=== PATIENT | male | born 1945 | race Caucasian/White ===

== ENCOUNTER → 2017-10-20 08:49 | Outpatient (CLI) | payer OTHER, MEDICARE, SELFPAY ==
[2017-10-20 10:26] LABS: Add Manual Diff / Slide Review NO; Basophils Percent Auto 1.1 % (0-2); Eosinophils Percent Auto 2.7 % (2-4); Hematocrit 42.6 % (41-53); Hemoglobin 14.5 g/dL (13.5-17.5); Lymphocytes Percent Auto 34.3 % (25-40); Mean Corpuscular HGB Conc 34.1 % (30-36); Mean Corpuscular Hemoglobin 32.6 PG (26-34); Mean Corpuscular Volume 95.8 fL (80-100); Monocytes Percent Auto 8.9 % (3-14); Neutrophils Absolute Auto 2500 /uL (3000-5900); Platelet Count 212 X10^3/uL (150-400); Red Blood Cell Count 4.45 X10^6/uL (4.5-5.9); Red Cell Distribution Width 13.2 % (11.6-14.8); White Blood Cell Count 4.7 X10^3/uL (4.5-11.0)
[2017-10-20 10:38] LABS: Hemoglobin A1C% w Est Avg Glu 5.6 % (4.0-6.0)
[2017-10-20 11:54] LABS: Alanine Aminotransferase 28 IU/L (21-72); Albumin 3.7 g/dL (3.5-5.0); Albumin Globulin Ratio 1.3 (1.0-2.8); Alkaline Phosphatase 85 U/L (38-126); Aspartate Aminotransferase 23 IU/L (17-59); BUN Creatinine Ratio 21.3 (6-22); Bilirubin Total 0.8 mg/dL (0.2-1.3); Blood Urea Nitrogen 17 mg/dL (9-20); Calcium 8.9 mg/dL (8.4-10.2); Carbon Dioxide 26 mmol/L (22-32); Chloride 106 mmol/L (98-107); Cholesterol 174 mg/dL (140-199); Estimated Glomerular Filt Rate > 60.0 mL/min (>60); Globulin 2.9 g/dL (1.7-4.1); Glucose 115 mg/dL (80-110); HDL Cholesterol 29 mg/dL (40-60); HEMOLYSIS < 15 (0-50); Potassium 4.4 mmol/L (3.4-5.1); Sodium 142 mmol/L (137-145); Total Protein 6.6 g/dL (6.3-8.2)
[2017-10-20 11:55] LABS: LDL Cholesterol Calculated 111 mg/dL (<100); Triglycerides 169 mg/dL (35-150)
[2017-10-20 12:21] LABS: Prostate Specific Antigen Scrn 2.22 ng/mL (0.1-4.0)
== END ==
PROVIDERS: Family Provider Family Medicine; PCP Family Medicine; Visit Provider Family Medicine
DX: R73.01 Impaired fasting glucose (principal); R73.09 Other abnormal glucose; R00.2 Palpitations; I48.91 Unspecified atrial fibrillation; E78.4 Other hyperlipidemia; Z80.42 Family history of malignant neoplasm of prostate; Z12.5 Encounter for screening for malignant neoplasm of prostate; Z79.899 Other long term (current) drug therapy
CPT/HCPCS: 36415; 80053; 80061; 83036; 85025; G0103

== ENCOUNTER → 2018-02-03 11:55 | Outpatient (CLI) | payer OTHER, MEDICARE, SELFPAY ==
[2018-02-03 12:25] LABS: Add Manual Diff / Slide Review NO; Eosinophils Percent Auto 1.9 % (2-4); Hematocrit 44.2 % (41-53); Hemoglobin 15.2 g/dL (13.5-17.5); Lymphocytes Percent Auto 27.2 % (25-40); Mean Corpuscular HGB Conc 34.4 % (30-36); Mean Corpuscular Hemoglobin 32.7 PG (26-34); Monocytes Percent Auto 9.5 % (3-14); Neutrophils Absolute Auto 3600 /uL (3000-5900); Neutrophils Percent Auto 60.4 % (50-75); Platelet Count 212 X10^3/uL (150-400); Red Blood Cell Count 4.65 X10^6/uL (4.5-5.9); Red Cell Distribution Width 12.7 % (11.6-14.8)
[2018-02-03 13:52] LABS: Carbon Dioxide 28 mmol/L (22-32); Chloride 104 mmol/L (98-107); HEMOLYSIS < 15 (0-50); Potassium 4.4 mmol/L (3.4-5.1); Sodium 141 mmol/L (137-145)
== END ==
PROVIDERS: Family Provider Family Medicine; PCP Family Medicine; Visit Provider Orthopaedic Surgery
DX: M16.0 Bilateral primary osteoarthritis of hip (principal); Z01.818 Encounter for other preprocedural examination; Z01.812 Encounter for preprocedural laboratory examination
CPT/HCPCS: 80051; 85025; 93005; 93010

== ENCOUNTER 2018-03-02 12:35 | Inpatient (IN) | payer OTHER, MEDICARE, SELFPAY ==
[2018-02-24 09:33] VITALS: BMI 28.5
[2018-03-02] VITALS (12 sets, daily range): BP systolic 105–141; BP diastolic 63–80; PULSE 43–76; RESP 10–21; TEMP 36.1–36.8; O2SAT 91–98; BMI 28.9
--- NOTE | 2018-03-02 | DI.RAD.S_ITS ---
PROCEDURE: XR PELVIS 1-2V INDICATIONS: POST OP TOTAL HIP TECHNIQUE: 1 view of the lower pelvis acquired. [place] WITH LATERAL HIP LEFT, 09/16/2017, 9:15. [facility]ES[facility] Lock, BILATERAL HIP 2VW, 04/29/2016, 15:33. FINDINGS: Bones: Patient is status post left hip arthroplasty, with hardware components in expected positions. The hip joint appears congruent. The visualized bony structures appear intact. Prominent degenerative changes are noted within the right hip. Soft tissues: Overlying postoperative changes are noted. No suspicious soft tissue densities. IMPRESSION: Intraoperative left hip arthroplasty as above. Dictated by: Baylee Ocampo M.D. on 03/02/2018 at 16:39 Approved by: Baylee Ocampo M.D. on 03/02/2018 at 16:41
[2018-03-02] MEDS: CELECOXIB 200 MG CAPSULE PO (13:18)
[2018-03-02] MEDS: PREGABALIN 75 MG CAPSULE PO (13:18)
[2018-03-02] MEDS: ACETAMINOPHEN 325 MG TABLET 975 MG PO ×2 (13:18→21:33)
--- NOTE | 2018-03-02 14:28 | PM.PREOP ---
Pre-operative Note Interval Note Pre-op Check: Yes History & Physical Reviewed by Physician Changes: No
[2018-03-02] MEDS: MIDAZOLAM 2 MG/2 ML VIAL IV (14:41)
--- NOTE | 2018-03-02 14:42 | SUR.PREOP ---
Pt taken directly in the OR after versed given via iv. pt talking to RN and at bedside.
[2018-03-02] MEDS: CEFAZOLIN 2 GM/100 ML FROZ.PIGGY IV ×2 (14:53→23:43)
[2018-03-02] MEDS: TRANEXAMIC ACID 1,000 MG VIAL 2000 MG INJ ×2 (15:05→15:46)
--- NOTE | 2018-03-02 15:14 | SUR.OPER ---
Lateral on padded OR bed. Gel axillary roll. Arms secured on padded armboard with pillow supporting top arm. Padded hip positioner braces x4 - anterior and posterior chest and pelvis. Additional gel pad used anterior pelvis. Gel pad under bottom leg from knee to foot and secured with tape over sheet.
[2018-03-02] MEDS: BUPIVACAINE 0.25% W/ EPI VIAL 50 ML INJ (15:22)
--- NOTE | 2018-03-02 16:13 | PM.OP.1 ---
Operative Date/Time/Diagnoses Date of procedure: 03/02/18 Time of procedure: 16:13 Pre-op diagnosis: Left hip degenerative joint disease Post-op diagnosis: same Procedure & Clinicians Procedure: Left total hip arthroplasty (CPT code 72816 with dental chairside assistant) Same procedure as scheduled: Yes Indications: Patient is an 72-year-old male with severe left hip DJD. The patient has pain with activities and at rest, limited ambulation and activity tolerance, difficulties with ADLs, and failure of conservative treatment. We have discussed the nature of condition, treatment options, risks and benefits, and patient elects to proceed with total hip arthroplasty and gives informed consent. Surgeon: Harsh Fields Stationary Steam Engineer: Yamilet Adams Anesthesia Type: General and Spinal Operative Notes Closure Type: primary Specimen(s): none sent Implants & Drains: Acetabulum: Rivera [employer] Nephew R3 acetabular component size 58 mm Femoral component: Rivera [employer] Nephew Synergy stem size 16 with high offset Femoral head: 36 mm + 0 cobalt chrome Estimated Blood Loss (mL): 100 Blood products transfused: none Procedure in detail: After satisfaction induction of anesthetic, and administration of IV antibiotics, the patient was positioned in the lateral decubitus position with all bony prominences well padded and pelvic position secured using a hip lead welder positioning device. Left hip and lower extremity prepped and draped in the usual sterile fashion, 1st dose of intravenous tranexamic acid was administered, then a longitudinal incision was created centered over the greater trochanter and carried sharply through the skin and subcutaneous tissues down to the fascia kevin which was divided longitudinally and retracted with a Charnley retractor. External rotators visualize, cut, tagged, and retracted posteriorly, then the capsule was cut in a T-type fashion with the corners tagged and retracted. Hip was dislocated and femoral neck cut made according to preoperative templating. Acetabular retractors then placed, and the acetabular labrum and osteophytes were excised. The acetabulum was then sequentially reamed to 57 mm with an excellent circumferential ream and fit with the trial. The trial component was removed and a permanent size 58 mm Rivera [employer] Nephew R3 acetabular component was selected, positioned, and impacted with satisfactory position and fixation achieved. Permanent liner was then inserted with the elevated lip directed posteriorly. Soft tissue then removed off the lateral femoral neck in the lateral neck was entered using a box osteotome. T-handled reamers placed down the canal followed by sequential broaching to 16 with the final broach left in place for trial reduction with a high offset neck which demonstrated excellent leg length, range of motion, and stability characteristics with a 36 mm +0 trial ball. The trial and broach were removed, and a permanent size 16 high offset Rivera and Nephew Synergy stem was selected and inserted with excellent position and fixation achieved. Another trial reduction yielded the above characteristics so the trial ball was exchanged for a permanent 36 mm +0 cobalt chrome ball. The hip was irrigated and reduced and excellent leg length range of motion and stability characteristics were achieved and maintained. The hip was copiously irrigated, and the capsule repaired with #2 Ethibond, and the piriformis was repaired back to the greater trochanter with the same. Fascia kevin closed with interrupted #1 Ethibond sutures, and the subcutaneous tissues were closed in 2 layers of 0 Vicryl and 2 0 Vicryl. Skin was closed with jon and sterile dressings applied. Second dose of tranexamic acid was administered intravenously, and the anesthetic was terminated. Complications: none Condition: stable Disposition: PACU Plan for aftercare: Patient will be admitted to the acute care [facility], and anticipate discharge on postop day 1-2 with follow-up in office in 10-14 days. Outpatient physical therapy will be arranged and patient will continue to observe posterior hip precautions. Patient will continue use of postoperative Lovenox for 10 days postop.
--- NOTE | 2018-03-02 16:16 | P.OP_ITS ---
Operative Date/Time/Diagnoses Date of procedure: 03/02/18 Time of procedure: 16:13 Pre-op diagnosis: Left hip degenerative joint disease Post-op diagnosis: same Procedure & Clinicians Procedure: Left total hip arthroplasty (CPT code 18771 with assistant laboratory director) Same procedure as scheduled: Yes Indications: Patient is an 72-year-old male with severe left hip DJD. The patient has pain with activities and at rest, limited ambulation and activity tolerance, difficulties with ADLs, and failure of conservative treatment. We have discussed the nature of condition, treatment options, risks and benefits, and patient elects to proceed with total hip arthroplasty and gives informed consent. Surgeon: Harsh Fields Job Lithographer: Yamilet Adams Anesthesia Type: General and Spinal Operative Notes Closure Type: primary Specimen(s): none sent Implants & Drains: Acetabulum: Rivera [employer] Nephew R3 acetabular component size 58 mm Femoral component: Rivera [employer] Nephew Synergy stem size 16 with high offset Femoral head: 36 mm + 0 cobalt chrome Estimated Blood Loss (mL): 100 Blood products transfused: none Procedure in detail: After satisfaction induction of anesthetic, and administration of IV antibiotics, the patient was positioned in the lateral decubitus position with all bony prominences well padded and pelvic position secured using a hip metal flow coordinator positioning device. Left hip and lower extremity prepped and draped in the usual sterile fashion, 1st dose of intravenous tranexamic acid was administered, then a longitudinal incision was created centered over the greater trochanter and carried sharply through the skin and subcutaneous tissues down to the fascia kevin which was divided longitudinally and retracted with a Charnley retractor. External rotators visualize, cut, tagged, and retracted posteriorly, then the capsule was cut in a T-type fashion with the corners tagged and retracted. Hip was dislocated and femoral neck cut made according to preoperative templating. Acetabular retractors then placed, and the acetabular labrum and osteophytes were excised. The acetabulum was then sequentially reamed to 57 mm with an excellent circumferential ream and fit with the trial. The trial component was removed and a permanent size 58 mm Rivera and Nephew R3 acetabular component was selected, positioned, and impacted with satisfactory position and fixation achieved. Permanent liner was then inserted with the elevated lip directed posteriorly. Soft tissue then removed off the lateral femoral neck in the lateral neck was entered using a box osteotome. T-handled reamers placed down the canal followed by sequential broaching to 16 with the final broach left in place for trial reduction with a high offset neck which demonstrated excellent leg length, range of motion, and stability characteristics with a 36 mm +0 trial ball. The trial and broach were removed, and a permanent size 16 high offset Rivera and Nephew Synergy stem was selected and inserted with excellent position and fixation achieved. Another trial reduction yielded the above characteristics so the trial ball was exchanged for a permanent 36 mm +0 cobalt chrome ball. The hip was irrigated and reduced and excellent leg length range of motion and stability characteristics were achieved and maintained. The hip was copiously irrigated , and the capsule repaired with #2 Ethibond, and the piriformis was repaired back to the greater trochanter with the same. Fascia kevin closed with interrupted #1 Ethibond sutures, and the subcutaneous tissues were closed in 2 layers of 0 Vicryl and 2 0 Vicryl. Skin was closed with jon and sterile dressings applied. Second dose of tranexamic acid was administered intravenously , and the anesthetic was terminated. Complications: none Condition: stable Disposition: PACU Plan for aftercare: Patient will be admitted to the acute care [facility], and anticipate discharge on postop day 1-2 with follow-up in office in 10-14 days. Outpatient physical therapy will be arranged and patient will continue to observe posterior hip precautions. Patient will continue use of postoperative Lovenox for 10 days postop.
--- NOTE | 2018-03-02 16:32 | SUR.PHASEI ---
pt arrived, gradually awake, report to solis Leblanc
--- NOTE | 2018-03-02 16:34 | SUR.PHASEI ---
Assumed care. Pt denied pain or nausea. VS stable.
--- NOTE | 2018-03-02 16:40 | SUR.PHASEI ---
Report called to Rula
--- NOTE | 2018-03-02 16:57 | SUR.PHASEI ---
Pt transferred to the floor, awake, oriented. VS stable. Drsg CDI. IV saline locked. Belongings bag with patient. Report to Rula.
--- NOTE | 2018-03-02 17:05 | PC.ADMIT ---
[email or web address] Admission Note: The patient,Kp Cortez,72 y/o, was given written information regarding hospital policies, unit procedures and contact persons. Patient's smoking status: Former smoker. Vital Signs - 8 hr 03/02/18 13:07 03/02/18 16:10 03/02/18 16:15 Temperature 97.0 F L 97.0 F L Pulse Rate 52 L 52 L 54 L Respiratory Rate 15 16 17 Blood Pressure 141/80 H 115/69 110/63 Pulse Oximetry 98 93 94 03/02/18 16:20 03/02/18 16:26 03/02/18 16:43 Temperature Pulse Rate 51 L 51 L 47 L Respiratory Rate 18 10 L 10 L Blood Pressure 112/66 105/75 114/67 Pulse Oximetry 94 95 94 Patient up from pacu, awake and alert. Denies any pain. uses hearing aids but does not have them with him at this time.
[2018-03-02] MEDS: LACTATED RINGERS 1,000 ML 125 ML IV (17:29)
--- NOTE | 2018-03-02 17:42 | PC.NURSE ---
[place] shift note: Patient admitted to AC post operatively for a Left hip arthroplasty. Awake, alert, and cooperative. No c/o nausea, tolerating regular diet. Bulky dressing to left hip, CDI. Hip precautions maintained, pillow in between extremities. SCD in place. Sensation present to LLE, warm, cap refill < 3 sec, 2+ pedal pulses, however unable to moves toes, only moving foot slightly off bed. IVF infusing. at bedside providing supportive care, call light within reach
[2018-03-02] MEDS: hydrOXYzine pamoate 25 MG CAPSULE PO (19:09)
[2018-03-02] MEDS: FINASTERIDE 5 MG TABLET PO (21:30)
[2018-03-02] MEDS: TAMSULOSIN 0.4 MG CAPSULE 0.8 MG PO (21:31)
[2018-03-02] MEDS: PROPAFENONE 150 MG TABLET PO (21:31)
[2018-03-02] MEDS: DOCUSATE 100 MG CAPSULE PO (21:32)
--- NOTE | 2018-03-03 00:07 | PC.NURSE ---
Addendum entered by Karen Easley R.N. 03/03/18 06:06: Up to bathroom and attempted to urinate again but states only dribbled and stated he had a burning sensation. Discussed plan in regards to being able to urinate by 1100 or will bladder scan again and knows he will be unable to discharge unless he is able to urinate. Provided cranberry juice. Currently sitting up in chair with chair alarm on. Original Note: Addendum entered by Karen Easley R.N. 03/03/18 03:31: Patient still unable to urinate so agreeable to in/out cath. Cath done with patient stating pain during catheterization but overall tolerated. UOP 600cc clear celeste. SCD's removed per patient request; states unable to sleep with them on. Original Note: Addendum entered by Karen Easley R.N. 03/03/18 01:56: Still has been unable to urinate and bladder scan indicating 501cc in bladder. Patient refuses to have in/out cath at this time; wants to try drinking more water and will try to urinate again around 0230. Original Note: Patient is alert and oriented. Breath sounds diminished but CTA with RA sat of 93%. HRR. Denies nausea. BT very hypoactive and denies flatus. Was up to bathroom at shift change but was unable to void so has not voided as yet since return from surgery around 1700. Is able to move self in bed. Dressing to left hip is CDI. CMS intact. Reports when up to bathroom he felt like his left knee was going to give out; currently with pillows between knees to maintain alignment. SCD's applied. Fall risk score is moderate; bed alarm activated for night. Denies pain.
[2018-03-03] MEDS: LACTATED RINGERS 1,000 ML 125 ML IV (02:51)
[2018-03-03 03:00] VITALS: BP 108/73; PULSE 68; RESP 16; TEMP 36.4; O2SAT 93
[2018-03-03 06:41] LABS: Hematocrit 38.4 % (41-53); Hemoglobin 12.9 g/dL (13.5-17.5)
[2018-03-03] MEDS: CEFAZOLIN 2 GM/100 ML FROZ.PIGGY IV (06:54)
[2018-03-03 07:00] VITALS: BP 130/67; PULSE 69; RESP 16; TEMP 36.6; O2SAT 96
--- NOTE | 2018-03-03 07:49 | PM.DS.1 ---
History of Present Illness Date Patient Seen: 03/03/18 Time Patient Seen: 07:50 Chief complaint: [id number] LEFT TOTAL HIP ARTHROPLASTY Narrative: Pain mild. Denies fever chills. Was able to void a small amount this morning. Patient notes he has had history of BPH. Was able to get up with assistance and walk to the bathroom. Has not yet had physical therapy. Patient's is home to assist him. Patient would like to go home today if safe to do so. Discharge Providers Date of admission: 03/02/18 12:35 Primary care physician: Kp Hicks MD Consults: 03/02/18 16:49 Consult to Discharge Planning Routine Comment: Consult to Physical Therapy Evaluate & Treat Comment: Physician Instructions: post op ALESSANDRA protocol Consult to Respiratory Therapy Evaluate & Treat Comment: Physician Instructions: Evaluate and treat Discharge provider: Yoshi Givens PA-C Discharge Date: 03/03/18 Summary Discharge Diagnosis: Status post left total hip arthroplasty Hospital Course: Patient admitted to the hospital for left total hip arthroplasty. Patient failed a long course of outpatient conservative treatment for severe left hip DJD. Patient consented for left total hip arthroplasty. Patient taken to the operating room and is back in his room recovering well and is in stable condition. Patient has had some difficulty voiding. Patient is on Flomax and was able to void a small amount this morning. Patient will work with physical therapy prior to discharge. Patient will also need to urinate well prior to discharge. Status at Discharge Functional status at discharge: uses cane/walker Overall status at discharge: patient is progressing back to baseline Time Spent with Patient Less than 30 minutes Exam Vital Signs (past 8 hours): - 03/03/18 03:00 Temperature 97.5 F L Pulse Rate 68 Respiratory Rate 16 Blood Pressure 108/73 Pulse Oximetry 93 Oxygen Delivery Method Room Air Narrative Exam Narrative: Pleasant 72-year-old male resting comfortably in bed in no apparent distress. Left hip dressing is clean, dry and intact. Neurovascular status is intact to the distal left lower extremity. Objective Labs Result Diagrams: 03/03/18 06:23 Labs: Laboratory Results - last 24 hr 03/03/18 06:23 Hgb 12.9 L Hct 38.4 L Discharge Plan Discharge Plan Patient Disposition: Home Discharge comment: DC after PT today Needs to urinate prior to DC Discharge Med Rec/Prescriptions Prescriptions: New acetaminophen 325 mg Tablet 975 mg PO TID Qty: 60 RF: 0 enoxaparin [Lovenox] 40 mg/0.4 mL Syringe 40 mg subcut DAILY Qty: 9 RF: 0 Continue PROPAFENONE HCL (Propafenone HCl) 150 mg PO TID Qty: 90 RF: 0 metoprolol succinate 50 mg Tablet Extended Release 24 Hr 50 mg PO DAILY RF: 0 lorazepam 0.5 mg Tablet 0.5 mg PO BEDTIME PRN (Reason: flying) RF: 0 tamsulosin 0.4 mg Capsule 0.8 mg PO QPM RF: 0 etodolac 400 mg Tablet 400 mg PO BID RF: 0 finasteride 5 mg Tablet 5 mg PO QPM RF: 0 sildenafil [Viagra] 25 mg Tablet 50 mg PO DAILY PRN (Reason: Sexual Activity) RF: 0 Discontinued aspirin [Aspirin Low Dose] 81 mg Tablet,Delayed Release (Dr/Ec) 2 tab PO QAM Qty: 0 RF: 0 Follow up/Referrals: Kp Hicks MD [Primary Care Provider] - Harsh Fields MD [Physician] - 1 Week Provider Discharge Instructions Diet: Diet as Tolerated Activity: Weightbearing as tolerated, posterior hip precautions Cold/Heat Therapy: Ice to the affected hip as needed Other treatments: Keep wound clean and dry, patient will be on Lovenox for total of 10 days and then restart aspirin. Tylenol 1000 mg 3 times a day, Vistaril as needed muscle spasms and nausea. Oxycodone as needed for pain. Anti-inflammatory daily Skin/Wound/Dressing Care Report to your healthcare provider any signs of infection, such as:: chills, fever, increased pain and unusual drainage Dressing: keep clean and dry Discharge Data Primary Care Provider: Kp Hicks Attending Provider: Harsh Fields Admit Date/Time: 03/02/18 12:35 Quality VTE Deep Vein Thrombosis/Pulmonary Embolism Present on Admission: No
[2018-03-03] MEDS: ACETAMINOPHEN 325 MG TABLET 975 MG PO ×3 (10:21→20:09)
[2018-03-03] MEDS: DOCUSATE 100 MG CAPSULE PO ×2 (10:23→20:09)
[2018-03-03] MEDS: ENOXAPARIN 40 MG/0.4 ML SYRINGE SUBCUT (10:27)
[2018-03-03] MEDS: TAMSULOSIN 0.4 MG CAPSULE 0.8 MG PO (10:27)
[2018-03-03] MEDS: PROPAFENONE 150 MG TABLET PO ×3 (10:28→20:08)
[2018-03-03] MEDS: METOPROLOL ER 50 MG TABLET PO (10:28)
--- NOTE | 2018-03-03 13:34 | PT.IIE ---
Current Diagnoses Unilateral primary osteoarthritis, left hip (03/02/18) Surgery Performed Operation Date: 03/02/18 14:30 Actual Procedures p Total Hip Arthroplasty(Left) - Harsh Fields MD Surgical History (Last Updated 02/24/18 @ 10:36 by Shannan Venegas RN) H/O vasectomy (Acute) History of colonoscopy (Acute) Hx of oral surgery (Acute) Hx of tonsillectomy (Acute) Medical History (Last Updated 02/24/18 @ 10:33 by Shannan Venegas RN) BPH with obstruction/lower urinary tract symptoms (Acute ~1992) Back pain (Acute) Chest pain, atypical (Acute) Colitis (Acute) Costochondritis (Acute) Depression with anxiety (Acute) Dermatofibroma (Acute ~1991) Diverticulum of bladder (Acute) Erectile dysfunction (Acute) Generalized arthritis (Acute) Genital herpes (Acute) Hearing loss (Acute) History of cardioversion (Acute ~2006) Hyperlipidemia (Acute) IBS (irritable bowel syndrome) (Acute ~2003) Microscopic hematuria (Acute) Neck pain (Acute) Numbness and tingling (Acute) Palpitations (Acute) Paroxysmal atrial fibrillation (Acute) Pneumonia (Acute) Scrotal cyst (Acute) Urinary retention (Acute) Physical Therapy Inpatient Evaluation/Re-Eval M1 PT/OT-IP Prior Functional Status Start: 03/03/18 12:20 Freq: NEEDED Status: Active Protocol: Document 03/03/18 08:48 (Rec: 03/03/18 12:40 [email or web address]) Medical Review Prior Functional Status Medical History Reviewed Yes Communication No deficits noted. Mobility and Gait Previously independent with all mobilities using no AD. States some recent difficulty with dressing, but still independent. Pt drives. Social History Household Members spouse children Living Arrangements House Number of Floors (Floors) 3 or More Floors Number of Stairs To Enter/Railing? 6 steps to enter B wide rails. Basement downstairs pt does not need to access. 14 steps to upper floor where his bedroom and a walkin shower is , B rails ~fpc, L rail the rest of the way. He has a shower on the main floor that has 3 steps no rails to access , but pt states he could lean on a hottub (R ascending). 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 M2 PT-IP Current Condition Start: 03/03/18 12:20 Freq: NEEDED Status: Active Protocol: Document 03/03/18 08:48 (Rec: 03/03/18 12:40 [email or web address]) Physical Therapy Current Condition Current Condition Evaluation Date 03/03/18 Treatment Diagnosis L ALESSANDRA; difficulty walking Onset Date 03/02/2018 Precautions Posterior Hip Precautions No Hip Flexion > 90 degrees No Hip Internal Rotation No Hip Adduction Weight Bearing Status Weight Bearing Status Weight Bear as Tolerated M3 PT-IP Subjective Start: 03/03/18 12:20 Freq: NEEDED Status: Active Protocol: Document 03/03/18 08:48 (Rec: 03/03/18 12:40 [email or web address]) Subjective Physical Therapy Visit Type Type Initial Evaluation Visit Start Time 08:48 Visit Stop Time 09:48 Total Visit Minutes 60 Number of ACUTE DIALYSIS NURSE Visits 0 Physical Therapy Visit Comments Patient Comments Pt agreeable to mobilize with PT. Patient Goals Planning to go home with who can assist 24/7 for 1 wk. Therapy Pain Assessment Pain When Pain Assessed During Mobility Pain Present Pain Present Pain Reported Location Left Hip Scale Used 3-4/10 during stair climbing. 0/10 at rest. Pain Management Techniques Apply Cold Modification of Treatment Re-positioning Timing of Activity with Medications M4 PT-IP Mobility and Gait Start: 03/03/18 12:20 Freq: NEEDED Status: Active Protocol: Document 03/03/18 08:48 (Rec: 03/03/18 12:40 [email or web address]) PT-Bed Mobility Assessment Supine to Sit Supine to Sit Standby Assistance Sit to Supine Sit to Supine Standby Assistance Scooting Scooting to Edge of Bed Standby Assistance PT-Transfer Assessment Sit to and From Stand Sit to and from Stand Standby Assistance Equipment Transfer Assistive Device Gait Belt Front Wheeled Walker Orthotic/Prosthetic Devices or Brace: No Transfers Transfer Destination Bed Chair Transfer Technique Ambulates between surfaces Comments Mobility Comments Pt resquesting to use bathroom upon PT entry. Sit <> supine SBA with min cues. Sit <> stand SBA mod cues. Gait Assessment Gait Gait Assistance Required: Standby Assistance Distance (Feet) 300 Able to Maintain Weight Bearing Status Yes During Gait Assistive Devices Assistive Device Gait Belt Front Wheeled Walker Orthotic/Prosthetic Devices or Brace: No Gait Deviations General Gait Pattern Antalgic Factors Limiting Gait Function Factors Limiting Gait Function Decreased Activity Tolerance Decreased Strength Limited Range of Motion Pain Poor Balance Poor Safety Awareness Comments Gait Comments 300 ft ambulation to/from stairs is SBA with fww. Pt gait is slightly antalgic over the L side but otherwise WNL with min cues to activate quad during stance on LLE. Stair Climbing Assessment Evaluation Level of Assist On Stairs Standby Assistance Devices Stair Climbing Assistive Devices Right Railing Technique/Endurance Stair Climbing Direction Ascend and Descend Stair Climbing Technique Step to Step Number of Steps Climbed 3 Query Text: Stair Climbing Set # Repetitions (reps) 1 Comments Stair Climbing Comments Pt up/down 3 steps R rail with SBA, min cues. Pt noted to lean heavily on R rail. PT-Balance Assessment Sitting Balance and Reactions Static Sitting Balance Ability Good Dynamic Sitting Balance Ability Good Standing Balance and Reactions Static Standing Balance Ability Good Dynamic Standing Balance Ability Fair Device Used fww M5 PT-IP Objective Assessments Start: 03/03/18 12:20 Freq: NEEDED Status: Active Protocol: Document 03/03/18 08:48 (Rec: 03/03/18 12:40 [email or web address]) Orientation Orientation/Cognition Level of Alertness Alert Orientation Name Age Birthday Month Date Year Day of Week Place Situation Language Function Ability No Deficits Noted Safety Awareness Decreased Safety Awareness Gross Range of Motion Lower Extremity ROM Assessment Left Impaired Impairments Limited by precaution Strength Lower Extremity Strength Assessment Left Impaired Comments Strength Comments RLE 5/5. LLE 4/5 Sensation Assessment Sensation Light Touch Intact M6 PT-IP Treatment Start: 03/03/18 12:20 Freq: NEEDED Status: Active Protocol: Document 03/03/18 08:48 (Rec: 03/03/18 12:40 [email or web address]) Physical Therapy Treatment Exercises Exercises Ankle Pumps Gluteal Sets Quad Sets Heel Slides Straight Leg Raises Supine Hip Abduction Education Education Provided Precautions Weight Bearing Status Post-Op Packet Safety M7 PT-IP Assessment and Plan Start: 03/03/18 12:20 Freq: NEEDED Status: Active Protocol: Document 03/03/18 08:48 (Rec: 03/03/18 12:40 [email or web address]) PT Summary Assessment and Plan Potential Rehabilitation Potential Good Status of Condition at Evaluation Stable Summary Impairments Pain ROM Strength Balance Bed Mobility Transfers Gait Activity Tolerance Progress Towards Goals Progressing Toward Goals Assessment Summary Pt s/p L ALESSANDRA with difficulty walking. Pt was able to complete 300 ft ambulation with fww SBA and ascend/ descend 3 steps with R rail SBA this session. Pt needing to progress stair climbing prior to d/c. Once completed and pt is medically ready, recommend d/c home with 24/7 assist and OP PT. Goals Bed Mobility Goal Independent Transfer Goal Independent Front Wheeled Walker Gait Goal Independent Front Wheel Walker Gait Distance 300 Other Goals 300 ft ambulation with fww independent. Up/down 20 steps L rail Up down 3 steps NO rail and 2 canes (pt has trekking poles) Comment: Stair goals are related to which bathroom the pt decides he would prefer to access and which would be the most safe for him, we discussed that the 20 steps may be easier since they have a rail, his bedroom is up there, and he has been doing so well with mobilities thus far. Frequency of Treatment Frequency Of Treatment Twice a Day Treatment Plan Physical Therapy Treatment Plan Bed Mobility Training Transfer Training Gait Training Therapeutic Exercise Balance Retraining Post Op Education Discharge Planning Hot or Cold Pack Neuromuscular Re-ed Coordination Retraining Manual Therapy Other Recommendations and Next Treatment Stair climbing. See goals Focus for details Recommendations To Nursing Amount of Assist Needed Standby Assistance Discharge Recommendations PT Discharge Recommendations Home with 24/7 Assist Outpatient PT
--- NOTE | 2018-03-03 15:44 | PC.NURSE ---
Addendum entered by Lorie Lima R.N. 03/03/18 15:49: This Morning, instructions given to pt on lovenox injections, with writers instructions, pt able to return demonstrate lovenox injection with proper technique. Pt's was standing by and observing. Original Note: Day Shift- Pt OOB with SBA to BR several times throughout shift. Worked with PT performing stair training X2. Ready for discharge per PT. Left hip bulky dressing CDI, CMS+. Rates 2-3/10 soreness to left hip controlled with scheduled Tylenol. Pt Bladder scanned at 1210 for 800mls after voiding 200mls. Informed pt that we may need to call Dr to update for new orders. Options for straight cath or indwelling, may need to stay tonight, depending on voiding progress. Pt wanted to think about it. Pt states has voiding issues at home where he feels he doesn't void all at once like he can't get it all out. But with this hospital stay he has discomfort to bladder area, not pain just the constant urge to void. Report given to Brea Rowland for evening at 1540.
--- NOTE | 2018-03-03 15:51 | PT.IPTN ---
Current Diagnoses Unilateral primary osteoarthritis, left hip (03/02/18) Surgery Performed Operation Date: 03/02/18 14:30 Actual Procedures p Total Hip Arthroplasty(Left) - Harsh Fields MD Physical Therapy Treatment Note M2 PT-IP Current Condition Start: 03/03/18 12:20 Freq: NEEDED Status: Active Protocol: Document 03/03/18 08:48 (Rec: 03/03/18 12:40 [email or web address]) Physical Therapy Current Condition Current Condition Evaluation Date 03/03/18 Treatment Diagnosis L ALESSANDRA; difficulty walking Onset Date 03/02/2018 Precautions Posterior Hip Precautions No Hip Flexion > 90 degrees No Hip Internal Rotation No Hip Adduction Weight Bearing Status Weight Bearing Status Weight Bear as Tolerated M3 PT-IP Subjective Start: 03/03/18 12:20 Freq: NEEDED Status: Active Protocol: Document 03/03/18 13:35 CLB (Rec: 03/03/18 15:51 CLB [id number]) Subjective Physical Therapy Visit Type Type Treatment Note Visit Start Time 13:35 Visit Stop Time 14:12 Total Visit Minutes 47 Number of SOCIAL INSURANCE SPECIALIST Visits 1 Physical Therapy Visit Comments Patient Comments Pt agreeable to mobilize with PT. Patient Goals Planning to go home with who can assist / for 1 wk. Therapy Pain Assessment Pain When Pain Assessed During Mobility Pain Present Pain Present Pain Reported Location Left Hip Intensity 3 Scale Used Numeric (1 - 10) Pain Management Techniques Apply Cold Modification of Treatment Re-positioning Timing of Activity with Medications M4 PT-IP Mobility and Gait Start: 03/03/18 12:20 Freq: NEEDED Status: Active Protocol: Document 03/03/18 13:35 CLB (Rec: 03/03/18 15:51 CLB [id number]) PT-Bed Mobility Assessment Sit to Supine Sit to Supine Standby Assistance Scooting Scooting Up and Down in Bed Standby Assistance PT-Transfer Assessment Sit to and From Stand Sit to and from Stand Standby Assistance Equipment Transfer Assistive Device Gait Belt Front Wheeled Walker Orthotic/Prosthetic Devices or Brace: No Transfers Transfer Destination Bed Chair Transfer Technique Ambulates between surfaces Comments Mobility Comments Pt requires SBA for all mobility with cues to prevent breaking 90 degree hip precaution while getting into bed. Gait Assessment Gait Gait Assistance Required: Standby Assistance Distance (Feet) 200 Able to Maintain Weight Bearing Status Yes During Gait Assistive Devices Assistive Device Gait Belt Front Wheeled Walker Orthotic/Prosthetic Devices or Brace: No Gait Deviations General Gait Pattern Antalgic Factors Limiting Gait Function Factors Limiting Gait Function Decreased Activity Tolerance Decreased Strength Limited Range of Motion Pain Poor Balance Comments Gait Comments Pt ambulated SBA using step through gait pattern. Stair Climbing Assessment Evaluation Level of Assist On Stairs Standby Assistance Devices Stair Climbing Assistive Devices Right Railing Technique/Endurance Stair Climbing Direction Ascend and Descend Stair Climbing Technique Step to Step Number of Steps Climbed 3 Query Text: Stair Climbing Set # Repetitions (reps) 2 Comments Stair Climbing Comments Pt climbed stairs SBA recalling proper sequencing from morning session with PT. M5 PT-IP Objective Assessments Start: 03/03/18 12:20 Freq: NEEDED Status: Active Protocol: Document 03/03/18 08:48 (Rec: 03/03/18 12:40 [email or web address]) Orientation Orientation/Cognition Level of Alertness Alert Orientation Name Age Birthday Month Date Year Day of Week Place Situation Language Function Ability No Deficits Noted Safety Awareness Decreased Safety Awareness Gross Range of Motion Lower Extremity ROM Assessment Left Impaired Impairments Limited by precaution Strength Lower Extremity Strength Assessment Left Impaired Comments Strength Comments RLE 5/5. LLE 4/5 Sensation Assessment Sensation Light Touch Intact M6 PT-IP Treatment Start: 03/03/18 12:20 Freq: NEEDED Status: Active Protocol: Document 03/03/18 13:35 CLB (Rec: 03/03/18 15:51 CLB [id number]) Physical Therapy Treatment Exercises Exercises Ankle Pumps Gluteal Sets Quad Sets Heel Slides Straight Leg Raises Supine Hip Abduction Education Education Provided Precautions Weight Bearing Status Post-Op Packet Safety M7 PT-IP Assessment and Plan Start: 03/03/18 12:20 Freq: NEEDED Status: Active Protocol: Document 03/03/18 13:35 CLB (Rec: 03/03/18 15:51 CLB [id number]) PT Summary Assessment and Plan Potential Rehabilitation Potential Good Status of Condition at Evaluation Stable Summary Impairments Pain ROM Strength Balance Bed Mobility Transfers Gait Activity Tolerance Progress Towards Goals Progressing Toward Goals Assessment Summary Pt is SBA for all transfers, gait and stair climbing. Pt able to perform all ther ex within pain free range needing Min Cues for no 90 degrees hip flx. Pt seems able to d/c home with 24/7 assist when medically stable. Goals Bed Mobility Goal Independent Transfer Goal Independent Front Wheeled Walker Gait Goal Independent Front Wheel Walker Gait Distance 300 Other Goals 300 ft ambulation with fww independent. Up/down 20 steps L rail Up down 3 steps NO rail and 2 canes (pt has trekking poles) Comment: Stair goals are related to which bathroom the pt decides he would prefer to access and which would be the most safe for him, we discussed that the 20 steps may be easier since they have a rail, his bedroom is up there, and he has been doing so well with mobilities thus far. Frequency of Treatment Frequency Of Treatment Twice a Day Treatment Plan Physical Therapy Treatment Plan Bed Mobility Training Transfer Training Gait Training Therapeutic Exercise Balance Retraining Post Op Education Discharge Planning Hot or Cold Pack Neuromuscular Re-ed Coordination Retraining Manual Therapy Recommendations To Nursing Amount of Assist Needed Standby Assistance Discharge Recommendations PT Discharge Recommendations Home with / Assist Outpatient PT
[2018-03-03 16:23] VITALS: BP 123/83; PULSE 66; RESP 19; TEMP 37; O2SAT 94
[2018-03-03] MEDS: INFLUENZA VACCINE 0.5 ML SYRINGE IM (16:25)
[2018-03-03] MEDS: FINASTERIDE 5 MG TABLET PO (20:09)
[2018-03-03] MEDS: hydrOXYzine pamoate 25 MG CAPSULE PO (20:12)
[2018-03-03] MEDS: SODIUM CHLORIDE 0.9% FLUSH 10 ML IV (20:23)
[2018-03-03 21:44] VITALS: BP 109/68; PULSE 64; RESP 18; TEMP 36.9; O2SAT 92
--- NOTE | 2018-03-03 23:38 | PC.NURSE ---
SHIFT NOTE Received pt while getting [place] placed. per float RN report, pt's d/c home tonight was cancelled due to urinary retention. L hip bulky dressing CDI. pt denies any numbness/tingling. slight swelling noted to L foot, 1+, but CMS intact. c/o pain to L hip with activity but states scheduled tylenol effective for pain management. pt found ambulating to bathroom with 's assist. educated pt and about safety and to have staff present for OOB activity. pt agreeable. bed alarm placed.
[2018-03-04 03:22] VITALS: BP 115/60; PULSE 60; RESP 20; TEMP 36.6; O2SAT 93
--- NOTE | 2018-03-04 03:27 | PC.NURSE ---
Addendum entered by Karen Easley R.N. 03/04/18 06:50: Complains of 6/10 pain in quads stating he can't move leg it hurts too bad; medicated with Vicodin + Vistaril. Continues to refuse SCD's. Slept well. Original Note: Patient is alert and oriented. Breath sounds CTA with RA sat of 93%. HRR. Denies nausea. BT hypoactive; states he is passing flatus. Indwelling catheter is patent with clear yellow urine in bag. Able to move self in bed. Dressing to left hip is CDI. Denies any current pain. CMS intact. Declines to wear SCD's as they keep him awake; reminded to ankle wave. Fall risk score is moderate; bed alarm is activated.
[2018-03-04] MEDS: hydrOXYzine pamoate 25 MG CAPSULE PO (06:44)
[2018-03-04] MEDS: HYDROCODONE/ACET 5/325 TABLET 1 TAB PO (06:46)
--- NOTE | 2018-03-04 07:20 | PM.PNPO.1 ---
Subjective Date Patient Seen: 03/04/18 Time Patient Seen: 07:20 Interval history: Patient is postop day 2. Status post left total hip arthroplasty by Dr. Fields. Has a history of urinary retention due to enlarged prostate is receiving Flomax and Proscar. Urinary catheter was placed yesterday due to urinary retention about 1500 cc of urine. Having a little bit more pain in the left anterior thigh this morning. Just received pain medication. Exam Vital Signs (past 8 hours): - 03/04/18 03:22 Temperature 97.9 F Pulse Rate 60 Respiratory Rate 20 Blood Pressure 115/60 Pulse Oximetry 93 Oxygen Delivery Method Room Air Narrative Exam Narrative: Patient in bed. Alert and orient x3. Casanova catheter in. Left hip dressing is dry but is coming apart. Moderate swelling in left anterior thigh and left foot bilateral calf soft and nontender. 5/5 left ankle strength. Neurovascular status intact. Objective Labs Result Diagrams: 03/03/18 06:23 Assessment & Plan Post-op (1) Urinary retention due to benign prostatic hyperplasia: Problem details: Continue Proscar and Flomax. Will try to get into each with his urologist about possibly increasing dosages of these medications. Current Visit: Yes Status: Acute Postoperative Procedures Operation Date: 03/02/18 14:30 Actual Procedures Side Surgeon p Total Hip Arthroplasty Left Harsh Fields MD postop day 2. Continue PT. Continue posterior hip precautions. Continue DVT prophylaxis with Lovenox. Change to recover site dressing. Possible home the next day and 2 urinary retention issues resolve. Quality VTE Deep Vein Thrombosis/Pulmonary Embolism Present on Admission: No
[2018-03-04 07:37] VITALS: BP 123/70; PULSE 65; RESP 16; TEMP 36.9; O2SAT 92
[2018-03-04] MEDS: ACETAMINOPHEN 325 MG TABLET 975 MG PO ×3 (09:22→20:58)
[2018-03-04] MEDS: DOCUSATE 100 MG CAPSULE PO ×2 (09:22→20:58)
[2018-03-04] MEDS: TAMSULOSIN 0.4 MG CAPSULE 0.8 MG PO (09:22)
[2018-03-04] MEDS: METOPROLOL ER 50 MG TABLET PO (09:22)
[2018-03-04] MEDS: ENOXAPARIN 40 MG/0.4 ML SYRINGE SUBCUT (09:23)
[2018-03-04] MEDS: PROPAFENONE 150 MG TABLET PO ×3 (09:23→20:58)
[2018-03-04] MEDS: OXYCODONE IR 5 MG TABLET PO ×3 (09:41→23:59)
[2018-03-04] MEDS: SODIUM CHLORIDE 0.9% FLUSH 10 ML IV ×2 (09:42→20:58)
[2018-03-04 11:40] VITALS: BP 109/66; PULSE 64; RESP 18; TEMP 36.6; O2SAT 93
--- NOTE | 2018-03-04 12:31 | PT.IPTN ---
Current Diagnoses Unilateral primary osteoarthritis, left hip (03/02/18) Benign prostatic hyperplasia with lower urinary tract symptoms (03/02/18) Other retention of urine (03/02/18) Surgery Performed Operation Date: 03/02/18 14:30 Actual Procedures p Total Hip Arthroplasty(Left) - Harsh Fields MD Physical Therapy Treatment Note M2 PT-IP Current Condition Start: 03/03/18 12:20 Freq: NEEDED Status: Active Protocol: Document 03/03/18 08:48 (Rec: 03/03/18 12:40 [email or web address]) Physical Therapy Current Condition Current Condition Evaluation Date 03/03/18 Treatment Diagnosis L ALESSANDRA; difficulty walking Onset Date 03/02/2018 Precautions Posterior Hip Precautions No Hip Flexion > 90 degrees No Hip Internal Rotation No Hip Adduction Weight Bearing Status Weight Bearing Status Weight Bear as Tolerated M3 PT-IP Subjective Start: 03/03/18 12:20 Freq: NEEDED Status: Active Protocol: Document 03/04/18 12:23 SA (Rec: 03/04/18 12:31 SA [id number]) Subjective Physical Therapy Visit Type Type Treatment Note Visit Start Time 10:59 Visit Stop Time 11:25 Total Visit Minutes 26 Number of ONSHORE DIVER Visits 2 Physical Therapy Visit Comments Patient Comments Pt with present, agreeable to PT. Patient Goals D/C home with , OP PT starting Friday. Therapy Pain Assessment Pain When Pain Assessed During Mobility Pain Present Pain Present Pain Reported Location Left Leg Intensity 2 Scale Used Numeric (1 - 10) Pain Management Techniques Apply Cold Re-positioning Timing of Activity with Medications M4 PT-IP Mobility and Gait Start: 03/03/18 12:20 Freq: NEEDED Status: Active Protocol: Document 03/04/18 12:23 SA (Rec: 03/04/18 12:31 SA [id number]) PT-Bed Mobility Assessment Rolling Type of Rolling Roll to Left Supine to Sit Supine to Sit Standby Assistance Sit to Supine Sit to Supine Minimal Assistance Scooting Scooting to Edge of Bed Standby Assistance Scooting Up and Down in Bed Standby Assistance PT-Transfer Assessment Sit to and From Stand Sit to and from Stand Standby Assistance Equipment Transfer Assistive Device Gait Belt Front Wheeled Walker Orthotic/Prosthetic Devices or Brace: No Transfers Transfer Destination Bed Chair Transfer Technique Ambulates between surfaces Comments Mobility Comments REview of hip preacutions. PT with cues for safe use of FWW and maitaining hip precautions . Gait Assessment Gait Gait Assistance Required: Standby Assistance Distance (Feet) 250 Able to Maintain Weight Bearing Status Yes During Gait Assistive Devices Assistive Device Gait Belt Front Wheeled Walker Orthotic/Prosthetic Devices or Brace: No Gait Deviations General Gait Pattern Antalgic Decreased Stride Length Factors Limiting Gait Function Factors Limiting Gait Function Decreased Activity Tolerance Decreased Strength Limited Range of Motion Pain Poor Balance Comments Gait Comments VErbal cues for decreasing WBing through UEs and increasing LLE Weight acceptance. Stair Climbing Assessment Evaluation Level of Assist On Stairs Contact Guard Assistance Devices Stair Climbing Assistive Devices Right Railing Technique/Endurance Stair Climbing Direction Ascend and Descend Stair Climbing Technique Step to Step Number of Steps Climbed 3 Query Text: Stair Climbing Set # Repetitions (reps) 3 Comments Stair Climbing Comments Pt had LLE buckle at top of stairs with self recovery and use of rail. Cues for safe technique and CGA with step to gait pattern. M5 PT-IP Objective Assessments Start: 03/03/18 12:20 Freq: NEEDED Status: Active Protocol: Document 03/03/18 08:48 (Rec: 03/03/18 12:40 [email or web address]) Orientation Orientation/Cognition Level of Alertness Alert Orientation Name Age Birthday Month Date Year Day of Week Place Situation Language Function Ability No Deficits Noted Safety Awareness Decreased Safety Awareness Gross Range of Motion Lower Extremity ROM Assessment Left Impaired Impairments Limited by precaution Strength Lower Extremity Strength Assessment Left Impaired Comments Strength Comments RLE 5/5. LLE 4/5 Sensation Assessment Sensation Light Touch Intact M6 PT-IP Treatment Start: 03/03/18 12:20 Freq: NEEDED Status: Active Protocol: Document 03/04/18 12:23 SA (Rec: 03/04/18 12:31 [id number]) Physical Therapy Treatment Education Education Provided Precautions Weight Bearing Status Post-Op Packet Safety Other Treatments Other Treatment Performed Education for about overuse of quadriceps, pt feels he overused yesterday . Explained need for stability through LLE with WBing activity and need to contract glutes and quads with weight acceptance. M7 PT-IP Assessment and Plan Start: 03/03/18 12:20 Freq: NEEDED Status: Active Protocol: Document 03/04/18 12:23 SA (Rec: 03/04/18 12:31 SA [email or web address]) PT Summary Assessment and Plan Potential Rehabilitation Potential Good Status of Condition at Evaluation Stable Summary Assessment Summary Pt progressing wel with mobility tasks, able to manage stairs with SBA-CGA and cues for safety. Frequency of Treatment Frequency Of Treatment Twice a Day Recommendations To Nursing Amount of Assist Needed Standby Assistance Discharge Recommendations PT Discharge Recommendations Home with 04/11 Assist Outpatient PT
[2018-03-04] MEDS: FINASTERIDE 5 MG TABLET PO (14:23)
--- NOTE | 2018-03-04 15:30 | PC.NURSE ---
Ortho/GI: Doing well except issue with voiding. Pt made the decision to have [place] d/c about 1300. He also requested his proscar early as well. SIf I'm going to pee I need to take it now, not tonight at bedtime. Med was given. Pt is hoping we will be able to void tonight. Pt having some pain control issues. He was switched from hydrocodone to oxycodone. Pt has received med twice and he said it has been much more effective. Lt hip bulky dressing was changed to aquacel. Lg bruise to proximal end of incision. Otherwise minimal redness, wound stapled, edges approx. Wound care instructions given. Pt gave own lovenox using correct tech. Discussed site rotation and sharps disposal. He feels comfortable giving lovenox at home. He requested to see a doctor, he understands this may be a doctor in Dr. Shelby group. Not sure if Dr. Fields is in today. Did call office and DR. Fields is on tomorrow and they will make him aware that the patient is asking to speak with someone. Ortho goncalves pt is doing well. PPP, feet =/warm. Minimal pain since changed to oxycodone. Tolerates diet w/out problems. Has been up and amb in the hallways. Gait is steady. Does follow his hip precautions. Pt reports if it wasn't for the issues with him voiding he could have gone home. Does have help at home. Cont w/poc.
--- NOTE | 2018-03-04 15:36 | PT.IPTN ---
Current Diagnoses Unilateral primary osteoarthritis, left hip (03/02/18) Benign prostatic hyperplasia with lower urinary tract symptoms (03/02/18) Other retention of urine (03/02/18) Surgery Performed Operation Date: 03/02/18 14:30 Actual Procedures p Total Hip Arthroplasty(Left) - Harsh Fields MD Physical Therapy Treatment Note M2 PT-IP Current Condition Start: 03/03/18 12:20 Freq: NEEDED Status: Active Protocol: Document 03/03/18 08:48 (Rec: 03/03/18 12:40 [email or web address]) Physical Therapy Current Condition Current Condition Evaluation Date 03/03/18 Treatment Diagnosis L ALESSANDRA; difficulty walking Onset Date 03/02/2018 Precautions Posterior Hip Precautions No Hip Flexion > 90 degrees No Hip Internal Rotation No Hip Adduction Weight Bearing Status Weight Bearing Status Weight Bear as Tolerated M3 PT-IP Subjective Start: 03/03/18 12:20 Freq: NEEDED Status: Active Protocol: Document 03/04/18 15:27 SA (Rec: 03/04/18 15:36 SA [email or web address]) Subjective Physical Therapy Visit Type Type Treatment Note Visit Start Time 14:37 Visit Stop Time 15:00 Total Visit Minutes 23 Number of X RAY DEVELOPING MACHINE OPERATOR Visits 3 Physical Therapy Visit Comments Patient Comments Pt in bed and agreeable to PT. Therapy Pain Assessment Pain When Pain Assessed During Mobility Pain Present Pain Present Pain Reported Location Left Leg Intensity 2 Scale Used Numeric (1 - 10) Pain Management Techniques Apply Cold Re-positioning Timing of Activity with Medications M4 PT-IP Mobility and Gait Start: 03/03/18 12:20 Freq: NEEDED Status: Active Protocol: Document 03/04/18 15:27 SA (Rec: 03/04/18 15:36 SA [email or web address]) PT-Bed Mobility Assessment Rolling Type of Rolling Roll to Left Supine to Sit Supine to Sit Standby Assistance Sit to Supine Sit to Supine Standby Assistance Scooting Scooting to Edge of Bed Standby Assistance Scooting Up and Down in Bed Standby Assistance PT-Transfer Assessment Sit to and From Stand Sit to and from Stand Standby Assistance Equipment Transfer Assistive Device Gait Belt Front Wheeled Walker Orthotic/Prosthetic Devices or Brace: No Transfers Transfer Destination Bed Transfer Technique Ambulates between surfaces Transfer Ability Level of Assist Standby Assistance Comments Mobility Comments Pt aware of hip precautions when mobilizing in bed this afternoon. Improved WBing ability through LLE. Gait Assessment Gait Gait Assistance Required: Standby Assistance Distance (Feet) 300 Able to Maintain Weight Bearing Status Yes During Gait Assistive Devices Assistive Device Gait Belt Front Wheeled Walker Orthotic/Prosthetic Devices or Brace: No Gait Deviations General Gait Pattern Antalgic Decreased Stride Length Factors Limiting Gait Function Factors Limiting Gait Function Decreased Activity Tolerance Decreased Strength Limited Range of Motion Pain Poor Balance Comments Gait Comments Improving quality of gait and safe use of FWW. Normal step lengths. Stair Climbing Assessment Evaluation Level of Assist On Stairs Standby Assistance Devices Stair Climbing Assistive Devices Right Railing Technique/Endurance Stair Climbing Direction Ascend and Descend Stair Climbing Technique Step to Step Number of Steps Climbed 3 Query Text: Stair Climbing Set # Repetitions (reps) 4 Comments Stair Climbing Comments No LLE buckling, pt with step to gait pattern and good recolection of stair climb technique. M5 PT-IP Objective Assessments Start: 03/03/18 12:20 Freq: NEEDED Status: Active Protocol: Document 03/03/18 08:48 (Rec: 03/03/18 12:40 [email or web address]) Orientation Orientation/Cognition Level of Alertness Alert Orientation Name Age Birthday Month Date Year Day of Week Place Situation Language Function Ability No Deficits Noted Safety Awareness Decreased Safety Awareness Gross Range of Motion Lower Extremity ROM Assessment Left Impaired Impairments Limited by precaution Strength Lower Extremity Strength Assessment Left Impaired Comments Strength Comments RLE 5/5. LLE 4/5 Sensation Assessment Sensation Light Touch Intact M6 PT-IP Treatment Start: 03/03/18 12:20 Freq: NEEDED Status: Active Protocol: Document 03/04/18 15:27 SA (Rec: 03/04/18 15:36 [email or web address]) Physical Therapy Treatment Exercises Exercises Ankle Pumps Gluteal Sets Quad Sets Heel Slides Straight Leg Raises Supine Hip Abduction Education Education Provided Precautions Weight Bearing Status Post-Op Packet Safety M7 PT-IP Assessment and Plan Start: 03/03/18 12:20 Freq: NEEDED Status: Active Protocol: Document 03/04/18 15:27 SA (Rec: 03/04/18 15:36 [email or web address]) PT Summary Assessment and Plan Summary Assessment Summary Pt to d/c home with tomorrow, continue with safe mobility training. Frequency of Treatment Frequency Of Treatment Twice a Day Recommendations To Nursing Amount of Assist Needed Standby Assistance Discharge Recommendations PT Discharge Recommendations Home with 24/7 Assist Outpatient PT
[2018-03-04 16:00] VITALS: BP 109/65; PULSE 64; RESP 20; TEMP 36.9; O2SAT 94
[2018-03-04 20:00] VITALS: BP 116/71; PULSE 71; RESP 20; TEMP 37.6; O2SAT 94
[2018-03-04 23:38] VITALS: BP 108/64; PULSE 66; RESP 16; TEMP 36.9; O2SAT 95
--- NOTE | 2018-03-05 00:28 | PC.NURSE ---
Addendum entered by Karen Easley R.N. 03/05/18 06:57: Voided 150cc this morning with bladder scan of 667 but declines straight cath as not feeling uncomfortable and wants to discuss further with MD this morning. Pain 8/10 after being up to bathroom so medicated with 10mg Oxycodone and ice applied. Original Note: Addendum entered by Karen Easley R.N. 03/05/18 03:45: Complaining of leg spasms and pain now 6/10; medicated with Vistaril Original Note: Addendum entered by Karen Easley R.N. 03/05/18 03:05: States pain is now at 5/10; medicated with Oxycodone, repositioned (up to bathroom) and ice pack applied. Original Note: Patient is alert and oriented. Breath sounds diminished but CTA with RA sat of 95%. HRR. Denies nausea. BT present and abdomen is soft. Up to bathroom at shift change and voided 150cc with PVR of 380cc. Then due to pressure from being bladder scanned had to get up to urinate and voided an additional 175cc with PVR of 490. Up a third time to urinate and voided an additional 100cc. Discussed in/out cath vs contacting MD and patient states MD said not to have another catheter placed because of the irritation. Decision made that as long as patient is not feeling pressure/discomfort and is able to urinate we will only bladder scan after each 1st time voiding to monitor and not pursue catheterization. Denies any dysuria or frequency. Able to turn self in bed. Can get in/out of bed independently. Using walker and SBA to get to bathroom and is quite steady on feet. Aquacel dressing to left hip is intact with moderate amount of sanguinous drainage noted and outlined. Bruising noted of skin on both sides of dressing. States pain is 4/10 so medicated with Oxycodone and ice packs applied. Declines to wear SCD's.
[2018-03-05] MEDS: OXYCODONE IR 5 MG TABLET PO ×3 (03:02→12:10)
[2018-03-05 03:14] VITALS: TEMP 36.7
[2018-03-05] MEDS: hydrOXYzine pamoate 25 MG CAPSULE PO (03:43)
[2018-03-05] MEDS: OXYCODONE IR 5 MG TABLET 10 MG PO (06:43)
[2018-03-05 08:15] VITALS: BP 124/71; PULSE 68; RESP 16; TEMP 37; O2SAT 93
[2018-03-05] MEDS: FINASTERIDE 5 MG TABLET PO (09:18)
[2018-03-05] MEDS: TAMSULOSIN 0.4 MG CAPSULE 0.8 MG PO (09:19)
[2018-03-05] MEDS: METOPROLOL ER 50 MG TABLET PO (09:19)
[2018-03-05] MEDS: DOCUSATE 100 MG CAPSULE PO (09:19)
[2018-03-05] MEDS: PROPAFENONE 150 MG TABLET PO (09:19)
[2018-03-05] MEDS: ACETAMINOPHEN 325 MG TABLET 975 MG PO (09:20)
[2018-03-05] MEDS: ENOXAPARIN 40 MG/0.4 ML SYRINGE SUBCUT (09:20)
[2018-03-05] MEDS: SODIUM CHLORIDE 0.9% FLUSH 10 ML IV (10:02)
--- NOTE | 2018-03-05 11:32 | PT.IPTN ---
Current Diagnoses Unilateral primary osteoarthritis, left hip (03/02/18) Benign prostatic hyperplasia with lower urinary tract symptoms (03/02/18) Other retention of urine (03/02/18) Surgery Performed Operation Date: 03/02/18 14:30 Actual Procedures p Total Hip Arthroplasty(Left) - Harsh Fields MD Physical Therapy Treatment Note M2 PT-IP Current Condition Start: 03/03/18 12:20 Freq: NEEDED Status: Active Protocol: Document 03/05/18 11:17 AMB (Rec: 03/05/18 11:32 AMB [id number]) Physical Therapy Current Condition Current Condition Evaluation Date 03/03/18 Treatment Diagnosis L ALESSANDRA; difficulty walking Onset Date 03/02/2018 Precautions Posterior Hip Precautions No Hip Flexion > 90 degrees No Hip Internal Rotation No Hip Adduction Weight Bearing Status Weight Bearing Status Weight Bear as Tolerated M3 PT-IP Subjective Start: 03/03/18 12:20 Freq: NEEDED Status: Active Protocol: Document 03/05/18 11:17 AMB (Rec: 03/05/18 11:32 AMB [id number]) Subjective Physical Therapy Visit Type Type Treatment Note Visit Start Time 09:30 Visit Stop Time 09:25 Total Visit Minutes 25 Number of NETSUITE CONSULTANT Visits 0 Physical Therapy Visit Comments Patient Comments Pt agreeable to PT, hoping to go home today. M4 PT-IP Mobility and Gait Start: 03/03/18 12:20 Freq: NEEDED Status: Active Protocol: Document 03/05/18 11:17 AMB (Rec: 03/05/18 11:32 AMB [id number]) PT-Bed Mobility Assessment Supine to Sit Supine to Sit Standby Assistance Sit to Supine Sit to Supine Standby Assistance Scooting Scooting to Edge of Bed Standby Assistance Scooting Up and Down in Bed Standby Assistance PT-Transfer Assessment Sit to and From Stand Sit to and from Stand Standby Assistance Equipment Transfer Assistive Device Gait Belt Front Wheeled Walker Orthotic/Prosthetic Devices or Brace: No Transfers Transfer Destination Bed Transfer Technique Ambulates between surfaces Comments Mobility Comments Continued to educate in hip precautions. Gait Assessment Gait Gait Assistance Required: Standby Assistance Distance (Feet) 300 Able to Maintain Weight Bearing Status Yes During Gait Assistive Devices Assistive Device Gait Belt Front Wheeled Walker Orthotic/Prosthetic Devices or Brace: No Gait Deviations General Gait Pattern Antalgic Decreased Stride Length Factors Limiting Gait Function Factors Limiting Gait Function Decreased Activity Tolerance Decreased Strength Limited Range of Motion Pain Poor Balance Comments Gait Comments Pt encouraged in relaxing shoulders and decreasing weightbearing on walker. Stair Climbing Assessment Evaluation Level of Assist On Stairs Standby Assistance Devices Stair Climbing Assistive Devices Right Railing Technique/Endurance Stair Climbing Direction Ascend and Descend Stair Climbing Technique Step to Step Number of Steps Climbed 3 Query Text: Stair Climbing Set # Repetitions (reps) 5 Comments Stair Climbing Comments Pt had increased pain 5/10 with the stairs. Remembered sequencing of stairs without cueing. M5 PT-IP Objective Assessments Start: 03/03/18 12:20 Freq: NEEDED Status: Active Protocol: Document 03/03/18 08:48 (Rec: 03/03/18 12:40 [email or web address]) Orientation Orientation/Cognition Level of Alertness Alert Orientation Name Age Birthday Month Date Year Day of Week Place Situation Language Function Ability No Deficits Noted Safety Awareness Decreased Safety Awareness Gross Range of Motion Lower Extremity ROM Assessment Left Impaired Impairments Limited by precaution Strength Lower Extremity Strength Assessment Left Impaired Comments Strength Comments RLE 5/5. LLE 4/5 Sensation Assessment Sensation Light Touch Intact M6 PT-IP Treatment Start: 03/03/18 12:20 Freq: NEEDED Status: Active Protocol: Document 03/05/18 11:17 AMB (Rec: 03/05/18 11:32 AMB [id number]) Physical Therapy Treatment Exercises Exercises Ankle Pumps Gluteal Sets Quad Sets Heel Slides Supine Hip Abduction Education Education Provided Precautions Weight Bearing Status Post-Op Packet Safety M7 PT-IP Assessment and Plan Start: 03/03/18 12:20 Freq: NEEDED Status: Active Protocol: Document 03/05/18 11:17 AMB (Rec: 03/05/18 11:32 AMB [id number]) PT Summary Assessment and Plan Summary Assessment Summary Pt with no quadriceps pain today, did have pain over Goals Bed Mobility Goal Independent Transfer Goal Independent Front Wheeled Walker Gait Goal Independent Front Wheel Walker Gait Distance 300 Other Goals 300 ft ambulation with fww independent. Up/down 20 steps L rail Up down 3 steps NO rail and 2 canes (pt has trekking poles) Comment: Stair goals are related to which bathroom the pt decides he would prefer to access and which would be the most safe for him, we discussed that the 20 steps may be easier since they have a rail, his bedroom is up there, and he has been doing so well with mobilities thus far. Frequency of Treatment Frequency Of Treatment Once a Day Recommendations To Nursing Amount of Assist Needed Standby Assistance Discharge Recommendations PT Discharge Recommendations Home with Assistance Outpatient PT
--- NOTE | 2018-03-05 12:45 | PC.NURSE ---
Day shift: Left unit at approx 1245. Left in WC w/ his spouse and [employer]. Paperwork signed and all questions answered. Pt has his scrips. He also has all personal belongings.
== END 2018-03-05 12:46 | disposition home or self-care (01) | DRG 470 ==
PROVIDERS: Admitting Provider Orthopaedic Surgery; Family Provider Family Medicine; PCP Family Medicine; Visit Provider Orthopaedic Surgery
PROC: 0SRB0JZ Replacement of Left Hip Joint with Synthetic Substitute, Open Approach (ICD-10-PCS; CPT 27130; principal; 2018-03-02 14:30)
DX: M16.12 Unilateral primary osteoarthritis, left hip (principal); I10 Essential (primary) hypertension; N40.0 Benign prostatic hyperplasia without lower urinary tract symptoms; N40.1 Benign prostatic hyperplasia with lower urinary tract symptoms; R33.9 Retention of urine, unspecified
CPT/HCPCS: 36415; 72170; 85014; 85018; 90471; 90656; 97110; 97116; 97161; 97530; C1776; J0690; J1100; J1650; J2250; J2274; J2405; J2704; Q2038

== ENCOUNTER 2018-03-22 13:09 | Emergency (ER) | payer OTHER, MEDICARE, SELFPAY ==
[2018-03-02 16:56] VITALS: BMI 28.9
[2018-03-22 13:23] VITALS: BP 135/84; PULSE 58; RESP 16; TEMP 36.3; O2SAT 99; BMI 29.1
[2018-03-22 13:39] LABS: Bacteria Urine Many (>30); Culture Indicated Urine Specimen Cultured; RBC Urine 1-5/HPF (0-5/HPF); WBC Urine 10-30/HPF (0-5/HPF)
--- NOTE | 2018-03-22 13:57 | ED.MALEGU ---
HPI - Male Genitourinary <RADHA Hicks - Last Filed: 03/22/18 16:11> General Chief complaint: Urogenital-Male Stated complaint: problems urinating from recent catheters Time Seen by Provider: 03/22/18 13:34 Source: patient Mode of arrival: ambulatory Limitations: no limitations History of Present Illness HPI Narrative: Patient is a 72-year-old male with history of BPH in recent hip surgery who presents with chief complaint of urinary retention. He has had 3 urinary catheter since his surgery in February. He states his most recent one was removed on and since then he has had a mixture of frequency and inability to urinate. He denies any fevers, nausea vomiting or diarrhea. He complains of bladder pressure. Related Data Home Medications Medication Instructions Recorded Confirmed etodolac 400 mg PO BID 02/24/18 03/02/18 finasteride 5 mg PO QPM 02/24/18 03/02/18 lorazepam 0.5 mg PO BEDTIME PRN 02/24/18 03/02/18 metoprolol succinate 50 mg PO DAILY 02/24/18 03/02/18 sildenafil [Viagra] 50 mg PO DAILY PRN 02/24/18 02/24/18 tamsulosin 0.8 mg PO QPM 02/24/18 03/02/18 Previous Rx's Medication Instructions Recorded PROPAFENONE HCL (Propafenone HCl) 150 mg PO TID #90 09/24/12 acetaminophen 975 mg PO TID #60 tab 03/03/18 enoxaparin [Lovenox] 40 mg SUBCUT DAILY #9 ml 03/03/18 levofloxacin [Levaquin] 750 mg PO DAILY #6 tab 03/22/18 Allergies Allergy/AdvReac Type Severity Reaction Status Date / Time zolpidem AdvReac Mild NIGHTMARES Verified 03/22/18 13:23 AND VERY ADDICTING PER PATIENT Review of Systems <RADHA Hicks - Last Filed: 03/22/18 16:11> Review of Systems GENERAL: Denies chills, fatigue, malaise, fever, sweats. HEENT: Denies sinus pain, ear pain, sore throat, difficulty swallowing, dizziness. RESPIRATORY: Denies dyspnea, cough, wheezing, hemoptysis, sputum. CARDIOVASCULAR: Denies chest pain, palpitations, orthopnea, edema, GASTROINTESTINAL: Denies nausea, vomiting, abdominal pain, diarrhea, constipation, melena. : See HPI MUSCULOSKELETAL: denies weakness, joint pain, or bony pain SKIN: Denies rash, skin lesions, or other NEUROLOGIC: Denies weakness, headache, numbness, change in speech, confusion, seizures, incoordination. PSYCHIATRIC: No concerning psychosocial issues. 12 point review of systems is negative except for those stated above Exam <MEMO Hicks-BC - Last Filed: 03/22/18 16:11> Narrative Exam Narrative: GENERAL: This is a well-nourished, well-developed patient, in no acute distress HEAD: Atraumatic. Normocephalic. No temporal or scalp tenderness. EYES: Pupils equal round and reactive. Extraocular motions intact. No scleral icterus. No injection or drainage. ENT: Nose without bleeding, purulent drainage or septal hematoma. Throat without erythema, tonsillar hypertrophy or exudate. Uvula midline. Airway patent. NECK: Trachea midline. No JVD or lymphadenopathy. Supple, nontender, no meningeal signs. CARDIOVASCULAR: Regular rate and rhythm without murmurs, gallops, or rubs. RESPIRATORY: Clear to auscultation. Breath sounds equal bilaterally. No wheezes, rales, or rhonchi. GASTROINTESTINAL: Abdomen soft, non-tender, some pressure to bladder palpation. No hepato-splenomegaly, or palpable masses. No guarding. Active bowel sounds all 4 quadrants. EXTREMITIES: No clubbing, cyanosis, or edema. No joint tenderness, effusion, or edema noted. BACK: Nontender without deformity or crepitance. No flank tenderness. NEURO: AOx3. SKIN: No rash or erythema. Initial Vital Signs Initial Vital Signs: Vital Signs Temperature 97.4 F L 03/22/18 13:23 Pulse Rate 58 L 03/22/18 13:23 Respiratory Rate 16 03/22/18 13:23 Blood Pressure 135/84 03/22/18 13:23 Pulse Oximetry 99 03/22/18 13:23 <Tressa Ireland DO - Last Filed: 03/22/18 19:05> Initial Vital Signs Initial Vital Signs: Vital Signs Temperature 97.4 F L 03/22/18 13:23 Pulse Rate 58 L 03/22/18 13:23 Respiratory Rate 16 03/22/18 13:23 Blood Pressure 135/84 03/22/18 13:23 Pulse Oximetry 99 03/22/18 13:23 Course <RADHA Hicks - Last Filed: 03/22/18 16:11> Course Narrative: Upon arrival the patient was able to provide a urine sample. His postvoid residuals almost 700 cc. The patient initially adamantly refused another Casanova catheter placement. I discussed with him the risks of continued urinary retention. He agreed to try to urinate again in have another postvoid residual completed. However when his postvoid residual still over 500 cc, a agreed to have a Casanova for urinary retention and stated follow up with his primary care and urologist. Orders Ordered: ED Orders 03/22/18 13:20 Urine Microscopic Stat Discontinued Medications Levofloxacin (Levaquin) 750 mg PO NOW ONE Stop: 03/22/18 14:32 Last Admin: 03/22/18 14:50 Dose: 750 mg Vital Signs - 8 hr 03/22/18 13:23 03/22/18 15:27 Temperature 97.4 F L Pulse Rate 58 L 62 Respiratory Rate 16 18 Blood Pressure 135/84 128/76 Pulse Oximetry 99 98 <Tressa Ireland DO - Last Filed: 03/22/18 19:05> Orders Ordered: ED Orders 03/22/18 13:20 Urine Microscopic Stat Discontinued Medications Levofloxacin (Levaquin) 750 mg PO NOW ONE Stop: 03/22/18 14:32 Last Admin: 03/22/18 14:50 Dose: 750 mg Vital Signs - 8 hr 03/22/18 13:23 03/22/18 15:27 Temperature 97.4 F L Pulse Rate 58 L 62 Respiratory Rate 16 18 Blood Pressure 135/84 128/76 Pulse Oximetry 99 98 MDM - Male Genitourinary <RADHA Hicks - Last Filed: 03/22/18 16:11> Lab Data Lab Results 03/22/18 Range/Units 13:20 Urine RBC 1-5/hpf (0-5/HPF) Urine WBC 10-30/hpf H (0-5/HPF) Urine Bacteria Many (>30) H (None) Ur Culture Indicated? Specimen cultured Micro UA Comment Not Reportable Urine Dip Bedside Urine Glucose Negative Bedside Urine Bilirubin +++ 4 Bedside Urine Ketone - Negative Urine Specific [place] 1.020 Bedside Urine Occult Blood +/- Bedside Urine pH 6.0 Bedside Urine Protein - Negative Bedside Urine Urobilinogen - Negative Bedside Urine Nitrite + Positive Bedside Urine Leukocytes - Negative Esterase MDM Narrative Medical decision making narrative: Patient is a 72-year-old male with history of recent Casanova catheters who comes in with chief complaint of urinary retention and frequency. The patient presents with nitrites in his urine, bacteria in his urine. He was bladder scanned for well over 500cc several times despite being postvoid residuals. This i started treatment for urinary tract infection with Levaquin and replaced the Casanova catheter. The patient states he has a clear understanding of how to take care Casanova catheters at home. He discussed follow-up with his primary care as well as his urologist. He has an appointment with his urologist office on Friday. <Tressa Ireland DO - Last Filed: 03/22/18 19:05> Lab Data Lab Results 03/22/18 Range/Units 13:20 Urine RBC 1-5/hpf (0-5/HPF) Urine WBC 10-30/hpf H (0-5/HPF) Urine Bacteria Many (>30) H (None) Ur Culture Indicated? Specimen cultured Micro UA Comment Not Reportable Urine Dip Bedside Urine Glucose Negative Bedside Urine Bilirubin +++ 4 Bedside Urine Ketone - Negative Urine Specific [place] 1.020 Bedside Urine Occult Blood +/- Bedside Urine pH 6.0 Bedside Urine Protein - Negative Bedside Urine Urobilinogen - Negative Bedside Urine Nitrite + Positive Bedside Urine Leukocytes - Negative Esterase Discharge Plan Departure Patient Disposition: Home Clinical Impression: Urinary retention due to benign prostatic hyperplasia, Urinary tract infection Discharge Date/Time: 03/22/18 15:27 Interventions: ED Discharge Assessment Last Done: 03/22/18 15:27 Instructions: How to Care for Your Casanova Catheter -- Male, DI for Urinary Tract Infection (UTI), DI for Urinary Retention in Men Activity Restrictions/Additional Instructions: Today you came in with acute urinary retention and her urine showed signs of an infection. I am treating your infection with Levaquin which will be taken for 7 days total. You have had her 1st dose here in the emergency department, so I will give you a prescription for 6. Given your urinary retention, we are placing your Casanova catheter back again. Please follow-up with your primary care provider as well as your urologist as we discussed. Prescriptions: New levofloxacin [Levaquin] 750 mg tablet 750 mg PO DAILY Qty: 6 RF: 0 No Action PROPAFENONE HCL (Propafenone HCl) 150 mg PO TID Qty: 90 RF: 0 metoprolol succinate 50 mg Tablet Extended Release 24 Hr 50 mg PO DAILY RF: 0 lorazepam 0.5 mg Tablet 0.5 mg PO BEDTIME PRN (Reason: flying) RF: 0 tamsulosin 0.4 mg Capsule 0.8 mg PO QPM RF: 0 etodolac 400 mg Tablet 400 mg PO BID RF: 0 finasteride 5 mg Tablet 5 mg PO QPM RF: 0 sildenafil [Viagra] 25 mg Tablet 50 mg PO DAILY PRN (Reason: Sexual Activity) RF: 0 acetaminophen 325 mg Tablet 975 mg PO TID Qty: 60 RF: 0 enoxaparin [Lovenox] 40 mg/0.4 mL Syringe 40 mg subcut DAILY Qty: 9 RF: 0 Referrals: Evie Gunter MD [Physician] - Kp Hicks MD [Primary Care Provider] - <Tressa Ireland DO - Last Filed: 03/22/18 19:05> [facility] ED Attending Stefania Attestation: I was immediately available in the department for consultation. Documentation has been reviewed. I agree with assessment and plan.
[2018-03-22] MEDS: levoFLOXacin 250 MG TABLET 750 MG PO (14:50)
--- NOTE | 2018-03-22 15:07 | PC.NURSE ---
Pt switched to a leg bag.
[2018-03-22 15:27] VITALS: BP 128/76; PULSE 62; RESP 18; O2SAT 98
== END 2018-03-22 15:27 | disposition home or self-care (01) ==
PROVIDERS: Emergency Medicine; Emergency Provider Nurse Practitioner Family; PCP Family Medicine
DX: N40.1 Benign prostatic hyperplasia with lower urinary tract symptoms (principal); N39.0 Urinary tract infection, site not specified; R33.8 Other retention of urine
CPT/HCPCS: 51701; 51798; 81003; 81015; 87077; 87086; 87186; 99283; 99284

== ENCOUNTER → 2018-04-30 10:36 | Outpatient (CLI) | payer MEDICARE, SELFPAY ==
[2018-03-02 16:56] VITALS: BMI 28.9
[2018-04-30 11:40] LABS: Alanine Aminotransferase 25 IU/L (21-72); Albumin 3.8 g/dL (3.5-5.0); Albumin Globulin Ratio 1.3 (1.0-2.8); Alkaline Phosphatase 85 U/L (38-126); Aspartate Aminotransferase 20 IU/L (17-59); BUN Creatinine Ratio 16.7 (6-22); Blood Urea Nitrogen 15 mg/dL (9-20); Carbon Dioxide 29 mmol/L (22-32); Chloride 103 mmol/L (98-107); Cholesterol 158 mg/dL (140-199); Estimated Glomerular Filt Rate > 60.0 mL/min (>60); Glucose 110 mg/dL (80-110); HDL Cholesterol 22 mg/dL (40-60); HEMOLYSIS < 15 (0-50); LDL Cholesterol Calculated 99 mg/dL (<100); Potassium 4.2 mmol/L (3.4-5.1); Sodium 140 mmol/L (137-145); Total Protein 6.8 g/dL (6.3-8.2); Triglycerides 187 mg/dL (35-150)
== END ==
PROVIDERS: PCP Family Medicine; Visit Provider Family Medicine
DX: E78.5 Hyperlipidemia, unspecified (principal)
CPT/HCPCS: 36415; 80053; 80061

== ENCOUNTER 2019-01-09 17:38 | Emergency (ER) | payer MEDICARE, OTHER, SELFPAY ==
[2018-03-02 16:56] VITALS: BMI 28.9
[2019-01-09 17:50] VITALS: BP 113/69; PULSE 48; RESP 18; TEMP 36.4; O2SAT 98; BMI 28.5
== END 2019-01-09 18:02 | disposition left against medical advice (07) ==
PROVIDERS: Emergency Provider Emergency Medicine; PCP Family Medicine
CPT/HCPCS: 99282

== ENCOUNTER → 2019-11-12 10:25 | Outpatient (CLI) | payer MEDICARE, OTHER, SELFPAY ==
[2018-03-02 16:56] VITALS: BMI 28.9
[2019-11-13 18:44] LABS: COVID19 Sendout Not Detected (Not Detect)
== END ==
PROVIDERS: PCP Family Medicine; Visit Provider Physician Assistant
DX: Z11.59 Encounter for screening for other viral diseases (principal)
CPT/HCPCS: 87635

== ENCOUNTER 2019-11-15 13:18 | Day surgery (SDC) | payer MEDICARE, OTHER, SELFPAY ==
[2018-03-02 16:56] VITALS: BMI 28.9
--- NOTE | 2019-11-15 | PATH_ITS ---
[facility] Accession Number: [id number] . 01 Material submitted: . PART A: colon - ASCENDING BIOPSY 2MM PART B: sigmoid colon - SIGMOID COLON 2MM . 01 Clinical history: . SCREENING COLONOSCOPY . 02 Diagnosis: A. Ascending Colon, 2 mm, Biopsy: Tubular adenoma. . B. Sigmoid Colon, 2 mm, Biopsy: Hyperplastic polyp. MRV 11/17/2019 1357 Local . 02 Electronically signed: . Natasha Love MD, Pathologist NPI- [id number] . 01 Gross description: . Part A: ASCENDING BIOPSY 2MM: Received in formalin is 1 fragment(s) of rosales, soft tissue measuring 0.3 x 0.2 x 0.2 cm submitted entirely in 1 cassette(s) Part B: SIGMOID COLON 2MM: Received in formalin is 1 fragment(s) of rosales, soft tissue measuring 0.3 x 0.2 x 0.1 cm submitted entirely in 1 cassette(s) /ROSANGELA 11/16/2019 1924 Local . 02 Pathologist provided ICD-10: D12.2 . 02 CPT . 149642, [id number] Performed at: 01 [facility] [address], [place], [place] [id number] MD Fransisco See MD Phone: [phone] Performed at: 02 [facility] [address] [place], [place] [id number] MD Natasha Love MD Phone: [phone]
--- NOTE | 2019-11-15 12:15 | P.HP_ITS ---
History of Present Illness History of Present Illness Date Patient Seen: 11/15/19 Chief complaint: SCREENING COLONOSCOPY Narrative: 74 year old male comes in today for consideration of a screening colonoscopy. Last colonoscopy approximately 2013, records unavailable at time of dictation; reports that there was a part of the colon that was not able to be seen. Prior to that, has had 1 previous colonoscopy. There have been no lower GI symptoms suggesting disease such as change in bowel habits, bleeding, abdominal pain or anemia. He does have a family history of colon cancer in his mother, diagnosed at age 90. Overall health issues have been stable, including no major cardiac events for at least 6 weeks. PCP: Dr. 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 Past history of cigarette smoking, quit 30 years ago. Patient History Medical History (Updated 01/24/19 @ 00:00 by ) Back pain (Acute) BPH with obstruction/lower urinary tract symptoms (Acute ~1992) Chest pain, atypical (Acute) Colitis (Acute) Costochondritis (Acute) Depression with anxiety (Acute) Dermatofibroma (Acute ~1991) Diverticulum of bladder (Acute) Erectile dysfunction (Acute) Generalized arthritis (Acute) Genital herpes (Acute) Hearing loss (Acute) History of cardioversion (Acute ~2006) Hyperlipidemia (Acute) IBS (irritable bowel syndrome) (Acute ~2003) Microscopic hematuria (Acute) Neck pain (Acute) Numbness and tingling (Acute) Palpitations (Acute) Paroxysmal atrial fibrillation (Acute) Pneumonia (Acute) Scrotal cyst (Acute) Urinary retention (Acute) Urinary retention due to benign prostatic hyperplasia (Acute) Surgical History H/O vasectomy (Acute) History of colonoscopy (Acute) Hx of oral surgery (Acute) Hx of tonsillectomy (Acute) Family & Social History Social History: household members spouse,children Tobacco & Substance use: Smoking Status Former smoker alcohol intake current alcohol intake frequency 0-2 drinks per day Substance Use Type marijuana Meds Home Medications and Allergies Home Medications Medication Instructions Recorded Confirmed Type etodolac 400 mg PO PRN PRN 02/24/18 11/15/19 History finasteride 5 mg PO QPM 02/24/18 11/15/19 History metoprolol succinate 50 mg PO DAILY 02/24/18 11/15/19 History sildenafil [Viagra] 25 mg PO DAILY PRN 02/24/18 11/15/19 History tamsulosin 0.8 mg PO QPM 02/24/18 11/15/19 History aspirin [Aspir-81] 81 mg PO BID 11/15/19 11/15/19 History melatonin 5 mg PO BEDTIME PRN 11/15/19 11/15/19 History propafenone 150 mg PO TID 11/15/19 11/15/19 History Allergies Allergy/AdvReac Type Severity Reaction Status Date / Time zolpidem AdvReac Intermediate NIGHTMARES Verified 11/15/19 13:32 AND VERY ADDICTING PER PATIENT Review of Systems Review of Systems ROS: Yes All systems reviewed with the patient and are negative except as otherwise documented Exam Narrative Exam Narrative: GENERAL: Alert and oriented, appearing stated age and in no acute distress. HEENT: Head normocephalic/atraumatic. Neck soft and supple, no lymphadenopathy. LUNGS: Clear to ausculation bilaterally, no wheezes, rhonchi or rales. CV: Normal S1 and S2 with regular rate and rhythm, no audible murmurs, rubs or gallops. ABDOMEN: Soft, non-tender, non-distended, no organomegaly. Positive bowel sounds. EXTREMITIES: No clubbing, cyanosis, or edema. NEURO: Cranial nerves II through XII grossly intact, no focal deficits. PSYCH: Alert and oriented x 3. SKIN: No concerning lesions. Assessment & Plan Assessment & Plan narrative: 1. Family history of colon cancer, mother 2. Screening for colon cancer Plan for colonoscopy. The nature and character of the procedure as well as anticipated results were discussed. The possibility of not completing the procedure was also discussed. Possible complications including aspiration pneumonia, bleeding, perforation and reaction to medications either for sedation or preparation and missed lesions were discussed. Questions were answered and proceeding to the colonoscopy was elected. Informed consent signed. I sincerely appreciate the referral allowing me to participate in this patient's care. Please contact me with any questions or concerns.
--- NOTE | 2019-11-15 12:22 | PM.OP.ENDO ---
Operative Date/Time/Diagnoses Date of procedure: 11/15/19 Pre-op diagnosis: 1. Family history of colon cancer, mother 2. Screening for colon cancer Post-op diagnosis: other (1. Ascending polyp x1, 2 mm, removed with cold biopsy forceps, 2. Sigmoid polyp x1, 2 mm, removed with cold biopsy forceps) Procedure & Clinicians Study performed: Colonoscopy Same procedure as scheduled: Yes Indications: 1. Family history of colon cancer, mother 2. Screening for colon cancer Surgeon: Allie Lepe Procedure Notes SCOAP/Timeout: 14:42 Procedure in detail: ENDOSCOPIST: Allie Lepe MD Sedation RN: Hanna Solorzano RN Sedation start time: 14:43 Sedation end time:15:11 PROCEDURE: Colonoscopy with cold biopsy INDICATIONS: 1. Family history of colon cancer 2. Screening for colon cancer MEDICATION: Levsin 0.125 mg sublingual, incremental doses of Versed and fentanyl until appropriate level sedation achieved. ASA CLASS: 2 CECAL WITHDRAWAL TIME: 22 minutes COMPLICATIONS: None. EXTENT OF PROCEDURE: Cecum. QUALITY OF PREP: Good with portions of liquid stool. PROCEDURE: Prior to insertion of the colonoscope, a digital rectal examination was accomplished with circumferential palpation of the distal rectal mucosa without significant findings being noted. The high-definition colonoscope was passed into the rectum in the usual fashion and advanced over to the cecum without difficulty. The ileocecal valve, appendiceal stoma, and medial wall all could be inspected and no abnormalities were seen. ASCENDING COLON: As the colonoscope was withdrawn, care was taken to expose and inspect the haustral folds and a 2 mm polyp was seen and removed with cold biopsy forceps. HEPATIC FLEXURE: Normal, no polyps, diverticula or other abnormalities. TRANSVERSE COLON: Normal, no polyps, diverticula or other abnormalities. DESCENDING COLON: Normal, no polyps, diverticula or other abnormalities. SIGMOID COLON: 2 mm polyp seen and removed with cold biopsy forceps. Otherwise, normal, no diverticula or other abnormalities. RECTUM: Normal. J maneuver was produced. There was no significant perianal disease. The J maneuver was broken. The remainder of the rectum was inspected and there was no external hemorrhoid disease. The scope was withdrawn. IMPRESSION: 1. Ascending polyp x1, 2 mm, removed by cold biopsy forceps 2. Sigmoid polyp x1, 2 mm, removed by cold biopsy forceps PLAN: 1. Follow-up in clinic status post pathology results. The possibility of a missed lesion including a malignancy has been discussed with the patient previously. Potential alarm symptoms have been discussed and should be reported immediately. Complications: none Post-procedure Recommendations: Will call with biopsy results Follow up: weeks (2) Disposition: PACU
[2019-11-15] MEDS: LACTATED RINGERS 1,000 ML 200 ML IV (13:40)
[2019-11-15] MEDS: HYOSCYAMINE 0.125 MG TABLET PO (13:53)
[2019-11-15 13:54] VITALS: BP 134/84; PULSE 80; RESP 12; TEMP 36.3; O2SAT 97; BMI 28.6
[2019-11-15] MEDS: fentaNYL 250 MCG/5 ML INJ IV (15:01)
[2019-11-15] MEDS: MIDAZOLAM 5 MG/5 ML VIAL IV (15:01)
[2019-11-15 15:16] VITALS: BP 102/63; PULSE 50; RESP 10; TEMP 36.1; O2SAT 96
[2019-11-15 15:21] VITALS: BP 120/70; PULSE 51; RESP 19; TEMP 36.1; O2SAT 96
[2019-11-15 15:25] VITALS: BP 121/79; PULSE 54; RESP 14; TEMP 36.3; O2SAT 95
[2019-11-15 15:45] VITALS: BP 100/63; PULSE 46; RESP 16; TEMP 36.4; O2SAT 96
== END 2019-11-15 15:55 | disposition home or self-care (01) ==
PROVIDERS: PCP Family Medicine; Referring Provider Student in an Organized Health Care Education/Training Program; Visit Provider Student in an Organized Health Care Education/Training Program
PROC: 0DJD8ZZ Inspection of Lower Intestinal Tract, Via Natural or Artificial Opening Endoscopic (ICD-10-PCS; CPT 45378; principal; 2019-11-15 14:30)
DX: Z12.11 Encounter for screening for malignant neoplasm of colon (principal); Z80.0 Family history of malignant neoplasm of digestive organs; I48.91 Unspecified atrial fibrillation; E78.5 Hyperlipidemia, unspecified; D12.2 Benign neoplasm of ascending colon
CPT/HCPCS: 45380; J2250; J3010

== ENCOUNTER → 2020-09-21 09:43 | Outpatient (CLI) | payer MEDICARE, OTHER, SELFPAY ==
[2018-03-02 16:56] VITALS: BMI 28.9
--- NOTE | 2020-09-21 | DI.MRI.S_ITS ---
PROCEDURE: MR FOOT RT WO CON INDICATIONS: PAIN IN RIGHT FOOT TECHNIQUE: Noncontrast sagittal T1 spin echo and T2 fast spin echo with fat saturation, long-axis T1 spin echo and T2 fast spin echo with fat saturation, short-axis T1 spin echo and T2 fast spin echo with fat saturation through the forefoot. COMPARISON: None. FINDINGS: Image quality: There is mild inhomogeneous fat saturation. Bones and joints: No bone marrow contusions or fractures. No metatarsal stress reaction or stress fractures. There is mild edema within the sesamoid bones suggestive of mild sesamoiditis or degenerative changes. There is mild 1st metatarsophalangeal joint degeneration with a small focus of subchondral edema in the 1st metatarsal head. There is mild midfoot degeneration along the calcaneocuboid articulation. Soft tissues: The visualized plantar foot muscles demonstrate mild fatty atrophy with mild diffuse T2 hyperintensity. Visualized flexor and extensor tendons appear intact, without tenosynovitis. The distal insertions of the peroneus brevis and longus tendons appear intact. The principal Lisfranc ligament appears intact. There is a small amount of intermetatarsal bursal fluid within the 3rd metatarsal interspace. No soft tissue ganglion cysts. Sagittal images demonstrate no evidence for plantar plate tears. IMPRESSION: 1. Mild diffuse T2 hyperintensity within the plantar musculature with mild fatty atrophy. The differential includes denervation changes or sequelae of disuse. A mild myositis or muscle strain cannot be excluded and correlation is recommended clinically. 2. Mild degeneration of the 1st metatarsophalangeal and calcaneocuboid joints. 3. Mild edema within the sesamoid bones may reflect mild sesamoiditis or degenerative change. 4. Small amount of intermetatarsal bursal fluid within the 3rd metatarsal interspace. Dictated by: Fransisco Saucedo M.D. on 09/21/2020 at 14:04 Approved by: Fransisco Saucedo M.D. on 09/21/2020 at 14:12
== END ==
PROVIDERS: PCP Family Medicine
DX: M79.671 Pain in right foot (principal); M19.071 Primary osteoarthritis, right ankle and foot
CPT/HCPCS: 73718

== ENCOUNTER 2020-12-03 19:19 | Emergency (ER) | payer MEDICARE, OTHER, SELFPAY ==
[2018-03-02 16:56] VITALS: BMI 28.9
[2020-12-03 19:27] VITALS: BP 202/100; PULSE 59; RESP 18; TEMP 36.9; O2SAT 98; BMI 27.1
[2020-12-03] MEDS: LIDOCAINE 2% (GLYDO) 6 ML GEL TOP (19:29)
--- NOTE | 2020-12-03 19:36 | ED.MALEGU ---
HPI - Male Genitourinary General Chief complaint: Urogenital-Male Stated complaint: Needs Cath, Can't Urinate Time Seen by Provider: 12/03/20 19:30 Source: patient Mode of arrival: Ambulatory Limitations: no limitations History of Present Illness HPI Narrative: Patient here for urinary retention. Patient postop day 2 status post partial transection of the prostate 2 days ago in [place] with Dr. Kang, urologist. He has been drinking a lot a water as instructed. He states instructions were given that he could try removing the Casanova catheter today or tomorrow. He did remove it at 2:30 a.m. today. Had some urination and voiding but it stopped. Now feels bladder fullness. No fever chills. Related Data Home Medications Medication Instructions Recorded Confirmed etodolac 400 mg tablet 400 mg PO PRN PRN 02/24/18 11/15/19 finasteride 5 mg tablet 5 mg PO QPM 02/24/18 11/15/19 metoprolol succinate 50 mg 50 mg PO DAILY 02/24/18 11/15/19 tablet,extended release 24 hr sildenafil 25 mg tablet (Viagra) 25 mg PO DAILY PRN 02/24/18 11/15/19 tamsulosin 0.4 mg capsule 0.8 mg PO QPM 02/24/18 11/15/19 aspirin 81 mg tablet,delayed 81 mg PO BID 11/15/19 11/15/19 release (Aspir-) melatonin 5 mg chewable tablet 5 mg PO BEDTIME PRN 11/15/19 11/15/19 propafenone 150 mg tablet 150 mg PO TID 11/15/19 11/15/19 Allergies Allergy/AdvReac Type Severity Reaction Status Date / Time zolpidem AdvReac Intermediate NIGHTMARES Verified 11/15/19 13:32 AND VERY ADDICTING PER PATIENT Review of Systems Review of Systems Narrative: GENERAL: Denies chills, fatigue, malaise, fever, sweats. HEENT: Denies sinus pain, ear pain, sore throat RESPIRATORY: Denies dyspnea, cough CARDIOVASCULAR: Denies chest pain, palpitations GASTROINTESTINAL: Denies nausea, vomiting, abdominal pain : Denies dysuria, frequency, hematuria, complains of suprapubic discomfort and urinary tension MUSCULOSKELETAL: denies muscle or bony pain SKIN: Denies rash, skin lesions NEUROLOGIC: Denies weakness, numbness ROS Unobtainable: All systems reviewed & are unremarkable except as noted in HPI and below Patient History Medical History (Updated 12/03/20 @ 19:47 by Justin Ruby MD) Back pain BPH with obstruction/lower urinary tract symptoms (~1992) Chest pain, atypical Colitis Costochondritis Depression with anxiety Dermatofibroma (~1991) Diverticulum of bladder Erectile dysfunction Generalized arthritis Genital herpes Hearing loss History of cardioversion (~2006) Hyperlipidemia IBS (irritable bowel syndrome) (~2003) Microscopic hematuria Neck pain Numbness and tingling Palpitations Paroxysmal atrial fibrillation Pneumonia Scrotal cyst Urinary retention Urinary retention due to benign prostatic hyperplasia Surgical History H/O vasectomy History of colonoscopy Hx of oral surgery Hx of tonsillectomy Social History household members: spouse and children Smoking Status: Former smoker alcohol intake: current Smoking Status: Former smoker alcohol intake frequency: 3 or more drinks per day Substance Use Type: does not use Exam Narrative Exam Narrative: GENERAL: in no distress, not toxic not dyspneic HEAD: Normocephalic. : Patient is circumcised. 850 mL urine out with 16 [place] Casanova catheter. No gross bloody hematuria. Patient having relief with suprapubic discomfort after Casanova catheter insertion. GASTROINTESTINAL: Abdomen soft, non-tender, no peritoneal signs EXTREMITIES: No gross deformities. BACK: No flank tenderness. NEURO: AOx4. SKIN: Warm and dry PSYCH: Not anxious, is cooperative Initial Vital Signs Initial Vital Signs: Vital Signs Temperature 98.5 F 12/03/20 19:27 Pulse Rate 59 L 12/03/20 19:27 Respiratory Rate 18 12/03/20 19:27 Blood Pressure 202/100 H 12/03/20 19:27 Pulse Oximetry 98 12/03/20 19:27 Course Course Course Narrative: No new issues during course of stay. Feels much better after Casanova catheter placed Orders Ordered: Discontinued Medications Lidocaine HCl (Lidocaine 2% (Glydo) 6 Ml Gel) 6 ml TOP NOW ONE Stop: 12/03/20 19:27 Last Admin: 12/03/20 19:29 Dose: 6 ml Documented by: SHAUNA Reevaluation(s) Reevaluation #1: No new issues during course of stay. Patient feels much better after Casanova catheter insertion. Time: 19:45 Consultations Consultation #1: s/w dr galicia, urologist on-call for Dr. Yesi Lynne, no laboratory studies indicated. No urinalysis. Patient can be discharged home and follow-up this week Time: 20:04 Vital Signs Vital signs: Vital Signs - 8 hr 12/03/20 19:27 12/03/20 20:24 Temperature 98.5 F Pulse Rate 59 L Respiratory Rate 18 Blood Pressure 202/100 H 134/61 Pulse Oximetry 98 MDM - Male Genitourinary Differential Diagnosis Differential diagnosis: Likely acute retention of urine MDM Narrative Medical decision making narrative: Appropriate for discharge home. Home trial removal of a Casanova catheter unsuccessful for voiding on his own. No fever. No pain post Casanova catheter. Reviewed with urologist on-call. Return precautions reviewed with patient. Agrees with treatment plan and discharged home. Discharge Plan Departure Patient Disposition: Home Clinical Impression: Acute urinary retention Instructions: How to Care for Your Casanova Catheter -- Male Activity Restrictions/Additional Instructions: Call your urologist in the morning for re-evaluation this week and next attempt to remove your Casanova catheter. Keep well hydrated and and continue discharge instructions from your surgery this past Friday. Return if worsening questions or concerns or any fever or any discoloration or cloudy urine. Prescriptions: No Action propafenone 150 mg Tablet 150 mg PO TID RF: 0 aspirin [Aspir-81] 81 mg Tablet,Delayed Release (Dr/Ec) 81 mg PO BID RF: 0 melatonin 5 mg Tablet,Chewable 5 mg PO BEDTIME PRN (Reason: Insomnia) RF: 0 metoprolol succinate 50 mg Tablet Extended Release 24 Hr 50 mg PO DAILY RF: 0 tamsulosin 0.4 mg Capsule 0.8 mg PO QPM RF: 0 etodolac 400 mg Tablet 400 mg PO PRN PRN (Reason: Pain (Scale Score 1-3)) RF: 0 finasteride 5 mg Tablet 5 mg PO QPM RF: 0 sildenafil [Viagra] 25 mg Tablet 25 mg PO DAILY PRN (Reason: Sexual Activity) RF: 0 Referrals: Reji Patel MD [Primary Care Provider] -
[2020-12-03 20:24] VITALS: BP 134/61
== END 2020-12-03 20:24 | disposition home or self-care (01) ==
PROVIDERS: Emergency Provider Emergency Medicine; PCP Family Medicine
DX: R33.8 Other retention of urine (principal)
CPT/HCPCS: 51702; 51798; 99283

== ENCOUNTER → 2021-07-02 08:00 | Outpatient (CLI) | payer MEDICARE, OTHER, SELFPAY ==
[2018-03-02 16:56] VITALS: BMI 28.9
--- NOTE | 2021-07-02 | DI.ECHO.S_ITS ---
[facility]---------+ [facility] +---------+ : : [address] : [place] : : : : [id number] : : : : Phone: [phone]+ Echocardiogram Report + + :Name: JAZ KEMP Study Date: 07/02/2021 Height: 72 in : :[facility] ReadingLocation: Weight: 208 lb : : Gender: Male BSA: 2.2 m2 : :: 1945 Age: 75 yrs BP: 164/90 mmHg: :Reason For Study: ATRIAL FIBRILLATION : :Ordering Physician: SIMRAN, : :CAROLINA Performed By: Mari Guy : :Referring: CAROLINA AMADOR : + + Interpretation Summary The ejection fraction is estimated to be 45-50%. Left ventricular function has slightly worsened compared to the previous exam. There is borderline global hypokinesis of the left ventricle. There is mild mitral regurgitation. There is mild tricuspid regurgitation. Procedure: A two-dimensional transthoracic echocardiogram with color flow and Doppler was performed. The study quality was technically adequate. Comparison is made with the echocardiogram of 05/14/2017. The patient was in sinus bradycardia with heart rates between 46-53 bpm during the exam. Left Ventricle: The left ventricle is normal in size. Left ventricular wall thickness is borderline increased. The ejection fraction is estimated to be 45-50%. Left ventricular function has slightly worsened compared to the previous exam. There is borderline global hypokinesis of the left ventricle. Right Ventricle: The right ventricle is mildly dilated. The right ventricular systolic function is normal. Atria: The left atrium is mildly dilated. Right atrial size is normal. There is no Doppler evidence for an interatrial shunt. Mitral Valve: The mitral valve is normal in structure and function. There is mild mitral annular calcification. There is mild mitral regurgitation. Aortic Valve: The aortic valve is trileaflet. The aortic valve is slightly calcified. The aortic valve opens well. There is no aortic valve stenosis. There is mild aortic regurgitation. Tricuspid Valve: The tricuspid valve is normal in structure and function. There is mild tricuspid regurgitation. Pulmonic Valve: The pulmonic valve leaflets are thin and pliable; valve motion is normal. There is trace pulmonic regurgitation. Great Vessels: The aortic root is borderline dilated. The ascending aorta is at the upper limits of normal in size. The IVC is of normal diameter and collapses greater than 50% with a sniff. This suggests a low right atrial pressure of 3 mm Hg. Pericardium/ Pleura There is no pericardial effusion. There is no pleural effusion. MMode/2D Measurements & Calculations LVIDd: 5.2 cm LVOT diam: 2.0 cm LVIDs: 3.8 cm Ao root diam: 3.9 cm FS: 27.6 % asc Aorta Diam: 3.7 cm IVSd: 1.2 cm Ao Arch Diam (Prox Trans): 3.2 cm LVPWd: 0.92 cm LV barba. diameter/BSA (cm/m^2): 2.4 LV sys. diameter/BSA (cm/m^2): 1.7 LA A2 area: 26.2 cm2 RA long axis: 5.3 cm LA A4 area: 22.6 cm2 RA area: 18.7 cm2 LA length (vol): 6.0 cm RA vol: 56.6 ml LA vol: 83.5 ml RA : 26.1 ml/m2 LA vol index: 38.5 ml/m2 IVC diam: 1.2 cm RVD1 (basal): 4.4 cm TAPSE: 1.9 cm Doppler Measurements & Calculations Ao V2 max: 149.6 cm/sec LVOT Max Kar: 112.1 cm/sec Ao V2 mean: 97.7 cm/sec LV V1 max P.0 mmHg Ao max P.0 mmHg LV V1 VTI: 25.5 cm Ao mean P.4 mmHg TAMY(I,D): 2.4 cm2 Ao V2 VTI: 32.7 cm TAMY(V,D): 2.3 cm2 sev ratio: 0.78 TAMY indexed to BSA (cm^2/m^2): 1.1 AI P1/2t: 890.0 msec AI dec slope: 142.3 cm/sec2 MV E max kar: 51.9 cm/sec TR max kar: 241.2 cm/sec MV A max kar: 69.8 cm/sec TR max P.3 mmHg MV E/A: 0.74 PA V2 max: 97.9 cm/sec Med Peak E' Kar: 4.2 cm/sec PA V2 mean: 67.6 cm/sec E/E' med: 12.3 PA mean P.0 mmHg Lat Peak E' Kar: 5.4 cm/sec PA pr(Accel): 17.3 mmHg E/E' lat: 9.6 E/e' average: 11.0 MV dec time: 0.21 sec SV(LVOT): 78.2 ml Reading Physician:11:01 AM
== END ==
PROVIDERS: PCP Family Medicine; Referring Provider Internal Medicine Cardiovascular Disease; Visit Provider Internal Medicine Cardiovascular Disease
DX: I08.3 Combined rheumatic disorders of mitral, aortic and tricuspid valves (principal); I48.91 Unspecified atrial fibrillation
CPT/HCPCS: 93306

== ENCOUNTER → 2021-11-01 09:54 | Outpatient (CLI) | payer MEDICARE, OTHER, SELFPAY ==
[2018-03-02 16:56] VITALS: BMI 28.9
--- NOTE | 2021-11-01 | DI.NM.S_ITS ---
PROCEDURE: NM TIO PERF SPECT REST & STR Rest and exercise myocardial perfusion SPECT with gated imaging and ejection fraction RADIOPHARMACEUTICAL: 12.3 mCi Tc-99m sestamibi IV at rest and 24.8 mCi Tc-99m sestamibi IV at peak exercise. A one day-protocol was performed. INDICATIONS: AFIB TECHNIQUE: Radiopharmaceutical was injected at peak stress test, and also at rest. SPECT images were obtained. SPECT myocardial perfusion images were displayed in short axis, horizontal long axis, and vertical long axis views. Gated images were reviewed using [employer] software. COMPARISON: None. CARDIAC STRESS: A standard Marciano treadmill exercise tolerance test was performed by the patient under the supervision of an attending staff. The patient exercised for 9 minutes and 20 seconds; functional aerobic impairment (WOJCIECH) is -48%. Hemodynamic data: There is normal blood pressure and heart rate response to exercise stress. Patient achieved 79% of maximum predicted heart rate at peak exercise. Symptoms: Patient denied chest pain during exercise. EKG: No diagnostic EKG changes of ischemia; occasional PACs. FINDINGS: Raw data: There is good myocardial labeling by radiotracer. No significant motion artifacts. Nbxw-we-rozfb ratio is 0.32 (normal is less than 0.38 for sestamibi tracer, and less than 0.50 for thallium tracer). Left ventricle function: Gated images demonstrate normal left ventricle wall thickening. No segmental wall motion abnormality. No transient ischemic dilation; TID is 0.88 (normal less than 1.3). The left ventricle resting end-diastolic volume is 120 mL. Left ventricle stress ejection fraction is 75%; normal values are above 45%. Myocardial perfusion: Mildly intense fixed inferior wall defect that essential resolves with prone imaging, suggesting diaphragmatic attenuation than prior infarction. No ischemia. IMPRESSION: Low risk, probably normal submaximal treadmill nuclear stress test 1) Mildly intense fixed inferior wall defect that essential resolves with prone imaging, suggesting diaphragmatic attenuation than prior infarction. No ischemia. 2) Normal left ventricular size, wall motion, and systolic function (EF post stress 75%). 3) No ECG evidence of ischemia. 4) No angina during the study. 5) Excellent exercise capacity (10.1METs, WOJCIECH -48%). Only 79% of maximum predicted heart rate achieved, suggesting submaximal study which normal reduces sensivity of detecting obstructive ischemic disease but this is juxtaposed with excellent exercise tolerance making significant ischemic disease less likely. 6) No prior nuclear stress test available for comparison. Dictated by: Marisela Del Valle MD on 11/05/2021 at 13:03 Approved by: Marisela Del Valle MD on 11/05/2021 at 13:08
[2021-11-01 12:15] LABS: COVID19 -Nasal RAPID Negative (Negative)
== END ==
PROVIDERS: PCP Family Medicine; Referring Provider Internal Medicine Cardiovascular Disease; Visit Provider Internal Medicine Cardiovascular Disease
DX: I48.91 Unspecified atrial fibrillation (principal); Z20.822 Contact with and (suspected) exposure to COVID-19
CPT/HCPCS: 78452; 87635; 93017; A9502

== ENCOUNTER → 2021-12-21 12:51 | Outpatient (CLI) | payer MEDICARE, OTHER, SELFPAY ==
[2018-03-02 16:56] VITALS: BMI 28.9
[2021-12-21 14:03] LABS: Add Manual Diff / Slide Review NO; Basophils Absolute Auto 100 /uL (0-100); Eosinophils Absolute Auto 100 /uL (0-450); Eosinophils Percent Auto 1.9 % (2-4); Hematocrit 45.3 % (41-53); Hemoglobin 15.4 g/dL (13.5-17.5); Lymphocytes Absolute Auto 1700 /uL (1100-4500); Lymphocytes Percent Auto 26.3 % (25-40); Mean Corpuscular HGB Conc 34.1 % (30-36); Mean Corpuscular Hemoglobin 32.5 PG (26-34); Mean Corpuscular Volume 95.4 fL (80-100); Monocytes Absolute Auto 500 /uL (0-900); Monocytes Percent Auto 7.1 % (3-14); Neutrophils Absolute Auto 4100 /uL (1500-7000); Neutrophils Percent Auto 63.7 % (50-75); Platelet Count 226 X10^3/uL (150-400); Red Blood Cell Count 4.75 X10^6/uL (4.5-5.9); Red Cell Distribution Width 12.7 % (11.6-14.8); White Blood Cell Count 6.4 X10^3/uL (4.5-11.0)
[2021-12-21 14:14] LABS: Alanine Aminotransferase 18 IU/L (<50); Albumin 4.1 g/dL (3.5-5.0); Albumin Globulin Ratio 1.2 (1.0-2.8); Alkaline Phosphatase 88 U/L (38-126); Aspartate Aminotransferase 26 IU/L (17-59); Bilirubin Total 0.8 mg/dL (0.2-1.3); Blood Urea Nitrogen 22 mg/dL (9-20); Carbon Dioxide 24 mmol/L (22-32); Chloride 107 mmol/L (98-107); Cholesterol 209 mg/dL (140-199); Estimated Glomerular Filt Rate > 60 mL/min (>60); Globulin 3.4 g/dL (1.7-4.1); Glucose 112 mg/dL (80-110); HDL Cholesterol 27 mg/dL (40-60); HEMOLYSIS < 15 (0-50); LDL Cholesterol Calculated 127 mg/dL (<100); Potassium 4.3 mmol/L (3.4-5.1); Sodium 138 mmol/L (137-145); Total Protein 7.5 g/dL (6.3-8.2); Triglycerides 275 mg/dL (35-150)
[2021-12-21 14:15] LABS: Hemoglobin A1C% w Est Avg Glu 5.7 % (4.0-6.0)
[2021-12-21 14:42] LABS: Prostate Specific Antigen 4.81 ng/mL (0.10-4.00)
[2021-12-21 15:41] LABS: Thyroid Stimulating Hormone 2.64 uIU/mL (0.47-4.68)
== END ==
PROVIDERS: PCP Family Medicine; Referring Provider Family Medicine; Visit Provider Family Medicine
DX: R73.09 Other abnormal glucose (principal); R73.03 Prediabetes; E78.5 Hyperlipidemia, unspecified; N40.1 Benign prostatic hyperplasia with lower urinary tract symptoms; R73.01 Impaired fasting glucose; R00.2 Palpitations; I48.91 Unspecified atrial fibrillation
CPT/HCPCS: 36415; 80053; 80061; 83036; 84153; 84443; 85025

== ENCOUNTER → 2022-01-30 14:47 | Outpatient (CLI) | payer MEDICARE, OTHER, SELFPAY ==
[2018-03-02 16:56] VITALS: BMI 28.9
--- NOTE | 2022-01-30 | DI.ECHO.S_ITS ---
[facility] +---------+ : : [address] : [place] : : : : [id number] : : : : Phone: [phone]+ Echocardiogram Report + + :Name: JAZ KEMP Study Date: 01/30/2022 Height: 72 in : :[facility] ReadingLocation: Weight: 210 lb : : Gender: Male BSA: 2.2 m2 : :: 1945 Age: 76 yrs BP: 119/69 mmHg: :Reason For Study: ATRIAL FIBRILLATION : :Ordering Physician: SIMRAN, : :CAROLINA Performed By: Mari Guy : :Referring: CAROLINA KHALIL : + + Interpretation Summary The left ventricle is normal in size. The ejection fraction is estimated to be 60-65%. Compared to the prior exam, the left ventricular function is improved. Previous LV ejection fraction 45 to 50%. The right ventricle is normal in size and function. There is mild to moderate aortic regurgitation. Compared to the prior echo study, there has been an increase in the severity of aortic regurgitation. Previously mild AR. There is mild to moderate tricuspid regurgitation. Compared to the prior echo exam, there has been an increase in TR severity. Previously mild TR. The right ventricular systolic pressure is estimated to be at least 28 mmHg based on an estimated right atrial pressure of 3 mm Hg. There is aortic root sclerosis/calcification. Mild atherosclerotic plaque(s) in the aortic arch. Procedure: A two-dimensional transthoracic echocardiogram with color flow and Doppler was performed. The study quality was technically adequate. Comparison is made with the echocardiogram of 07/02/2021. The patient was in sinus bradycardia with heart rates between 50-55 bpm during the exam. Left Ventricle: The left ventricle is normal in size. There is mild concentric left ventricular hypertrophy. There is no thrombus. The ejection fraction is estimated to be 60-65%. Compared to the prior exam, the left ventricular function is improved. There are no focal wall motion abnormalities. Diastolic parameters suggest a relaxation abnormality of the left ventricle, consistent with probable normal filling pressures. Right Ventricle: The right ventricle is normal in size and function. Atria: The left atrium is mildly dilated. There has been no significant change since the previous study. Right atrial size is normal. There is no Doppler evidence for an interatrial shunt. Mitral Valve: There is mild mitral annular calcification. There is mild mitral regurgitation. Compared to the prior echo study, there has been no change in the severity of mitral regurgitation. Aortic Valve: The aortic valve is trileaflet. The aortic valve is mildly calcified. There is discrete nodular thickening of the non- coronary cusp. There is mild to moderate aortic regurgitation. Compared to the prior echo study, there has been an increase in the severity of aortic regurgitation. Tricuspid Valve: The tricuspid valve is normal. There is mild to moderate tricuspid regurgitation. The right ventricular systolic pressure is estimated to be at least 28 mmHg based on an estimated right atrial pressure of 3 mm Hg. Compared to the prior echo exam, there has been an increase in TR severity. Pulmonic Valve: The pulmonic valve leaflets are thin and pliable; valve motion is normal. There is mild pulmonic regurgitation. Great Vessels: The aortic root is normal size. There is aortic root sclerosis/calcification. The ascending aorta is at the upper limits of normal in size. Mild atherosclerotic plaque(s) in the aortic arch. The IVC is of normal diameter and collapses greater than 50% with a sniff. This suggests a low right atrial pressure of 3 mm Hg. Pericardium/ Pleura There is no pericardial effusion. There is no pleural effusion. MMode/2D Measurements & Calculations LVIDd: 4.5 cm LVOT diam: 2.2 cm LVIDs: 3.2 cm Ao root diam: 3.8 cm FS: 29.7 % asc Aorta Diam: 3.7 cm IVSd: 1.3 cm Ao Arch Diam (Prox Trans): 3.3 cm LVPWd: 1.2 cm LV barba. diameter/BSA (cm/m^2): 2.1 LV sys. diameter/BSA (cm/m^2): 1.5 LA A2 area: 22.5 cm2 RA long axis: 4.9 cm LA A4 area: 20.8 cm2 RA area: 18.6 cm2 LA length (vol): 5.5 cm RA vol: 59.8 ml LA vol: 73.0 ml RA : 27.5 ml/m2 LA vol index: 33.6 ml/m2 IVC diam: 0.94 cm RVD1 (basal): 3.7 cm RVD2 (mid): 3.6 cm TAPSE: 2.6 cm Doppler Measurements & Calculations Ao V2 max: 158.2 cm/sec LVOT Max Kar: 124.3 cm/sec Ao V2 mean: 102.6 cm/sec LV V1 max P.2 mmHg Ao max P.0 mmHg LV V1 VTI: 29.1 cm Ao mean P.8 mmHg TAMY(I,D): 3.4 cm2 Ao V2 VTI: 32.6 cm TAMY(V,D): 3.0 cm2 sev ratio: 0.89 TAMY indexed to BSA (cm^2/m^2): 1.6 AI P1/2t: 1184 msec AI dec slope: 98.8 cm/sec2 MV E max kar: 52.6 cm/sec TR max kar: 250.2 cm/sec MV A max kar: 75.8 cm/sec TR max P.0 mmHg MV E/A: 0.69 PA V2 max: 106.7 cm/sec Med Peak E' Kar: 4.3 cm/sec PA V2 mean: 69.3 cm/sec E/E' med: 12.3 PA mean P.2 mmHg Lat Peak E' Kar: 6.5 cm/sec PA pr(Accel): 39.6 mmHg E/E' lat: 8.1 E/e' average: 10.2 MV dec time: 0.28 sec SV(LVOT): 112.2 ml Reading Physician:12:24 PM
== END ==
PROVIDERS: PCP Family Medicine; Referring Provider Internal Medicine Cardiovascular Disease; Visit Provider Internal Medicine Cardiovascular Disease
DX: I48.91 Unspecified atrial fibrillation (principal); I08.3 Combined rheumatic disorders of mitral, aortic and tricuspid valves
CPT/HCPCS: 93306

== ENCOUNTER → 2022-05-06 08:52 | Outpatient (CLI) | payer MEDICARE, SELFPAY ==
[2018-03-02 16:56] VITALS: BMI 28.9
--- NOTE | 2022-05-06 | DI.NM.S_ITS ---
PROCEDURE: NM BONE SCAN WHOLE BODY RADIOPHARMACEUTICAL: 20.2 mCi Tc-99m MDP IV. INDICATIONS: Left hip arthroplasty pain TECHNIQUE: Delayed whole-body scintigrams were obtained approximately 3-4 hours after intravenous injection of radiotracer. Anterior and posterior views were acquired from vertex to feet. COMPARISON: None. FINDINGS: Degenerative uptake of radiotracer at the acromioclavicular, glenohumeral joints, right hip joint, bilateral knees, bilateral mid and forefeet. Photopenic defect of left hip arthroplasty. No increased radiotracer uptake within the bilateral hips. IMPRESSION: No abnormal radiotracer uptake surrounding the left hip arthroplasty. Dictated by: Nathaniel Vallecillo M.D. on 05/06/2022 at 13:30 Transcribed by: TONIE on 05/06/2022 at 13:31 Approved by: Nathaniel Vallecillo M.D. on 05/06/2022 at 16:24
== END ==
PROVIDERS: PCP Family Medicine; Referring Provider Orthopaedic Surgery; Visit Provider Orthopaedic Surgery
DX: M70.62 Trochanteric bursitis, left hip (principal); Z96.642 Presence of left artificial hip joint
CPT/HCPCS: 78306; A9503

== ENCOUNTER → 2022-05-20 14:33 | Outpatient (CLI) | payer MEDICARE, SELFPAY ==
[2018-03-02 16:56] VITALS: BMI 28.9
--- NOTE | 2022-05-20 | DI.CT.S_ITS ---
PROCEDURE: CT KIDNEY URETER BLADDER (KUB) INDICATIONS: Calculus of kidney TECHNIQUE: Axial sections were acquired from the lung bases to the pubic symphysis. Coronal and sagittal reformats were performed. For radiation dose reduction, the following was used: automated exposure control, adjustment of mA and/or kV according to patient size. COMPARISON: [place], [place], [place] BONE SCAN WHOLE BODY, 05/06/2022, 10:31. CT, ABDOMEN/PELVIS WITH CONTRAST, 04/26/2016, 12:10. [facility], CR, XR PELVIS WITH BILATERAL LATERAL HIPS, 04/26/2022, 9:24. FINDINGS: Image quality: Excellent. Lung bases: Unremarkable. Small hiatal hernia. Heart: Normal size. Mild coronary artery calcification. URINARY: Right Kidney: No stones or hydronephrosis. There is a 2.1 cm heterogeneous nodule in the posterior cortex of the left kidney. Right Ureter: No hydroureter. Left Kidney: No stones or hydronephrosis. There is a 1.8 cm hypodense nodule in the superior pole of the right kidney, most likely a cyst. Left Ureter: No hydroureter. Bladder: Normal wall thickness. No stones. Prostate is enlarged. ABDOMEN: Liver: Liver is normal in size. There is a 1.1 cm hypodense nodule in the left hepatic lobe most likely a cyst. Gallbladder: Gallbladder is contracted. No calcified gallstones. Biliary ducts: Unremarkable. Pancreas: Unremarkable. Spleen: Unremarkable. Adrenal Glands: Unremarkable. Stomach and Bowel: Stomach, small bowel loops, and colon are normal in caliber. There is a large amount of stool in colon. Mild diverticulosis. No acute diverticulitis. Peritoneum: No abnormal intraperitoneal fluid. No free air. Ventral Wall: No hernia. Abdominal Nodes: No enlarged retroperitoneal or mesenteric lymph nodes. Vessels: Aorta and inferior vena cava are normal in size. PELVIS: Pelvic Organs: Unremarkable. Pelvic Nodes: Unremarkable. Miscellaneous: No inguinal hernias are seen. Bones: Scoliosis and [id number] degenerative disc and facet disease in lumbar spine. Left hip arthroplasty. IMPRESSION: 1. No renal stone or hydronephrosis. 2. A 2.1 cm heterogeneous nodule in the posterior cortex of the left kidney. Cannot rule out a solid left renal mass. Recommend ultrasound for initial follow-up evaluation. If ultrasound could not confirm cystic nature of the mass, CT with contrast is recommended for further evaluation. 3. A 1.8 cm hypodense nodule most likely a cyst in the superior pole of the right kidney. 4. Enlarged prostate. 5. Mild diverticulosis without acute diverticulitis. 6. A large amount of stool in colon. 7. Small hiatal hernia. Dictated by: Leslie Taylor M.D. on 05/20/2022 at 17:25 Approved by: Leslie Taylor M.D. on 05/21/2022 at 9:38
== END ==
PROVIDERS: PCP Family Medicine; Referring Provider Family Medicine; Visit Provider Family Medicine
DX: N20.0 Calculus of kidney (principal); N28.9 Disorder of kidney and ureter, unspecified; K57.90 Diverticulosis of intestine, part unspecified, without perforation or abscess without bleeding; K44.9 Diaphragmatic hernia without obstruction or gangrene; N40.0 Benign prostatic hyperplasia without lower urinary tract symptoms
CPT/HCPCS: 74176

== ENCOUNTER → 2022-07-23 10:49 | Outpatient (CLI) | payer MEDICARE, SELFPAY ==
[2018-03-02 16:56] VITALS: BMI 28.9
--- NOTE | 2022-07-23 10:51 | DI.CT.S_ITS ---
PROCEDURE: CT ABDOMEN RENAL PROTOCOL INDICATIONS: RENAL MASS/HISTORY OF GROSS HEMATURIA TECHNIQUE: After the administration of intravenous contrast, 5 mm thick images acquired from the diaphragm to the iliac crests in the arterial and urographic phases. 5 mm thick coronal and sagittal reformats were acquired. For radiation dose reduction, the following was used: automated exposure control, adjustment of mA and/or kV according to patient size. COMPARISON: CT 05/20/2022 FINDINGS: Image quality: Excellent. Lung bases: Lung bases are clear. Heart size is normal. Genitourinary: Heterogeneous , enhancing 2.8 centimeter left renal mass. The mass does not pass beyond the perirenal fascia. No retroperitoneal adenopathy. Renal vein is widely patent. Solid organs: Liver is normal in size and enhancement. Fluid attenuating cyst in segment 4. Gallbladder is absent . Biliary system is non dilated. Pancreas enhances normally. Spleen is normal in size and enhancement. No adrenal nodules. Peritoneum and bowel: Unenhanced bowel loops are normal in caliber and wall thickness. No free fluid or air. Nodes and vessels: No retroperitoneal or mesenteric adenopathy by size criteria. Aorta and inferior vena cava are normal in caliber. Bones: No suspicious bony lesions. No vertebral body compression fractures. Miscellaneous: No ventral hernias. IMPRESSION: Enhancing 2.8 centimeter left renal mass. Findings are renal cell carcinoma until proven otherwise. Urology consultation is recommended. No evidence of erich disease. No renal vein invasion. No invasion beyond the perirenal fascia. Dictated by: Aung Whitman M.D. on 07/23/2022 at 13:50 Approved by: Aung Whitman M.D. on 07/23/2022 at 13:54
[2022-07-23 11:35] LABS: Estimated Glomerular Filt Rate > 60 mL/min (>60)
== END ==
PROVIDERS: Radiology Diagnostic Radiology; PCP Family Medicine; Referring Provider Urology; Visit Provider Urology
DX: C64.2 Malignant neoplasm of left kidney, except renal pelvis (principal); R33.8 Other retention of urine; Z87.898 Personal history of other specified conditions; N40.1 Benign prostatic hyperplasia with lower urinary tract symptoms
CPT/HCPCS: 36415; 74170; 82565; Q9967

== ENCOUNTER 2022-12-16 15:27 | Emergency (ER) | payer MEDICARE, SELFPAY ==
[2018-03-02 16:56] VITALS: BMI 28.9
[2022-12-16] VITALS (14 sets, daily range): BP systolic 131–156; BP diastolic 76–86; PULSE 53–59; RESP 18; TEMP 36.6–36.9; O2SAT 95–99; BMI 29.1
[2022-12-16 17:23] LABS: Appearance Urine UA TURBID; Color Urine UA RED
[2022-12-16 17:28] LABS: Bacteria Urine Few (2-10); Culture Indicated Urine Specimen Cultured; RBC Urine >100/HPF (0-5/HPF); Squamous Epithelial Cell Urine 0-1 /HPF (0-5/HPF); WBC Urine 1-5/HPF (0-5/HPF)
--- NOTE | 2022-12-16 18:51 | ED_ITS ---
HPI - Male Genitourinary General Chief complaint: Urogenital-Male Stated complaint: Blood in urine Time Seen by Provider: 12/16/22 16:08 Source: patient Mode of arrival: Ambulatory History of Present Illness HPI Narrative: Patient is a 77-year-old male history of atrial fibrillation on Xarelto history of renal cancer with a recent cryoablation last week at [facility]. He reports that about 6 months ago he previously had some hematuria he then stopped his Xarelto restarted the Xarelto November 26 and now he reports today having significant hematuria. He said this morning it was light pink however this afternoon he is passing multiple clots and it is dark red. He denies any pain dizziness lightheadedness shortness of breath or fever. Related Data Home Medications Medication Instructions Recorded Confirmed etodolac 400 mg tablet 400 mg PO PRN PRN Pain (Scale 02/24/18 11/15/19 Score 1-3) finasteride 5 mg tablet 5 mg PO QPM 02/24/18 11/15/19 metoprolol succinate 50 mg 50 mg PO DAILY 02/24/18 11/15/19 tablet,extended release 24 hr sildenafil 25 mg tablet (Viagra) 25 mg PO DAILY PRN Sexual Activity 02/24/18 11/15/19 tamsulosin 0.4 mg capsule 0.8 mg PO QPM 02/24/18 11/15/19 aspirin 81 mg tablet,delayed 81 mg PO BID 11/15/19 11/15/19 release (Aspir-) melatonin 5 mg chewable tablet 5 mg PO BEDTIME PRN Insomnia 11/15/19 11/15/19 propafenone 150 mg tablet 150 mg PO TID 11/15/19 11/15/19 Allergies Allergy/AdvReac Type Severity Reaction Status Date / Time zolpidem AdvReac Intermediate NIGHTMARES Verified 11/15/19 13:32 AND VERY ADDICTING PER PATIENT Review of Systems Review of Systems ROS Unobtainable: All systems reviewed & are unremarkable except as noted in HPI and below Patient History Medical History (Updated 12/16/22 @ 22:50 by Tressa Ireland DO) Back pain BPH with obstruction/lower urinary tract symptoms (~1992) Chest pain, atypical Colitis Costochondritis Depression with anxiety Dermatofibroma (~1991) Diverticulum of bladder Erectile dysfunction Generalized arthritis Genital herpes Hearing loss History of cardioversion (~2006) Hyperlipidemia IBS (irritable bowel syndrome) (~2003) Microscopic hematuria Neck pain Numbness and tingling Palpitations Paroxysmal atrial fibrillation Pneumonia Scrotal cyst Urinary retention Urinary retention due to benign prostatic hyperplasia Surgical History H/O vasectomy History of colonoscopy Hx of oral surgery Hx of tonsillectomy Social History household members: spouse and children Smoking Status: Former smoker alcohol intake: current Smoking Status: Former smoker alcohol intake frequency: 3 or more drinks per day Substance Use Type: does not use Exam Initial Vital Signs Initial Vital Signs: Vital Signs Temperature 98 F 12/16/22 15:41 Pulse Rate 57 L 12/16/22 15:41 Respiratory Rate 18 12/16/22 15:41 Blood Pressure 133/76 12/16/22 15:41 Pulse Oximetry 96 12/16/22 15:41 Oxygen Delivery Method Room Air 12/16/22 15:41 GENERAL: Alert very pleasant 77-year-old male and in no acute distress. HEENT: Head atraumatic,EOMI, pupils reactive, face symmetric, moist mucous membranes CARDIOVASCULAR: Regular rate and rhythm without murmurs, rubs or gallops. RESPIRATORY: Breath sounds equal bilaterally, no wheezes rales or rhonchi. ABDOMEN: Soft, nontender. Normoactive bowel sounds all 4 quadrants. No guarding or rebound. : No CVA tenderness EXTREMITIES: Normal range of motion, no clubbing or edema. Neurovascularly intact NEUROLOGICAL: Alert and oriented x4.Normal gait and speech. SKIN: Warm, dry, no laceration, no petechiae, no rashes or lesions. Course Orders Ordered: ED Orders 12/16/22 17:13 Urinalysis and Microscopic Stat Urine Culture Stat 12/16/22 19:02 CT abdomen pelvis w con Stat 12/16/22 19:38 CBC Auto Diff [Complete Blood Count AUTO DIFF] Stat CMP [Comprehensive Metabolic Panel] Stat PT [Prothrombin Time INR] Stat PTT Partial Thromboplastin Cameron Stat Discontinued Medications Lidocaine HCl (Lidocaine 2% (Glydo) 6 Ml Gel) 6 ml TOP NOW ONE Stop: 12/16/22 19:47 Last Admin: 12/16/22 19:56 Dose: 6 ml Documented By: GC Vital Signs Vital signs: Vital Signs - 8 hr 12/16/22 17:40 12/16/22 17:40 12/16/22 18:00 Temperature Pulse Rate 59 L 58 L Respiratory Rate Blood Pressure 148/83 H Pulse Oximetry 96 95 12/16/22 18:30 12/16/22 19:00 12/16/22 19:30 Temperature Pulse Rate 58 L 56 L 53 L Respiratory Rate Blood Pressure Pulse Oximetry 95 95 95 12/16/22 20:00 12/16/22 20:30 12/16/22 21:00 Temperature Pulse Rate 55 L 55 L 58 L Respiratory Rate Blood Pressure Pulse Oximetry 96 96 95 12/16/22 21:30 12/16/22 22:00 12/16/22 22:10 Temperature Pulse Rate 55 L 55 L Respiratory Rate Blood Pressure 131/81 Pulse Oximetry 95 95 12/16/22 22:10 12/16/22 22:52 12/16/22 22:53 Temperature 98.4 F Pulse Rate 55 L 57 L 55 L Respiratory Rate 18 Blood Pressure Pulse Oximetry 95 95 99 12/16/22 22:53 Temperature Pulse Rate Respiratory Rate Blood Pressure 156/86 H Pulse Oximetry MDM - Male Genitourinary Lab Data 12/16/22 19:38 12/16/22 19:38 Labs: Lab Results 12/16/22 12/16/22 12/16/22 Range/Units 17:13 19:38 19:38 WBC 6.0 (4.5-11.0) X10^3/uL RBC 4.32 L (4.5-5.9) X10^6/uL Hgb 14.1 (13.5-17.5) g/dL Hct 41.1 (41-53) % MCV 95.3 (80-100) fL MCH 32.7 (26-34) PG MCHC 34.3 (30-36) % RDW 13.0 (11.6-14.8) % Plt Count 217 (150-400) X10^3/uL Neut % (Auto) 62.5 (50-75) % Lymph % (Auto) 21.6 L (25-40) % [place] % (Auto) 12.7 (3-14) % Eos % (Auto) 2.2 (2-4) % Baso % (Auto) 1.0 (0-2) % Neut # (Auto) 3800 (5651-8078) /uL Lymph # (Auto) 1300 (4209-0007) /uL [place] # (Auto) 800 (0-900) /uL Eos # (Auto) 100 (0-450) /uL Baso # (Auto) 100 (0-100) /uL PT 19.2 H (10.1-12.7) SECONDS INR 1.7 H (0.9-1.3) APTT 50 H (26-36) SECONDS Sodium (137-145) mmol/L Potassium (3.4-5.1) mmol/L Chloride (98-107) mmol/L Carbon Dioxide (22-32) mmol/L BUN (9-20) mg/dL Creatinine (0.66-1.25) mg/dL Estimated GFR (>60) mL/min BUN/Creatinine Ratio (6-22) Glucose (80-110) mg/dL Calcium (8.4-10.2) mg/dL Total Bilirubin (0.2-1.3) mg/dL AST (17-59) IU/L ALT (<50) IU/L Alkaline Phosphatase (38-126) U/L Total Protein (6.3-8.2) g/dL Albumin (3.5-5.0) g/dL Globulin (1.7-4.1) g/dL Albumin/Globulin Ratio (1.0-2.8) Urine Color Red Urine Appearance Turbid Urine pH TNP Ur Specific [place] TNP Urine Protein TNP Urine Glucose (UA) TNP Urine Ketones TNP Urine Occult Blood TNP Urine Nitrate TNP Urine Bilirubin TNP Urine Urobilinogen TNP Ur Leukocyte Esterase TNP Urine RBC >100/hpf H (0-5/HPF) Urine WBC 1-5/hpf (0-5/HPF) Ur Squamous Epith Cells 0-1 /hpf (0-5/HPF) Urine Bacteria Few (2-10) H (None) Ur Culture Indicated? Specimen cultured 12/16/22 Range/Units 19:38 WBC (4.5-11.0) X10^3/uL RBC (4.5-5.9) X10^6/uL Hgb (13.5-17.5) g/dL Hct (41-53) % MCV (80-100) fL MCH (26-34) PG MCHC (30-36) % RDW (11.6-14.8) % Plt Count (150-400) X10^3/uL Neut % (Auto) (50-75) % Lymph % (Auto) (25-40) % [place] % (Auto) (3-14) % Eos % (Auto) (2-4) % Baso % (Auto) (0-2) % Neut # (Auto) (0399-8735) /uL Lymph # (Auto) (6816-6391) /uL [place] # (Auto) (0-900) /uL Eos # (Auto) (0-450) /uL Baso # (Auto) (0-100) /uL PT (10.1-12.7) SECONDS INR (0.9-1.3) APTT (26-36) SECONDS Sodium 134 L (137-145) mmol/L Potassium 4.1 (3.4-5.1) mmol/L Chloride 103 (98-107) mmol/L Carbon Dioxide 25 (22-32) mmol/L BUN 19 (9-20) mg/dL Creatinine 0.92 (0.66-1.25) mg/dL Estimated GFR > 60 (>60) mL/min BUN/Creatinine Ratio 20.7 (6-22) Glucose 112 H (80-110) mg/dL Calcium 8.8 (8.4-10.2) mg/dL Total Bilirubin 0.6 (0.2-1.3) mg/dL AST 27 (17-59) IU/L ALT 32 (<50) IU/L Alkaline Phosphatase 85 (38-126) U/L Total Protein 7.0 (6.3-8.2) g/dL Albumin 3.7 (3.5-5.0) g/dL Globulin 3.3 (1.7-4.1) g/dL Albumin/Globulin Ratio 1.1 (1.0-2.8) Urine Color Urine Appearance Urine pH Ur Specific [place] Urine Protein Urine Glucose (UA) Urine Ketones Urine Occult Blood Urine Nitrate Urine Bilirubin Urine Urobilinogen Ur Leukocyte Esterase Urine RBC (0-5/HPF) Urine WBC (0-5/HPF) Ur Squamous Epith Cells (0-5/HPF) Urine Bacteria (None) Ur Culture Indicated? Imaging Data CT scan - abdomen/pelvis: Radiologist's Impression: PROCEDURE:? CT ABDOMEN PELVIS W CON ? INDICATIONS:? Hematuria post cryoablation renal carcinoma ? TECHNIQUE:? After the administration of oral and IV contrast, axial sections were acquired from the lung bases to the pubic symphysis.? Coronal and sagittal reformats were performed.? For radiation dose reduction, the following was used:? automated exposure control, adjustment of mA and/or kV according to patient size. ? COMPARISON:? [facility], CT, ABDOMEN/PELVIS WITH CONTRAST, 04/26/2016, 12:10.? [facility], CT, CT ABDOMEN RENAL PROTOCOL, 07/23/2022, 12:35.? [facility], CT, CT KIDNEY URETER BLADDER (KUB), 05/20/2022, 14:39. ? FINDINGS:? Image quality:? Excellent.? ? Lung bases:? Bibasilar dependent atelectasis.? Small hiatal hernia.? ? Heart:? Normal size.? Moderate coronary artery calcification. ? ? ABDOMEN: Liver:? Normal size.? Hepatic steatosis.? There is a 1 cm hypodense in the left hepatic lobe, most likely a cyst or hemangioma.? ? Gallbladder:? Unremarkable.? ? Biliary ducts:? Unremarkable.? ? Pancreas:? Unremarkable.? ? Spleen:? Unremarkable.? ? Adrenal Glands:? Unremarkable.? ? Kidneys and Ureters:? There is a 2.7 cm solid-appearing mass in the posterior cortex of the left kidney, enlarged since 07/23/2022, suspicious for renal cell carcinoma.? Previously, it measured 2.1 cm on 08/04/2010.? No stones or hydronephrosis. ? A low-density nodule in the superior pole of the right kidney is most likely a cyst. ? Stomach and Bowel:? Stomach, small bowel loops, and colon are normal in caliber.? There is a large amount of stool in colon.? Normal appendix. Peritoneum:? No abnormal intraperitoneal fluid.? No free air.? ? Ventral Wall: ? No hernia.? Abdominal Nodes:? No retroperitoneal or mesenteric adenopathy by size criteria.? Vessels:? Aorta and inferior vena cava are normal in size.? ? PELVIS: Pelvic Organs:? Prostate is enlarged.? ? Bladder:? There is a irregular mass in the right bladder base measuring 1.4 x 2.2 cm. This was not visualized on 05/20/2022. Pelvic Nodes: No enlarged lymph nodes.? Miscellaneous: No inguinal hernias are seen. ? ? ? Bones:? There is fair mild compression deformity of L4.? Moderate to severe d egenerative disc and facet disease in lumbar spine. ? ? IMPRESSION:? ? 1. A 2.7 cm solid left renal mass, enlarged since the last exam, suspicious for renal cell carcinoma. ? 2. A 1.4 x 2.2 cm mass in the right bladder base new since 05/20/2022.? Differential diagnoses are clot, uroepithelial neoplasm and artifact.? Correlate with findings on cystoscopy. ? 3. Enlarged prostate. ? 4. No lymphadenopathy in abdomen or pelvis. ? 5.? A large amount of stool in colon. ? 6. Small hiatal hernia.? ? Dictated by: Leslie Taylor M.D. on 12/16/2022 at 20:07? [facility] Narrative Medical decision making narrative: Patient is 77-year-old male slightly complicated history AFib on Xarelto recent surgery now presenting with significant hematuria clots. Reports that urine is grossly bloody. Three-way Casanova catheter was placed irrigated continuous irrigation and now clear. CT abdomen pelvis shows persistent left renal mass which patient knows about and questionable bladder mass versus a clot. He is an appointment with [facility] urology at the end of January. I called and spoke with Dr. Shahid urology [facility] who recommends patient call urology office in the morning to schedule appointment. If he was not having adelso t retention there is no need to keep Casanova catheter in place. Therefore Casanova catheter was removed prior to discharge and patient urinated prior to discharge as. Urine is being cultured it was too bloody to tell for infection. He is not having fever or sepsis. Labs have been reviewed without leukocytosis or anemia, no evidence of BRISA electrolyte abnormality CT has been reviewed Patient to be discharged home with follow-up with Urology Discharge Plan Departure Patient Disposition: Home Clinical Impression: Hematuria Instructions: DI for Hematuria Activity Restrictions/Additional Instructions: *You have been diagnosed with hematuria *What to do: At this time increase fluids as tolerated. Be sure that urine is pink if it gets dark than start drinking again more. You will need to follow up with Urology *Continue to take medications as directed *Follow up with your primary care provider in 2-3 days or call [phone] Call urology tomorrow to let them know about your ED visit and move up your appointment *Return to ER if you should have inability to urinate, gross blood that is not clearing dizziness or lightheaded or any new, worsening or concerning symptoms Prescriptions: No Action propafenone 150 mg Tablet 150 mg PO TID aspirin [Aspir-81] 81 mg Tablet,Delayed Release (Dr/Ec) 81 mg PO BID melatonin 5 mg Tablet,Chewable 5 mg PO BEDTIME PRN (Reason: Insomnia) metoprolol succinate 50 mg Tablet Extended Release 24 Hr 50 mg PO DAILY tamsulosin 0.4 mg Capsule 0.8 mg PO QPM etodolac 400 mg Tablet 400 mg PO PRN PRN (Reason: Pain (Scale Score 1-3)) finasteride 5 mg Tablet 5 mg PO QPM sildenafil [Viagra] 25 mg Tablet 25 mg PO DAILY PRN (Reason: Sexual Activity) Referrals: Reji Patel MD [Primary Care Provider] - Stand Alone Forms: Patient Portal/API
--- NOTE | 2022-12-16 19:02 | DI.CT.S_ITS ---
PROCEDURE: CT ABDOMEN PELVIS W CON INDICATIONS: Hematuria post cryoablation renal carcinoma TECHNIQUE: After the administration of oral and IV contrast, axial sections were acquired from the lung bases to the pubic symphysis. Coronal and sagittal reformats were performed. For radiation dose reduction, the following was used: automated exposure control, adjustment of mA and/or kV according to patient size. COMPARISON: [facility], CT, ABDOMEN/PELVIS WITH CONTRAST, 04/26/2016, 12:10. [facility], CT, CT ABDOMEN RENAL PROTOCOL, 07/23/2022, 12:35. [facility], CT, CT KIDNEY URETER BLADDER (KUB), 05/20/2022, 14:39. FINDINGS: Image quality: Excellent. Lung bases: Bibasilar dependent atelectasis. Small hiatal hernia. Heart: Normal size. Moderate coronary artery calcification. ABDOMEN: Liver: Normal size. Hepatic steatosis. There is a 1 cm hypodense in the left hepatic lobe, most likely a cyst or hemangioma. Gallbladder: Unremarkable. Biliary ducts: Unremarkable. Pancreas: Unremarkable. Spleen: Unremarkable. Adrenal Glands: Unremarkable. Kidneys and Ureters: There is a 2.7 cm solid-appearing mass in the posterior cortex of the left kidney, enlarged since 07/23/2022, suspicious for renal cell carcinoma. Previously, it measured 2.1 cm on 08/04/2010. No stones or hydronephrosis. A low-density nodule in the superior pole of the right kidney is most likely a cyst. Stomach and Bowel: Stomach, small bowel loops, and colon are normal in caliber. There is a large amount of stool in colon. Normal appendix. Peritoneum: No abnormal intraperitoneal fluid. No free air. Ventral Wall: No hernia. Abdominal Nodes: No retroperitoneal or mesenteric adenopathy by size criteria. Vessels: Aorta and inferior vena cava are normal in size. PELVIS: Pelvic Organs: Prostate is enlarged. Bladder: There is a irregular mass in the right bladder base measuring 1.4 x 2.2 cm. This was not visualized on 05/20/2022. Pelvic Nodes: No enlarged lymph nodes. Miscellaneous: No inguinal hernias are seen. Bones: There is fair mild compression deformity of L4. Moderate to severe degenerative disc and facet disease in lumbar spine. IMPRESSION: 1. A 2.7 cm solid left renal mass, enlarged since the last exam, suspicious for renal cell carcinoma. 2. A 1.4 x 2.2 cm mass in the right bladder base new since 05/20/2022. Differential diagnoses are clot, uroepithelial neoplasm and artifact. Correlate with findings on cystoscopy. 3. Enlarged prostate. 4. No lymphadenopathy in abdomen or pelvis. 5. A large amount of stool in colon. 6. Small hiatal hernia. Dictated by: Leslie Taylor M.D. on 12/16/2022 at 20:07 Approved by: Leslie Taylor M.D. on 12/16/2022 at 20:19
[2022-12-16 19:45] LABS: Add Manual Diff / Slide Review NO; Basophils Absolute Auto 100 /uL (0-100); Eosinophils Absolute Auto 100 /uL (0-450); Eosinophils Percent Auto 2.2 % (2-4); Hematocrit 41.1 % (41-53); Hemoglobin 14.1 g/dL (13.5-17.5); Lymphocytes Absolute Auto 1300 /uL (1100-4500); Lymphocytes Percent Auto 21.6 % (25-40); Mean Corpuscular HGB Conc 34.3 % (30-36); Mean Corpuscular Hemoglobin 32.7 PG (26-34); Mean Corpuscular Volume 95.3 fL (80-100); Monocytes Absolute Auto 800 /uL (0-900); Monocytes Percent Auto 12.7 % (3-14); Neutrophils Absolute Auto 3800 /uL (1500-7000); Neutrophils Percent Auto 62.5 % (50-75); Platelet Count 217 X10^3/uL (150-400); Red Blood Cell Count 4.32 X10^6/uL (4.5-5.9)
[2022-12-16 19:55] LABS: INR 1.7 (0.9-1.3); Prothrombin Time 19.2 SECONDS (10.1-12.7)
[2022-12-16] MEDS: LIDOCAINE 2% (GLYDO) 6 ML GEL TOP (19:56)
[2022-12-16 20:03] LABS: Alanine Aminotransferase 32 IU/L (<50); Albumin 3.7 g/dL (3.5-5.0); Albumin Globulin Ratio 1.1 (1.0-2.8); Alkaline Phosphatase 85 U/L (38-126); Aspartate Aminotransferase 27 IU/L (17-59); BUN Creatinine Ratio 20.7 (6-22); Bilirubin Total 0.6 mg/dL (0.2-1.3); Blood Urea Nitrogen 19 mg/dL (9-20); Calcium 8.8 mg/dL (8.4-10.2); Carbon Dioxide 25 mmol/L (22-32); Chloride 103 mmol/L (98-107); Estimated Glomerular Filt Rate > 60 mL/min (>60); Globulin 3.3 g/dL (1.7-4.1); Glucose 112 mg/dL (80-110); HEMOLYSIS < 15 (0-50); Potassium 4.1 mmol/L (3.4-5.1); Sodium 134 mmol/L (137-145)
[2022-12-16 20:07] LABS: PTT Partial Thromboplastin Tim 50 SECONDS (26-36)
== END 2022-12-16 22:59 | disposition home or self-care (01) ==
PROVIDERS: Emergency Medicine; Emergency Provider Emergency Medicine; PCP Family Medicine
DX: C64.9 Malignant neoplasm of unspecified kidney, except renal pelvis (principal); R31.9 Hematuria, unspecified; Z79.01 Long term (current) use of anticoagulants
CPT/HCPCS: 36415; 51798; 74177; 80053; 81001; 85025; 85610; 85730; 87086; 99283; 99284; Q9967

== ENCOUNTER 2022-12-17 07:34 | Emergency (ER) | payer MEDICARE, SELFPAY ==
[2018-03-02 16:56] VITALS: BMI 28.9
[2022-12-17 07:46] VITALS: BP 150/75; PULSE 53; RESP 16; TEMP 36.6; O2SAT 97; BMI 29.1
[2022-12-17 08:08] LABS: Appearance Urine UA TURBID; Bilirubin Urine UA NEGATIVE (NEGATIVE); Color Urine UA RED; Glucose Urine UA NEGATIVE (Negative); Ketones Urine UA NEGATIVE (NEGATIVE); Leukocyte Esterase Urine UA NEGATIVE (NEGATIVE); Nitrite Urine UA NEGATIVE (Negative); Occult Blood Urine UA 3+ (Negative); Protein Urine UA 3+ (Negative); Specific Gravity Urine UA 1.025 (1.000-1.035)
[2022-12-17 08:09] LABS: Bacteria Urine None Seen; Culture Indicated Urine Cult Not Indicated; RBC Urine >100/HPF (0-5/HPF); Squamous Epithelial Cell Urine 0-1 /HPF (0-5/HPF); WBC Urine 0-1/HPF (0-5/HPF)
--- NOTE | 2022-12-17 08:45 | ED_ITS ---
HPI - Male Genitourinary General Chief complaint: Urogenital-Male Stated complaint: blood in urine Time Seen by Provider: 12/17/22 08:45 Source: patient Mode of arrival: Family Vehicle Limitations: no limitations History of Present Illness HPI Narrative: 77-year-old male on Xarelto for atrial fibrillation with renal cancer with recent cryoablation last week at [facility] 6 days ago. Patient presented last night for hematuria. He states he had very minimal amount and had increased last night where it was pink and then had some large clots. He was seen last night had a Casanova catheter had irrigation was then pink, case was discussed with Urology 3 [facility] who told the physician overnight to remove the catheter. Patient states today he is had more thicker darker and bright red blood this morning. He states it was pinkish overnight. He does not feel like he is retaining, he has not had any incontinence, dysuria or frequency. No abdominal back or flank pain. Patient has not had any fevers. No nausea or vomiting. No diarrhea constipation, no lightheadedness or passing out. No shortness of breath. Patient states he was told to return if bleeding increased. Patient states who received Urology at [facility], Dr. Gunter who left and then 1 of the low [facility] urologist. He had been referred to [facility] urology and has not appointment set up for February 10. He had his procedure with IR at the [facility]. Related Data Home Medications Medication Instructions Recorded Confirmed etodolac 400 mg tablet 400 mg PO PRN PRN Pain (Scale 02/24/18 11/15/19 Score 1-3) finasteride 5 mg tablet 5 mg PO QPM 02/24/18 11/15/19 metoprolol succinate 50 mg 50 mg PO DAILY 02/24/18 11/15/19 tablet,extended release 24 hr sildenafil 25 mg tablet (Viagra) 25 mg PO DAILY PRN Sexual Activity 02/24/18 11/15/19 tamsulosin 0.4 mg capsule 0.8 mg PO QPM 02/24/18 11/15/19 aspirin 81 mg tablet,delayed 81 mg PO BID 11/15/19 11/15/19 release (Aspir-) melatonin 5 mg chewable tablet 5 mg PO BEDTIME PRN Insomnia 11/15/19 11/15/19 propafenone 150 mg tablet 150 mg PO TID 11/15/19 11/15/19 Allergies Allergy/AdvReac Type Severity Reaction Status Date / Time zolpidem AdvReac Intermediate NIGHTMARES Verified 12/17/22 07:49 AND VERY ADDICTING PER PATIENT Review of Systems Review of Systems ROS Unobtainable: All systems reviewed & are unremarkable except as noted in HPI and below Patient History Medical History (Updated 12/17/22 @ 09:11 by Shanda Jennings DO) Back pain BPH with obstruction/lower urinary tract symptoms (~1992) Chest pain, atypical Colitis Costochondritis Depression with anxiety Dermatofibroma (~1991) Diverticulum of bladder Erectile dysfunction Generalized arthritis Genital herpes Hearing loss History of cardioversion (~2006) Hyperlipidemia IBS (irritable bowel syndrome) (~2003) Microscopic hematuria Neck pain Numbness and tingling Palpitations Paroxysmal atrial fibrillation Pneumonia Scrotal cyst Urinary retention Urinary retention due to benign prostatic hyperplasia Surgical History H/O vasectomy History of colonoscopy Hx of oral surgery Hx of tonsillectomy Social History household members: spouse and children Smoking Status: Former smoker alcohol intake: current Smoking Status: Former smoker alcohol intake frequency: 3 or more drinks per day Substance Use Type: does not use Exam Narrative Exam Narrative: GENERAL: Alert and oriented x three, male in mild distress. HEENT: Head normocephalic, atraumatic, EOMI, pupils reactive, face symmetric, moist mucous membranes NECK: Supple, full range of motion CARDIOVASCULAR: Regular rate and rhythm without murmurs, rubs or gallops. RESPIRATORY: Breath sounds equal bilaterally, no wheezes rales or rhonchi. ABDOMEN: Soft, nontender. Normoactive bowel sounds all 4 quadrants. No guarding or rebound, rigidity, no mass : No CVA tenderness EXTREMITIES: Normal range of motion, no clubbing or edema. Neurovascularly intact NEUROLOGICAL: Cranial nerves II through XII grossly intact. Moving all extremities SKIN: Warm, dry, no petechiae, no rashes or lesions. Initial Vital Signs Initial Vital Signs: Vital Signs Temperature 98 F 12/17/22 07:46 Pulse Rate 53 L 12/17/22 07:46 Respiratory Rate 16 12/17/22 07:46 Blood Pressure 150/75 H 12/17/22 07:46 Pulse Oximetry 97 12/17/22 07:46 Oxygen Delivery Method Room Air 12/17/22 07:46 Course Orders Ordered: ED Orders 12/17/22 07:55 Urinalysis and Microscopic Stat 12/17/22 09:06 BMP [Basic Metabolic Panel] Stat CBC Auto Diff [Complete Blood Count AUTO DIFF] Stat PTT Partial Thromboplastin Cameron Stat Prothrombin Time INR Stat Vital Signs Vital signs: Vital Signs - 8 hr 12/17/22 07:46 12/17/22 09:46 Temperature 98 F Pulse Rate 53 L 54 L Respiratory Rate 16 Blood Pressure 150/75 H 158/80 H Pulse Oximetry 97 96 Oxygen Delivery Method Room Air Room Air MDM - Male Genitourinary Lab Data 12/17/22 09:06 12/17/22 09:06 Labs: Lab Results 12/17/22 12/17/22 12/17/22 Range/Units 07:55 09:06 09:06 WBC 6.3 (4.5-11.0) X10^3/uL RBC 4.12 L (4.5-5.9) X10^6/uL Hgb 13.8 (13.5-17.5) g/dL Hct 39.4 L (41-53) % MCV 95.5 (80-100) fL MCH 33.3 (26-34) PG MCHC 34.9 (30-36) % RDW 12.9 (11.6-14.8) % Plt Count 212 (150-400) X10^3/uL Neut % (Auto) 64.1 (50-75) % Lymph % (Auto) 22.5 L (25-40) % [place] % (Auto) 9.9 (3-14) % Eos % (Auto) 2.5 (2-4) % Baso % (Auto) 1.0 (0-2) % Neut # (Auto) 4100 (3619-0346) /uL Lymph # (Auto) 1400 (4584-2802) /uL [place] # (Auto) 600 (0-900) /uL Eos # (Auto) 200 (0-450) /uL Baso # (Auto) 100 (0-100) /uL PT 15.3 H (10.1-12.7) SECONDS INR 1.3 (0.9-1.3) APTT 44 H (26-36) SECONDS Sodium (137-145) mmol/L Potassium (3.4-5.1) mmol/L Chloride (98-107) mmol/L Carbon Dioxide (22-32) mmol/L BUN (9-20) mg/dL Creatinine (0.66-1.25) mg/dL Estimated GFR (>60) mL/min BUN/Creatinine Ratio (6-22) Glucose (80-110) mg/dL Calcium (8.4-10.2) mg/dL Urine Color Red Urine Appearance Turbid Urine pH 6.0 (4.5-8.0) Ur Specific [place] 1.025 (1.000-1.035) Urine Protein 3+ H (Negative) Urine Glucose (UA) Negative (Negative) g/dL Urine Ketones Negative (NEGATIVE) Urine Occult Blood 3+ H (Negative) Urine Nitrate Negative (Negative) Urine Bilirubin Negative (NEGATIVE) Urine Urobilinogen 1.0 (0.2) E.U./dL Ur Leukocyte Esterase Negative (NEGATIVE) Urine RBC >100/hpf H (0-5/HPF) Urine WBC 0-1/hpf (0-5/HPF) Ur Squamous Epith Cells 0-1 /hpf (0-5/HPF) Urine Bacteria None seen (None) Ur Culture Indicated? Cult not indicated 12/17/22 Range/Units 09:06 WBC (4.5-11.0) X10^3/uL RBC (4.5-5.9) X10^6/uL Hgb (13.5-17.5) g/dL Hct (41-53) % MCV (80-100) fL MCH (26-34) PG MCHC (30-36) % RDW (11.6-14.8) % Plt Count (150-400) X10^3/uL Neut % (Auto) (50-75) % Lymph % (Auto) (25-40) % [place] % (Auto) (3-14) % Eos % (Auto) (2-4) % Baso % (Auto) (0-2) % Neut # (Auto) (4416-1164) /uL Lymph # (Auto) (1618-0127) /uL [place] # (Auto) (0-900) /uL Eos # (Auto) (0-450) /uL Baso # (Auto) (0-100) /uL PT (10.1-12.7) SECONDS INR (0.9-1.3) APTT (26-36) SECONDS Sodium 137 (137-145) mmol/L Potassium 4.2 (3.4-5.1) mmol/L Chloride 104 (98-107) mmol/L Carbon Dioxide 26 (22-32) mmol/L BUN 22 H (9-20) mg/dL Creatinine 1.07 (0.66-1.25) mg/dL Estimated GFR > 60 (>60) mL/min BUN/Creatinine Ratio 20.6 (6-22) Glucose 141 H (80-110) mg/dL Calcium 8.7 (8.4-10.2) mg/dL Urine Color Urine Appearance Urine pH (4.5-8.0) Ur Specific [place] (1.000-1.035) Urine Protein (Negative) Urine Glucose (UA) (Negative) g/dL Urine Ketones (NEGATIVE) Urine Occult Blood (Negative) Urine Nitrate (Negative) Urine Bilirubin (NEGATIVE) Urine Urobilinogen (0.2) E.U./dL Ur Leukocyte Esterase (NEGATIVE) Urine RBC (0-5/HPF) Urine WBC (0-5/HPF) Ur Squamous Epith Cells (0-5/HPF) Urine Bacteria (None) Ur Culture Indicated? Imaging Data CT scan - abdomen/pelvis: Radiologist's Impression: Close Abdomen/Pelvis CT (Signed) Leslie Taylor - 12/16/[address] (Signed) Aung Whitman - 07/23/22 Abdomen/Pelvis CT (Signed) Leslie Taylor - 05/20/22 Bone Scan Nuclear Medicine (Signed) Nathaniel Vallecillo - 05/06/22 Echocardiogram Ultrasound (Signed) Husam Encarnacion - 01/30/22 Myocardial Perfusion Scan Nuc Med (Signed) Marisela Del Valle - 11/01/21 Echocardiogram Ultrasound (Signed) David Amador - 07/02/21 Foot MRI (Signed) Fransisco Saucedo - 09/21/20 Telemetry Strips 11/15/19 Pelvis X-Ray (Signed) Baylee Ocampo - 03/02/18 Outside DI 05/14/17 Outside EKG 04/25/17 Launch?Image [address] [address] [address] Scan Report Signed Patient: Kp Cortez MR#: [id number] : 1945 Acct:[id number] Age/Sex: 77 / M Date of Service: 12/16/22 Loc: ED Accession Number: [id number] ?? Procedure: CT abdomen pelvis w con Ordering Provider: Tressa Ireland D.O. PROCEDURE:? CT ABDOMEN PELVIS W CON ? INDICATIONS:? Hematuria post cryoablation renal carcinoma ? TECHNIQUE:? After the administration of oral and IV contrast, axial sections were acquired from the lung bases to the pubic symphysis.? Coronal and sagittal reformats were performed.? For radiation dose reduction, the following was used:? automated exposure control, adjustment of mA and/or kV according to patient size. ? COMPARISON:? [facility], CT, ABDOMEN/PELVIS WITH CONTRAST, 04/26/2016, 12:10.? [facility], CT, CT ABDOMEN RENAL PROTOCOL, 07/23/2022, 12:35.? [facility], CT, CT KIDNEY URETER BLADDER (KUB), 05/20/2022, 14:39. ? FINDINGS:? Image quality:? Excellent.? ? Lung bases:? Bibasilar dependent atelectasis.? Small hiatal hernia.? ? Heart:? Normal size.? Moderate coronary artery calcification. ? ? ABDOMEN: Liver:? Normal size.? Hepatic steatosis.? There is a 1 cm hypodense in the left hepatic lobe, most likely a cyst or hemangioma.? ? Gallbladder:? Unremarkable.? ? Biliary ducts:? Unremarkable.? ? Pancreas:? Unremarkable.? ? Spleen:? Unremarkable.? ? Adrenal Glands:? Unremarkable.? ? Kidneys and Ureters:? There is a 2.7 cm solid-appearing mass in the posterior cortex of the left kidney, enlarged since 07/23/2022, suspicious for renal cell carcinoma.? Previously, it measured 2.1 cm on 08/04/2010.? No stones or hydronephrosis. ? A low-density nodule in the superior pole of the right kidney is most likely a cyst. ? Stomach and Bowel:? Stomach, small bowel loops, and colon are normal in caliber.? There is a large amount of stool in colon.? Normal appendix. Peritoneum:? No abnormal intraperitoneal fluid.? No free air.? ? Ventral Wall: ? No hernia.? Abdominal Nodes:? No retroperitoneal or mesenteric adenopathy by size criteria.? Vessels:? Aorta and inferior vena cava are normal in size.? ? PELVIS: Pelvic Organs:? Prostate is enlarged.? ? Bladder:? There is a irregular mass in the right bladder base measuring 1.4 x 2.2 cm. This was not visualized on 05/20/2022. Pelvic Nodes: No enlarged lymph nodes.? Miscellaneous: No inguinal hernias are seen. ? ? ? Bones:? There is fair mild compression deformity of L4.? Moderate to severe degenerative disc and facet disease in lumbar spine. ? ? IMPRESSION:? ? 1. A 2.7 cm solid left renal mass, enlarged since the last exam, suspicious for renal cell carcinoma. ? 2. A 1.4 x 2.2 cm mass in the right bladder base new since 05/20/2022.? Dif ferential diagnoses are clot, uroepithelial neoplasm and artifact.? Correlate with findings on cystoscopy. ? 3. Enlarged prostate. ? 4. No lymphadenopathy in abdomen or pelvis. ? 5.? A large amount of stool in colon. ? 6. Small hiatal hernia.? ? Dictated by: Leslie Taylor M.D. on 12/16/2022 at 20:07 ? ? Approved by: Leslie Taylor M.D. on 12/16/2022 at 20:19?? MDM Narrative Medical decision making narrative: 77-year-old male who represents for hematuria. Patient states urine is little darker he has been able to urinate. He had labs yesterday, these were repeated today. Hemoglobin is stable, no elevation in white count platelets are appropriate, coags showed INR 1.3 patient did hold his Xarelto this morning. Renal functions appropriate 1.07 with no significant increased normal electrolytes, urine shows blood greater than 100 RBCs, 0-1 white cells, no nitrates no leuks, no bacteria. Patient states he urinated light pink here and continues to feel like he is emptying his bladder well. He would CT last night which showed a 2.7 cm solid left renal mass which is expected with his recent cryoablation and 1.4 x 2.2 cm mass in the right bladder base new since May 20, 2022 which could be clot versus neoplasm. Patient was told needs follow-up for cystoscopy, and large prostate. He also notes he was told he had some bleeding from his prostate in the past as well. Patient has follow up February 10 with urology. Patient feels comfortable discharge home. Did protocol at Neurology to assist with follow-up as he does not have an appointment for the next [address] Tan, with urology he saw the patient and referred him to IR at [facility]. He will have the patient have a follow up the next couple days they will follow closely with the patient. He feels comfortable with the current plan. Discharge Plan Departure Patient Disposition: Home Clinical Impression: Hematuria Instructions: DI for Hematuria Activity Restrictions/Additional Instructions: Please follow-up with Urology, call the office to set up a closer appointment time for cystoscopy. There is a spot in your bladder this could be mass but is also potentially blood clot. I would recommend holding your Xarelto for several days to see if this improves your hematuria. Please return for fevers, new or worsening abdominal back flank pain, inability to urinate or difficulty with urination, increasingly large clots or large amounts of bleeding or other new or concerning changes. Prescriptions: No Action propafenone 150 mg Tablet 150 mg PO TID aspirin [Aspir-81] 81 mg Tablet,Delayed Release (Dr/Ec) 81 mg PO BID melatonin 5 mg Tablet,Chewable 5 mg PO BEDTIME PRN (Reason: Insomnia) metoprolol succinate 50 mg Tablet Extended Release 24 Hr 50 mg PO DAILY tamsulosin 0.4 mg Capsule 0.8 mg PO QPM etodolac 400 mg Tablet 400 mg PO PRN PRN (Reason: Pain (Scale Score 1-3)) finasteride 5 mg Tablet 5 mg PO QPM sildenafil [Viagra] 25 mg Tablet 25 mg PO DAILY PRN (Reason: Sexual Activity) Referrals: Reji Patel MD [Primary Care Provider] - Stand Alone Forms: Patient Portal/API
[2022-12-17 09:15] LABS: Add Manual Diff / Slide Review NO; Basophils Absolute Auto 100 /uL (0-100); Eosinophils Absolute Auto 200 /uL (0-450); Eosinophils Percent Auto 2.5 % (2-4); Hematocrit 39.4 % (41-53); Hemoglobin 13.8 g/dL (13.5-17.5); Lymphocytes Absolute Auto 1400 /uL (1100-4500); Lymphocytes Percent Auto 22.5 % (25-40); Mean Corpuscular HGB Conc 34.9 % (30-36); Mean Corpuscular Hemoglobin 33.3 PG (26-34); Mean Corpuscular Volume 95.5 fL (80-100); Monocytes Absolute Auto 600 /uL (0-900); Monocytes Percent Auto 9.9 % (3-14); Neutrophils Absolute Auto 4100 /uL (1500-7000); Neutrophils Percent Auto 64.1 % (50-75); Platelet Count 212 X10^3/uL (150-400); Red Blood Cell Count 4.12 X10^6/uL (4.5-5.9); Red Cell Distribution Width 12.9 % (11.6-14.8); White Blood Cell Count 6.3 X10^3/uL (4.5-11.0)
[2022-12-17 09:20] LABS: INR 1.3 (0.9-1.3); Prothrombin Time 15.3 SECONDS (10.1-12.7)
[2022-12-17 09:23] LABS: PTT Partial Thromboplastin Tim 44 SECONDS (26-36)
[2022-12-17 09:29] LABS: BUN Creatinine Ratio 20.6 (6-22); Blood Urea Nitrogen 22 mg/dL (9-20); Calcium 8.7 mg/dL (8.4-10.2); Carbon Dioxide 26 mmol/L (22-32); Chloride 104 mmol/L (98-107); Estimated Glomerular Filt Rate > 60 mL/min (>60); Glucose 141 mg/dL (80-110); HEMOLYSIS < 15 (0-50); Potassium 4.2 mmol/L (3.4-5.1); Sodium 137 mmol/L (137-145)
[2022-12-17 09:46] VITALS: BP 158/80; PULSE 54; O2SAT 96
== END 2022-12-17 09:47 | disposition home or self-care (01) ==
PROVIDERS: Emergency Provider Emergency Medicine; PCP Family Medicine
DX: R31.9 Hematuria, unspecified (principal); Z79.899 Other long term (current) drug therapy
CPT/HCPCS: 80048; 81001; 85025; 85610; 85730; 99281; 99283

== ENCOUNTER → 2023-02-18 08:50 | Outpatient (CLI) | payer MEDICARE, SELFPAY ==
[2018-03-02 16:56] VITALS: BMI 28.9
--- NOTE | 2023-02-18 | DI.MRI.S_ITS ---
PROCEDURE: MR PELVIC PROSTATE PROTOCOL INDICATIONS: Elevated prostate specific antigen [PSA] TECHNIQUE: Coronal HASTE, axial T1 FSE with fat saturation, 3-plane nonbreath-hold T2 FSE. After the administration of contrast, dynamic axial, delayed axial and coronal VIBE or 2-D FLASH with fat saturation through the pelvis. Optional diffusion weighted imaging and ADC may be performed. COMPARISON: None. FINDINGS: Image quality: Diffusion weighted and dynamic contrast enhanced images are diagnostic. Prostate: Gland size is enlarged measuring 5.9 x 6.0 x 5.2 cm; ellipsoid gland volume is 95.7 mL. There is morphology of transition zone nodular hypertrophy. The prostate demonstrates slightly heterogeneous, diffuse T2 hypointensity in much of the peripheral zone at the mid gland level. There is no restricted diffusion or ADC hypointensity, however the left aspect of the prostate gland is obscured by artifact from left hip arthroplasty components. Genitourinary system: Bladder wall thickness is normal. Distal ureters are non distended. Bowel and peritoneum: No pathologic free pelvic fluid. Inferior colon and small bowel loops are normal in caliber. Nodes and vessels: No pelvic or inguinal adenopathy by size criteria. Iliac vessels are normal in caliber. Soft tissues: No inguinal hernias. Bones: The visible marrow demonstrates normal overall signal, without lesions to suggest metastases. Left pelvic bones are altered by metallic artifact. IMPRESSION: Enlarged prostate gland with morphology of BPH. Right and left peripheral zone in the mid gland demonstrates uniform T2 hypointensity which is mildly suspicious, however there is no convincing corresponding diffusion abnormality. Diffusion imaging is markedly limited due to susceptibility artifact from left hip arthroplasty. No definite enhancing abnormality, though this is nonspecific. No adenopathy. Dictated by: Su Cruz M.D. on 02/18/2023 at 12:37 Approved by: Su Cruz M.D. on 02/18/2023 at 12:52
== END ==
PROVIDERS: PCP Family Medicine; Referring Provider Urology; Visit Provider Urology
DX: R97.20 Elevated prostate specific antigen [PSA] (principal); N40.0 Benign prostatic hyperplasia without lower urinary tract symptoms
CPT/HCPCS: 72197

== ENCOUNTER → 2023-03-13 13:55 | Outpatient (CLI) | payer MEDICARE, SELFPAY ==
[2018-03-02 16:56] VITALS: BMI 28.9
[2023-03-13 14:22] LABS: Estimated Glomerular Filt Rate > 60 mL/min (>60)
== END ==
PROVIDERS: PCP Family Medicine; Referring Provider Radiology Diagnostic Radiology; Visit Provider Radiology Diagnostic Radiology
DX: C64.2 Malignant neoplasm of left kidney, except renal pelvis (principal)
CPT/HCPCS: 36415; 82565

== ENCOUNTER → 2023-03-14 09:18 | Outpatient (CLI) | payer MEDICARE, SELFPAY ==
[2018-03-02 16:56] VITALS: BMI 28.9
--- NOTE | 2023-03-14 | DI.CT.S_ITS ---
PROCEDURE: CT ABDOMEN WO/W CON INDICATIONS: MALIGNANT NEOPLASM OF LEFT KIDNEY TECHNIQUE: Optional 5 mm thick noncontrast images acquired from the diaphragm to the iliac crests. After the administration of intravenous contrast, 5 mm thick images again acquired from the diaphragm to the iliac crests in the arterial and urographic phases. 5 mm thick coronal and sagittal reformats were then acquired. For radiation dose reduction, the following was used: automated exposure control, adjustment of mA and/or kV according to patient size. COMPARISON: [facility], CT, CT ABDOMEN RENAL PROTOCOL, 07/23/2022, 12:35. [facility], CT, CT ABDOMEN PELVIS W CON, 12/16/2022, 19:26. FINDINGS: Image quality: Excellent. Lung bases: Mild dependent atelectasis in the lung bases. Heart size is normal. Genitourinary: Kidneys are symmetric in size. Post ablation changes are seen in the posterior left kidney at the site of the previously seen solid renal mass. No residual postcontrast enhancement is seen. The size of the mass appears mildly decreased. No new solid renal mass is seen. Benign nonenhancing cyst is seen in the superior pole of the right kidney. No hydronephrosis. No urothelial lesion is seen in the upper renal collecting system. Renal vein remains patent. Other solid organs: Liver is normal in size and enhancement. Simple 1.1 cm cyst is again seen in the left hepatic lobe. Gallbladder is unremarkable. Biliary system is non dilated. Pancreas enhances normally. Spleen is normal in size and enhancement. No adrenal nodules. Peritoneum and bowel: Small hiatal hernia. Unenhanced bowel loops are normal in wall thickness and caliber. No free fluid or air. Nodes and vessels: No retroperitoneal or mesenteric adenopathy by size criteria. Aorta and inferior vena cava are normal in caliber. Bones: No suspicious bony lesions. No vertebral body compression fractures. Miscellaneous: No ventral hernias. IMPRESSION: Expected post ablation changes at the posterior aspect of the left kidney. No residual or recurrent enhancing soft tissue mass is seen. Approved by: Warren Roman M.D. on 03/14/2023 at 13:16
== END ==
PROVIDERS: PCP Family Medicine; Referring Provider Radiology Vascular & Interventional Radiology; Visit Provider Radiology Vascular & Interventional Radiology
DX: C64.2 Malignant neoplasm of left kidney, except renal pelvis (principal); N28.1 Cyst of kidney, acquired; K76.89 Other specified diseases of liver; K44.9 Diaphragmatic hernia without obstruction or gangrene
CPT/HCPCS: 74170; Q9967

== ENCOUNTER → 2023-05-06 12:03 | Outpatient (CLI) | payer MEDICARE, SELFPAY ==
[2018-03-02 16:56] VITALS: BMI 28.9
== END ==
LOC: LAB 12:03
PROVIDERS: PCP Family Medicine; Referring Provider Urology; Visit Provider Urology
DX: N40.1 Benign prostatic hyperplasia with lower urinary tract symptoms (principal); N13.8 Other obstructive and reflux uropathy
CPT/HCPCS: 87086

== ENCOUNTER 2023-05-10 18:14 | Emergency (ER) | payer MEDICARE, SELFPAY ==
[2018-03-02 16:56] VITALS: BMI 28.9
[2023-05-10 18:17] VITALS: BP 206/89; PULSE 60; RESP 18; TEMP 36.7; O2SAT 98; BMI 29.5
[2023-05-10] MEDS: LIDOCAINE 2% (GLYDO) 6 ML GEL TOP (18:36)
--- NOTE | 2023-05-10 19:03 | PC.NURSE ---
Addendum entered by Stacie Boyd R.N. 05/10/23 19:17: no clots in urine. Original Note: pt initially had dark hematuria with catheter insertion. the urine is now light pink. pt had immediate relief with catheter insertion.
--- NOTE | 2023-05-10 19:23 | ED.MALEGU ---
HPI - Male Genitourinary General Chief complaint: Urogenital-Male Stated complaint: needs catheter put in Time Seen by Provider: 05/10/23 19:21 Source: patient Mode of arrival: Ambulatory History of Present Illness HPI Narrative: Patient is a 77-year-old male with recent history of TURP done at [facility] he was discharged today. He urinated 400 cc prior to discharge and had 100 cc left in his bladder. Apparently they thought that he would need a catheter but did not. Since he has been home he has not urinated having increasing pain. Catheter has since been placed slightly pink urine which is clearing. No fever or chills. He does have history of atrial fibrillation takes aspirin and proparacaine pain along with metoprolol, has not restarted aspirin yet Related Data Home Medications Medication Instructions Recorded Confirmed etodolac 400 mg tablet 400 mg PO PRN PRN Pain (Scale 02/24/18 11/15/19 Score 1-3) finasteride 5 mg tablet 5 mg PO QPM 02/24/18 11/15/19 metoprolol succinate 50 mg 50 mg PO DAILY 02/24/18 11/15/19 tablet,extended release 24 hr sildenafil 25 mg tablet (Viagra) 25 mg PO DAILY PRN Sexual Activity 02/24/18 11/15/19 tamsulosin 0.4 mg capsule 0.8 mg PO QPM 02/24/18 11/15/19 aspirin 81 mg tablet,delayed 81 mg PO BID 11/15/19 11/15/19 release (Aspir-) melatonin 5 mg chewable tablet 5 mg PO BEDTIME PRN Insomnia 11/15/19 11/15/19 propafenone 150 mg tablet 150 mg PO TID 11/15/19 11/15/19 Allergies Allergy/AdvReac Type Severity Reaction Status Date / Time zolpidem AdvReac Intermediate NIGHTMARES Verified 12/17/22 07:49 AND VERY ADDICTING PER PATIENT Patient History Medical History (Updated 05/10/23 @ 19:30 by Tressa Ireland DO) Urinary retention due to benign prostatic hyperplasia Neck pain Back pain Costochondritis Pneumonia Numbness and tingling Palpitations Genital herpes Generalized arthritis Dermatofibroma (~1991) Colitis Hearing loss IBS (irritable bowel syndrome) (~2003) Depression with anxiety Chest pain, atypical History of cardioversion (~2006) Urinary retention Scrotal cyst Microscopic hematuria Diverticulum of bladder Paroxysmal atrial fibrillation Hyperlipidemia BPH with obstruction/lower urinary tract symptoms (~1992) Erectile dysfunction Surgical History History of colonoscopy Hx of oral surgery H/O vasectomy Hx of tonsillectomy Social History household members: spouse and children Smoking Status: Former smoker alcohol intake: current Smoking Status: Former smoker alcohol intake frequency: 3 or more drinks per day Substance Use Type: does not use Exam Initial Vital Signs Initial Vital Signs: Vital Signs Temperature 98.1 F 05/10/23 18:17 Pulse Rate 60 05/10/23 18:17 Respiratory Rate 18 05/10/23 18:17 Blood Pressure 206/89 H 05/10/23 18:17 Pulse Oximetry 98 05/10/23 18:17 Oxygen Delivery Method Room Air 05/10/23 18:17 GENERAL: Patient pat 77-year-old male and in no acute distress. HEENT: Head atraumatic,EOMI, pupils reactive, face symmetric, moist mucous membranes CARDIOVASCULAR: Regular rate and rhythm without murmurs, rubs or gallops. RESPIRATORY: Breath sounds equal bilaterally, no wheezes rales or rhonchi. ABDOMEN: Soft, nontender. Normoactive bowel sounds all 4 quadrants. No guarding or rebound. : No CVA tenderness, Casanova catheter in place clear urine in tube now 0 gross blood or clot EXTREMITIES: Normal range of motion, no clubbing or edema. Neurovascularly intact NEUROLOGICAL: Alert and oriented x4. SKIN: Warm, dry, no laceration, no petechiae, no rashes or lesions. Course Orders Ordered: ED Orders 05/10/23 18:50 Urinalysis and Microscopic Stat Urine Culture Stat Discontinued Medications Lidocaine HCl (Lidocaine 2% (Glydo) 6 Ml Gel) 6 ml TOP NOW ONE Stop: 05/10/23 18:32 Last Admin: 05/10/23 18:36 Dose: 6 ml Documented By: DAVID Vital Signs Vital signs: Vital Signs - 8 hr 05/10/23 18:17 05/10/23 20:00 Temperature 98.1 F 97.3 F L Pulse Rate 60 70 Respiratory Rate 18 16 Blood Pressure 206/89 H 154/82 H Pulse Oximetry 98 98 Oxygen Delivery Method Room Air Room Air MDM - Male Genitourinary Lab Data Labs: Lab Results 05/10/23 Range/Units 18:50 Urine Color Red Urine Appearance Cloudy Urine pH 6.5 (4.5-8.0) Ur Specific Brinkley 1.020 (1.000-1.035) Urine Protein 3+ H (Negative) Urine Glucose (UA) Negative (Negative) g/dL Urine Ketones Negative (NEGATIVE) Urine Occult Blood 3+ H (Negative) Urine Nitrate Negative (Negative) Urine Bilirubin 1+ H (NEGATIVE) Ur Bilirubin Confirm Cancelled Urine Urobilinogen 0.2 (0.2) E.U./dL Ur Leukocyte Esterase Trace H (NEGATIVE) Urine RBC >100/hpf H (0-5/HPF) Urine WBC 10-30/hpf H (0-5/HPF) Ur Squamous Epith Cells None seen (0-5/HPF) Urine Bacteria None seen (None) Urine Mucus 1+ H (Negative) Ur Culture Indicated? Specimen cultured Vol Urine Centrifuged 10ml (spun) [facility] Narrative Medical decision making narrative: Patient 77-year-old male with history of recent TURP presents today with urinary retention. He has had a Casanova catheter placed incidentally feeling better. Urinalysis is sent for culture trace leukocytes. At this time would wait for culture and sensitivity before starting antibiotics. Likely urinary retention from post prostatectomy. Pain is significantly better after Casanova catheter placement. Discharge Plan Departure Patient Disposition: Home Clinical Impression: Acute urinary retention Instructions: How to Care for Your Casanova Catheter -- Male, DI for Urinary Retention in Men Activity Restrictions/Additional Instructions: *You have been diagnosed with urinary retention *What to do: Keep Casanova catheter in until you see your urologist. At this time would wait for antibiotics. We will call you in 2-3 days if you should need them *Continue to take medications as directed *Follow up with your primary care provider in 2-3 days or call [phone] *Return to ER if you should have Casanova catheter not working, gross blood, increased abdominal pain [or] any new, worsening or concerning symptoms Prescriptions: No Action propafenone 150 mg Tablet 150 mg PO TID aspirin [Aspir-81] 81 mg Tablet,Delayed Release (Dr/Ec) 81 mg PO BID melatonin 5 mg Tablet,Chewable 5 mg PO BEDTIME PRN (Reason: Insomnia) metoprolol succinate 50 mg Tablet Extended Release 24 Hr 50 mg PO DAILY tamsulosin 0.4 mg Capsule 0.8 mg PO QPM etodolac 400 mg Tablet 400 mg PO PRN PRN (Reason: Pain (Scale Score 1-3)) finasteride 5 mg Tablet 5 mg PO QPM sildenafil [Viagra] 25 mg Tablet 25 mg PO DAILY PRN (Reason: Sexual Activity) Referrals: Reji Patel MD [Primary Care Provider] - Stand Alone Forms: Patient Portal/API
[2023-05-10 19:25] LABS: Appearance Urine UA CLOUDY; Color Urine UA RED; Glucose Urine UA NEGATIVE (Negative); Ketones Urine UA NEGATIVE (NEGATIVE); Leukocyte Esterase Urine UA TRACE (NEGATIVE); Nitrite Urine UA NEGATIVE (Negative); Occult Blood Urine UA 3+ (Negative); Protein Urine UA 3+ (Negative); Urobilinogen Urine UA 0.2 E.U./dL (0.2); pH Urine UA 6.5 (4.5-8.0)
[2023-05-10 19:27] LABS: Bilirubin Urine UA 1+ (NEGATIVE)
[2023-05-10 19:28] LABS: RBC Urine >100/HPF (0-5/HPF); Urine Volume 10mL (spun)
[2023-05-10 19:30] LABS: Bacteria Urine None Seen; Squamous Epithelial Cell Urine None Seen (0-5/HPF); WBC Urine 10-30/HPF (0-5/HPF)
[2023-05-10 19:31] LABS: Culture Indicated Urine Specimen Cultured; Mucus Urine 1+ (Negative)
--- NOTE | 2023-05-10 19:51 | PC.NURSE ---
Casanova bag changed to leg bag. Pt education done with pt/. States understanding.
[2023-05-10 20:00] VITALS: BP 154/82; PULSE 70; RESP 16; TEMP 36.3; O2SAT 98
== END 2023-05-10 20:01 | disposition home or self-care (01) ==
PROVIDERS: Emergency Provider Emergency Medicine; PCP Family Medicine
DX: R33.8 Other retention of urine (principal)
CPT/HCPCS: 51702; 51798; 81001; 87086; 99283

== ENCOUNTER 2023-05-17 14:07 | Emergency (ER) | payer MEDICARE, SELFPAY ==
[2018-03-02 16:56] VITALS: BMI 28.9
--- NOTE | 2023-05-17 14:11 | ED_ITS ---
HPI - Extremity Problem <Renato Martin PA-C - Last Filed: 05/17/23 15:29> General Chief complaint: Extremity Problem,Nontraumatic Stated complaint: lt foot pain/numb Time Seen by Provider: 05/17/23 14:11 History of Present Illness HPI Narrative: This is a 77-year-old male presents emergency department due to left heel pain. He states pain began after walking with a some new shoes about 2 days ago after roughly week decreased mobility due to having a recent TURP procedure. He states he also has some numbness and tingling affecting his left heel. He denies any pain in the calf. No swelling in any part of his left lower extremity. No chest pain shortness of breath. No acute injury. Related Data Home Medications Medication Instructions Recorded Confirmed etodolac 400 mg tablet 400 mg PO PRN PRN Pain (Scale 02/24/18 11/15/19 Score 1-3) finasteride 5 mg tablet 5 mg PO QPM 02/24/18 11/15/19 metoprolol succinate 50 mg 50 mg PO DAILY 02/24/18 11/15/19 tablet,extended release 24 hr sildenafil 25 mg tablet (Viagra) 25 mg PO DAILY PRN Sexual Activity 02/24/18 11/15/19 tamsulosin 0.4 mg capsule 0.8 mg PO QPM 02/24/18 11/15/19 aspirin 81 mg tablet,delayed 81 mg PO BID 11/15/19 11/15/19 release (Aspir-) melatonin 5 mg chewable tablet 5 mg PO BEDTIME PRN Insomnia 11/15/19 11/15/19 propafenone 150 mg tablet 150 mg PO TID 11/15/19 11/15/19 Allergies Allergy/AdvReac Type Severity Reaction Status Date / Time zolpidem AdvReac Intermediate NIGHTMARES Verified 12/17/22 07:49 AND VERY ADDICTING PER PATIENT Review of Systems <Renato Martin PA-C - Last Filed: 05/17/23 15:29> Review of Systems Narrative: GENERAL: Denies chills, fatigue, malaise, fever, sweats. HEENT: Denies sinus pain, ear pain, sore throat, difficulty swallowing, dizziness. RESPIRATORY: Denies dyspnea, cough, wheezing, hemoptysis, sputum. CARDIOVASCULAR: Denies chest pain, palpitations, orthopnea, edema, GASTROINTESTINAL: Denies nausea, vomiting, abdominal pain, diarrhea, constipation, melena. : Denies dysuria, frequency, incontinence, hematuria, urinary retention. MUSCULOSKELETAL: Reports left heel pain as well as paresthesias SKIN: Denies rash, skin lesions, or other NEUROLOGIC: Denies weakness, headache, numbness, change in speech, confusion, seizures, incoordination. PSYCHIATRIC: No concerning psychosocial issues. 12 point review of systems is negative except for those stated above Patient History <Renato Martin PA-C - Last Filed: 05/17/23 15:29> Medical History (Updated 05/17/23 @ 15:28 by Renato Martin PA-C) Urinary retention due to benign prostatic hyperplasia Neck pain Back pain Costochondritis Pneumonia Numbness and tingling Palpitations Genital herpes Generalized arthritis Dermatofibroma (~1991) Colitis Hearing loss IBS (irritable bowel syndrome) (~2003) Depression with anxiety Chest pain, atypical History of cardioversion (~2006) Urinary retention Scrotal cyst Microscopic hematuria Diverticulum of bladder Paroxysmal atrial fibrillation Hyperlipidemia BPH with obstruction/lower urinary tract symptoms (~1992) Erectile dysfunction Surgical History History of colonoscopy Hx of oral surgery H/O vasectomy Hx of tonsillectomy Social History household members: spouse and children Smoking Status: Former smoker alcohol intake: current Smoking Status: Former smoker alcohol intake frequency: 3 or more drinks per day Substance Use Type: does not use Exam <Renato Martin PA-C - Last Filed: 05/17/23 15:29> Narrative Exam Narrative: GENERAL: Well-developed patient, in mild distress. HEAD: Atraumatic. Normocephalic. EYES: Pupils equal round and reactive. Extraocular motions intact. No scleral icterus. No injection or drainage. ENT: Nose without bleeding, purulent drainage. Throat without erythema, tonsillar hypertrophy or exudate. Airway patent. NECK: Trachea midline. Non tender EXTREMITIES: Tenderness to palpation to the left heel, no calf tenderness to palpation or swelling. NEURO: AOx3. SKIN: No rash or erythema of visible areas Initial Vital Signs Initial Vital Signs: Vital Signs Temperature 98.4 F 05/17/23 14:17 Pulse Rate 55 L 05/17/23 14:17 Respiratory Rate 18 05/17/23 14:17 Blood Pressure 148/68 H 05/17/23 14:17 Pulse Oximetry 98 05/17/23 14:17 Oxygen Delivery Method Room Air 05/17/23 14:17 <Kp Romero DO - Last Filed: 05/17/23 16:15> Initial Vital Signs Initial Vital Signs: Vital Signs Temperature 98.4 F 05/17/23 14:17 Pulse Rate 55 L 05/17/23 14:17 Respiratory Rate 18 05/17/23 14:17 Blood Pressure 148/68 H 05/17/23 14:17 Pulse Oximetry 98 05/17/23 14:17 Oxygen Delivery Method Room Air 05/17/23 14:17 Course <Renato Martin PA-C - Last Filed: 05/17/23 15:29> Orders Ordered: ED Orders 05/17/23 14:20 XR foot LT min 3V Stat Vital Signs Vital signs: Vital Signs - 8 hr 05/17/23 14:17 05/17/23 15:32 Temperature 98.4 F Pulse Rate 55 L 53 L Respiratory Rate 18 18 Blood Pressure 148/68 H 111/69 Pulse Oximetry 98 96 Oxygen Delivery Method Room Air Room Air <DO Román Eaton Last Filed: 05/17/23 16:15> Orders Ordered: ED Orders 05/17/23 14:20 XR foot LT min 3V Stat Vital Signs Vital signs: Vital Signs - 8 hr 05/17/23 14:17 05/17/23 15:32 Temperature 98.4 F Pulse Rate 55 L 53 L Respiratory Rate 18 18 Blood Pressure 148/68 H 111/69 Pulse Oximetry 98 96 Oxygen Delivery Method Room Air Room Air MDM - Extremity (Nontraumatic) <ALLISON Stewart Last Filed: 05/17/23 15:29> Imaging Data Extremity x-ray #1: Radiologist's Impression: [address] [address] XRay Report Signed Patient: Kp Cortez MR#: [id number] : 1945 Acct:[id number] Age/Sex: 77 / M Date of Service: 05/17/23 Loc: ED Accession Number: [id number] Procedure: XR foot LT min 3V Ordering Provider: Renato Martin P.A-C PROCEDURE: XR FOOT LT MIN 3V INDICATIONS: L heel pain TECHNIQUE: 3 views of the foot were acquired. COMPARISON: [facility], , FOOT 3V LEFT, 03/13/2016, 11:46. FINDINGS: Bones: In this patient with this given history, scrutiny is given to the calcaneus. No calcaneus fracture or focal bony lesion can be seen. A moderate plantar calcaneal spur can be seen. No fractures or dislocations. No suspicious bony lesions. Mild hallux valgus deformity is seen, with associated focal degenerative change of the 1st metatarsophalangeal joint. Milder degenerative changes are seen elsewhere. Soft tissues: Soft tissue swelling can be seen involving the plantar heel. No tibiotalar joint effusion. Achilles tendon appears normal. Atherosclerotic calcification is noted. IMPRESSION: There is soft tissue swelling seen involving the plantar heel. No focal calcaneal abnormality can be seen. Dictated by: Flavio Elias M.D. on 05/17/2023 at 14:19 Approved by: Flavoi Elias M.D. on 05/17/2023 at 14:20 MDM Narrative Medical decision making narrative: ED course: This is a 77-year-old male presents emergency department due to couple of days of left heel pain. Tender to palpation. He was not having any pain in his calf or swelling. Low concern for any kind of DVT but ED precautions given. Suspect soft tissue injury as patient reports using a new pair shoes for the last couple of days. Recommended rest, ice, compression, elevation. X-ray negative although did show calcaneal spurs. CC: Left heel pain Complicating co-morbidities: None Data collected from: Previous notes Medical records reviewed: Patient was last seen 4 days ago due to acute urinary retention. History of TURP done at [facility] about a week ago. History of atrial fibrillation takes aspirin. Pertinent history includes numbness and tingling, dermatomal fibroma,. Patient had Casanova catheter placed. Differential considered, but not limited to: DVT, sprain, fracture Exam documented above, pertinent findings include: Tenderness to palpation to the left calcaneus as well as no pain with palpation in the left calf Lab Test results independently reviewed as above. Pertinent findings: None obtained Imaging studies independently reviewed: X-ray unremarkable other than calcaneal bone spurs Scores Used: None MIPS Elements: None Consultations: None Treatments: None Re-evaluations: None Discussion: Discussed plan with the patient was comfortable with the plan Diagnosis: Soft tissue injury Disposition: see below, along with detailed discharge instructions that have been reviewed with patient as well as indications for ED re-evaluation and edel tional outpatient follow up Discharge Plan Departure Patient Disposition: Home Clinical Impression: Soft tissue injury Activity Restrictions/Additional Instructions: Thank you for coming to the [facility] Emergency Department today. As we discussed your x-ray did show calcaneal bone spurs which may be attributing and contributing to the pain you are having. I do not believe this is a blood clot at this time. If the pain begins to radiate up your calf or you begin to notice any swelling in her calf please return for a ultrasound to check for blood clot. I recommend rest, ice, compression, elevation as well as ibuprofen. Please return to the emergency department if you develop any swelling in her calf or any other concerning signs or symptoms. I hope you feel better soon. Please follow up with your primary care provider within a week if your symptoms continue. If you do not have a primary care provider please contact the [facility] Resource line at [phone]. They will ask some questions about your medical history and help you get set up with a provider in the community. Prescriptions: No Action propafenone 150 mg Tablet 150 mg PO TID aspirin [Aspir-81] 81 mg Tablet,Delayed Release (Dr/Ec) 81 mg PO BID melatonin 5 mg Tablet,Chewable 5 mg PO BEDTIME PRN (Reason: Insomnia) metoprolol succinate 50 mg Tablet Extended Release 24 Hr 50 mg PO DAILY tamsulosin 0.4 mg Capsule 0.8 mg PO QPM etodolac 400 mg Tablet 400 mg PO PRN PRN (Reason: Pain (Scale Score 1-3)) finasteride 5 mg Tablet 5 mg PO QPM sildenafil [Viagra] 25 mg Tablet 25 mg PO DAILY PRN (Reason: Sexual Activity) Referrals: Reji Patel MD [Primary Care Provider] - Stand Alone Forms: Patient Portal/API ED Sign-out <Kp Romreo DO - Last Filed: 05/17/23 16:15> Cosign ED Attending Cosignature Attestation: Dr Romero Co-Sign Statement: I was available for consultation during this patient's emergency department visit. This chart is signed by myself for administrative purposes only. I did not have direct contact with this patient during this visit. They were seen independently by the APC.
[2023-05-17 14:17] VITALS: BP 148/68; PULSE 55; RESP 18; TEMP 36.9; O2SAT 98; BMI 29.5
--- NOTE | 2023-05-17 14:20 | DI.RAD.S_ITS ---
PROCEDURE: XR FOOT LT MIN 3V INDICATIONS: L heel pain TECHNIQUE: 3 views of the foot were acquired. COMPARISON: [facility], , FOOT 3V LEFT, 03/13/2016, 11:46. FINDINGS: Bones: In this patient with this given history, scrutiny is given to the calcaneus. No calcaneus fracture or focal bony lesion can be seen. A moderate plantar calcaneal spur can be seen. No fractures or dislocations. No suspicious bony lesions. Mild hallux valgus deformity is seen, with associated focal degenerative change of the 1st metatarsophalangeal joint. Milder degenerative changes are seen elsewhere. Soft tissues: Soft tissue swelling can be seen involving the plantar heel. No tibiotalar joint effusion. Achilles tendon appears normal. Atherosclerotic calcification is noted. IMPRESSION: There is soft tissue swelling seen involving the plantar heel. No focal calcaneal abnormality can be seen. Dictated by: Flavio Elias M.D. on 05/17/2023 at 14:19 Approved by: Flavio Elias M.D. on 05/17/2023 at 14:20
[2023-05-17 15:32] VITALS: BP 111/69; PULSE 53; RESP 18; O2SAT 96
== END 2023-05-17 15:38 | disposition home or self-care (01) ==
PROVIDERS: Emergency Provider Physician Assistant Medical; PCP Family Medicine
DX: S99.822A Other specified injuries of left foot, initial encounter (principal); X58.XXXA Exposure to other specified factors, initial encounter; Y93.01 Activity, walking, marching and hiking
CPT/HCPCS: 73630; 99281; 99282

== ENCOUNTER → 2023-09-30 12:46 | Outpatient (CLI) | payer MEDICARE, SELFPAY ==
[2018-03-02 16:56] VITALS: BMI 28.9
[2023-09-30 13:37] LABS: Estimated Glomerular Filt Rate > 60 mL/min (>60)
--- NOTE | 2023-09-30 13:43 | DI.CT.S_ITS ---
PROCEDURE: CT ABDOMEN WO/W CON INDICATIONS: Malignant neoplasm of left kidney, except renal pe TECHNIQUE: Optional 5 mm thick noncontrast images acquired from the diaphragm to the iliac crests. After the administration of intravenous contrast, 5 mm thick images again acquired from the diaphragm to the iliac crests in the arterial and urographic phases. 5 mm thick coronal and sagittal reformats were then acquired. For radiation dose reduction, the following was used: automated exposure control, adjustment of mA and/or kV according to patient size. COMPARISON: [facility], CT, CT ABDOMEN WO/W CON, 03/14/2023, 9:31. FINDINGS: Image quality: Diagnostic Lower chest: Basal scarring and atelectasis. Small hiatal hernia. Coronary calcifications. Normal heart size. Liver: Left lobe liver cyst. No solids lesion identified Gallbladder and biliary system: Duodenal diverticulum adjacent to the ampulla. No pathologic biliary dilation. Gallbladder is unremarkable. Pancreas: No ductal dilation. Prominent lymph node adjacent to the pancreatic head as before Spleen: Nonenlarged Adrenals: No discrete nodules Kidneys: No hydronephrosis bilaterally. No obstructing calcified stone. Post ablation changes in the left posterior kidney is similar to prior, thickness is slightly decreased, measuring 1.6 centimeters previously 2.3 centimeters. No measurable or perceptible enhancing nodule. There is surrounding fat necrosis. No new solid renal mass. A right upper pole suspected cyst again seen. On noncontrast images, focal linear hyperdensity is seen in the calyx in the left mid pole, possibly milk of calcium or a developing stone. No dilation. Vessels and lymph nodes: The left renal vein is patent. The main portal vein is patent. No abdominal aortic aneurysm or pathologic lymph nodes by size criteria. Bowel and peritoneum: No pathologic ascites or small bowel obstruction. Body wall: Unremarkable Bones: Degenerative changes. IMPRESSION: Slightly smaller size of the left posterior renal ablation zone. No perceptible measurable enhancing nodule to suggest recurrent disease. Continued attention on follow-up is suggested. Other stable and incidental findings above. Dictated by: Juaquin Blank M.D. on 09/30/2023 at 15:53 Approved by: Juaquin Blank M.D. on 09/30/2023 at 15:58
== END ==
PROVIDERS: Radiology Diagnostic Radiology; PCP Family Medicine; Referring Provider Radiology Vascular & Interventional Radiology; Visit Provider Radiology Vascular & Interventional Radiology
DX: C64.2 Malignant neoplasm of left kidney, except renal pelvis (principal); K76.89 Other specified diseases of liver; K44.9 Diaphragmatic hernia without obstruction or gangrene; I25.10 Atherosclerotic heart disease of native coronary artery without angina pectoris; K57.10 Diverticulosis of small intestine without perforation or abscess without bleeding
CPT/HCPCS: 36415; 74170; 82565; Q9967

== ENCOUNTER → 2023-11-19 08:50 | Outpatient (CLI) | payer MEDICARE, SELFPAY ==
[2018-03-02 16:56] VITALS: BMI 28.9
--- NOTE | 2023-11-19 08:51 | DI.RAD.S_ITS ---
PROCEDURE: XR SHOULDER RT MIN 2V INDICATIONS: R shoulder pain TECHNIQUE: 3 views of the shoulder were acquired. COMPARISON: None. FINDINGS: Bones: No fractures or dislocations. Moderate acromioclavicular joint osteoarthritic changes are seen. No suspicious bony lesions. Visualized ribs appear intact. Soft tissues: No suspicious soft tissue calcifications. IMPRESSION: Moderate acromioclavicular joint osteoarthritis. No shoulder fracture or dislocation. No gross soft tissue abnormalities. Dictated by: Cruz Donahue M.D. on 11/19/2023 at 12:36 Approved by: Cruz Donahue M.D. on 11/19/2023 at 12:36
== END ==
PROVIDERS: PCP Family Medicine; Referring Provider Family Medicine; Visit Provider Family Medicine
DX: M25.511 Pain in right shoulder (principal); M19.011 Primary osteoarthritis, right shoulder
CPT/HCPCS: 73030

== ENCOUNTER → 2024-01-01 14:16 | Outpatient (CLI) | payer MEDICARE, SELFPAY ==
[2018-03-02 16:56] VITALS: BMI 28.9
[2024-01-01 15:16] LABS: Bilirubin Urine UA NEGATIVE (NEGATIVE); Color Urine UA YELLOW; Glucose Urine UA NEGATIVE (Negative); Ketones Urine UA NEGATIVE (NEGATIVE); Leukocyte Esterase Urine UA NEGATIVE (NEGATIVE); Nitrite Urine UA NEGATIVE (Negative); Occult Blood Urine UA 3+ (Negative); Protein Urine UA NEGATIVE (Negative); Urobilinogen Urine UA 0.2 E.U./dL (0.2); pH Urine UA 5.5 (4.5-8.0)
[2024-01-01 15:17] LABS: Appearance Urine UA CLOUDY
[2024-01-01 15:25] LABS: Bacteria Urine Few (2-10); Culture Indicated Urine Cult Not Indicated; RBC Urine >100/HPF (0-5/HPF); Squamous Epithelial Cell Urine 0-1 /HPF (0-5/HPF); Urine Volume 10mL (spun); WBC Urine None Seen (0-5/HPF)
== END ==
PROVIDERS: PCP Family Medicine; Referring Provider Urology; Visit Provider Urology
DX: R31.0 Gross hematuria (principal)
CPT/HCPCS: 36415; 81001

== ENCOUNTER 2024-01-29 12:39 | Emergency (ER) | payer MEDICARE, SELFPAY ==
[2018-03-02 16:56] VITALS: BMI 28.9
[2024-01-29 12:49] VITALS: BP 161/76; PULSE 53; RESP 18; TEMP 36.8; O2SAT 98; BMI 27.9
--- NOTE | 2024-01-29 12:59 | EKG_ITS ---
[facility] [address] [place] [address] Test Date: 2024-01-29 Pat Name: Kp Cortez Department: [facility] Room: Gender: Male Quality Specialist: : 1945 Requested By: Order Number: [id number] Reading MD: Anton Aguillon Measurements Intervals [place] Rate: 54 P: 63 WI: 188 QRS: -12 QRSD: 98 T: 26 QT: 446 QTc: 422 Interpretive Statements Sinus bradycardia Cannot rule out Inferior infarct , age undetermined Electronically Signed On 02-02-2024 15:22:58 PDT by Anton Aguillon
[2024-01-29 13:16] LABS: Add Manual Diff / Slide Review NO; Basophils Absolute Auto 0 /uL (0-100); Basophils Percent Auto 0.6 % (0-2); Eosinophils Absolute Auto 100 /uL (0-450); Hematocrit 44.3 % (41-53); Hemoglobin 15.1 g/dL (13.5-17.5); Lymphocytes Absolute Auto 1400 /uL (1100-4500); Lymphocytes Percent Auto 17.2 % (25-40); Mean Corpuscular Hemoglobin 32.9 PG (26-34); Mean Corpuscular Volume 96.7 fL (80-100); Monocytes Absolute Auto 700 /uL (0-900); Monocytes Percent Auto 8.8 % (3-14); Neutrophils Absolute Auto 6000 /uL (1500-7000); Neutrophils Percent Auto 72.4 % (50-75); Platelet Count 218 X10^3/uL (150-400); Red Blood Cell Count 4.58 X10^6/uL (4.5-5.9); Red Cell Distribution Width 12.8 % (11.6-14.8); White Blood Cell Count 8.3 X10^3/uL (4.5-11.0)
[2024-01-29 13:24] LABS: Alanine Aminotransferase 18 IU/L (<50); Albumin Globulin Ratio 1.3 (1.0-2.8); Alkaline Phosphatase 81 U/L (38-126); Aspartate Aminotransferase 24 IU/L (17-59); BUN Creatinine Ratio 20.9 (6-22); Blood Urea Nitrogen 23 mg/dL (9-20); Calcium 9.1 mg/dL (8.4-10.2); Carbon Dioxide 27 mmol/L (22-32); Chloride 104 mmol/L (98-107); Estimated Glomerular Filt Rate > 60 mL/min (>60); Globulin 3.2 g/dL (1.7-4.1); Glucose 102 mg/dL (80-110); HEMOLYSIS < 15 (0-50); Lipase 152 U/L (23-300); Potassium 4.1 mmol/L (3.4-5.1); Sodium 137 mmol/L (137-145); Total Protein 7.2 g/dL (6.3-8.2)
--- NOTE | 2024-01-29 13:44 | DI.CT.S_ITS ---
PROCEDURE: CT ABDOMEN PELVIS W CON INDICATIONS: RLQ and pelvic pain TECHNIQUE: After the administration of intravenous contrast, axial sections acquired from the lung bases to the pubic symphysis. Coronal and sagittal reformats were performed. For radiation dose reduction, the following was used: automated exposure control, adjustment of mA and/or kV according to patient size. COMPARISON: [facility], CT, CT ABDOMEN RENAL PROTOCOL, 07/23/2022, 12:35. [facility], CT, CT ABDOMEN WO/W CON, 09/30/2023, 13:46. [facility], CT, CT ABDOMEN PELVIS W CON, 12/16/2022, 19:26. FINDINGS: Image quality: Diagnostic. Lower Chest: Bibasilar atelectasis. No pleural effusion. ABDOMEN: Liver: No solid mass. Small cysts. Gallbladder: No radiopaque gallstones or wall thickening. Biliary ducts: No biliary dilation. Pancreas: No ductal dilation. Spleen: Size is within normal limits. Adrenal Glands: No adrenal nodules. Kidneys and Ureters: Hypodense treatment zone at the left kidney superior pole is not significantly changed. Mild left hydronephrosis which is new. Obstructing calculus in the proximal left ureter measuring 0.8 x 0.6 cm, (3/58). Punctate nonobstructing left kidney stone. Small cyst in the superior pole of the right kidney. No right hydronephrosis. Stomach and Bowel: Small hiatal hernia. Stomach is not distended. Small duodenal diverticulum. No small bowel obstruction. No diverticulitis. Normal appendix. Peritoneum: No abnormal intraperitoneal fluid. No free air. Ventral Wall: No significant ventral hernia. Abdominal Nodes: No retroperitoneal or mesenteric adenopathy by size criteria. Vessels: Aorta and inferior vena cava are normal in size. PELVIS: Pelvic Organs: Prior TURP. Prostatomegaly. Bladder: No bladder wall thickening, accounting for underdistention. Pelvic Nodes: No enlarged lymph nodes. Miscellaneous: No inguinal hernias are seen. Bones: No aggressive osseous abnormality. DDD. Left hip arthroplasty. IMPRESSION: 1. Mild left hydronephrosis, new. Obstructing calculus in the proximal left ureter measuring 0.8 x 0.6 cm. 2. Additional punctate nonobstructing left kidney stone. 3. Left kidney superior pole treatment zone is unchanged. Dictated by: Arpit Swanson M.D. on 01/29/2024 at 17:01 Approved by: Arpit Swanson M.D. on 01/29/2024 at 17:13
[2024-01-29 14:04] LABS: RBC Urine 1-5/HPF (0-5/HPF); Urine Volume 10mL (spun)
[2024-01-29 14:05] LABS: Bacteria Urine None Seen; Culture Indicated Urine Cult Not Indicated; Squamous Epithelial Cell Urine 0-1 /HPF (0-5/HPF); WBC Urine None Seen (0-5/HPF)
--- NOTE | 2024-01-29 18:28 | ED.ABDPAIN ---
HPI - Abdominal Pain General Chief Complaint: Abdominal Pain Stated Complaint: stomach pain, t-3 Time Seen by Provider: 01/29/24 13:25 Source: patient Mode of arrival: Ambulatory Limitations: no limitations History of Present Illness HPI narrative: This is a 78-year-old male history of atrial fibrillation metoprolol unknown and Xarelto with history of renal tumor and prior cryoablation and TURP who presents with complaint of abdominal and flank pain that started yesterday had nausea and vomiting last night. Patient states pain started the left flank has moved more to the mid abdomen. States no fevers or chills currently but felt chilled and sweaty last night. States has not had a bowel movement today he did take some laxatives today. But did have a bowel yesterday. Patient states noted hematuria a couple weeks ago had any urinalysis set and has follow up this Friday with his urologist Dr. Cintron through . Patient states no dysuria urgency or frequency that he is appreciated. States home medications include metoprolol, propafenone and Xarelto. He has had tamsulosin in the past but is not taking any currently. Has a history of a TURP, also prior cryoablation for a renal tumor in May. Patient states no known drug allergies. No tobacco, does not currently use any alcohol, no recreational drugs. Related Data Home Medications Medication Instructions Recorded Confirmed metoprolol succinate 50 mg 50 mg PO DAILY 02/24/18 11/19/23 tablet,extended release 24 hr sildenafil 25 mg tablet (Viagra) 25 mg PO DAILY PRN Sexual Activity 02/24/18 11/19/23 melatonin 5 mg chewable tablet 5 mg PO BEDTIME PRN Insomnia 11/15/19 11/19/23 propafenone 150 mg tablet 150 mg PO TID 11/15/19 11/19/23 rivaroxaban 20 mg tablet (Xarelto) 20 mg PO DAILY 10/08/23 11/19/23 Previous Rx's Medication Instructions Recorded oxycodone 5 mg tablet 5 mg PO Q6H PRN pain #14 tabs 01/29/24 tamsulosin 0.4 mg capsule (Flomax) 0.4 mg PO DAILY #7 caps 01/29/24 Allergies Allergy/AdvReac Type Severity Reaction Status Date / Time zolpidem AdvReac Intermediate NIGHTMARES Verified 11/19/23 08:36 AND VERY ADDICTING PER PATIENT Review of Systems Review of Systems ROS Unobtainable: All systems reviewed & are unremarkable except as noted in HPI and below Patient History Medical History Urinary retention due to benign prostatic hyperplasia Neck pain Back pain Costochondritis Pneumonia Numbness and tingling Palpitations Genital herpes Generalized arthritis Dermatofibroma (~1991) Colitis Hearing loss IBS (irritable bowel syndrome) (~2003) Depression with anxiety Chest pain, atypical History of cardioversion (~2006) Urinary retention Scrotal cyst Microscopic hematuria Diverticulum of bladder Paroxysmal atrial fibrillation Hyperlipidemia BPH with obstruction/lower urinary tract symptoms (~1992) Erectile dysfunction Surgical History Anesthesia S/P TURP (~2023) History of kidney surgery (~2022) History of left hip replacement (~2018) History of colonoscopy Hx of oral surgery H/O vasectomy Hx of tonsillectomy Family History Father Cancer Sister Mental health problem Social History household members: spouse and children Smoking Status: Former smoker alcohol intake: current Smoking Status: Former smoker alcohol intake frequency: 3 or more drinks per day Substance Use Type: does not use Exam Narrative Exam Narrative: GENERAL: Alert and oriented x three, mild distress HEENT: Head normocephalic, atraumatic, EOMI, pupils reactive, face symmetric, moist mucous membranes NECK: Supple, full range of motion CARDIOVASCULAR: Regular rate and rhythm without murmurs, rubs or gallops. RESPIRATORY: Breath sounds equal bilaterally, no wheezes rales or rhonchi. ABDOMEN: Soft, nontender. Normoactive bowel sounds all 4 quadrants. No guarding or rebound, rigidity, no mass : No CVA tenderness EXTREMITIES: Normal range of motion, no clubbing or edema. Neurovascularly intact NEUROLOGICAL: Cranial nerves II through XII grossly intact. Moving all extremities SKIN: Warm, dry, no petechiae, no rashes or lesions. Initial Vital Signs Initial Vital Signs: Vital Signs Temperature 98.3 F 01/29/24 12:49 Pulse Rate 53 L 01/29/24 12:49 Respiratory Rate 18 01/29/24 12:49 Blood Pressure 161/76 H 01/29/24 12:49 Pulse Oximetry 98 01/29/24 12:49 Oxygen Delivery Method Room Air 01/29/24 12:49 Course Orders Ordered: ED Orders 01/29/24 12:53 EKG-12 Lead Stat 01/29/24 13:05 Complete Blood Count AUTO DIFF Stat Comprehensive Metabolic Panel Stat Lipase Stat 01/29/24 13:40 Urine Microscopic Stat 01/29/24 13:44 CT abdomen pelvis w con Stat Ondansetron HCl (Ondansetron 4 Mg/2 Ml Inj) 4 mg IV NOW PRN PRN Reason: Nausea And Vomiting Ondansetron HCl (Ondansetron 4 Mg Odt) 4 mg PO NOW PRN PRN Reason: Nausea And Vomiting Discontinued Medications Acetaminophen (Acetaminophen 325 Mg Tablet) 975 mg PO NOW ONE Stop: 01/29/24 18:44 Last Admin: 01/29/24 18:51 Dose: 975 mg Documented By: SUZANNE Oxycodone/Acetaminophen (Oxycodone/Apap 5/325 Prepack) 1 bottle MISC DIRECTED ONE Stop: 01/29/24 18:49 Last Admin: 01/29/24 18:51 Dose: 1 bottle Documented By: SUZANNE Tamsulosin HCl (Tamsulosin 0.4 Mg Capsule) 0.4 mg PO NOW ONE Stop: 01/29/24 18:44 Last Admin: 01/29/24 18:51 Dose: 0.4 mg Documented By: SUZANNE Vital Signs Vital signs: Vital Signs - 8 hr 01/29/24 12:49 Temperature 98.3 F Pulse Rate 53 L Respiratory Rate 18 Blood Pressure 161/76 H Pulse Oximetry 98 Oxygen Delivery Method Room Air MDM - Abdominal Pain Lab Data 01/29/24 13:05 01/29/24 13:05 Labs: Lab Results 01/29/24 01/29/24 Range/Units 13:05 13:40 WBC 8.3 (4.5-11.0) X10^3/uL RBC 4.58 (4.5-5.9) X10^6/uL Hgb 15.1 (13.5-17.5) g/dL Hct 44.3 (41-53) % MCV 96.7 (80-100) fL MCH 32.9 (26-34) PG MCHC 34.0 (30-36) % RDW 12.8 (11.6-14.8) % Plt Count 218 (150-400) X10^3/uL Neut % (Auto) 72.4 (50-75) % Lymph % (Auto) 17.2 L (25-40) % [place] % (Auto) 8.8 (3-14) % Eos % (Auto) 1.0 L (2-4) % Baso % (Auto) 0.6 (0-2) % Neut # (Auto) 6000 (7402-2577) /uL Lymph # (Auto) 1400 (3653-2809) /uL [place] # (Auto) 700 (0-900) /uL Eos # (Auto) 100 (0-450) /uL Baso # (Auto) 0 (0-100) /uL Sodium 137 (137-145) mmol/L Potassium 4.1 (3.4-5.1) mmol/L Chloride 104 (98-107) mmol/L Carbon Dioxide 27 (22-32) mmol/L BUN 23 H (9-20) mg/dL Creatinine 1.10 (0.66-1.25) mg/dL Estimated GFR > 60 (>60) mL/min BUN/Creatinine Ratio 20.9 (6-22) Glucose 102 (80-110) mg/dL Calcium 9.1 (8.4-10.2) mg/dL Total Bilirubin 1.0 (0.2-1.3) mg/dL AST 24 (17-59) IU/L ALT 18 (<50) IU/L Alkaline Phosphatase 81 (38-126) U/L Total Protein 7.2 (6.3-8.2) g/dL Albumin 4.0 (3.5-5.0) g/dL Globulin 3.2 (1.7-4.1) g/dL Albumin/Globulin Ratio 1.3 (1.0-2.8) Lipase 152 (23-300) U/L Urine RBC 1-5/hpf D (0-5/HPF) Urine WBC None seen (0-5/HPF) Ur Squamous Epith Cells 0-1 /hpf (0-5/HPF) Urine Bacteria None seen (None) Ur Culture Indicated? Cult not indicated Vol Urine Centrifuged 10ml (spun) Point of care testing: Urine Dip Bedside Urine Glucose Negative Bedside Urine Bilirubin - Negative Bedside Urine Ketone - Negative Urine Specific [place] 1.010 Bedside Urine Occult Blood +++ Bedside Urine pH 6.0 Bedside Urine Protein - Negative Bedside Urine Urobilinogen - Negative Bedside Urine Nitrite - Negative Bedside Urine Leukocytes - Negative Esterase ECG Data Attestation: I personally reviewed and interpreted this ECG as follows: Prior ECG tracings: available for review Interpretation: Sinus bradycardia rate of 54, VA 188 QRS of 98 QTC 422. Patient has prior from 02/03/2018 which appears similar with no acute changes. MDM Narrative Medical decision making narrative: 78-year-old male presents with left abdominal pain nausea and vomiting. Point of care urine showed positive for blood no nitrates no leuks. 1-5 RBCs no WBCs 1 squamous no bacteria. Labs show white count is 8.3 hemoglobin of 15 platelets of 218, PTT is elevated. Electrolytes are normal BUN 23 creatinine is 1.10, LFTs are negative lipase is 152. CT shows mild left hydro, obstructing calculus proximal left ureter measuring 0.8 x 0.6 cm, additional punctate nonobstructing left kidney stone. Bibasilar atelectasis. Hypodense treatment zone of the left kidney superior pole is not significantly changed mild left hydro which is new calculus noted nonobstructing calculus also noted small assistance. Pole right kidney no right hydro, small hiatal hernia. Prior TURP. EKG shows sinus bradycardia rate of 54 VA 188 QRS of 98 QTC 422, no acute ST elevation or depression. Patient found to have a left-sided calculus, 0.8 cm patient's pain is well controlled here in the department without any interventions discussed he has follow up on Friday with Urology and normal renal function. Consult with Urology, [facility] Patient was given dose of Tylenol here, Flomax and discussed return precautions. Spoke with Dr. Blanchard from Urology at [facility] they will see patient on Friday he will relay information. Does ask that we get Flomax. Discharge Plan Departure Patient Disposition: Home Clinical Impression: Kidney stone on left side Instructions: DI for Kidney Stones Activity Restrictions/Additional Instructions: Please call to update your urologist that you were found to have a kidney stone in his 0.8 x 0.6 cm in the left proximal ureter. Take Flomax once daily until gone. Can take acetaminophen up to a 1000 mg every 6 hours as needed, if inadequate for pain you can take oxycodone 1-2 tablets every 6 hours as needed for pain. This medication can make you sleepy do not drive, perform hazardous activities or make any major decisions while taking it. This medication will make you constipated please take a stool softener once to twice daily until stools are soft and regular. Prescription sent to [facility]. Please return for new or worsening pain, fevers, persistent vomiting, lightheadedness or passing out, inability to urinate or other new or concerning changes. Prescriptions: New tamsulosin [Flomax] 0.4 mg capsule 0.4 mg PO DAILY Qty: 7 0RF oxycodone 5 mg tablet 5 mg PO Q6H PRN (Reason: pain) Qty: 14 0RF No Action Xarelto 20 mg tablet 20 mg PO DAILY propafenone 150 mg Tablet 150 mg PO TID melatonin 5 mg Tablet,Chewable 5 mg PO BEDTIME PRN (Reason: Insomnia) metoprolol succinate 50 mg Tablet Extended Release 24 Hr 50 mg PO DAILY sildenafil [Viagra] 25 mg Tablet 25 mg PO DAILY PRN (Reason: Sexual Activity) Referrals: Rolanda Delgado DO [Primary Care Provider] - Stand Alone Forms: Patient Portal/API
[2024-01-29] MEDS: ACETAMINOPHEN 325 MG TABLET 975 MG PO (18:51)
[2024-01-29] MEDS: TAMSULOSIN 0.4 MG CAPSULE PO (18:51)
[2024-01-29] MEDS: OXYCODONE/APAP 5/325 PREPACK 1 BOTTLE MISC (18:51)
--- NOTE | 2024-01-29 19:15 | PC.NURSE ---
patient in room resting and was given stone catch basket and urinal.
--- NOTE | 2024-01-29 19:16 | PC.NURSE ---
IV placed by another nurse
[2024-01-29 19:19] VITALS: BP 131/72; PULSE 60; RESP 14; O2SAT 94
== END 2024-01-29 19:21 | disposition home or self-care (01) ==
PROVIDERS: Emergency Medicine; Emergency Provider Emergency Medicine; PCP Family Medicine
DX: N20.0 Calculus of kidney (principal); R11.2 Nausea with vomiting, unspecified; R10.9 Unspecified abdominal pain; Z79.01 Long term (current) use of anticoagulants
CPT/HCPCS: 74177; 80053; 81003; 81015; 83690; 85025; 93005; 99283; 99284; Q9967

== ENCOUNTER → 2024-02-04 09:23 | Outpatient (CLI) | payer MEDICARE, SELFPAY ==
[2018-03-02 16:56] VITALS: BMI 28.9
[2024-02-04 11:04] LABS: Add Manual Diff / Slide Review NO; Basophils Absolute Auto 0 /uL (0-100); Basophils Percent Auto 0.7 % (0-2); Eosinophils Absolute Auto 100 /uL (0-450); Hematocrit 43.8 % (41-53); Hemoglobin 14.9 g/dL (13.5-17.5); Lymphocytes Absolute Auto 1300 /uL (1100-4500); Lymphocytes Percent Auto 19.4 % (25-40); Mean Corpuscular HGB Conc 33.9 % (30-36); Mean Corpuscular Hemoglobin 32.8 PG (26-34); Mean Corpuscular Volume 96.6 fL (80-100); Monocytes Absolute Auto 500 /uL (0-900); Monocytes Percent Auto 7.9 % (3-14); Neutrophils Absolute Auto 4600 /uL (1500-7000); Platelet Count 212 X10^3/uL (150-400); Red Blood Cell Count 4.53 X10^6/uL (4.5-5.9); Red Cell Distribution Width 12.8 % (11.6-14.8); White Blood Cell Count 6.6 X10^3/uL (4.5-11.0)
[2024-02-04 11:41] LABS: Alanine Aminotransferase 16 IU/L (<50); Albumin 3.6 g/dL (3.5-5.0); Albumin Globulin Ratio 1.2 (1.0-2.8); Alkaline Phosphatase 85 U/L (38-126); Aspartate Aminotransferase 24 IU/L (17-59); BUN Creatinine Ratio 21.6 (6-22); Bilirubin Total 0.9 mg/dL (0.2-1.3); Blood Urea Nitrogen 25 mg/dL (9-20); Calcium 9.4 mg/dL (8.4-10.2); Carbon Dioxide 25 mmol/L (22-32); Chloride 106 mmol/L (98-107); Cholesterol 216 mg/dL (140-199); Estimated Glomerular Filt Rate > 60 mL/min (>60); Globulin 3.1 g/dL (1.7-4.1); Glucose 115 mg/dL (80-110); HDL Cholesterol 29 mg/dL (40-60); HEMOLYSIS < 15 (0-50); LDL Cholesterol Calculated 129 mg/dL (<100); Potassium 4.1 mmol/L (3.4-5.1); Sodium 137 mmol/L (137-145); Total Protein 6.7 g/dL (6.3-8.2); Triglycerides 289 mg/dL (35-150)
== END ==
PROVIDERS: PCP Family Medicine; Referring Provider Urology; Visit Provider Urology
DX: Z00.00 Encounter for general adult medical examination without abnormal findings (principal); N20.0 Calculus of kidney; I25.10 Atherosclerotic heart disease of native coronary artery without angina pectoris; N40.1 Benign prostatic hyperplasia with lower urinary tract symptoms; C64.9 Malignant neoplasm of unspecified kidney, except renal pelvis; R33.8 Other retention of urine
CPT/HCPCS: 36415; 80053; 80061; 85025; 87086

== ENCOUNTER → 2024-05-24 11:32 | Outpatient (CLI) | payer MEDICARE, SELFPAY ==
[2018-03-02 16:56] VITALS: BMI 28.9
--- NOTE | 2024-05-24 11:33 | DI.US.S_ITS ---
PROCEDURE: US RENAL COMPLETE INDICATIONS: KIDNEY STONES TECHNIQUE: Real-time scanning was performed of the kidneys and bladder, with image documentation. COMPARISON: None. FINDINGS: Kidneys: Kidneys are normal in size. Right kidney measures 13.4 cm long; left kidney measures 11.9 cm long. Right renal cortical thickness is 1.3 cm; left renal cortical thickness is 0.7 cm. Renal cortical echotexture is normal. No hydronephrosis or nephrolithiasis. No suspicious solid mass lesions. 1.8 cm cortical cyst Bladder: Pre-void bladder volume is 146 mL. Post-void residual is 14 mL. Pre-void images demonstrate no intraluminal masses or stones. On pre-void images, bilateral ureteral jets are noted with color Doppler interrogation. (Of note, ureteral jets may not be detectable in up to 25% of cases due to insufficient differences in specific gravity between ureteral and bladder urine). Miscellaneous: No free pelvic fluid. Incidental hepatomegaly, 20.5 cm IMPRESSION: No evidence of renal calculi or hydronephrosis. Approved by: Vladimir Egan M.D. on 05/24/2024 at 19:03
== END ==
PROVIDERS: PCP Family Medicine; Referring Provider Urology; Visit Provider Urology
DX: N20.0 Calculus of kidney (principal); N28.1 Cyst of kidney, acquired
CPT/HCPCS: 76770

== ENCOUNTER → 2024-09-07 15:43 | Outpatient (CLI) | payer MEDICARE, SELFPAY ==
[2018-03-02 16:56] VITALS: BMI 28.9
[2024-09-07 16:54] LABS: Uric Acid 7.3 mg/dL (3.5-8.5)
[2024-09-07 16:56] LABS: Hemoglobin A1C% w Est Avg Glu 5.2 % (4.0-6.0)
[2024-09-07 17:59] LABS: Folate > 20.0 ng/mL (2.76-20.0); Vitamin B12 454 pg/mL (239-931)
== END ==
PROVIDERS: Family Provider Family Medicine; PCP Family Medicine; Referring Provider Family Medicine; Visit Provider Family Medicine
DX: B35.1 Tinea unguium (principal); G62.9 Polyneuropathy, unspecified; S90.21 Contusion of great toe with damage to nail; R20.2 Paresthesia of skin; R20.0 Anesthesia of skin
CPT/HCPCS: 36415; 82607; 82746; 83036; 84550

== ENCOUNTER → 2024-09-23 10:42 | Outpatient (CLI) | payer MEDICARE, SELFPAY ==
[2018-03-02 16:56] VITALS: BMI 28.9
--- NOTE | 2024-09-23 10:44 | DI.RAD.S_ITS ---
PROCEDURE: XR LUMBAR SPINE 2-3V INDICATIONS: lower lumbar pain TECHNIQUE: 3 views of the lumbar spine were acquired. COMPARISON: [facility], CT, CT ABDOMEN PELVIS W CON, 01/29/2024, 14:13. [facility], CR, XR PELVIS WITH LATERAL HIP LEFT, 07/07/2024, 13:44. FINDINGS: Bones: 5 [id number] vertebrae are present. There is stable bony alignment with dextrocurvature of the mid lumbar spine and reciprocal levocurvature at the lumbosacral junction.. No acute vertebral body compression fractures. Moderate multilevel lumbar spondylitic changes with disc space loss, degenerative endplate changes, and prominent endplate osteophytes. Advanced mid and lower lumbar facet arthropathy most severe at L4-5 and L5-S1. There is suspected moderate neuroforaminal stenosis at these levels. No suspicious bony lesions. Status post left total hip arthroplasty. Moderate- severe degenerative changes of the right hip. Soft tissues: Overlying bowel gas pattern is normal. No suspicious soft tissue calcifications. IMPRESSION: Lumbar spine without acute fracture or traumatic malalignment. Moderate multilevel lumbar spondylosis with associated facet arthropathy. Findings are most severe at L4-5 and L5-S1. Dictated by: Allan Wisdom M.D. on 09/23/2024 at 15:56 Approved by: Allan Wisdom M.D. on 09/23/2024 at 15:59
== END ==
PROVIDERS: Family Provider Family Medicine; PCP Family Medicine; Referring Provider Family Medicine; Visit Provider Family Medicine
DX: M47.816 Spondylosis without myelopathy or radiculopathy, lumbar region (principal); M47.817 Spondylosis without myelopathy or radiculopathy, lumbosacral region; M54.50 Low back pain, unspecified
CPT/HCPCS: 72100

== ENCOUNTER → 2024-10-04 11:00 | Outpatient (CLI) | payer MEDICARE, SELFPAY ==
[2018-03-02 16:56] VITALS: BMI 28.9
[2024-10-04 11:29] LABS: Estimated Glomerular Filt Rate > 60 mL/min (>60)
== END ==
PROVIDERS: Family Provider Family Medicine; PCP Family Medicine; Referring Provider Nurse Practitioner Adult Health; Visit Provider Nurse Practitioner Adult Health
DX: D49.519 Neoplasm of unspecified behavior of unspecified kidney (principal)
CPT/HCPCS: 36415; 82565

== ENCOUNTER → 2024-10-06 14:04 | Outpatient (CLI) | payer MEDICARE, SELFPAY ==
[2018-03-02 16:56] VITALS: BMI 28.9
--- NOTE | 2024-10-06 14:05 | DI.CT.S_ITS ---
PROCEDURE: CT ABDOMEN RENAL PROTOCOL INDICATIONS: Renal neoplasm TECHNIQUE: Optional 5 mm thick noncontrast images acquired from the diaphragm to the iliac crests. After the administration of intravenous contrast, 5 mm thick images again acquired from the diaphragm to the iliac crests in the arterial and urographic phases. 5 mm thick coronal and sagittal reformats were then acquired. For radiation dose reduction, the following was used: automated exposure control, adjustment of mA and/or kV according to patient size. COMPARISON: [facility], CT, CT ABDOMEN PELVIS W CON, 01/29/2024, 14:13. [facility], CT, CT ABDOMEN RENAL PROTOCOL, 07/23/2022, 12:35. FINDINGS: Image quality: Diagnostic. Kidneys and Ureters: There is a partially exophytic left midpole renal mass with wispy and punctate internal hyperdensity and surrounding fatty halo consistent with post treatment changes. This area measures 3.3 cm, smaller compared to prior where it measured 4.1 cm. Central solid mass and surrounding tissue show no enhancement. Opacified calices are normal without suspicious filling defect or urothelial thickening. No intrarenal calculi. No hydronephrosis or visible hydroureter. Right upper pole renal cyst. No solid mass. OTHER: Lower chest: Gravitational changes. Small hiatal hernia. Mild cardiomegaly with coronary artery disease. Liver: No enhancing mass. Left lobe liver cyst. Gallbladder: No wall thickening or calcified stones. Biliary ducts: No biliary dilation. Pancreas: Normal size and morphology without visible ductal dilatation or inflammation. Spleen: Size is within normal limits. Adrenal Glands: No adrenal nodules. Stomach and Bowel: Stomach and visible bowel loops are within normal limits. Peritoneum: No abnormal intraperitoneal fluid. No free air. Ventral Wall: No hernia. Abdominal Nodes: No retroperitoneal or mesenteric adenopathy by size criteria. Vessels: The abdominal aorta, IVC, and portal vein are of normal caliber. No renal vein thrombus. Bones: No aggressive osseous abnormality. IMPRESSION: Decrease in size of treated left renal mass and surrounding treatment zone. Resolution of left-sided urinary obstruction. No new renal mass or adenopathy. Dictated by: Su Cruz M.D. on 10/07/2024 at 10:24 Approved by: Su Cruz M.D. on 10/07/2024 at 10:40
== END ==
LOC: CT 14:04
PROVIDERS: Family Provider Family Medicine; PCP Family Medicine; Referring Provider Nurse Practitioner Adult Health; Visit Provider Nurse Practitioner Adult Health
DX: C64.2 Malignant neoplasm of left kidney, except renal pelvis (principal); D49.519 Neoplasm of unspecified behavior of unspecified kidney; K76.89 Other specified diseases of liver; K44.9 Diaphragmatic hernia without obstruction or gangrene; I51.7 Cardiomegaly; I25.10 Atherosclerotic heart disease of native coronary artery without angina pectoris; N28.1 Cyst of kidney, acquired
CPT/HCPCS: 74170; Q9967

== ENCOUNTER 2024-11-03 17:00 | Outpatient (RCR) | payer MEDICARE, SELFPAY ==
[2018-03-02 16:56] VITALS: BMI 28.9
--- NOTE | 2024-08-09 15:56 | PT.OIE ---
Current Diagnoses Trochanteric bursitis, left hip (08/09/24) Presence of left artificial hip joint (08/09/24) Past Medical History (Last Reviewed 01/29/24 @ 18:45 by Shanda Jennings DO) Back pain BPH with obstruction/lower urinary tract symptoms (~1992) Chest pain, atypical Colitis Costochondritis Depression with anxiety Dermatofibroma (~1991) Diverticulum of bladder Erectile dysfunction Generalized arthritis Genital herpes Hearing loss History of cardioversion (~2006) Hyperlipidemia IBS (irritable bowel syndrome) (~2003) Microscopic hematuria Neck pain Numbness and tingling Palpitations Paroxysmal atrial fibrillation Pneumonia Scrotal cyst Urinary retention Urinary retention due to benign prostatic hyperplasia Past Surgical History (Last Reviewed 01/29/24 @ 18:45 by Shanda Jennings DO) Anesthesia H/O vasectomy History of colonoscopy History of kidney surgery (~2022) History of left hip replacement (~2018) Hx of oral surgery Hx of tonsillectomy S/P TURP (~2023) Visit Care Team Role Provider Type Rolanda Delgado DO Family Provider Physician Primary Care Provider Specialty: [facility] Practice Address: [address] [place] [address], [address], [id number] Email: [email or web address] Jordyn Rivera MD Attending Provider Physician Referring Provider Specialty: Orthopedics Orthopedic Surgery Address: [address] [place] [address], [id number] Email: [email or web address] Physical Therapy Initial Evaluation PT-OP-A Visit Information Start: 08/08/24 08:31 Freq: Status: Active Protocol: Document 08/09/24 14:32 MB (Rec: 08/09/24 15:55 MB Desktop) Out-Patient Physical Therapy Visit Information Visit Information Visit Type Initial Evaluation Visit Note No KX Visit Start Time 14:32 Visit Stop Time 15:32 Visit Number 1 Number of JD EDWARDS CONSULTANT Visits 0 Evaluation Information Evaluation Date 08/09/24 PT-OP-B Current Condition Start: 08/08/24 08:31 Freq: Status: Active Protocol: Document 08/09/24 14:32 MB (Rec: 08/09/24 15:55 MB Desktop) Current Condition History of Current Condition Onset Date 2018 Current Complaints Left quad, glute and lateral hip pain History of Current Condition Pt underwent left posterior ALESSANDRA in 2018. Since that time, he has had increased left quad and glute pain. He also has left lateral hip pain. The pain is worse in the quad and with walking. His primary exercise is walking. He underwent PT at [facility] twice since 2018 and he did exercises for a while and then he slacked off. He thinks that PT was helpful. Days and weeks when he was doing exercises had less pain. Pt had left kidney CA and he underwent cryoablation x1. This occurred in 2022. He then had kidney stones but is unsure which side. He thinks it was the right and he underwent surgery for removal of large stone. There was a shunt placed and then they removed the shunt. He has had a lot of right LBP. Per x-ray from 02/04, there was a kidney stone on the left. In March 2023, pt underwent surgery for enlarged prostrate. Pt had some bleeding with urinating. Pain at night was a lot worse and now is better. He sleeps on side with pillow between his knees. He has right shoulder pain. He went to [facility] for B shoulder issues. Pt had history of left toe numbness and underwent MRI. His fourth and fifth toes are numb. This occurred after kidney stone surgery. Pt states that Dr. Rivera wants him to try PT for one month and then she might do a total body scan. Pt really only had one year of no pain post-op L ALESSANDRA in 2019 when he was walking 5 miles a day [employer] during COVID. Pt did recall walking hard on treadmill for stress test. Treatment Goals Patient/Caregiver Goals To decrease pain PT-OP-C Subjective Start: 08/08/24 08:31 Freq: Status: Active Protocol: Document 08/09/24 14:32 MB (Rec: 08/09/24 15:55 MB Desktop) OP-PT Subjective Patient Comments Patient Comments See history of current condition. Patient Questionnaires Lower Extremity Functional Scale LEFS Score 36 LEFS Impairment 40 to 59% Impaired (Score 32- 47) PT-OP-G Mobility & Gait Start: 08/08/24 08:31 Freq: Status: Active Protocol: Document 08/09/24 14:32 MB (Rec: 08/09/24 15:55 MB Desktop) OP Gait Assessment Comments Gait Comments Slow gait and antalgic pattern favoring the left leg. Decreased hip flexion, decreased movement left hip, stiffness left hip, slow gait, decreased toe off on the left and lateral left foot, decreased arm swing and increased lateral movement of shoulders with gait. Pelvis is stiff. PT-OP-J Posture/Palpation/Skin Start: 08/08/24 08:31 Freq: Status: Active Protocol: Document 08/09/24 14:32 MB (Rec: 08/09/24 15:55 MB Desktop) Posture Evaluation Comments Posture Comments Standing posture in socks: forward head, Dowager's hump, left shoulder is higher than the right, increased thoracic kyphosis, flattened thoracic area T8, right shift over pelvis, decreased lumbar lordosis, high pelvis and left iliac crest higher than the right, high left hip and more WB through the right leg. PT-OP-K Range of Motion Start: 08/08/24 08:31 Freq: Status: Active Protocol: Document 08/09/24 14:32 MB (Rec: 08/09/24 15:55 MB Desktop) Hip Goniometric Range of Motion Hip ROM Limitations Comments In supine: PROM left hip IR to 15 deg and ER to 20 deg; right hip IR 5 deg and ER to 30 deg. PT-OP-M Strength Start: 08/08/24 08:31 Freq: Status: Active Protocol: Document 08/09/24 14:32 MB (Rec: 08/09/24 15:55 MB Desktop) Hip Strength Hip Manual Muscle Testing Left Flexion (L2) 5 Normal Extension (S1) 4+ Good+ Abduction 4+ Good+ Adduction 4+ Good+ Comments PT can feel prosthesis from left ALESSANDRA with palpation Right Flexion (L2) 4+ Good+ Extension (S1) 4+ Good+ Abduction 4+ Good+ Adduction 4+ Good+ Knee Strength Knee Manual Muscle Testing Leg Flexion (S2) 5 Normal Extension (L3) 5 Normal Right Flexion (S2) 5 Normal Extension (L3) 5 Normal Ankle/Foot Strength Ankle and Foot Manual Muscle Testing Left Dorsiflexion (L4) 5 Normal Right Dorsiflexion (L4) 5 Normal Toe Strength Toe Manual Muscle Testing Left Great Toe Extension 5 Normal Right Great Toe Extension 5 Normal PT-OP-T Assessment and Plan Start: 08/08/24 08:31 Freq: Status: Active Protocol: Document 08/09/24 14:32 MB (Rec: 08/09/24 15:55 MB Desktop) Physical Therapy Assessment Rehab Potential Rehabilitation Potential Fair Evaluation Complexity Number of Personal Factors/Comorbidities 1-2 Number of Body Systems Impaired 3 Clinical Presentation at Evaluation Evolving Impairments Impairments Balance,Gait,Pain,Posture,ROM, Soft Tissue Mobility,Strength Goals 4 Impairment Lack of HEP performance Motion Picture Set Worker Goal (LTG) Pt will perform progressive HEP with I including breathing , alignment, flexibility, strengthening and balance exercises to improve pain and mobility. LTG Duration 8 weeks 3 Impairment Reports of quad pain and concern for weakness Motion Picture Set Worker Goal (LTG) Pt will perform at least 12 reps STS without UE support in 30 sec to improve functional strength. LTG Duration 8 weeks 2 Impairment Slow and antalgic gait Detention Goal (LTG) Pt will gait train at least 1581 feet in 6 minutes to improve community ambulation and to return to pain-free walks per pt's hobby. LTG Duration 8 weeks 1 Impairment LEF score reflects 55% impairment Detention Goal (LTG) Pt will present with LEF score to reflect no more than 30% impairment to improve quality of life and mobility. LTG Duration 8 weeks Assessment Summary Assessment Pt is a 79 y/o male presenting with complicated medical history since 2019. Pt has a very hard time coming up with dates from memory of left hip replacement in 2019, left kidney CA and ablation, left kidney stone and two surgeries , and prostate surgery. Understanding the clear history of events and symptoms will help to make a complete picture of his current complaints of left lateral hip , glute and quad pain, right back pain and left toe numbness. PT and pt have nice discussion as PT attempts to build clinical picture including viscera and history of cancer in current situation of pain and numbness. Overall , pt reports the pain is better after receiving a deep tissue massage recently. Pt presents with postural spinal changes, pelvic obliquities, left ALESSANDRA prosthesis palpable, left hip muscle atrophy, and very limited passive hip IR and ER B in supine. Pt will benefit from PT trial to improve pain, range, functional strength and gait. Pt recalls one year of no hip pain post-op ALESSANDRA in 2019 during COVID when he was walking [place] 5 miles a day at [facility]. Since that time, he has undergone a myriad of surgeries including dx of left kidney cancer and surgery, kidney stones and surgery and prostate surgery. His clinical presentation is complicated. Per pt, Dr. Rivera hopes for a four week trial of PT to see if his symptoms improve before ordering a total body scan. PT will set plan out 8 weeks in case PT is helpful. Physical Therapy Plan Frequency and Duration Frequency of Treatment 2x/Week Duration of treatment (weeks) 8 Plan of Care Start Date 08/09/24 Plan of Care End Date 10/09/24 Therapeutic Interventions Therapeutic Interventions Balance Training,Canalithic Repositioning,Coordination Training,Gait Training,Home Exercise Program,Joint Mobilizations,Manual Therapy, Neuromuscular Re-education, Patient/Caregiver Education, Self-Care/Home Management,Soft Tissue Mobilization,Taping, Therapeutic Activities, Therapeutic Exercises Modalities Cold Pack/Ice Massage,Electric Stimulation,Hot Packs, Ultrasound Next Visit Focus/Plan Next Note Type Treatment Note Next Visit Plan Pelvic realignment exercises and initiate manual work Diaphragm breathing, thoracic mobility such as open book Progress hip mobility/ flexibility, core and LE strengthening Balance Primary PT fascial counterstrain scan
--- NOTE | 2024-08-10 16:18 | PT-OP ANOTE ---
Pt sends PT an email with the following PMH dates: M KEMP SURGERIES Left hip replacement?March 01, 2018 Left Kidney Cancer CRYOABLATION? December 10, 2022 TransUrethral Recession of the Prostate?May 09, 2023 Left Kidney Stone 1?February 12, 2024 Left Kidney Stone 2?March 16, 2024
--- NOTE | 2024-08-18 15:21 | PT.OTN ---
Current Diagnoses Trochanteric bursitis, left hip (08/18/24) Presence of left artificial hip joint (08/18/24) Physical Therapy Treatment Note PT-OP-A Visit Information Start: 08/08/24 08:31 Freq: Status: Active Protocol: Document 08/18/24 14:38 MB (Rec: 08/18/24 15:09 MB Desktop) Out-Patient Physical Therapy Visit Information Visit Information Visit Type Treatment Note Visit Note No KX Visit Start Time 14:38 Visit Stop Time 15:16 Visit Number 2 Number of ADJUNCT FACULTY Visits 0 Evaluation Information Evaluation Date 08/09/24 PT-OP-B Current Condition Start: 08/08/24 08:31 Freq: Status: Active Protocol: Document 08/09/24 14:32 MB (Rec: 08/09/24 15:55 MB Desktop) Current Condition History of Current Condition Onset Date 2018 Current Complaints Left quad, glute and lateral hip pain History of Current Condition Pt underwent left posterior ALESSANDRA in 2018. Since that time, he has had increased left quad and glute pain. He also has left lateral hip pain. The pain is worse in the quad and with walking. His primary exercise is walking. He underwent PT at [facility] twice since 2018 and he did exercises for a while and then he slacked off. He thinks that PT was helpful. Days and weeks when he was doing exercises had less pain. Pt had left kidney CA and he underwent cryoablation x1. This occurred in 2022. He then had kidney stones but is unsure which side. He thinks it was the right and he underwent surgery for removal of large stone. There was a shunt placed and then they removed the shunt. He has had a lot of right LBP. Per x-ray from 02/04, there was a kidney stone on the left. In March 2023, pt underwent surgery for enlarged prostrate. Pt had some bleeding with urinating. Pain at night was a lot worse and now is better. He sleeps on side with pillow between his knees. He has right shoulder pain. He went to [facility] for B shoulder issues. Pt had history of left toe numbness and underwent MRI. His fourth and fifth toes are numb. This occurred after kidney stone surgery. Pt states that Dr. Rivera wants him to try PT for one month and then she might do a total body scan. Pt really only had one year of no pain post-op L ALESSANDRA in 2019 when he was walking 5 miles a day [place] during COVID. Pt did recall walking hard on treadmill for stress test. Treatment Goals Patient/Caregiver Goals To decrease pain PT-OP-C Subjective Start: 08/08/24 08:31 Freq: Status: Active Protocol: Document 08/18/24 14:38 MB (Rec: 08/18/24 15:09 MB Desktop) OP-PT Subjective Patient Comments Patient Comments Pt reports that he woke up with tingling in his right great toe the other morning. He did have his right great toe nail cut out 2-3 months ago. When he got up to walk, it felt better. PT-OP-G Mobility & Gait Start: 08/08/24 08:31 Freq: Status: Active Protocol: Document 08/09/24 14:32 MB (Rec: 08/09/24 15:55 MB Desktop) OP Gait Assessment Comments Gait Comments Slow gait and antalgic pattern favoring the left leg. Decreased hip flexion, decreased movement left hip, stiffness left hip, slow gait, decreased toe off on the left and lateral left foot, decreased arm swing and increased lateral movement of shoulders with gait. Pelvis is stiff. PT-OP-J Posture/Palpation/Skin Start: 08/08/24 08:31 Freq: Status: Active Protocol: Document 08/09/24 14:32 MB (Rec: 08/09/24 15:55 MB Desktop) Posture Evaluation Comments Posture Comments Standing posture in socks: forward head, Dowager's hump, left shoulder is higher than the right, increased thoracic kyphosis, flattened thoracic area T8, right shift over pelvis, decreased lumbar lordosis, high pelvis and left iliac crest higher than the right, high left hip and more WB through the right leg. PT-OP-K Range of Motion Start: 08/08/24 08:31 Freq: Status: Active Protocol: Document 08/09/24 14:32 MB (Rec: 08/09/24 15:55 MB Desktop) Hip Goniometric Range of Motion Hip ROM Limitations Comments In supine: PROM left hip IR to 15 deg and ER to 20 deg; right hip IR 5 deg and ER to 30 deg. PT-OP-M Strength Start: 08/08/24 08:31 Freq: Status: Active Protocol: Document 08/09/24 14:32 MB (Rec: 08/09/24 15:55 MB Desktop) Hip Strength Hip Manual Muscle Testing Left Flexion (L2) 5 Normal Extension (S1) 4+ Good+ Abduction 4+ Good+ Adduction 4+ Good+ Comments PT can feel prosthesis from left ALESSANDRA with palpation Right Flexion (L2) 4+ Good+ Extension (S1) 4+ Good+ Abduction 4+ Good+ Adduction 4+ Good+ Knee Strength Knee Manual Muscle Testing Leg Flexion (S2) 5 Normal Extension (L3) 5 Normal Right Flexion (S2) 5 Normal Extension (L3) 5 Normal Ankle/Foot Strength Ankle and Foot Manual Muscle Testing Left Dorsiflexion (L4) 5 Normal Right Dorsiflexion (L4) 5 Normal Toe Strength Toe Manual Muscle Testing Left Great Toe Extension 5 Normal Right Great Toe Extension 5 Normal PT-OP-Q Treatments Start: 08/08/24 08:31 Freq: Status: Active Protocol: Document 08/18/24 14:38 MB (Rec: 08/18/24 15:09 MB Desktop) Therapeutic Exercises Supine Exercises Pelvic realignment exercises Supine Exercise Name HEP and handout given today Side bilateral Equipment Used Blue ball Reps/Minutes 5 reps, 3 sec hold all exercises in order Comments Feet together ball squeeze iso , knee opp ankle iso, thigh press down iso Manual Therapy Treatment Consent Patient gave verbal consent for manual Yes treatment Other Other Manual Treatments Pt supine: STM left quads, vastus lateralis, hip rotators , hip flexor, PFs. TFL, glutes Self-Care/Home Management Treatment Education Patient Education Body Mechanics,Home Exercise Program,Joint Protection,Pain Management,Posture Other Education Ongoing ed about log rolling, body awareness, going to doctor about right toe, pelvic alignment helping lower chain , reviewed dermatomes of LEs to discuss symptoms, possible benefits of communicating with doctor about EMG/lumbar work- up, proper pillow support between legs at night time. PT-OP-T Assessment and Plan Start: 08/08/24 08:31 Freq: Status: Active Protocol: Document 08/18/24 14:38 MB (Rec: 08/18/24 15:09 MB Desktop) Physical Therapy Assessment Rehab Potential Rehabilitation Potential Fair Evaluation Complexity Number of Personal Factors/Comorbidities 1-2 Number of Body Systems Impaired 3 Clinical Presentation at Evaluation Evolving Impairments Impairments Balance,Gait,Pain,Posture,ROM, Soft Tissue Mobility,Strength Goals 4 Impairment Lack of HEP performance Waste Management Recycling Technician Goal (LTG) Pt will perform progressive HEP with I including breathing , alignment, flexibility, strengthening and balance exercises to improve pain and mobility. LTG Duration 8 weeks 3 Impairment Reports of quad pain and concern for weakness Waste Management Recycling Technician Goal (LTG) Pt will perform at least 12 reps STS without UE support in 30 sec to improve functional strength. LTG Duration 8 weeks 2 Impairment Slow and antalgic gait Residential Goal (LTG) Pt will gait train at least 1581 feet in 6 minutes to improve community ambulation and to return to pain-free walks per pt's hobby. LTG Duration 8 weeks 1 Impairment LEF score reflects 55% impairment Waste Management Recycling Technician Goal (LTG) Pt will present with LEF score to reflect no more than 30% impairment to improve quality of life and mobility. LTG Duration 8 weeks Assessment Summary Assessment Pt presents with right great toe red and bruise under toe nail and states that dog stepped on it after sides of toe nail were cut out. Medial border is purplish and red. Pt reports pain when he sits down on my butt, pain in left thigh with sitting and standing and pain in right hip when standing a long time in [place] over the weekend ( for an hour on the sidewalk). Butt pain feels nerve like and the left quad pain feels like muscle and happens at 20 minutes of walking or whenever . Con't to tease out origin of symptoms if able, follow per plan below, flexibility next. Physical Therapy Plan Frequency and Duration Frequency of Treatment 2x/Week Duration of treatment (weeks) 8 Plan of Care Start Date 08/09/24 Plan of Care End Date 10/09/24 Therapeutic Interventions Therapeutic Interventions Balance Training,Canalithic Repositioning,Coordination Training,Gait Training,Home Exercise Program,Joint Mobilizations,Manual Therapy, Neuromuscular Re-education, Patient/Caregiver Education, Self-Care/Home Management,Soft Tissue Mobilization,Taping, Therapeutic Activities, Therapeutic Exercises Modalities Cold Pack/Ice Massage,Electric Stimulation,Hot Packs, Ultrasound Other Referrals/Consults Referrals/Consults Recommended Consider talking with PCP about EMG vs lumbosacral MRI about L5-S1 numbness left foot Next Visit Focus/Plan Next Note Type Treatment Note Next Visit Plan Diaphragm breathing, thoracic mobility such as open book Progress hip mobility/ flexibility, core and LE strengthening Balance Primary PT fascial counterstrain scan
--- NOTE | 2024-08-25 14:29 | PT.OTN ---
Current Diagnoses Trochanteric bursitis, left hip (08/25/24) Presence of left artificial hip joint (08/25/24) Physical Therapy Treatment Note PT-OP-A Visit Information Start: 08/08/24 08:31 Freq: Status: Active Protocol: Document 08/25/24 13:44 MB (Rec: 08/25/24 14:28 MB Desktop) Out-Patient Physical Therapy Visit Information Visit Information Visit Type Treatment Note Visit Note No KX PT to do progress note 09/07 Visit Start Time 13:44 Visit Stop Time 14:24 Visit Number 3 Number of TAPE FASTENER MACHINE OPERATOR Visits 0 Evaluation Information Evaluation Date 08/09/24 PT-OP-B Current Condition Start: 08/08/24 08:31 Freq: Status: Active Protocol: Document 08/09/24 14:32 MB (Rec: 08/09/24 15:55 MB Desktop) Current Condition History of Current Condition Onset Date 2018 Current Complaints Left quad, glute and lateral hip pain History of Current Condition Pt underwent left posterior ALESSANDRA in 2018. Since that time, he has had increased left quad and glute pain. He also has left lateral hip pain. The pain is worse in the quad and with walking. His primary exercise is walking. He underwent PT at [facility] twice since 2018 and he did exercises for a while and then he slacked off. He thinks that PT was helpful. Days and weeks when he was doing exercises had less pain. Pt had left kidney CA and he underwent cryoablation x1. This occurred in 2022. He then had kidney stones but is unsure which side. He thinks it was the right and he underwent surgery for removal of large stone. There was a shunt placed and then they removed the shunt. He has had a lot of right LBP. Per x-ray from 02/04, there was a kidney stone on the left. In March 2023, pt underwent surgery for enlarged prostrate. Pt had some bleeding with urinating. Pain at night was a lot worse and now is better. He sleeps on side with pillow between his knees. He has right shoulder pain. He went to [facility] for B shoulder issues. Pt had history of left toe numbness and underwent MRI. His fourth and fifth toes are numb. This occurred after kidney stone surgery. Pt states that Dr. Rivera wants him to try PT for one month and then she might do a total body scan. Pt really only had one year of no pain post-op L ALESSANDRA in 2019 when he was walking 5 miles a day [place] during COVID. Pt did recall walking hard on treadmill for stress test. Treatment Goals Patient/Caregiver Goals To decrease pain PT-OP-C Subjective Start: 08/08/24 08:31 Freq: Status: Active Protocol: Document 08/25/24 13:44 MB (Rec: 08/25/24 14:28 MB Desktop) OP-PT Subjective Patient Comments Patient Comments Pt reports improvement in pain since last PT treatment. He has performed exercises 4x over the the past week. Pt saw the doctor for his toe nail and she did not think it was infected. He will have a blood test for toe numbness. PT-OP-G Mobility & Gait Start: 08/08/24 08:31 Freq: Status: Active Protocol: Document 08/09/24 14:32 MB (Rec: 08/09/24 15:55 MB Desktop) OP Gait Assessment Comments Gait Comments Slow gait and antalgic pattern favoring the left leg. Decreased hip flexion, decreased movement left hip, stiffness left hip, slow gait, decreased toe off on the left and lateral left foot, decreased arm swing and increased lateral movement of shoulders with gait. Pelvis is stiff. PT-OP-J Posture/Palpation/Skin Start: 08/08/24 08:31 Freq: Status: Active Protocol: Document 08/09/24 14:32 MB (Rec: 08/09/24 15:55 MB Desktop) Posture Evaluation Comments Posture Comments Standing posture in socks: forward head, Dowager's hump, left shoulder is higher than the right, increased thoracic kyphosis, flattened thoracic area T8, right shift over pelvis, decreased lumbar lordosis, high pelvis and left iliac crest higher than the right, high left hip and more WB through the right leg. PT-OP-K Range of Motion Start: 08/08/24 08:31 Freq: Status: Active Protocol: Document 08/09/24 14:32 MB (Rec: 08/09/24 15:55 MB Desktop) Hip Goniometric Range of Motion Hip ROM Limitations Comments In supine: PROM left hip IR to 15 deg and ER to 20 deg; right hip IR 5 deg and ER to 30 deg. PT-OP-M Strength Start: 08/08/24 08:31 Freq: Status: Active Protocol: Document 08/09/24 14:32 MB (Rec: 08/09/24 15:55 MB Desktop) Hip Strength Hip Manual Muscle Testing Left Flexion (L2) 5 Normal Extension (S1) 4+ Good+ Abduction 4+ Good+ Adduction 4+ Good+ Comments PT can feel prosthesis from left ALESSANDRA with palpation Right Flexion (L2) 4+ Good+ Extension (S1) 4+ Good+ Abduction 4+ Good+ Adduction 4+ Good+ Knee Strength Knee Manual Muscle Testing Leg Flexion (S2) 5 Normal Extension (L3) 5 Normal Right Flexion (S2) 5 Normal Extension (L3) 5 Normal Ankle/Foot Strength Ankle and Foot Manual Muscle Testing Left Dorsiflexion (L4) 5 Normal Right Dorsiflexion (L4) 5 Normal Toe Strength Toe Manual Muscle Testing Left Great Toe Extension 5 Normal Right Great Toe Extension 5 Normal PT-OP-Q Treatments Start: 08/08/24 08:31 Freq: Status: Active Protocol: Document 08/25/24 13:44 MB (Rec: 08/25/24 14:28 MB Desktop) Therapeutic Exercises Supine Exercises Mike stretch Supine Exercise Name HEP and handout provided today Side bilateral Reps/Minutes 30 sec hold each leg Comments [place] foot on mattress, pelvic tilt Hip rotator stretch Supine Exercise Name HEP and handout provided today Side bilateral Reps/Minutes 30 sec hold each leg Comments Opposite foot on mattress Pelvic realignment exercises Supine Exercise Name HEP review, pt has performed 4x since given last week Side bilateral Equipment Used Blue ball Reps/Minutes 5 reps, 3 sec hold all exercises in order Comments Feet together ball squeeze iso , knee opp ankle iso, thigh press down iso Manual Therapy Treatment Consent Patient gave verbal consent for manual Yes treatment Other Other Manual Treatments Pt supine with head and legs supported by pillow: STM left quads, vastus lateralis, hip rotators, TFL, medial hamstring and PFs PT-OP-T Assessment and Plan Start: 08/08/24 08:31 Freq: Status: Active Protocol: Document 08/25/24 13:44 MB (Rec: 08/25/24 14:28 MB Desktop) Physical Therapy Assessment Rehab Potential Rehabilitation Potential Fair Evaluation Complexity Number of Personal Factors/Comorbidities 1-2 Number of Body Systems Impaired 3 Clinical Presentation at Evaluation Evolving Impairments Impairments Balance,Gait,Pain,Posture,ROM, Soft Tissue Mobility,Strength Goals 4 Impairment Lack of HEP performance Penitentiary Goal (LTG) Pt will perform progressive HEP with I including breathing , alignment, flexibility, strengthening and balance exercises to improve pain and mobility. LTG Duration 8 weeks 3 Impairment Reports of quad pain and concern for weakness Farm Machine Operator Goal (LTG) Pt will perform at least 12 reps STS without UE support in 30 sec to improve functional strength. LTG Duration 8 weeks 2 Impairment Slow and antalgic gait Penitentiary Goal (LTG) Pt will gait train at least 1581 feet in 6 minutes to improve community ambulation and to return to pain-free walks per pt's hobby. LTG Duration 8 weeks 1 Impairment LEF score reflects 55% impairment Farm Machine Operator Goal (LTG) Pt will present with LEF score to reflect no more than 30% impairment to improve quality of life and mobility. LTG Duration 8 weeks Assessment Summary Assessment Reviewed pelvic realignment exercises as pt has not been performing daily at home. Initiated hip rotator stretching and Mike stretching today to add to HEP . Physical Therapy Plan Frequency and Duration Frequency of Treatment 2x/Week Duration of treatment (weeks) 8 Plan of Care Start Date 08/09/24 Plan of Care End Date 10/09/24 Therapeutic Interventions Therapeutic Interventions Balance Training,Canalithic Repositioning,Coordination Training,Gait Training,Home Exercise Program,Joint Mobilizations,Manual Therapy, Neuromuscular Re-education, Patient/Caregiver Education, Self-Care/Home Management,Soft Tissue Mobilization,Taping, Therapeutic Activities, Therapeutic Exercises Modalities Cold Pack/Ice Massage,Electric Stimulation,Hot Packs, Ultrasound Other Referrals/Consults Referrals/Consults Recommended Consider talking with PCP about EMG vs lumbosacral MRI about L5-S1 numbness left foot Next Visit Focus/Plan Next Note Type Treatment Note Next Visit Plan Diaphragm breathing, thoracic mobility such as open book Progress core and LE strengthening including hip strengthening for glutes and rotators Balance Primary PT fascial counterstrain scan
--- NOTE | 2024-08-27 16:38 | PT.OTN ---
Current Diagnoses Trochanteric bursitis, left hip (08/27/24) Presence of left artificial hip joint (08/27/24) Physical Therapy Treatment Note PT-OP-A Visit Information Start: 08/08/24 08:31 Freq: Status: Active Protocol: Document 08/27/24 10:48 NBM (Rec: 08/27/24 12:25 NBM Laptop) Out-Patient Physical Therapy Visit Information Visit Information Visit Type Treatment Note Visit Note No KX PT to do progress note 09/07 Visit Start Time 10:50 Visit Stop Time 11:57 Visit Number 4 Number of DEAN FOR STUDENT AFFAIRS Visits 1 Evaluation Information Evaluation Date 08/09/24 PT-OP-B Current Condition Start: 08/08/24 08:31 Freq: Status: Active Protocol: Document 08/09/24 14:32 MB (Rec: 08/09/24 15:55 MB Desktop) Current Condition History of Current Condition Onset Date 2018 Current Complaints Left quad, glute and lateral hip pain History of Current Condition Pt underwent left posterior ALESSANDRA in 2018. Since that time, he has had increased left quad and glute pain. He also has left lateral hip pain. The pain is worse in the quad and with walking. His primary exercise is walking. He underwent PT at [facility] twice since 2018 and he did exercises for a while and then he slacked off. He thinks that PT was helpful. Days and weeks when he was doing exercises had less pain. Pt had left kidney CA and he underwent cryoablation x1. This occurred in 2022. He then had kidney stones but is unsure which side. He thinks it was the right and he underwent surgery for removal of large stone. There was a shunt placed and then they removed the shunt. He has had a lot of right LBP. Per x-ray from 02/04, there was a kidney stone on the left. In March 2023, pt underwent surgery for enlarged prostrate. Pt had some bleeding with urinating. Pain at night was a lot worse and now is better. He sleeps on side with pillow between his knees. He has right shoulder pain. He went to [facility] for B shoulder issues. Pt had history of left toe numbness and underwent MRI. His fourth and fifth toes are numb. This occurred after kidney stone surgery. Pt states that Dr. Rivera wants him to try PT for one month and then she might do a total body scan. Pt really only had one year of no pain post-op L ALESSANDRA in 2019 when he was walking 5 miles a day [place] during COVID. Pt did recall walking hard on treadmill for stress test. Treatment Goals Patient/Caregiver Goals To decrease pain PT-OP-C Subjective Start: 08/08/24 08:31 Freq: Status: Active Protocol: Document 08/27/24 10:48 NBM (Rec: 08/27/24 12:25 NBM Laptop) OP-PT Subjective Patient Comments Patient Comments Kp reports pain is usually on his L hip but today 3-4/10 pain behind R thigh, and it was really painful last night and a bit less when he woke up this morning. He thinks the pain is related to doing his PT exercises. PT-OP-G Mobility & Gait Start: 08/08/24 08:31 Freq: Status: Active Protocol: Document 08/09/24 14:32 MB (Rec: 08/09/24 15:55 MB Desktop) OP Gait Assessment Comments Gait Comments Slow gait and antalgic pattern favoring the left leg. Decreased hip flexion, decreased movement left hip, stiffness left hip, slow gait, decreased toe off on the left and lateral left foot, decreased arm swing and increased lateral movement of shoulders with gait. Pelvis is stiff. PT-OP-J Posture/Palpation/Skin Start: 08/08/24 08:31 Freq: Status: Active Protocol: Document 08/09/24 14:32 MB (Rec: 08/09/24 15:55 MB Desktop) Posture Evaluation Comments Posture Comments Standing posture in socks: forward head, Dowager's hump, left shoulder is higher than the right, increased thoracic kyphosis, flattened thoracic area T8, right shift over pelvis, decreased lumbar lordosis, high pelvis and left iliac crest higher than the right, high left hip and more WB through the right leg. PT-OP-K Range of Motion Start: 08/08/24 08:31 Freq: Status: Active Protocol: Document 08/09/24 14:32 MB (Rec: 08/09/24 15:55 MB Desktop) Hip Goniometric Range of Motion Hip ROM Limitations Comments In supine: PROM left hip IR to 15 deg and ER to 20 deg; right hip IR 5 deg and ER to 30 deg. PT-OP-M Strength Start: 08/08/24 08:31 Freq: Status: Active Protocol: Document 08/09/24 14:32 MB (Rec: 08/09/24 15:55 MB Desktop) Hip Strength Hip Manual Muscle Testing Left Flexion (L2) 5 Normal Extension (S1) 4+ Good+ Abduction 4+ Good+ Adduction 4+ Good+ Comments PT can feel prosthesis from left ALESSANDRA with palpation Right Flexion (L2) 4+ Good+ Extension (S1) 4+ Good+ Abduction 4+ Good+ Adduction 4+ Good+ Knee Strength Knee Manual Muscle Testing Leg Flexion (S2) 5 Normal Extension (L3) 5 Normal Right Flexion (S2) 5 Normal Extension (L3) 5 Normal Ankle/Foot Strength Ankle and Foot Manual Muscle Testing Left Dorsiflexion (L4) 5 Normal Right Dorsiflexion (L4) 5 Normal Toe Strength Toe Manual Muscle Testing Left Great Toe Extension 5 Normal Right Great Toe Extension 5 Normal PT-OP-Q Treatments Start: 08/08/24 08:31 Freq: Status: Active Protocol: Document 08/27/24 10:48 NBM (Rec: 08/27/24 12:25 NBM Laptop) Therapeutic Exercises Supine Exercises Mike stretch Supine Exercise Name HEP review Side bilateral Reps/Minutes 8-10 breathcycles (~30 sec) hold each leg Comments [place] foot on mattress, pelvic tilt Hip rotator stretch Supine Exercise Name HEP review: 1. Figure 4 2. knee to opp shoulder (better) Side bilateral Reps/Minutes 8-10 breathcycles (~30 sec) hold each leg Comments Opposite foot on mattress, emphasis on pain-free range, breath Pelvic realignment exercises Supine Exercise Name HEP review, cues for painfree range and breath Side bilateral Equipment Used Blue ball Reps/Minutes 5 reps, 2 breathcycle hold (~3 sec hold) all exercises in order Comments Feet together ball squeeze iso , knee opp ankle iso, thigh press down iso Sidelying Exercises Open Book stretch Sidelying Exercise Name w/ breath (trialed in PT) Side bilateral Equipment Used heavy tactile cue scap setting (use yoga mat on plinth next time) Reps/Minutes x5 ea Comments vc head follows hand; challenging d/t shoulder pain L rotation>R Sitting Exercises Sit to Stand Sitting Exercise Name no UE support Side bilateral Equipment Used standard mesh chair Reps/Minutes 2x5 Comments cues for hip hinge, breath, and eccentric control Therapeutic Activity Therapeutic Activity Donning socks/Shoes Name Seated on standard mesh chair to simulate home Reps/Minutes 3' Comments Pt demos donning socks RLE in seated Fig 4, and dons socks LLE seated with leg in 90/90 flexing forward. I/s to pt re: obtaining Fig. 4 position w/ LLE by extended RLE straight forward, sliding L ankle up farias until above knee, then flexing R knee into Fig. 4 - emphasis on maintaining pain-free range. Manual Therapy Treatment Consent Patient gave verbal consent for manual Yes treatment Other Other Manual Treatments Pt supine with head supported on pillow and legs supported on bolster: STM left quads, vastus lateralis, hip rotators , TFL, medial hamstring, and R TFL and Hamstrings. PT-OP-T Assessment and Plan Start: 08/08/24 08:31 Freq: Status: Active Protocol: Document 08/27/24 10:48 NBM (Rec: 08/27/24 12:25 NBM Laptop) Physical Therapy Assessment Goals 4 Impairment Lack of HEP performance Usp Goal (LTG) Pt will perform progressive HEP with I including breathing , alignment, flexibility, strengthening and balance exercises to improve pain and mobility. LTG Duration 8 weeks 3 Impairment Reports of quad pain and concern for weakness Usp Goal (LTG) Pt will perform at least 12 reps STS without UE support in 30 sec to improve functional strength. 08/27/24: Initiated STS instruction without UE support w/ cues for hip hinge, eccentric control and breath. LTG Duration 8 weeks 2 Impairment Slow and antalgic gait Usp Goal (LTG) Pt will gait train at least 1581 feet in 6 minutes to improve community ambulation and to return to pain-free walks per pt's hobby. LTG Duration 8 weeks 1 Impairment LEF score reflects 55% impairment Usp Goal (LTG) Pt will present with LEF score to reflect no more than 30% impairment to improve quality of life and mobility. LTG Duration 8 weeks Assessment Summary Assessment Kp presents with 3-4/10 R posterior thigh pain which he attributes to performing new PT stretches and which improves by end of session ( measurement not obtained). Treatment focus on HEP review for pelvic realignment exercises and stretching, manual therapy, education and therapeutic activity. Kp demonstrates breath holding with HEP review and is educated on use of breathwork as well as importance of staying within a pain-free range of motion with exercises and stretches. He demos much- improved self-awareness for breath and painfree range of motion and contraction; occasional cues for Transverse abdominis m. activation and posterior pelvic tilt as needed resolve pt report of low back pain as with sidelying open book stretch. Initiated STS instruction without UE support w/ cues for hip hinge, eccentric control and breath (Goal 3). Palpable muscular tension to lower extremities improves with manual therapy. Physical Therapy Plan Frequency and Duration Frequency of Treatment 2x/Week Duration of treatment (weeks) 8 Plan of Care Start Date 08/09/24 Plan of Care End Date 10/09/24 Therapeutic Interventions Therapeutic Interventions Balance Training,Canalithic Repositioning,Coordination Training,Gait Training,Home Exercise Program,Joint Mobilizations,Manual Therapy, Neuromuscular Re-education, Patient/Caregiver Education, Self-Care/Home Management,Soft Tissue Mobilization,Taping, Therapeutic Activities, Therapeutic Exercises Modalities Cold Pack/Ice Massage,Electric Stimulation,Hot Packs, Ultrasound Other Referrals/Consults Referrals/Consults Recommended Consider talking with PCP about EMG vs lumbosacral MRI about L5-S1 numbness left foot Next Visit Focus/Plan Next Note Type Treatment Note Next Visit Plan Diaphragm breathing, thoracic mobility such as open book Progress core and LE strengthening including hip strengthening for glutes and rotators Balance Primary PT fascial counterstrain scan
--- NOTE | 2024-09-07 18:00 | PT.OTN ---
Current Diagnoses Trochanteric bursitis, left hip (09/07/24) Presence of left artificial hip joint (09/07/24) Physical Therapy Treatment Note PT-OP-A Visit Information Start: 08/08/24 08:31 Freq: Status: Active Protocol: Document 09/07/24 16:15 MB (Rec: 09/07/24 16:59 MB Desktop) Out-Patient Physical Therapy Visit Information Visit Information Visit Type Progress Note Visit Start Time 16:15 Visit Stop Time 16:55 Visit Number 5 Number of LADIES UNDERWEAR OPERATOR Visits 0 Evaluation Information Evaluation Date 08/09/24 PT-OP-B Current Condition Start: 08/08/24 08:31 Freq: Status: Active Protocol: Document 08/09/24 14:32 MB (Rec: 08/09/24 15:55 MB Desktop) Current Condition History of Current Condition Onset Date 2018 Current Complaints Left quad, glute and lateral hip pain History of Current Condition Pt underwent left posterior ALESSANDRA in 2018. Since that time, he has had increased left quad and glute pain. He also has left lateral hip pain. The pain is worse in the quad and with walking. His primary exercise is walking. He underwent PT at [facility] twice since 2018 and he did exercises for a while and then he slacked off. He thinks that PT was helpful. Days and weeks when he was doing exercises had less pain. Pt had left kidney CA and he underwent cryoablation x1. This occurred in 2022. He then had kidney stones but is unsure which side. He thinks it was the right and he underwent surgery for removal of large stone. There was a shunt placed and then they removed the shunt. He has had a lot of right LBP. Per x-ray from 02/04, there was a kidney stone on the left. In March 2023, pt underwent surgery for enlarged prostrate. Pt had some bleeding with urinating. Pain at night was a lot worse and now is better. He sleeps on side with pillow between his knees. He has right shoulder pain. He went to [facility] for B shoulder issues. Pt had history of left toe numbness and underwent MRI. His fourth and fifth toes are numb. This occurred after kidney stone surgery. Pt states that Dr. Rivera wants him to try PT for one month and then she might do a total body scan. Pt really only had one year of no pain post-op L ALESSANDRA in 2019 when he was walking 5 miles a day [place] during COVID. Pt did recall walking hard on treadmill for stress test. Treatment Goals Patient/Caregiver Goals To decrease pain PT-OP-C Subjective Start: 08/08/24 08:31 Freq: Status: Active Protocol: Document 09/07/24 16:15 MB (Rec: 09/07/24 16:59 MB Desktop) OP-PT Subjective Patient Comments Patient Comments Pt states that he went on a road trip on the [facility] and there was not a lot of room for doing his exercises in the RV. He did a lot of walking. The left thigh pain was better but noticed pain in his lateral left hip. PT-OP-G Mobility & Gait Start: 08/08/24 08:31 Freq: Status: Active Protocol: Document 08/09/24 14:32 MB (Rec: 08/09/24 15:55 MB Desktop) OP Gait Assessment Comments Gait Comments Slow gait and antalgic pattern favoring the left leg. Decreased hip flexion, decreased movement left hip, stiffness left hip, slow gait, decreased toe off on the left and lateral left foot, decreased arm swing and increased lateral movement of shoulders with gait. Pelvis is stiff. PT-OP-J Posture/Palpation/Skin Start: 08/08/24 08:31 Freq: Status: Active Protocol: Document 08/09/24 14:32 MB (Rec: 08/09/24 15:55 MB Desktop) Posture Evaluation Comments Posture Comments Standing posture in socks: forward head, Dowager's hump, left shoulder is higher than the right, increased thoracic kyphosis, flattened thoracic area T8, right shift over pelvis, decreased lumbar lordosis, high pelvis and left iliac crest higher than the right, high left hip and more WB through the right leg. PT-OP-K Range of Motion Start: 08/08/24 08:31 Freq: Status: Active Protocol: Document 08/09/24 14:32 MB (Rec: 08/09/24 15:55 MB Desktop) Hip Goniometric Range of Motion Hip ROM Limitations Comments In supine: PROM left hip IR to 15 deg and ER to 20 deg; right hip IR 5 deg and ER to 30 deg. PT-OP-M Strength Start: 08/08/24 08:31 Freq: Status: Active Protocol: Document 08/09/24 14:32 MB (Rec: 08/09/24 15:55 MB Desktop) Hip Strength Hip Manual Muscle Testing Left Flexion (L2) 5 Normal Extension (S1) 4+ Good+ Abduction 4+ Good+ Adduction 4+ Good+ Comments PT can feel prosthesis from left ALESSANDRA with palpation Right Flexion (L2) 4+ Good+ Extension (S1) 4+ Good+ Abduction 4+ Good+ Adduction 4+ Good+ Knee Strength Knee Manual Muscle Testing Leg Flexion (S2) 5 Normal Extension (L3) 5 Normal Right Flexion (S2) 5 Normal Extension (L3) 5 Normal Ankle/Foot Strength Ankle and Foot Manual Muscle Testing Left Dorsiflexion (L4) 5 Normal Right Dorsiflexion (L4) 5 Normal Toe Strength Toe Manual Muscle Testing Left Great Toe Extension 5 Normal Right Great Toe Extension 5 Normal PT-OP-Q Treatments Start: 08/08/24 08:31 Freq: Status: Active Protocol: Document 09/07/24 16:15 MB (Rec: 09/07/24 17:59 MB Desktop) Therapeutic Exercises Other Exercises HEP review today Comments Verbal review today and d/cd hip rotator stretch given pain Gait Training Gait Activity 6MWT Comments See comments under goals today Manual Therapy Treatment Consent Patient gave verbal consent for manual Yes treatment Other Other Manual Treatments Pt supine with head and legs supported on pillows: STM and positional release Left glutes , TFL, vastus lateralis, rectus, hamstrings, hip rotators PT-OP-T Assessment and Plan Start: 08/08/24 08:31 Freq: Status: Active Protocol: Document 09/07/24 16:15 MB (Rec: 09/07/24 16:59 MB Desktop) Physical Therapy Assessment Rehab Potential Rehabilitation Potential Fair Evaluation Complexity Number of Personal Factors/Comorbidities 1-2 Number of Body Systems Impaired 3 Clinical Presentation at Evaluation Evolving Impairments Impairments Balance,Gait,Pain,Posture,ROM, Soft Tissue Mobility,Strength Goals 4 Impairment Lack of HEP performance Physician Allergist Immunologist Goal (LTG) Pt will perform progressive HEP with I including breathing , alignment, flexibility, strengthening and balance exercises to improve pain and mobility. 09/07/24: Pt is performing pelvic realignment exercises, Mike and hamstring stretches LTG Duration 8 weeks 3 Impairment Reports of quad pain and concern for weakness Physician Allergist Immunologist Goal (LTG) Pt will perform at least 12 reps STS without UE support in 30 sec to improve functional strength. 08/27/24: Initiated STS instruction without UE support w/ cues for hip hinge, eccentric control and breath. 09/07/24: On rosales plinth: 10 reps without UEs LTG Duration 8 weeks 2 Impairment Slow and antalgic gait Physician Allergist Immunologist Goal (LTG) Pt will gait train at least 1581 feet in 6 minutes to improve community ambulation and to return to pain-free walks per pt's hobby. 09/07/24: Pt reports 1452 feet in 6 minutes with no left hip or other pain at rest and increasing pain up to 5/10 in left lateral hip to lateral leg to anterior leg with increased gait distance. Pattern is increasingly antaglic with trouble advancing leg and functional foot drop/decreased heel strike and toe off left foot with gait. LTG Duration 8 weeks 1 Impairment LEF score reflects 55% impairment Physician Allergist Immunologist Goal (LTG) Pt will present with LEF score to reflect no more than 30% impairment to improve quality of life and mobility. 09/07/24: LEF reflects 45% impairment LTG Duration 8 weeks Assessment Summary Assessment Pt con't to score quite high as far as pain for functional tasks d/t left hip pain. Pt also has increasing pain in the left lateral hip and leg with 6MWT today. Overall, PT is concerned about left hip given increased pain with WB. Will keep next five appointments to see if pt can improve and likely will refer back to physician after. Physical Therapy Plan Frequency and Duration Frequency of Treatment 2x/Week Duration of treatment (weeks) 8 Plan of Care Start Date 08/09/24 Plan of Care End Date 10/09/24 Therapeutic Interventions Therapeutic Interventions Balance Training,Canalithic Repositioning,Coordination Training,Gait Training,Home Exercise Program,Joint Mobilizations,Manual Therapy, Neuromuscular Re-education, Patient/Caregiver Education, Self-Care/Home Management,Soft Tissue Mobilization,Taping, Therapeutic Activities, Therapeutic Exercises Modalities Cold Pack/Ice Massage,Electric Stimulation,Hot Packs, Ultrasound Other Referrals/Consults Referrals/Consults Recommended Consider talking with PCP about EMG vs lumbosacral MRI about L5-S1 numbness left foot Next Visit Focus/Plan Next Note Type Treatment Note Next Visit Plan Consider diaphragm breathing and open book for home Progress core and LE strengthening including hip strengthening for glutes and rotators, consider wall slides for quads and glutes Balance Primary PT fascial counterstrain scan
--- NOTE | 2024-09-10 17:01 | PT.OTN ---
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 Since that time, he has had increased left quad and glute pain. He also has left lateral hip pain. The pain is worse in the quad and with walking. His primary exercise is walking. He underwent PT at [facility] twice since 2018 and he did exercises for a while and then he slacked off. He thinks that PT was helpful. Days and weeks when he was doing exercises had less pain. Pt had left kidney CA and he underwent cryoablation x1. This occurred in 2022. He then had kidney stones but is unsure which side. He thinks it was the right and he underwent surgery for removal of large stone. There was a shunt placed and then they removed the shunt. He has had a lot of right LBP. Per x-ray from 02/04, there was a kidney stone on the left. In March 2023, pt underwent surgery for enlarged prostrate. Pt had some bleeding with urinating. Pain at night was a lot worse and now is better. He sleeps on side with pillow between his knees. He has right shoulder pain. He went to [facility] for B shoulder issues. Pt had history of left toe numbness and underwent MRI. His fourth and fifth toes are numb. This occurred after kidney stone surgery. Pt states that Dr. Rivera wants him to try PT for one month and then she might do a total body scan. Pt really only had one year of no pain post-op L ALESSANDRA in 2019 when he was walking 5 miles a day [place] during COV. Pt did recall walking hard on treadmill for stress test. Treatment Goals Patient/Caregiver Goals To decrease pain PT-OP-C Subjective Start: 08/08/24 08:31 Freq: Status: Active Protocol: Document 09/10/24 13:02 NBM (Rec: 09/10/24 14:01 NBM Laptop) OP-PT Subjective Patient Comments Patient Comments Kp reports his L quad pain is better, but his L hip where the transplant is continues to bother him. Pain currently 2/10, but almost any time he walks any where, any kind of walking, even around the house I can feel a difference in that hip. At least 2/10 with walking. He has been able to get L sock on now without pain but the knee is up pretty high. PT-OP-G Mobility & Gait Start: 08/08/24 08:31 Freq: Status: Active Protocol: Document 08/09/24 14:32 MB (Rec: 08/09/24 15:55 MB Desktop) OP Gait Assessment Comments Gait Comments Slow gait and antalgic pattern favoring the left leg. Decreased hip flexion, decreased movement left hip, stiffness left hip, slow gait, decreased toe off on the left and lateral left foot, decreased arm swing and increased lateral movement of shoulders with gait. Pelvis is stiff. PT-OP-J Posture/Palpation/Skin Start: 08/08/24 08:31 Freq: Status: Active Protocol: Document 08/09/24 14:32 MB (Rec: 08/09/24 15:55 MB Desktop) Posture Evaluation Comments Posture Comments Standing posture in socks: forward head, Dowager's hump, left shoulder is higher than the right, increased thoracic kyphosis, flattened thoracic area T8, right shift over pelvis, decreased lumbar lordosis, high pelvis and left iliac crest higher than the right, high left hip and more WB through the right leg. PT-OP-K Range of Motion Start: 08/08/24 08:31 Freq: Status: Active Protocol: Document 08/09/24 14:32 MB (Rec: 08/09/24 15:55 MB Desktop) Hip Goniometric Range of Motion Hip ROM Limitations Comments In supine: PROM left hip IR to 15 deg and ER to 20 deg; right hip IR 5 deg and ER to 30 deg. PT-OP-M Strength Start: 08/08/24 08:31 Freq: Status: Active Protocol: Document 08/09/24 14:32 MB (Rec: 08/09/24 15:55 MB Desktop) Hip Strength Hip Manual Muscle Testing Left Flexion (L2) 5 Normal Extension (S1) 4+ Good+ Abduction 4+ Good+ Adduction 4+ Good+ Comments PT can feel prosthesis from left ALESSANDRA with palpation Right Flexion (L2) 4+ Good+ Extension (S1) 4+ Good+ Abduction 4+ Good+ Adduction 4+ Good+ Knee Strength Knee Manual Muscle Testing Leg Flexion (S2) 5 Normal Extension (L3) 5 Normal Right Flexion (S2) 5 Normal Extension (L3) 5 Normal Ankle/Foot Strength Ankle and Foot Manual Muscle Testing Left Dorsiflexion (L4) 5 Normal Right Dorsiflexion (L4) 5 Normal Toe Strength Toe Manual Muscle Testing Left Great Toe Extension 5 Normal Right Great Toe Extension 5 Normal PT-OP-Q Treatments Start: 08/08/24 08:31 Freq: Status: Active Protocol: Document 09/10/24 13:02 NBM (Rec: 09/10/24 14:01 NBM Laptop) Therapeutic Exercises Supine Exercises LTR Supine Exercise Name R mid-back pain resolves w/ cues for smaller range & PPT Side bilateral Reps/Minutes x10 ea Comments cues for PPT, TrA, painfree range, breathwork Pelvic realignment exercises Supine Exercise Name HEP review, slight L hip pain w/ pelvic lift resolves w/ cues for PPT/TrA Side bilateral Equipment Used Blue ball Reps/Minutes 5 reps, 2 breathcycle hold (~3 sec hold) all exercises in order Comments Feet together ball squeeze iso , knee opp ankle iso, thigh press down iso Sidelying Exercises Open Book stretch Sidelying Exercise Name w/ breath -catalino discomfort improves w/ top hand contact to body throughout Side bilateral Equipment Used tactile cue scap setting (yoga mat on plinth declined) Reps/Minutes AROM x5 ea w/ breathwork, x1 stretch hold Comments vc head follows hand Sitting Exercises Hamstring stretch Sitting Exercise Name added to HEP Side bilateral Reps/Minutes 30s Comments cues for painfree range Other Exercises quadruped Other Exercise Name Thread the Needle Side bilateral Reps/Minutes x5 ea HEP review today Comments Verbal review Mike stretch, instruction for pain-free range only. Manual Therapy Treatment Consent Patient gave verbal consent for manual Yes treatment Other Other Manual Treatments Pt supine with head supported on pillow and legs supported on bolster: STM R Hamstrings and quads - 5'. PT-OP-T Assessment and Plan Start: 08/08/24 08:31 Freq: Status: Active Protocol: Document 09/10/24 13:02 NBM (Rec: 09/10/24 14:01 NBM Laptop) Physical Therapy Assessment Goals 4 Impairment Lack of HEP performance Rehabilitation Services Manager Goal (LTG) Pt will perform progressive HEP with I including breathing , alignment, flexibility, strengthening and balance exercises to improve pain and mobility. 09/07/24: Pt is performing pelvic realignment exercises, Mike and hamstring stretches LTG Duration 8 weeks 3 Impairment Reports of quad pain and concern for weakness [facility] Goal (LTG) Pt will perform at least 12 reps STS without UE support in 30 sec to improve functional strength. 08/27/24: Initiated STS instruction without UE support w/ cues for hip hinge, eccentric control and breath. 09/07/24: On rosales plinth: 10 reps without UEs LTG Duration 8 weeks 2 Impairment Slow and antalgic gait Rehabilitation Services Manager Goal (LTG) Pt will gait train at least 1581 feet in 6 minutes to improve community ambulation and to return to pain-free walks per pt's hobby. 09/07/24: Pt reports 1452 feet in 6 minutes with no left hip or other pain at rest and increasing pain up to 5/10 in left lateral hip to lateral leg to anterior leg with increased gait distance. Pattern is increasingly antaglic with trouble advancing leg and functional foot drop/decreased heel strike and toe off left foot with gait. LTG Duration 8 weeks 1 Impairment LEF score reflects 55% impairment [facility] Goal (LTG) Pt will present with LEF score to reflect no more than 30% impairment to improve quality of life and mobility. 09/07/24: LEF reflects 45% impairment LTG Duration 8 weeks Assessment Summary Assessment Pt reports end of treatment he recently noticed numbness in L foot has increased from 5th toe to all toes and is encouraged to notify PCP. Treatment focus on HEP and thoracic mobility w/ breathwork. Kp's reported R mid-back pain during LTR resolves with cues for smaller range & PPT, as does L hip pain with pelvic realignment exercises and he is reminded to only perform these ex's painfree. He reports improved LE pain and tightness end of session. He initially declines yoga mat on plinth for sidelying open book but reports after exercises he does experience increased L hip discomfort following. Added to HEP: Open book stretch and seated Hamstrings stretch - HO given. Physical Therapy Plan Frequency and Duration Frequency of Treatment 2x/Week Duration of treatment (weeks) 8 Plan of Care Start Date 08/09/24 Plan of Care End Date 10/09/24 Therapeutic Interventions Therapeutic Interventions Balance Training,Canalithic Repositioning,Coordination Training,Gait Training,Home Exercise Program,Joint Mobilizations,Manual Therapy, Neuromuscular Re-education, Patient/Caregiver Education, Self-Care/Home Management,Soft Tissue Mobilization,Taping, Therapeutic Activities, Therapeutic Exercises Modalities Cold Pack/Ice Massage,Electric Stimulation,Hot Packs, Ultrasound Other Referrals/Consults Referrals/Consults Recommended Consider talking with PCP about EMG vs lumbosacral MRI about L5-S1 numbness left foot Next Visit Focus/Plan Next Note Type Treatment Note Next Visit Plan Review new HEP: Open book, seated HS stretch. Consider LTR. POC: Consider diaphragm breathing home Progress core and LE strengthening including hip strengthening for glutes and rotators, consider wall slides for quads and glutes Balance Primary PT fascial counterstrain scan
--- NOTE | 2024-09-14 16:30 | PT.OTN ---
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 Since that Condition time, he has had increased left quad and glute pain. He also has left lateral hip pain. The pain is worse in the quad and with walking. His primary exercise is walking. He underwent PT at [facility] twice since 2018 and he did exercises for a while and then he slacked off. He thinks that PT was helpful. Days and weeks when he was doing exercises had less pain. Pt had left kidney CA and he underwent cryoablation x1. This occurred in 2022. He then had kidney stones but is unsure which side. He thinks it was the right and he underwent surgery for removal of large stone. There was a shunt placed and then they removed the shunt. He has had a lot of right LBP. Per x-ray from 02/04, there was a kidney stone on the left. In March 2023, pt underwent surgery for enlarged prostrate. Pt had some bleeding with urinating. Pain at night was a lot worse and now is better. He sleeps on side with pillow between his knees. He has right shoulder pain. He went to [facility] for B shoulder issues. Pt had history of left toe numbness and underwent MRI. His fourth and fifth toes are numb. This occurred after kidney stone surgery. Pt states that Dr. Rivera wants him to try PT for one month and then she might do a total body scan. Pt really only had one year of no pain post-op L ALESSANDRA in 2019 when he was walking 5 miles a day [place] during COVID. Pt did recall walking hard on treadmill for stress test. Treatment Goals Patient/Caregiver To decrease pain Goals PT-OP-C Subjective Start: 08/08/24 08:31 Freq: Status: Active Protocol: Document 09/14/24 11:40 NBM (Rec: 09/14/24 12:48 NBM Laptop) OP-PT Subjective Patient Comments Patient Comments Kp reports he was able to take a 45 minute walk two days ago on trail with trekking poles and had some L leg pain during (points to distal medial and lateral quads) and L hip pain afterwards, but was able to walk the dog for thirty minutes that evening. Otherwise the L hip pain is when he bumps into it or gets out of bed on that side. He's been getting the tightness behind his R leg. PT-OP-G Mobility & Gait Start: 08/08/24 08:31 Freq: Status: Active Protocol: Document 08/09/24 14:32 MB (Rec: 08/09/24 15:55 MB Desktop) OP Gait Assessment Comments Gait Comments Slow gait and antalgic pattern favoring the left leg. Decreased hip flexion, decreased movement left hip, stiffness left hip, slow gait, decreased toe off on the left and lateral left foot, decreased arm swing and increased lateral movement of shoulders with gait. Pelvis is stiff. PT-OP-J Posture/Palpation/Skin Start: 08/08/24 08:31 Freq: Status: Active Protocol: Document 08/09/24 14:32 MB (Rec: 08/09/24 15:55 MB Desktop) Posture Evaluation Comments Posture Comments Standing posture in socks: forward head, Dowager's hump , left shoulder is higher than the right, increased thoracic kyphosis, flattened thoracic area T8, right shift over pelvis, decreased lumbar lordosis, high pelvis and left iliac crest higher than the right, high left hip and more WB through the right leg. PT-OP-K Range of Motion Start: 08/08/24 08:31 Freq: Status: Active Protocol: Document 08/09/24 14:32 MB (Rec: 08/09/24 15:55 MB Desktop) Hip Goniometric Range of Motion Hip ROM Limitations Comments In supine: PROM left hip IR to 15 deg and ER to 20 deg; right hip IR 5 deg and ER to 30 deg. PT-OP-M Strength Start: 08/08/24 08:31 Freq: Status: Active Protocol: Document 08/09/24 14:32 MB (Rec: 08/09/24 15:55 MB Desktop) Hip Strength Hip Manual Muscle Testing Left Flexion (L2) 5 Normal Extension (S1) 4+ Good+ Abduction 4+ Good+ Adduction 4+ Good+ Comments PT can feel prosthesis from left ALESSANDRA with palpation Right Flexion (L2) 4+ Good+ Extension (S1) 4+ Good+ Abduction 4+ Good+ Adduction 4+ Good+ Knee Strength Knee Manual Muscle Testing Leg Flexion (S2) 5 Normal Extension (L3) 5 Normal Right Flexion (S2) 5 Normal Extension (L3) 5 Normal Ankle/Foot Strength Ankle and Foot Manual Muscle Testing Left Dorsiflexion (L4) 5 Normal Right Dorsiflexion (L4) 5 Normal Toe Strength Toe Manual Muscle Testing Left Great Toe Extension 5 Normal Right Great Toe Extension 5 Normal PT-OP-Q Treatments Start: 08/08/24 08:31 Freq: Status: Active Protocol: Document 09/14/24 11:40 NBM (Rec: 09/14/24 12:48 NBM Laptop) Therapeutic Exercises Sidelying Exercises Open Book stretch Sidelying Exercise w/ breath -catalino discomfort improves w/ top hand contact Name to body throughout Side bilateral Equipment Used yoga mat on plinth Reps/Minutes AROM x5 ea w/ breathwork, x1 stretch hold Comments vc head follows hand Sitting Exercises Hamstring stretch Sitting Exercise HEP review Name Side right Reps/Minutes 30s Comments cues for painfree range Sit to Stand Sitting Exercise no UE support Name Side bilateral Equipment Used standard mesh chair Reps/Minutes x10, x8; x10 (30 sec STS) Comments cues for hip hinge, breath, and eccentric control Standing Exercises calf stretch Standing Exercise gastrocnemius -added to HEP Name Side right Equipment Used lunge position w/ handrail Reps/Minutes 30s Comments L hip pain resolves w/ cues for smaller CORNELL, RLE tightness improves quad stretch Side left Equipment Used handrail, towel around lower leg Reps/Minutes 20 sec, dc'd d/t R posterior leg discomfort Comments cues for LE alignment, upright posture, painfree range Hip abduction Standing Exercise added to HEP Name Side bilateral Resistance 0>Lvl 1 Tb at ankles Equipment Used handrail Reps/Minutes x10 ea Comments vc upright posture, painfree range, neutral foot position Manual Therapy Treatment Consent Patient gave verbal Yes consent for manual treatment Other Other Manual Pt hooklying with head supported on pillow: STM L quads Treatments , TFL, ITB, Hamstrings, adductors. Pt i/s in self-IASTM to LEs seated with rolling pin- positive feedback response. 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 09/07/24: Pt is performing pelvic realignment exercises, Mike and hamstring stretches LTG Duration 8 weeks 3 Impairment Reports of quad pain and concern for weakness Leak Operator [employer] Goal (LTG) Pt will perform at least 12 reps STS without UE support in 30 sec to improve functional strength. 08/27/24: Initiated STS instruction without UE support w/ cues for hip hinge, eccentric control and breath. 09/07/24: On rosales plinth: 10 reps without UEs 09/14/24: On standard height mesh chair: 10 reps without UEs LTG Duration 8 weeks 2 Impairment Slow and antalgic gait Assisted Goal (LTG) Pt will gait train at least 1581 feet in 6 minutes to improve community ambulation and to return to pain-free walks per pt's hobby. 09/07/24: Pt reports 1452 feet in 6 minutes with no left hip or other pain at rest and increasing pain up to 5/ 10 in left lateral hip to lateral leg to anterior leg with increased gait distance. Pattern is increasingly antaglic with trouble advancing leg and functional foot drop/decreased heel strike and toe off left foot with gait. LTG Duration 8 weeks 1 Impairment LEF score reflects 55% impairment Assisted Goal (LTG) Pt will present with LEF score to reflect no more than 30% impairment to improve quality of life and mobility. 09/07/24: LEF reflects 45% impairment LTG Duration 8 weeks Assessment Summary Assessment Kp continues to report L hip pain with activities such as walking, lying on L hip and rolling out of bed and plans to contact surgeon. Added to HEP: standing Calf stretch and Resisted hip abduction, HO declined, Lvl 1 Tb provided. He progresses towards functional strength goal of 12 reps of STS in 30 sec with 10 reps today without UE support from standard mesh chair. R calf stretch cued into smaller CORNELL resolves L hip pain and improves R LE posterior tightness. Palpable tightness to R anterior thigh improves with manual therapy, and is instructed in self-STM with rolling pin with positive feedback response. He requires occasional cues for breathholding today but demos much improved self-awareness of form with sidelying open book. Physical Therapy Plan Frequency and Duration Frequency of 2x/Week Treatment Duration of 8 treatment (weeks) Plan of Care Start 08/09/24 Date Plan of Care End 10/09/24 Date Therapeutic Interventions Therapeutic Balance Training,Canalithic Repositioning,Coordination Interventions Training,Gait Training,Home Exercise Program,Joint Mobilizations,Manual Therapy,Neuromuscular Re-education ,Patient/Caregiver Education,Self-Care/Home Management, Soft Tissue Mobilization,Taping,Therapeutic Activities, Therapeutic Exercises Modalities Cold Pack/Ice Massage,Electric Stimulation,Hot Packs, Ultrasound Other Referrals/Consults Referrals/Consults Consider talking with PCP about EMG vs lumbosacral MRI Recommended about L5-S1 numbness left foot Next Visit Focus/Plan Next Note Type Treatment Note Next Visit Plan Consider LTR and wall slides for HEP. POC: Consider diaphragm breathing home Progress core and LE strengthening including hip strengthening for glutes and rotators, consider wall slides for quads and glutes Balance Primary PT fascial counterstrain scan
--- NOTE | 2024-09-16 16:14 | PT.OTN ---
Current Diagnoses Trochanteric bursitis, left hip (09/16/24) Presence of left artificial hip joint (09/16/24) Physical Therapy Treatment Note PT-OP-A Visit Information Start: 08/08/24 08:31 Freq: Status: Active Protocol: Document 09/16/24 11:41 NBM (Rec: 09/16/24 12:41 NBM Laptop) Out-Patient Physical Therapy Visit Information Visit Information Visit Type Treatment Note Visit Start Time 11:39 Visit Stop Time 12:25 Visit Number 8 Number of GENERAL OPHTHALMOLOGIST Visits 3 Evaluation Information Evaluation Date 08/09/24 PT-OP-B Current Condition Start: 08/08/24 08:31 Freq: Status: Active Protocol: Document 08/09/24 14:32 MB (Rec: 08/09/24 15:55 MB Desktop) Current Condition History of Current Condition Onset Date 2018 Current Complaints Left quad, glute and lateral hip pain History of Current Pt underwent left posterior ALESSANDRA in 2018. Since that Condition time, he has had increased left quad and glute pain. He also has left lateral hip pain. The pain is worse in the quad and with walking. His primary exercise is walking. He underwent PT at [facility] twice since 2018 and he did exercises for a while and then he slacked off. He thinks that PT was helpful. Days and weeks when he was doing exercises had less pain. Pt had left kidney CA and he underwent cryoablation x1. This occurred in 2022. He then had kidney stones but is unsure which side. He thinks it was the right and he underwent surgery for removal of large stone. There was a shunt placed and then they removed the shunt. He has had a lot of right LBP. Per x-ray from 02/04, there was a kidney stone on the left. In March 2023, pt underwent surgery for enlarged prostrate. Pt had some bleeding with urinating. Pain at night was a lot worse and now is better. He sleeps on side with pillow between his knees. He has right shoulder pain. He went to [facility] for B shoulder issues. Pt had history of left toe numbness and underwent MRI. His fourth and fifth toes are numb. This occurred after kidney stone surgery. Pt states that Dr. Rivera wants him to try PT for one month and then she might do a total body scan. Pt really only had one year of no pain post-op L ALESSANDRA in 2019 when he was walking 5 miles a day [place] during COVID. Pt did recall walking hard on treadmill for stress test. Treatment Goals Patient/Caregiver To decrease pain Goals PT-OP-C Subjective Start: 08/08/24 08:31 Freq: Status: Active Protocol: Document 09/16/24 11:41 NBM (Rec: 09/16/24 12:41 NBM Laptop) OP-PT Subjective Patient Comments Patient Comments Kp reports he's really sore today, he thinks from hiking again and from shoveling compost. Yesterday he did more than usual by doing 40 minutes hiking with trekking poles and took dog for two laps around park and felt fine until waking up today sore all over. He couldn't do the second lap of walking dog because of L glute pain. He's been able to use stretch for quad when he has quad pain and it has helped. I need something to help with the back of the leg and glute. PT-OP-G Mobility & Gait Start: 08/08/24 08:31 Freq: Status: Active Protocol: Document 08/09/24 14:32 MB (Rec: 08/09/24 15:55 MB Desktop) OP Gait Assessment Comments Gait Comments Slow gait and antalgic pattern favoring the left leg. Decreased hip flexion, decreased movement left hip, stiffness left hip, slow gait, decreased toe off on the left and lateral left foot, decreased arm swing and increased lateral movement of shoulders with gait. Pelvis is stiff. PT-OP-J Posture/Palpation/Skin Start: 08/08/24 08:31 Freq: Status: Active Protocol: Document 08/09/24 14:32 MB (Rec: 08/09/24 15:55 MB Desktop) Posture Evaluation Comments Posture Comments Standing posture in socks: forward head, Dowager's hump , left shoulder is higher than the right, increased thoracic kyphosis, flattened thoracic area T8, right shift over pelvis, decreased lumbar lordosis, high pelvis and left iliac crest higher than the right, high left hip and more WB through the right leg. PT-OP-K Range of Motion Start: 08/08/24 08:31 Freq: Status: Active Protocol: Document 08/09/24 14:32 MB (Rec: 08/09/24 15:55 MB Desktop) Hip Goniometric Range of Motion Hip ROM Limitations Comments In supine: PROM left hip IR to 15 deg and ER to 20 deg; right hip IR 5 deg and ER to 30 deg. PT-OP-M Strength Start: 08/08/24 08:31 Freq: Status: Active Protocol: Document 08/09/24 14:32 MB (Rec: 08/09/24 15:55 MB Desktop) Hip Strength Hip Manual Muscle Testing Left Flexion (L2) 5 Normal Extension (S1) 4+ Good+ Abduction 4+ Good+ Adduction 4+ Good+ Comments PT can feel prosthesis from left ALESSANDRA with palpation Right Flexion (L2) 4+ Good+ Extension (S1) 4+ Good+ Abduction 4+ Good+ Adduction 4+ Good+ Knee Strength Knee Manual Muscle Testing Leg Flexion (S2) 5 Normal Extension (L3) 5 Normal Right Flexion (S2) 5 Normal Extension (L3) 5 Normal Ankle/Foot Strength Ankle and Foot Manual Muscle Testing Left Dorsiflexion (L4) 5 Normal Right Dorsiflexion (L4) 5 Normal Toe Strength Toe Manual Muscle Testing Left Great Toe Extension 5 Normal Right Great Toe Extension 5 Normal PT-OP-Q Treatments Start: 08/08/24 08:31 Freq: Status: Active Protocol: Document 09/16/24 11:41 NB (Rec: 09/16/24 12:41 NBM Laptop) Therapeutic Exercises Sitting Exercises Piriformis stretch Sitting Exercise 1. Figure 4 2. Knee to opp shoulder Name Side bilateral Equipment Used standard mesh chair Reps/Minutes 30s ea Comments added to HEP, painfree range, L>R tightness Hamstring stretch Sitting Exercise HEP review Name Side right Reps/Minutes 30s Comments cues for painfree range Sit to Stand Sitting Exercise no UE support Name Side bilateral Equipment Used standard mesh chair Reps/Minutes x8 Comments Hip hinge focus Standing Exercises wall squats Standing Exercise next session Name quad stretch Standing Exercise verbal review Name Side left Equipment Used handrail, towel around lower leg Comments cues for LE alignment, upright posture, painfree range Hip abduction Standing Exercise HEP review Name Side bilateral Resistance Lvl 1 Tb at ankles Equipment Used handrail Reps/Minutes x10 ea Comments vc upright posture, painfree range, bilateral Therapeutic Activity Therapeutic Activity Body Mechanics Name Shovelling Reps/Minutes 8' Comments 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 Pt i/s in body mechanics to move feet to face work and avoid twisting, bend knees, and stand close to work. He demos improved mechanics and self-awareness. ADLs Do's/Don'ts HO given. Manual Therapy Treatment Consent Patient gave verbal Yes consent for manual treatment Other Other Manual Pt R sidelying with head supported on pillows: STM L Treatments Glutes, Piriformis, TFL, ITB. L Piriformis trigger point release w/ positive feedback response following. Pt verbally i/s in self-STM to posterior hip with tennis ball at wall. PT-OP-T Assessment and Plan Start: 08/08/24 08:31 Freq: Status: Active Protocol: Document 09/16/24 11:41 NBM (Rec: 09/16/24 12:41 NBM Laptop) Physical Therapy Assessment Goals 4 Impairment Lack of HEP performance [facility] Goal (LTG) Pt will perform progressive HEP with I including breathing, alignment, flexibility, strengthening and balance exercises to improve pain and mobility. 09/07/24: Pt is performing pelvic realignment exercises, Mike and hamstring stretches LTG Duration 8 weeks 3 Impairment Reports of quad pain and concern for weakness Assembler Dc [employer]oke Goal (LTG) Pt will perform at least 12 reps STS without UE support in 30 sec to improve functional strength. 08/27/24: Initiated STS instruction without UE support w/ cues for hip hinge, eccentric control and breath. 09/07/24: On rosales plinth: 10 reps without UEs 09/14/24: On standard height mesh chair: 10 reps without UEs LTG Duration 8 weeks 2 Impairment Slow and antalgic gait Assembler [employer] Goal (LTG) Pt will gait train at least 1581 feet in 6 minutes to improve community ambulation and to return to pain-free walks per pt's hobby. 09/07/24: Pt reports 1452 feet in 6 minutes with no left hip or other pain at rest and increasing pain up to 5/ 10 in left lateral hip to lateral leg to anterior leg with increased gait distance. Pattern is increasingly antaglic with trouble advancing leg and functional foot drop/decreased heel strike and toe off left foot with gait. LTG Duration 8 weeks 1 Impairment LEF score reflects 55% impairment Assembler [employer]oke Goal (LTG) Pt will present with LEF score to reflect no more than 30% impairment to improve quality of life and mobility. 09/07/24: LEF reflects 45% impairment LTG Duration 8 weeks Assessment Summary Assessment Kp continues to have soreness at lateral L hip with walking and posteriorly with sitting, but thinks PT is helping and wants to continue it. He presents with L Piriformis m. pain which he reports improves significantly by end of session (no measurement taken, palpable tension improves following manual therapy). Pt instructed in tying/releasing theraband safely for standing resisted hip abduction HEP, and Body mechanics for shoveling with cues to face work by moving feet instead of twisting, close proximation to work and bend knees - ADL's Do's/Dont's HO given. Added to HEP: seated Piriformis stretch Fig. 4 and Knee to opp shoulder; painfree range emphasized and pt edu in body cues for pain such as breathholding or muscle tensing as he expresses need for more cues. Verbally instructed pt in self-STM w/ tennis ball at wall to L hip. STS hip hinge focus to improve bilateral knee pain when performing. Physical Therapy Plan Frequency and Duration Frequency of 2x/Week Treatment Duration of 8 treatment (weeks) Plan of Care Start 08/09/24 Date Plan of Care End 10/09/24 Date Therapeutic Interventions Therapeutic Balance Training,Canalithic Repositioning,Coordination Interventions Training,Gait Training,Home Exercise Program,Joint Mobilizations,Manual Therapy,Neuromuscular Re-education ,Patient/Caregiver Education,Self-Care/Home Management, Soft Tissue Mobilization,Taping,Therapeutic Activities, Therapeutic Exercises Modalities Cold Pack/Ice Massage,Electric Stimulation,Hot Packs, Ultrasound Other Referrals/Consults Referrals/Consults Consider talking with PCP about EMG vs lumbosacral MRI Recommended about L5-S1 numbness left foot Next Visit Focus/Plan Next Note Type Treatment Note Next Visit Plan Consider LTR and wall slides for HEP. POC: Consider diaphragm breathing home Progress core and LE strengthening including hip strengthening for glutes and rotators, consider wall slides for quads and glutes Balance Primary PT fascial counterstrain scan
--- NOTE | 2024-09-22 12:14 | PT.OTN ---
Current Diagnoses Trochanteric bursitis, left hip (09/22/24) Presence of left artificial hip joint (09/22/24) Physical Therapy Treatment Note PT-OP-A Visit Information Start: 08/08/24 08:31 Freq: Status: Active Protocol: Document 09/22/24 11:31 MB (Rec: 09/22/24 12:12 MB Desktop) Out-Patient Physical Therapy Visit Information Visit Information Visit Type Progress Note Visit Note No KX Visit Start Time 11:31 Visit Stop Time 12:11 Visit Number 9 Number of BRANCH SERVICES MANAGER Visits 0 Evaluation Information Evaluation Date 08/09/24 PT-OP-B Current Condition Start: 08/08/24 08:31 Freq: Status: Active Protocol: Document 08/09/24 14:32 MB (Rec: 08/09/24 15:55 MB Desktop) Current Condition History of Current Condition Onset Date 2018 Current Complaints Left quad, glute and lateral hip pain History of Current Pt underwent left posterior ALESSANDRA in 2019. Since that Condition time, he has had increased left quad and glute pain. He also has left lateral hip pain. The pain is worse in the quad and with walking. His primary exercise is walking. He underwent PT at [facility] twice since 2018 and he did exercises for a while and then he slacked off. He thinks that PT was helpful. Days and weeks when he was doing exercises had less pain. Pt had left kidney CA and he underwent cryoablation x1. This occurred in 2022. He then had kidney stones but is unsure which side. He thinks it was the right and he underwent surgery for removal of large stone. There was a shunt placed and then they removed the shunt. He has had a lot of right LBP. Per x-ray from 02/04, there was a kidney stone on the left. In March 2023, pt underwent surgery for enlarged prostrate. Pt had some bleeding with urinating. Pain at night was a lot worse and now is better. He sleeps on side with pillow between his knees. He has right shoulder pain. He went to [facility] for B shoulder issues. Pt had history of left toe numbness and underwent MRI. His fourth and fifth toes are numb. This occurred after kidney stone surgery. Pt states that Dr. Rivera wants him to try PT for one month and then she might do a total body scan. Pt really only had one year of no pain post-op L ALESSANDRA in 2019 when he was walking 5 miles a day [place] during COVID. Pt did recall walking hard on treadmill for stress test. Treatment Goals Patient/Caregiver To decrease pain Goals PT-OP-C Subjective Start: 08/08/24 08:31 Freq: Status: Active Protocol: Document 09/22/24 11:31 MB (Rec: 09/22/24 12:12 MB Desktop) OP-PT Subjective Patient Comments Patient Comments Pt would like to con't with PT as he feels it is helpful. He returns to see Dr. Rivera on 10/22/24. He will ask about the body scan then. PT-OP-G Mobility & Gait Start: 08/08/24 08:31 Freq: Status: Active Protocol: Document 08/09/24 14:32 MB (Rec: 08/09/24 15:55 MB Desktop) OP Gait Assessment Comments Gait Comments Slow gait and antalgic pattern favoring the left leg. Decreased hip flexion, decreased movement left hip, stiffness left hip, slow gait, decreased toe off on the left and lateral left foot, decreased arm swing and increased lateral movement of shoulders with gait. Pelvis is stiff. PT-OP-J Posture/Palpation/Skin Start: 08/08/24 08:31 Freq: Status: Active Protocol: Document 08/09/24 14:32 MB (Rec: 08/09/24 15:55 MB Desktop) Posture Evaluation Comments Posture Comments Standing posture in socks: forward head, Dowager's hump , left shoulder is higher than the right, increased thoracic kyphosis, flattened thoracic area T8, right shift over pelvis, decreased lumbar lordosis, high pelvis and left iliac crest higher than the right, high left hip and more WB through the right leg. PT-OP-K Range of Motion Start: 08/08/24 08:31 Freq: Status: Active Protocol: Document 08/09/24 14:32 MB (Rec: 08/09/24 15:55 MB Desktop) Hip Goniometric Range of Motion Hip ROM Limitations Comments In supine: PROM left hip IR to 15 deg and ER to 20 deg; right hip IR 5 deg and ER to 30 deg. PT-OP-M Strength Start: 08/08/24 08:31 Freq: Status: Active Protocol: Document 08/09/24 14:32 MB (Rec: 08/09/24 15:55 MB Desktop) Hip Strength Hip Manual Muscle Testing Left Flexion (L2) 5 Normal Extension (S1) 4+ Good+ Abduction 4+ Good+ Adduction 4+ Good+ Comments PT can feel prosthesis from left ALESSANDRA with palpation Right Flexion (L2) 4+ Good+ Extension (S1) 4+ Good+ Abduction 4+ Good+ Adduction 4+ Good+ Knee Strength Knee Manual Muscle Testing Leg Flexion (S2) 5 Normal Extension (L3) 5 Normal Right Flexion (S2) 5 Normal Extension (L3) 5 Normal Ankle/Foot Strength Ankle and Foot Manual Muscle Testing Left Dorsiflexion (L4) 5 Normal Right Dorsiflexion (L4) 5 Normal Toe Strength Toe Manual Muscle Testing Left Great Toe Extension 5 Normal Right Great Toe Extension 5 Normal PT-OP-Q Treatments Start: 08/08/24 08:31 Freq: Status: Active Protocol: Document 09/22/24 11:31 MB (Rec: 09/22/24 12:12 MB Desktop) Gait Training Gait Activity 6MWT Comments Performed today and much improved, see goals for gait details and pt gait trains over 8' today in clinic Self-Care/Home Management Treatment Education Patient Education Body Mechanics,Home Exercise Program,Joint Protection, Pain Management Other Education Education and discussion about having met 6MWT and 30 sec STS goals and going forward, will assess balance for functional goals, ongoing discussion about possible lumbar and/or sacral components to LE symptoms and following up with PCP PT-OP-T Assessment and Plan Start: 08/08/24 08:31 Freq: Status: Active Protocol: Document 09/22/24 11:31 MB (Rec: 09/22/24 12:12 MB Desktop) Physical Therapy Assessment Goals 5 Impairment Evidence of imbalance Regional Sales Representative Goal (LTG) Pt will perform WNLs on a standardized balance test such as FGA to decrease fall risk and improve gait and hiking on uneven surfaces. 4 Impairment Lack of HEP performance Skilled Nursing Goal (LTG) Pt will perform progressive HEP with I including breathing, alignment, flexibility, strengthening and balance exercises to improve pain and mobility. 09/07/24: Pt is performing pelvic realignment exercises, Mike and hamstring stretches 09/22/24: Pt is performing open book, hip and leg stretches and he is using trekking poles for hiking LTG Duration 8 weeks 3 Impairment Reports of quad pain and concern for weakness Regional Sales Representative Goal (LTG) Pt will perform at least 12 reps STS without UE support in 30 sec to improve functional strength. 08/27/24: Initiated STS instruction without UE support w/ cues for hip hinge, eccentric control and breath. 09/07/24: On rosales plinth: 10 reps without UEs 09/14/24: On standard height mesh chair: 10 reps without UEs 09/22/24: Pt sitting on firm black plinth: hands held together in front and he performs 14 reps in 30 sec and he reports 1-2/10 left hip discomfort LTG Duration Met 2 Impairment Slow and antalgic gait Skilled Nursing Goal (LTG) Pt will gait train at least 1581 feet in 6 minutes to improve community ambulation and to return to pain-free walks per pt's hobby. 09/07/24: Pt reports 1452 feet in 6 minutes with no left hip or other pain at rest and increasing pain up to 5/ 10 in left lateral hip to lateral leg to anterior leg with increased gait distance. Pattern is increasingly antaglic with trouble advancing leg and functional foot drop/decreased heel strike and toe off left foot with gait. 09/22/24: 1-2/10 left hip pain before gait: pt gait trains 1640 feet in 6 minutes with reports of no more than 2/10 pain that moves from posterolateral left hip to quad and then distal upper leg. Pt has better step- length and foot clearance and does at the end of gait, have some heavier appearing left ankle and foot with decreased left toe off and heel strike. Pt reports that turning to the left with CCW gait around gym this date is easier on his left leg. He reports more trouble with right turns with gait. LTG Duration Met 1 Impairment LEF score reflects 55% impairment Regional Sales Representative Goal (LTG) Pt will present with LEF score to reflect no more than 30% impairment to improve quality of life and mobility. 09/07/24: LEF reflects 45% impairment 09/22/24: LEF score reflects 47.5% impairment, no improvement but pt reports some improvement as he is doing chores and yard work and going for short hikes with trekking poles LTG Duration 8 weeks Assessment Summary Assessment Pt reports worsening B toe numbness in the morning. He states there may be some swelling and they are red. The left 4th and 5th toes con't with numbness. Recommend following up with PCP about this. PT is also concerned about left THR/joint as pt has had ongoing pain since surgery that is worse with WB activities. His history is complicated with kidney cancer, enlarged prostate and surgeries. PT would like to r/o lumbar and sacral spine. Con't with PT as pt is doing better and has met 6MWT and 30 sec STS goals. Curiously, he reports more left hip and leg issues when he turns to the right and walking test today only included turning to the left. This is different than last walking test that included all turns to the right in the clinic and resulted in severe antalgic gait. Once again, PT favors diagnostic imaging of lumbar, sacral and left hip areas. Physical Therapy Plan Frequency and Duration Frequency of 2x/Week Treatment Duration of 8 treatment (weeks) Plan of Care Start 09/22/24 Date Plan of Care End 11/22/24 Date Therapeutic Interventions Therapeutic Balance Training,Canalithic Repositioning,Coordination Interventions Training,Gait Training,Home Exercise Program,Joint Mobilizations,Manual Therapy,Neuromuscular Re-education ,Patient/Caregiver Education,Self-Care/Home Management, Soft Tissue Mobilization,Taping,Therapeutic Activities, Therapeutic Exercises Modalities Cold Pack/Ice Massage,Electric Stimulation,Hot Packs, Ultrasound Other Referrals/Consults Referrals/Consults Consider talking with PCP about EMG vs lumbosacral MRI Recommended about L5-S1 numbness left foot and he is reporting numbness in all toes of both feet Follow-up with orthopedic surgeon about left hip Next Visit Focus/Plan Next Note Type Treatment Note Next Visit Plan Similar: consider LTR and wall slides for HEP. POC: Consider diaphragm breathing home Progress core and LE strengthening including hip strengthening for glutes and rotators, consider wall slides for quads and glutes Balance Primary PT fascial counterstrain scan
--- NOTE | 2024-09-24 16:46 | PT.OTN ---
Current Diagnoses Trochanteric bursitis, left hip (09/24/24) Presence of left artificial hip joint (09/24/24) Physical Therapy Treatment Note PT-OP-A Visit Information Start: 08/08/24 08:31 Freq: Status: Active Protocol: Document 09/24/24 11:47 NBM (Rec: 09/24/24 12:34 NBM Laptop) Out-Patient Physical Therapy Visit Information Visit Information Visit Type Treatment Note Visit Note No KX Visit Start Time 11:40 Visit Stop Time 12:20 Visit Number 10 Number of BARREL TESTER Visits 1 Evaluation Information Evaluation Date 08/09/24 PT-OP-B Current Condition Start: 08/08/24 08:31 Freq: Status: Active Protocol: Document 08/09/24 14:32 MB (Rec: 08/09/24 15:55 MB Desktop) Current Condition History of Current Condition Onset Date 2018 Current Complaints Left quad, glute and lateral hip pain History of Current Pt underwent left posterior ALESSANDRA in 2018. Since that Condition time, he has had increased left quad and glute pain. He also has left lateral hip pain. The pain is worse in the quad and with walking. His primary exercise is walking. He underwent PT at [facility] twice since 2018 and he did exercises for a while and then he slacked off. He thinks that PT was helpful. Days and weeks when he was doing exercises had less pain. Pt had left kidney CA and he underwent cryoablation x1. This occurred in 2022. He then had kidney stones but is unsure which side. He thinks it was the right and he underwent surgery for removal of large stone. There was a shunt placed and then they removed the shunt. He has had a lot of right LBP. Per x-ray from 02/04, there was a kidney stone on the left. In March 2023, pt underwent surgery for enlarged prostrate. Pt had some bleeding with urinating. Pain at night was a lot worse and now is better. He sleeps on side with pillow between his knees. He has right shoulder pain. He went to [facility] for B shoulder issues. Pt had history of left toe numbness and underwent MRI. His fourth and fifth toes are numb. This occurred after kidney stone surgery. Pt states that Dr. Rivera wants him to try PT for one month and then she might do a total body scan. Pt really only had one year of no pain post-op L ALESSANDRA in 2019 when he was walking 5 miles a day [place] during COVID. Pt did recall walking hard on treadmill for stress test. Treatment Goals Patient/Caregiver To decrease pain Goals PT-OP-C Subjective Start: 08/08/24 08:31 Freq: Status: Active Protocol: Document 09/24/24 11:47 NBM (Rec: 09/24/24 12:34 NBM Laptop) OP-PT Subjective Patient Comments Patient Comments Kp reports it hurts on L hip when he turns to R, which he has to do at home. He timed himself at home and got 14 sit to stands in 30s. He's hurting right now in L quad and R side of low back. He didn't do quad stretch yet which usually helps. He's been sleeping well in general. He uses single pillow lying on his back to sleep. He didn't do resisted band hip exercise to side for a few days. PT-OP-G Mobility & Gait Start: 08/08/24 08:31 Freq: Status: Active Protocol: Document 08/09/24 14:32 MB (Rec: 08/09/24 15:55 MB Desktop) OP Gait Assessment Comments Gait Comments Slow gait and antalgic pattern favoring the left leg. Decreased hip flexion, decreased movement left hip, stiffness left hip, slow gait, decreased toe off on the left and lateral left foot, decreased arm swing and increased lateral movement of shoulders with gait. Pelvis is stiff. PT-OP-J Posture/Palpation/Skin Start: 08/08/24 08:31 Freq: Status: Active Protocol: Document 08/09/24 14:32 MB (Rec: 08/09/24 15:55 MB Desktop) Posture Evaluation Comments Posture Comments Standing posture in socks: forward head, Dowager's hump , left shoulder is higher than the right, increased thoracic kyphosis, flattened thoracic area T8, right shift over pelvis, decreased lumbar lordosis, high pelvis and left iliac crest higher than the right, high left hip and more WB through the right leg. PT-OP-K Range of Motion Start: 08/08/24 08:31 Freq: Status: Active Protocol: Document 08/09/24 14:32 MB (Rec: 04/28/25 15:55 MB Desktop) Hip Goniometric Range of Motion Hip ROM Limitations Comments In supine: PROM left hip IR to 15 deg and ER to 20 deg; right hip IR 5 deg and ER to 30 deg. PT-OP-M Strength Start: 08/08/24 08:31 Freq: Status: Active Protocol: Document 08/09/24 14:32 MB (Rec: 08/09/24 15:55 MB Desktop) Hip Strength Hip Manual Muscle Testing Left Flexion (L2) 5 Normal Extension (S1) 4+ Good+ Abduction 4+ Good+ Adduction 4+ Good+ Comments PT can feel prosthesis from left ALESSANDRA with palpation Right Flexion (L2) 4+ Good+ Extension (S1) 4+ Good+ Abduction 4+ Good+ Adduction 4+ Good+ Knee Strength Knee Manual Muscle Testing Leg Flexion (S2) 5 Normal Extension (L3) 5 Normal Right Flexion (S2) 5 Normal Extension (L3) 5 Normal Ankle/Foot Strength Ankle and Foot Manual Muscle Testing Left Dorsiflexion (L4) 5 Normal Right Dorsiflexion (L4) 5 Normal Toe Strength Toe Manual Muscle Testing Left Great Toe Extension 5 Normal Right Great Toe Extension 5 Normal PT-OP-Q Treatments Start: 08/08/24 08:31 Freq: Status: Active Protocol: Document 09/24/24 11:47 NBM (Rec: 09/24/24 12:34 NBM Laptop) Therapeutic Exercises Sitting Exercises Piriformis stretch Sitting Exercise 1. Figure 4 (lower R leg for painfree range) 2. Knee to Name opp shoulder Side bilateral Equipment Used standard mesh chair Reps/Minutes 30s ea Comments HEP review, painfree range, L>R tightness Hamstring stretch Sitting Exercise HEP review Name Side right Reps/Minutes 30s Comments cues for painfree range Sit to Stand Sitting Exercise no UE support Name Side bilateral Equipment Used standard mesh chair Reps/Minutes x8 Comments Hip hinge focus Standing Exercises Kitchen sink stretch Standing Exercise fwd and lat Name Equipment Used handrail Reps/Minutes x30s ea Comments cues for form, positive feedback response wall squats Standing Exercise w and wo theraband Name Resistance Lvl 1 Tb above knees Reps/Minutes x10 ea Comments cues for increase foot distance from wall improves knee discomfort, PPT. calf stretch Standing Exercise gastrocnemius -HEP review Name Side bilateral Equipment Used lunge position at wall Reps/Minutes 30s ea Comments L hip pain resolves w/ cues for smaller CORNELL, RLE tightness improves quad stretch Standing Exercise HEP Name Side left Equipment Used handrail, towel around lower leg Comments cues for LE alignment, upright posture, painfree range Hip abduction Standing Exercise HEP review Name Side bilateral Resistance Lvl 1 Tb at ankles Equipment Used handrail Reps/Minutes x10 ea Comments vc upright posture, gluteal activation Therapeutic Activity Therapeutic Activity Body Mechanics Name Raking Reps/Minutes 2' Comments Pt zahiraos poor hip hinge for lifting leaves from ground into bucket. 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 He demos improved mechanics and self-awareness. Self-Care/Home Management Treatment Education Patient Education Body Mechanics,Home Exercise Program,Pain Management Other Education Discussion of sleeping ergonomics w/ edu to increase pillow support below LEs in supine to improve LBP. PT-OP-R Modalities Start: 09/24/24 16:22 Freq: Status: Active Protocol: Document 09/24/24 11:47 NBM (Rec: 09/24/24 16:25 NBM Laptop) Hot Pack/Cold Pack Treatment Cold Pack Location L hip Patient Position Hooklying Patient Tolerance Good Comments LEs supported with bolster. Lumbar size held with strap . PT-OP-T Assessment and Plan Start: 08/08/24 08:31 Freq: Status: Active Protocol: Document 09/24/24 11:47 NBM (Rec: 09/24/24 12:34 NBM Laptop) Physical Therapy Assessment Goals 5 Impairment Evidence of imbalance Chandelier Maker Goal (LTG) Pt will perform WNLs on a standardized balance test such as FGA to decrease fall risk and improve gait and hiking on uneven surfaces. 4 Impairment Lack of HEP performance Chandelier Maker Goal (LTG) Pt will perform progressive HEP with I including breathing, alignment, flexibility, strengthening and balance exercises to improve pain and mobility. 09/07/24: Pt is performing pelvic realignment exercises, Mike and hamstring stretches 09/22/24: Pt is performing open book, hip and leg stretches and he is using trekking poles for hiking 09/24/24: Issued and condensend stretching HEP HOs: IH Hip Stretches HO, standing Quad, HS, Calf stretch ( lunge position). LTG Duration 8 weeks 1 Impairment LEF score reflects 55% impairment Halfway Goal (LTG) Pt will present with LEF score to reflect no more than 30% impairment to improve quality of life and mobility. 09/07/24: LEF reflects 45% impairment 09/22/24: LEF score reflects 47.5% impairment, no improvement but pt reports some improvement as he is doing chores and yard work and going for short hikes with trekking poles LTG Duration 8 weeks Assessment Summary Assessment Kp presents with antalgic gait and L quadriceps m. tightness which improves w/ stretching, and R-sided back pain; both pain and gait improve by end of session . He is issued comprehensive stretching HEP HOs w/ edu to perform stretches more regularly: IH Hip Stretches HO, standing Quad, HS, Calf stretch (lunge position). R knee pain w/ L resisted hip abduction resolves w/ cues for gluteal activation and weightshift over RLE. Cryotherapy end of session with good feedback. Pt demos improved hip hinge when performing STS but requires cues throughout session, starts to self-correct towards end of session. Physical Therapy Plan Frequency and Duration Frequency of 2x/Week Treatment Duration of 8 treatment (weeks) Plan of Care Start 09/22/24 Date Plan of Care End 11/22/24 Date Therapeutic Interventions Therapeutic Balance Training,Canalithic Repositioning,Coordination Interventions Training,Gait Training,Home Exercise Program,Joint Mobilizations,Manual Therapy,Neuromuscular Re-education ,Patient/Caregiver Education,Self-Care/Home Management, Soft Tissue Mobilization,Taping,Therapeutic Activities, Therapeutic Exercises Modalities Cold Pack/Ice Massage,Electric Stimulation,Hot Packs, Ultrasound Other Referrals/Consults Referrals/Consults Consider talking with PCP about EMG vs lumbosacral MRI Recommended about L5-S1 numbness left foot and he is reporting numbness in all toes of both feet Follow-up with orthopedic surgeon about left hip Next Visit Focus/Plan Next Note Type Treatment Note Next Visit Plan Similar: consider LTR and wall slides for HEP. POC: Consider diaphragm breathing home Progress core and LE strengthening including hip strengthening for glutes and rotators, consider wall slides for quads and glutes Balance Primary PT fascial counterstrain scan
--- NOTE | 2024-09-29 11:31 | PT.OTN ---
Current Diagnoses Trochanteric bursitis, left hip (09/29/24) Presence of left artificial hip joint (09/29/24) Physical Therapy Treatment Note PT-OP-A Visit Information Start: 08/08/24 08:31 Freq: Status: Active Protocol: Document 09/29/24 10:46 MB (Rec: 09/29/24 11:26 MB Desktop) Out-Patient Physical Therapy Visit Information Visit Information Visit Type Treatment Note Visit Note No KX Visit Start Time 10:46 Visit Stop Time 11:26 Visit Number 11 Number of DRAMATIC TEACHER Visits 0 Evaluation Information Evaluation Date 08/09/24 PT-OP-B Current Condition Start: 08/08/24 08:31 Freq: Status: Active Protocol: Document 08/09/24 14:32 MB (Rec: 08/09/24 15:55 MB Desktop) Current Condition History of Current Condition Onset Date 2018 Current Complaints Left quad, glute and lateral hip pain History of Current Pt underwent left posterior ALESSANDRA in 2018. Since that Condition time, he has had increased left quad and glute pain. He also has left lateral hip pain. The pain is worse in the quad and with walking. His primary exercise is walking. He underwent PT at [facility] twice since 2018 and he did exercises for a while and then he slacked off. He thinks that PT was helpful. Days and weeks when he was doing exercises had less pain. Pt had left kidney CA and he underwent cryoablation x1. This occurred in 2022. He then had kidney stones but is unsure which side. He thinks it was the right and he underwent surgery for removal of large stone. There was a shunt placed and then they removed the shunt. He has had a lot of right LBP. Per x-ray from 02/04, there was a kidney stone on the left. In March 2023, pt underwent surgery for enlarged prostrate. Pt had some bleeding with urinating. Pain at night was a lot worse and now is better. He sleeps on side with pillow between his knees. He has right shoulder pain. He went to [facility] for B shoulder issues. Pt had history of left toe numbness and underwent MRI. His fourth and fifth toes are numb. This occurred after kidney stone surgery. Pt states that Dr. Rivera wants him to try PT for one month and then she might do a total body scan. Pt really only had one year of no pain post-op L ALESSANDRA in 2019 when he was walking 5 miles a day [place] during COVID. Pt did recall walking hard on treadmill for stress test. Treatment Goals Patient/Caregiver To decrease pain Goals PT-OP-C Subjective Start: 08/08/24 08:31 Freq: Status: Active Protocol: Document 09/29/24 10:46 MB (Rec: 09/29/24 11:26 MB Desktop) OP-PT Subjective Patient Comments Patient Comments X-ray lumbar spine 09/23/24: IMPRESSION: Lumbar spine without acute fracture or traumatic malalignment. Moderate multilevel lumbar spondylosis with associated facet arthropathy. Findings are most severe at L4-5 and L5-S1. Pt has appointment with Dr. Rivera 10/19/24. PT-OP-G Mobility & Gait Start: 08/08/24 08:31 Freq: Status: Active Protocol: Document 08/09/24 14:32 MB (Rec: 08/09/24 15:55 MB Desktop) OP Gait Assessment Comments Gait Comments Slow gait and antalgic pattern favoring the left leg. Decreased hip flexion, decreased movement left hip, stiffness left hip, slow gait, decreased toe off on the left and lateral left foot, decreased arm swing and increased lateral movement of shoulders with gait. Pelvis is stiff. PT-OP-J Posture/Palpation/Skin Start: 08/08/24 08:31 Freq: Status: Active Protocol: Document 08/09/24 14:32 MB (Rec: 08/09/24 15:55 MB Desktop) Posture Evaluation Comments Posture Comments Standing posture in socks: forward head, Dowager's hump , left shoulder is higher than the right, increased thoracic kyphosis, flattened thoracic area T8, right shift over pelvis, decreased lumbar lordosis, high pelvis and left iliac crest higher than the right, high left hip and more WB through the right leg. PT-OP-K Range of Motion Start: 08/08/24 08:31 Freq: Status: Active Protocol: Document 08/09/24 14:32 MB (Rec: 08/09/24 15:55 MB Desktop) Hip Goniometric Range of Motion Hip ROM Limitations Comments In supine: PROM left hip IR to 15 deg and ER to 20 deg; right hip IR 5 deg and ER to 30 deg. PT-OP-M Strength Start: 08/08/24 08:31 Freq: Status: Active Protocol: Document 08/09/24 14:32 MB (Rec: 08/09/24 15:55 MB Desktop) Hip Strength Hip Manual Muscle Testing Left Flexion (L2) 5 Normal Extension (S1) 4+ Good+ Abduction 4+ Good+ Adduction 4+ Good+ Comments PT can feel prosthesis from left ALESSANDRA with palpation Right Flexion (L2) 4+ Good+ Extension (S1) 4+ Good+ Abduction 4+ Good+ Adduction 4+ Good+ Knee Strength Knee Manual Muscle Testing Leg Flexion (S2) 5 Normal Extension (L3) 5 Normal Right Flexion (S2) 5 Normal Extension (L3) 5 Normal Ankle/Foot Strength Ankle and Foot Manual Muscle Testing Left Dorsiflexion (L4) 5 Normal Right Dorsiflexion (L4) 5 Normal Toe Strength Toe Manual Muscle Testing Left Great Toe Extension 5 Normal Right Great Toe Extension 5 Normal PT-OP-Q Treatments Start: 08/08/24 08:31 Freq: Status: Active Protocol: Document 09/29/24 10:46 MB (Rec: 09/29/24 11:26 MB Desktop) Manual Therapy Treatment Consent Patient gave verbal Yes consent for manual treatment Other Other Manual Pt supine: fascial Counterstrain scan and treatment Treatments with treatment of lymphatic venous extension and positional release for right viscera, mostly tight on the right today and also performed positional release for left QL and medial hamstring. PT-OP-R Modalities Start: 09/24/24 16:22 Freq: Status: Active Protocol: Document 09/24/24 11:47 NBM (Rec: 09/24/24 16:25 NBM Laptop) Hot Pack/Cold Pack Treatment Cold Pack Location L hip Patient Position Hooklying Patient Tolerance Good Comments LEs supported with bolster. Lumbar size held with strap . PT-OP-T Assessment and Plan Start: 08/08/24 08:31 Freq: Status: Active Protocol: Document 09/29/24 10:46 MB (Rec: 09/29/24 11:26 MB Desktop) Physical Therapy Assessment Goals 5 Impairment Evidence of imbalance Resource Manager Forester Goal (LTG) Pt will perform WNLs on a standardized balance test such as FGA to decrease fall risk and improve gait and hiking on uneven surfaces. 4 Impairment Lack of HEP performance Resource Manager Forester Goal (LTG) Pt will perform progressive HEP with I including breathing, alignment, flexibility, strengthening and balance exercises to improve pain and mobility. 09/07/24: Pt is performing pelvic realignment exercises, Mike and hamstring stretches 09/22/24: Pt is performing open book, hip and leg stretches and he is using trekking poles for hiking 09/24/24: Issued and condensend stretching HEP HOs: IH Hip Stretches HO, standing Quad, HS, Calf stretch ( lunge position). LTG Duration 8 weeks 1 Impairment LEF score reflects 55% impairment Resource Manager Forester Goal (LTG) Pt will present with LEF score to reflect no more than 30% impairment to improve quality of life and mobility. 09/07/24: LEF reflects 45% impairment 09/22/24: LEF score reflects 47.5% impairment, no improvement but pt reports some improvement as he is doing chores and yard work and going for short hikes with trekking poles LTG Duration 8 weeks Assessment Summary Assessment Fascial Counterstrain assessment and treatment today and pt responds well immediately. Physical Therapy Plan Frequency and Duration Frequency of 2x/Week Treatment Duration of 8 treatment (weeks) Plan of Care Start 09/22/24 Date Plan of Care End 11/22/24 Date Therapeutic Interventions Therapeutic Balance Training,Canalithic Repositioning,Coordination Interventions Training,Gait Training,Home Exercise Program,Joint Mobilizations,Manual Therapy,Neuromuscular Re-education ,Patient/Caregiver Education,Self-Care/Home Management, Soft Tissue Mobilization,Taping,Therapeutic Activities, Therapeutic Exercises Modalities Cold Pack/Ice Massage,Electric Stimulation,Hot Packs, Ultrasound Other Referrals/Consults Referrals/Consults Consider talking with PCP about EMG vs lumbosacral MRI Recommended about L5-S1 numbness left foot and he is reporting numbness in all toes of both feet Follow-up with orthopedic surgeon about left hip Next Visit Focus/Plan Next Note Type Treatment Note Next Visit Plan Similar: consider LTR and wall slides for HEP. POC: Consider diaphragm breathing home Progress core and LE strengthening including hip strengthening for glutes and rotators, consider wall slides for quads and glutes Balance
--- NOTE | 2024-09-30 10:30 | PT.OTN ---
Current Diagnoses Trochanteric bursitis, left hip (09/30/24) Presence of left artificial hip joint (09/30/24) Physical Therapy Treatment Note PT-OP-A Visit Information Start: 08/08/24 08:31 Freq: Status: Active Protocol: Document 09/30/24 09:50 SP (Rec: 09/30/24 10:47 SP [id number]) Out-Patient Physical Therapy Visit Information Visit Information Visit Type Treatment Note Visit Note No KX Visit Start Time 09:50 Visit Stop Time 10:30 Visit Number 12 Number of HARNESS BUILDER Visits 1 Evaluation Information Evaluation Date 08/09/24 PT-OP-B Current Condition Start: 08/08/24 08:31 Freq: Status: Active Protocol: Document 08/09/24 14:32 MB (Rec: 08/09/24 15:55 MB Desktop) Current Condition History of Current Condition Onset Date 2018 Current Complaints Left quad, glute and lateral hip pain History of Current Pt underwent left posterior ALESSANDRA in 2018. Since that Condition time, he has had increased left quad and glute pain. He also has left lateral hip pain. The pain is worse in the quad and with walking. His primary exercise is walking. He underwent PT at [facility] twice since 2018 and he did exercises for a while and then he slacked off. He thinks that PT was helpful. Days and weeks when he was doing exercises had less pain. Pt had left kidney CA and he underwent cryoablation x1. This occurred in 2022. He then had kidney stones but is unsure which side. He thinks it was the right and he underwent surgery for removal of large stone. There was a shunt placed and then they removed the shunt. He has had a lot of right LBP. Per x-ray from 02/04, there was a kidney stone on the left. In March 2023, pt underwent surgery for enlarged prostrate. Pt had some bleeding with urinating. Pain at night was a lot worse and now is better. He sleeps on side with pillow between his knees. He has right shoulder pain. He went to [facility] for B shoulder issues. Pt had history of left toe numbness and underwent MRI. His fourth and fifth toes are numb. This occurred after kidney stone surgery. Pt states that Dr. Rivera wants him to try PT for one month and then she might do a total body scan. Pt really only had one year of no pain post-op L ALESSANDRA in 2019 when he was walking 5 miles a day [place] during COVID. Pt did recall walking hard on treadmill for stress test. Treatment Goals Patient/Caregiver To decrease pain Goals PT-OP-C Subjective Start: 08/08/24 08:31 Freq: Status: Active Protocol: Document 09/30/24 09:50 SP (Rec: 09/30/24 10:47 SP [id number]) OP-PT Subjective Patient Comments Patient Comments Pt reports little sore over L abdominal area since last tx. He reports compliant with HEP with no concerns but didn't do any this am. PT-OP-G Mobility & Gait Start: 08/08/24 08:31 Freq: Status: Active Protocol: Document 08/09/24 14:32 MB (Rec: 08/09/24 15:55 MB Desktop) OP Gait Assessment Comments Gait Comments Slow gait and antalgic pattern favoring the left leg. Decreased hip flexion, decreased movement left hip, stiffness left hip, slow gait, decreased toe off on the left and lateral left foot, decreased arm swing and increased lateral movement of shoulders with gait. Pelvis is stiff. PT-OP-J Posture/Palpation/Skin Start: 08/08/24 08:31 Freq: Status: Active Protocol: Document 08/09/24 14:32 MB (Rec: 08/09/24 15:55 MB Desktop) Posture Evaluation Comments Posture Comments Standing posture in socks: forward head, Dowager's hump , left shoulder is higher than the right, increased thoracic kyphosis, flattened thoracic area T8, right shift over pelvis, decreased lumbar lordosis, high pelvis and left iliac crest higher than the right, high left hip and more WB through the right leg. PT-OP-K Range of Motion Start: 08/08/24 08:31 Freq: Status: Active Protocol: Document 08/09/24 14:32 MB (Rec: 08/09/24 15:55 MB Desktop) Hip Goniometric Range of Motion Hip ROM Limitations Comments In supine: PROM left hip IR to 15 deg and ER to 20 deg; right hip IR 5 deg and ER to 30 deg. PT-OP-M Strength Start: 08/08/24 08:31 Freq: Status: Active Protocol: Document 08/09/24 14:32 MB (Rec: 08/09/24 15:55 MB Desktop) Hip Strength Hip Manual Muscle Testing Left Flexion (L2) 5 Normal Extension (S1) 4+ Good+ Abduction 4+ Good+ Adduction 4+ Good+ Comments PT can feel prosthesis from left ALESSANDRA with palpation Right Flexion (L2) 4+ Good+ Extension (S1) 4+ Good+ Abduction 4+ Good+ Adduction 4+ Good+ Knee Strength Knee Manual Muscle Testing Leg Flexion (S2) 5 Normal Extension (L3) 5 Normal Right Flexion (S2) 5 Normal Extension (L3) 5 Normal Ankle/Foot Strength Ankle and Foot Manual Muscle Testing Left Dorsiflexion (L4) 5 Normal Right Dorsiflexion (L4) 5 Normal Toe Strength Toe Manual Muscle Testing Left Great Toe Extension 5 Normal Right Great Toe Extension 5 Normal PT-OP-Q Treatments Start: 08/08/24 08:31 Freq: Status: Active Protocol: Document 09/30/24 09:50 SP (Rec: 09/30/24 10:47 SP [id number]) Therapeutic Exercises Supine Exercises Diaphramatic Breath Supine Exercise Name added to HEP-declined HO Reps/Minutes slow in/out many reps Comments with cues ribcage mobilty, hands on ribcage LTR Supine Exercise Name Reviewed Side bilateral Equipment Used hands side pelvis self awareness Reps/Minutes x10 ea Comments cues for PPT, TrA, painfree range, breathwork Sidelying Exercises Open Book stretch Sidelying Exercise reviewed Name Side bilateral Resistance AROM Equipment Used table Reps/Minutes x5 ea w/ breathwork end range during hold stretch anterior shld Comments cued seg: arm, scapular motion then upper ribcage/TS rotation- improved mob Standing Exercises wall squats Standing Exercise REviewed: w and wo theraband Name Resistance Lvl 1 Tb above knees Reps/Minutes x10 ea Comments cues for increase foot distance from wall improves knee discomfort, PPT. Other Exercises Self STMs Other Exercise Name Instruction self : Obliques and QL Resistance stand vs sit positioning Comments hand circular massage vs sustained pressure Lat SB/flex /ext trunk Manual Therapy Treatment Consent Patient gave verbal Yes consent for manual treatment Other Other Manual Pt hooklying with leg supported: positional release; Treatments STMs to L>R obliques, QL, ES, intercostals, manual rib recoil and education anatomy with mechanics of breath rib and abdominal/back musculature movement of back- instructions self for back and ribcage mobility and decreased/no lateral anterolateral trunk pain, sit vs standing- improved self understanding performance. Self-Care/Home Management Treatment Education Patient Education Body Mechanics,Home Exercise Program,Joint Protection, Pain Management,Posture,Safety Other Education Education anatomy with mechanics of breath rib and abdominal/back musculature movement of back- instructions self for back and ribcage mobility and decreased/no lateral anterolateral trunk pain, sit vs standing- improved self understanding performance. Instruction on TA LTR, open book review for ribcage and hip mobility pain and stiffness reduction. Reviewed wall squats HEP for strength and support back. Time spent instruction sleep positioning use pillow between knees, behind back for and little under ribcage front if needed spinal, shld comfort in SL with verbalized understanding. PT-OP-R Modalities Start: 09/24/24 16:22 Freq: Status: Active Protocol: Document 09/24/24 11:47 NBM (Rec: 09/24/24 16:25 NBM Laptop) Hot Pack/Cold Pack Treatment Cold Pack Location L hip Patient Position Hooklying Patient Tolerance Good Comments LEs supported with bolster. Lumbar size held with strap . PT-OP-T Assessment and Plan Start: 08/08/24 08:31 Freq: Status: Active Protocol: Document 09/30/24 09:50 SP (Rec: 09/30/24 10:47 SP [id number]) Physical Therapy Assessment Goals 5 Impairment Evidence of imbalance Group Home Goal (LTG) Pt will perform WNLs on a standardized balance test such as FGA to decrease fall risk and improve gait and hiking on uneven surfaces. 4 Impairment Lack of HEP performance Real Estate Development Manager Goal (LTG) Pt will perform progressive HEP with I including breathing, alignment, flexibility, strengthening and balance exercises to improve pain and mobility. 09/07/24: Pt is performing pelvic realignment exercises, Mike and hamstring stretches 09/22/24: Pt is performing open book, hip and leg stretches and he is using trekking poles for hiking 09/24/24: Issued and condensend stretching HEP HOs: IH Hip Stretches HO, standing Quad, HS, Calf stretch ( lunge position). LTG Duration 8 weeks 1 Impairment LEF score reflects 55% impairment Group Home Goal (LTG) Pt will present with LEF score to reflect no more than 30% impairment to improve quality of life and mobility. 09/07/24: LEF reflects 45% impairment 09/22/24: LEF score reflects 47.5% impairment, no improvement but pt reports some improvement as he is doing chores and yard work and going for short hikes with trekking poles LTG Duration 8 weeks Assessment Summary Assessment Pt great response to manual L>R oblique and QL massage then MWM with breath today helped diminish c/o pain had at arrival, gone end tx. Verbalized and return demonstration self STMs and MWM with breath with understanding how tightness can contribute to back and hip pain/discomfort. Time spent use pillows hooklying and SL for spinal alignment, shld and ribcage comfort with good feedback response, declined HO. Will continue sore and LE strengthening per POC to support comfort mobillity next appt. Physical Therapy Plan Frequency and Duration Frequency of 2x/Week Treatment Duration of 8 treatment (weeks) Plan of Care Start 09/22/24 Date Plan of Care End 11/22/24 Date Therapeutic Interventions Therapeutic Balance Training,Canalithic Repositioning,Coordination Interventions Training,Gait Training,Home Exercise Program,Joint Mobilizations,Manual Therapy,Neuromuscular Re-education ,Patient/Caregiver Education,Self-Care/Home Management, Soft Tissue Mobilization,Taping,Therapeutic Activities, Therapeutic Exercises Modalities Cold Pack/Ice Massage,Electric Stimulation,Hot Packs, Ultrasound Other Referrals/Consults Referrals/Consults Consider talking with PCP about EMG vs lumbosacral MRI Recommended about L5-S1 numbness left foot and he is reporting numbness in all toes of both feet Follow-up with orthopedic surgeon about left hip Next Visit Focus/Plan Next Note Type Treatment Note Next Visit Plan Check if submitted approval more visits received back. Similar: continue LTR and wall slides, recheck self manual and manual oblique/QL last tx response. POC: Consider diaphragm breathing home Progress core and LE strengthening including hip strengthening for glutes and rotators, continue wall slides for quads and glutes Balance
--- NOTE | 2024-10-06 16:55 | PT.OTN ---
Current Diagnoses Trochanteric bursitis, left hip (10/06/24) Presence of left artificial hip joint (10/06/24) Physical Therapy Treatment Note PT-OP-A Visit Information Start: 08/08/24 08:31 Freq: Status: Active Protocol: Document 10/06/24 13:12 NBM (Rec: 10/06/24 13:54 NBM Laptop) Out-Patient Physical Therapy Visit Information Visit Information Visit Type Treatment Note Visit Note No KX Visit Start Time 13:07 Visit Stop Time 13:52 Visit Number 13 Number of COMPUTER BUILDER Visits 2 Evaluation Information Evaluation Date 08/09/24 PT-OP-B Current Condition Start: 08/08/24 08:31 Freq: Status: Active Protocol: Document 08/09/24 14:32 MB (Rec: 08/09/24 15:55 MB Desktop) Current Condition History of Current Condition Onset Date 2018 Current Complaints Left quad, glute and lateral hip pain History of Current Pt underwent left posterior ALESSANDRA in 2018. Since that Condition time, he has had increased left quad and glute pain. He also has left lateral hip pain. The pain is worse in the quad and with walking. His primary exercise is walking. He underwent PT at [facility] twice since 2018 and he did exercises for a while and then he slacked off. He thinks that PT was helpful. Days and weeks when he was doing exercises had less pain. Pt had left kidney CA and he underwent cryoablation x1. This occurred in 2022. He then had kidney stones but is unsure which side. He thinks it was the right and he underwent surgery for removal of large stone. There was a shunt placed and then they removed the shunt. He has had a lot of right LBP. Per x-ray from 02/04, there was a kidney stone on the left. In March 2023, pt underwent surgery for enlarged prostrate. Pt had some bleeding with urinating. Pain at night was a lot worse and now is better. He sleeps on side with pillow between his knees. He has right shoulder pain. He went to [facility] for B shoulder issues. Pt had history of left toe numbness and underwent MRI. His fourth and fifth toes are numb. This occurred after kidney stone surgery. Pt states that Dr. Rivera wants him to try PT for one month and then she might do a total body scan. Pt really only had one year of no pain post-op L ALESSANDRA in 2019 when he was walking 5 miles a day [place] during COVID. Pt did recall walking hard on treadmill for stress test. Treatment Goals Patient/Caregiver To decrease pain Goals PT-OP-C Subjective Start: 08/08/24 08:31 Freq: Status: Active Protocol: Document 10/06/24 13:12 NBM (Rec: 10/06/24 13:54 NBM Laptop) OP-PT Subjective Patient Comments Patient Comments Kp reports he walked a mile today and was able to relieve L quad pain with quad stretch. He wants to practice lifting form, sit to stands, Piriformis stretch form and Open Book. He's incorporating stretches into walks and daily activity and has learned the difference between pain and gentle stretch. He no longer does pelvic realignment ex's because otherwise it's too many exercises. PCP has referred for another 12 sessions PT for low back to address L foot numbness which has been getting worse; X-rays were taken at that time but he doesn't understand the reports. PT-OP-G Mobility & Gait Start: 08/08/24 08:31 Freq: Status: Active Protocol: Document 08/09/24 14:32 MB (Rec: 08/09/24 15:55 MB Desktop) OP Gait Assessment Comments Gait Comments Slow gait and antalgic pattern favoring the left leg. Decreased hip flexion, decreased movement left hip, stiffness left hip, slow gait, decreased toe off on the left and lateral left foot, decreased arm swing and increased lateral movement of shoulders with gait. Pelvis is stiff. PT-OP-J Posture/Palpation/Skin Start: 08/08/24 08:31 Freq: Status: Active Protocol: Document 08/09/24 14:32 MB (Rec: 08/09/24 15:55 MB Desktop) Posture Evaluation Comments Posture Comments Standing posture in socks: forward head, Dowager's hump , left shoulder is higher than the right, increased thoracic kyphosis, flattened thoracic area T8, right shift over pelvis, decreased lumbar lordosis, high pelvis and left iliac crest higher than the right, high left hip and more WB through the right leg. PT-OP-K Range of Motion Start: 08/08/24 08:31 Freq: Status: Active Protocol: Document 08/09/24 14:32 MB (Rec: 08/09/24 15:55 MB Desktop) Hip Goniometric Range of Motion Hip ROM Limitations Comments In supine: PROM left hip IR to 15 deg and ER to 20 deg; right hip IR 5 deg and ER to 30 deg. PT-OP-M Strength Start: 08/08/24 08:31 Freq: Status: Active Protocol: Document 08/09/24 14:32 MB (Rec: 08/09/24 15:55 MB Desktop) Hip Strength Hip Manual Muscle Testing Left Flexion (L2) 5 Normal Extension (S1) 4+ Good+ Abduction 4+ Good+ Adduction 4+ Good+ Comments PT can feel prosthesis from left ALESSANDRA with palpation Right Flexion (L2) 4+ Good+ Extension (S1) 4+ Good+ Abduction 4+ Good+ Adduction 4+ Good+ Knee Strength Knee Manual Muscle Testing Leg Flexion (S2) 5 Normal Extension (L3) 5 Normal Right Flexion (S2) 5 Normal Extension (L3) 5 Normal Ankle/Foot Strength Ankle and Foot Manual Muscle Testing Left Dorsiflexion (L4) 5 Normal Right Dorsiflexion (L4) 5 Normal Toe Strength Toe Manual Muscle Testing Left Great Toe Extension 5 Normal Right Great Toe Extension 5 Normal PT-OP-Q Treatments Start: 08/08/24 08:31 Freq: Status: Active Protocol: Document 10/06/24 13:12 NBM (Rec: 10/06/24 13:54 NBM Laptop) Therapeutic Exercises Supine Exercises Diaphramatic Breath Supine Exercise Name HEP review Reps/Minutes slow in/out many reps Comments with cues ribcage mobilty, hands on ribcage LTR Supine Exercise Name Reviewed Side bilateral Equipment Used hands side pelvis self awareness Reps/Minutes x10 ea Comments cues for PPT, TrA, breathwork Hip rotator stretch Supine Exercise Name HEP review: Figure 4 Side bilateral Equipment Used pillow case around thigh to assist with positioning Reps/Minutes 8-10 breathcycles (~30 sec) hold each leg Comments pt performs painfree Sidelying Exercises Open Book stretch Sidelying Exercise HEP review Name Side bilateral Resistance AROM Equipment Used table Reps/Minutes x5 ea w/ breathwork end range during hold stretch anterior shld Comments cued seg: arm, scapular motion then upper ribcage/TS rotation- improved mob Sitting Exercises Piriformis stretch Sitting Exercise 1. Figure 4 (lower R leg for painfree range) 2. Knee to Name opp shoulder Side bilateral Equipment Used standard mesh chair Reps/Minutes 30s ea Comments HEP review, painfree range, L>R tightness Sit to Stand Sitting Exercise no UE support Name Side bilateral Equipment Used standard mesh chair Reps/Minutes x5 Comments Hip hinge cueing and stretching resolves L knee pain, improves R Standing Exercises HS stretch Side right Reps/Minutes 15s x2 Comments between STS sets quad stretch Standing Exercise HEP Name Side left Equipment Used handrail, towel around lower leg Reps/Minutes 30s ea between STS Comments cues for LE alignment, upright posture, painfree range Therapeutic Activity Therapeutic Activity Body Mechanics Name Lifting mechanics for picking up objects off floor Reps/Minutes 3' Comments x5, cues for hip hinge and deeper squat. PT-OP-R Modalities Start: 09/24/24 16:22 Freq: Status: Active Protocol: Document 09/24/24 11:47 NBM (Rec: 09/24/24 16:25 NBM Laptop) Hot Pack/Cold Pack Treatment Cold Pack Location L hip Patient Position Hooklying Patient Tolerance Good Comments LEs supported with bolster. Lumbar size held with strap . PT-OP-T Assessment and Plan Start: 08/08/24 08:31 Freq: Status: Active Protocol: Document 10/06/24 13:12 NBM (Rec: 10/06/24 13:54 NBM Laptop) Physical Therapy Assessment Goals 5 Impairment Evidence of imbalance Shelter Goal (LTG) Pt will perform WNLs on a standardized balance test such as FGA to decrease fall risk and improve gait and hiking on uneven surfaces. 4 Impairment Lack of HEP performance Muffle Worker Goal (LTG) Pt will perform progressive HEP with I including breathing, alignment, flexibility, strengthening and balance exercises to improve pain and mobility. 09/07/24: Pt is performing pelvic realignment exercises, Mike and hamstring stretches 09/22/24: Pt is performing open book, hip and leg stretches and he is using trekking poles for hiking 09/24/24: Issued and condensend stretching HEP HOs: IH Hip Stretches HO, standing Quad, HS, Calf stretch ( lunge position). LTG Duration 8 weeks 1 Impairment LEF score reflects 55% impairment Muffle Worker Goal (LTG) Pt will present with LEF score to reflect no more than 30% impairment to improve quality of life and mobility. 09/07/24: LEF reflects 45% impairment 09/22/24: LEF score reflects 47.5% impairment, no improvement but pt reports some improvement as he is doing chores and yard work and going for short hikes with trekking poles LTG Duration 8 weeks Assessment Summary Assessment Kp demonstrates improvement of hip mobility and painfree range as he is able to tolerate supine Piriformis Figure 4 stretch bilaterally painfree today, which was previously held due to pain. He requires cues for eccentric control with sit to stands and for hip hinge with STS and body mechanics for picking up object off floor. L knee pain resolves and R knee pain improves during STS after stretching quads and R hamstring. Physical Therapy Plan Frequency and Duration Frequency of 2x/Week Treatment Duration of 8 treatment (weeks) Plan of Care Start 09/22/24 Date Plan of Care End 11/22/24 Date Therapeutic Interventions Therapeutic Balance Training,Canalithic Repositioning,Coordination Interventions Training,Gait Training,Home Exercise Program,Joint Mobilizations,Manual Therapy,Neuromuscular Re-education ,Patient/Caregiver Education,Self-Care/Home Management, Soft Tissue Mobilization,Taping,Therapeutic Activities, Therapeutic Exercises Modalities Cold Pack/Ice Massage,Electric Stimulation,Hot Packs, Ultrasound Other Referrals/Consults Referrals/Consults Consider talking with PCP about EMG vs lumbosacral MRI Recommended about L5-S1 numbness left foot and he is reporting numbness in all toes of both feet Follow-up with orthopedic surgeon about left hip Next Visit Focus/Plan Next Note Type Treatment Note Next Visit Plan Similar: consider LTR and wall slides for HEP. POC: Consider diaphragm breathing home Progress core and LE strengthening including hip strengthening for glutes and rotators, continue wall slides for quads and glutes Balance
--- NOTE | 2024-10-08 17:26 | PT.OTN ---
Current Diagnoses Trochanteric bursitis, left hip (10/08/24) Presence of left artificial hip joint (10/08/24) Physical Therapy Treatment Note PT-OP-A Visit Information Start: 08/08/24 08:31 Freq: Status: Active Protocol: Document 10/08/24 14:07 NBM (Rec: 10/08/24 14:39 NBM Laptop) Out-Patient Physical Therapy Visit Information Visit Information Visit Type Treatment Note Visit Note No KX Visit Start Time 13:53 Visit Stop Time 14:33 Visit Number 14 Number of SPECIAL DELIVERY WORKER Visits 3 Evaluation Information Evaluation Date 08/09/24 PT-OP-B Current Condition Start: 08/08/24 08:31 Freq: Status: Active Protocol: Document 08/09/24 14:32 MB (Rec: 08/09/24 15:55 MB Desktop) Current Condition History of Current Condition Onset Date 2018 Current Complaints Left quad, glute and lateral hip pain History of Current Pt underwent left posterior ALESSANDRA in 2018. Since that Condition time, he has had increased left quad and glute pain. He also has left lateral hip pain. The pain is worse in the quad and with walking. His primary exercise is walking. He underwent PT at [facility] twice since 2018 and he did exercises for a while and then he slacked off. He thinks that PT was helpful. Days and weeks when he was doing exercises had less pain. Pt had left kidney CA and he underwent cryoablation x1. This occurred in 2022. He then had kidney stones but is unsure which side. He thinks it was the right and he underwent surgery for removal of large stone. There was a shunt placed and then they removed the shunt. He has had a lot of right LBP. Per x-ray from 02/04, there was a kidney stone on the left. In March 2023, pt underwent surgery for enlarged prostrate. Pt had some bleeding with urinating. Pain at night was a lot worse and now is better. He sleeps on side with pillow between his knees. He has right shoulder pain. He went to [facility] for B shoulder issues. Pt had history of left toe numbness and underwent MRI. His fourth and fifth toes are numb. This occurred after kidney stone surgery. Pt states that Dr. Rivera wants him to try PT for one month and then she might do a total body scan. Pt really only had one year of no pain post-op L ALESSANDRA in 2019 when he was walking 5 miles a day [place] during COVID. Pt did recall walking hard on treadmill for stress test. Treatment Goals Patient/Caregiver To decrease pain Goals PT-OP-C Subjective Start: 08/08/24 08:31 Freq: Status: Active Protocol: Document 10/08/24 14:07 NBM (Rec: 10/08/24 14:39 NBM Laptop) OP-PT Subjective Patient Comments Patient Comments Kp reports he was able to take dogs for 1 mi walk the past three days in a row and didn't have L hip pain until after today's walk. He's doing his full home exercise program the last three mornings, although he didn't have the strap to do the Figure 4 stretch on his back and did it anyway. He's able to do quad stretch while on walks when he gets quad pain, and didn't get quad pain today. He did bump his L hip getting out of car today, and his L hip is sore today since walk. PT-OP-G Mobility & Gait Start: 08/08/24 08:31 Freq: Status: Active Protocol: Document 08/09/24 14:32 MB (Rec: 08/09/24 15:55 MB Desktop) OP Gait Assessment Comments Gait Comments Slow gait and antalgic pattern favoring the left leg. Decreased hip flexion, decreased movement left hip, stiffness left hip, slow gait, decreased toe off on the left and lateral left foot, decreased arm swing and increased lateral movement of shoulders with gait. Pelvis is stiff. PT-OP-J Posture/Palpation/Skin Start: 08/08/24 08:31 Freq: Status: Active Protocol: Document 08/09/24 14:32 MB (Rec: 08/09/24 15:55 MB Desktop) Posture Evaluation Comments Posture Comments Standing posture in socks: forward head, Dowager's hump , left shoulder is higher than the right, increased thoracic kyphosis, flattened thoracic area T8, right shift over pelvis, decreased lumbar lordosis, high pelvis and left iliac crest higher than the right, high left hip and more WB through the right leg. PT-OP-K Range of Motion Start: 08/08/24 08:31 Freq: Status: Active Protocol: Document 08/09/24 14:32 MB (Rec: 08/09/24 15:55 MB Desktop) Hip Goniometric Range of Motion Hip ROM Limitations Comments In supine: PROM left hip IR to 15 deg and ER to 20 deg; right hip IR 5 deg and ER to 30 deg. PT-OP-M Strength Start: 08/08/24 08:31 Freq: Status: Active Protocol: Document 08/09/24 14:32 MB (Rec: 08/09/24 15:55 MB Desktop) Hip Strength Hip Manual Muscle Testing Left Flexion (L2) 5 Normal Extension (S1) 4+ Good+ Abduction 4+ Good+ Adduction 4+ Good+ Comments PT can feel prosthesis from left ALESSANDRA with palpation Right Flexion (L2) 4+ Good+ Extension (S1) 4+ Good+ Abduction 4+ Good+ Adduction 4+ Good+ Knee Strength Knee Manual Muscle Testing Leg Flexion (S2) 5 Normal Extension (L3) 5 Normal Right Flexion (S2) 5 Normal Extension (L3) 5 Normal Ankle/Foot Strength Ankle and Foot Manual Muscle Testing Left Dorsiflexion (L4) 5 Normal Right Dorsiflexion (L4) 5 Normal Toe Strength Toe Manual Muscle Testing Left Great Toe Extension 5 Normal Right Great Toe Extension 5 Normal PT-OP-Q Treatments Start: 08/08/24 08:31 Freq: Status: Active Protocol: Document 10/08/24 14:07 NBM (Rec: 10/08/24 14:39 NBM Laptop) Therapeutic Exercises Supine Exercises LTR Supine Exercise Name Verbal HEP review Side bilateral Equipment Used hands side pelvis self awareness Reps/Minutes x10 ea Comments cues for PPT, TrA, breathwork Mike stretch Supine Exercise Name HEP verbal review for performing after long car ride. Side bilateral Reps/Minutes 8-10 breathcycles (~30 sec) hold each leg Comments [place] foot on mattress, pelvic tilt Hip rotator stretch Supine Exercise Name HEP review: modified Figure 4 Side bilateral Reps/Minutes 8-10 breathcycles (~30 sec) hold each leg Comments pt performs painfree w/ cues for foot placement Sitting Exercises Piriformis stretch Sitting Exercise 1. Figure 4 2. Knee to opp shoulder Name Side bilateral Equipment Used standard mesh chair Reps/Minutes 30s ea Comments HEP review, painfree range, L>R tightness Standing Exercises wall squats Standing Exercise Verbal review: w theraband Name Resistance Lvl 1 Tb above knees Reps/Minutes x10 ea Comments cues for increase foot distance from wall improves knee discomfort, PPT. quad stretch Standing Exercise Verbal HEP review Name Side bilateral Equipment Used handrail, towel around lower leg Reps/Minutes 30s ea between STS Comments cues for LE alignment, upright posture, painfree range Hip abduction Standing Exercise Verbal HEP review Name Side bilateral Resistance Lvl 1 Tb at ankles Equipment Used handrail Reps/Minutes x10 ea Comments vc upright posture, gluteal activation Other Exercises Self STMs Other Exercise Name Verbal instruction for routine self-scar mobilization of L hip incision Therapeutic Activity Therapeutic Activity Body Mechanics Comments Verbal review of Lifting mechanics from last session. -I/s pt in getting in/out of car with LEs together and using handhold in car. Manual Therapy Treatment Consent Patient gave verbal Yes consent for manual treatment Soft Tissue Mobilization L hip Body Location TFL, ITB, Gluteus medius, Pirifromis Mobilization Type Cross-Friction,Rolling,Strumming,Sustained Pressure Intensity/Depth Moderate Body Position R sidelying Comments w/ Functional Movement Self-Care/Home Management Treatment Education Patient Education Body Mechanics,Home Exercise Program,Joint Protection, Pain Management,Posture,Safety Other Education HEP review. Pt i/s in cryotherapy for pain management PT-OP-R Modalities Start: 09/24/24 16:22 Freq: Status: Active Protocol: Document 10/08/24 14:07 NBM (Rec: 10/08/24 17:25 NBM Laptop) Hot Pack/Cold Pack Treatment Cold Pack Location L hip Patient Position Hooklying Patient Tolerance Good Comments LEs supported with bolster. Lumbar size held with strap . 9' PT-OP-T Assessment and Plan Start: 08/08/24 08:31 Freq: Status: Active Protocol: Document 10/08/24 14:07 NBM (Rec: 10/08/24 14:39 NBM Laptop) Physical Therapy Assessment Goals 5 Impairment Evidence of imbalance Bundle Person Goal (LTG) Pt will perform WNLs on a standardized balance test such as FGA to decrease fall risk and improve gait and hiking on uneven surfaces. 4 Impairment Lack of HEP performance Bundle Person Goal (LTG) Pt will perform progressive HEP with I including breathing, alignment, flexibility, strengthening and balance exercises to improve pain and mobility. 09/07/24: Pt is performing pelvic realignment exercises, Mike and hamstring stretches 09/22/24: Pt is performing open book, hip and leg stretches and he is using trekking poles for hiking 09/24/24: Issued and condensend stretching HEP HOs: IH Hip Stretches HO, standing Quad, HS, Calf stretch ( lunge position). 10/08/24: Pt reports 3 days compliance in a row. I/s in modifying supine Piformis Fig 4 when no strap available . LTG Duration 8 weeks - 10/07/24: Goal Met 1 Impairment LEF score reflects 55% impairment Bundle Person Goal (LTG) Pt will present with LEF score to reflect no more than 30% impairment to improve quality of life and mobility. 09/07/24: LEF reflects 45% impairment 09/22/24: LEF score reflects 47.5% impairment, no improvement but pt reports some improvement as he is doing chores and yard work and going for short hikes with trekking poles LTG Duration 8 weeks Assessment Summary Assessment Kp presents with L hip soreness today 09/21 which improves to /10 end of session; pain possibly secondary to supine Piriformis Figure 4 overstretch this morning due to not using strap, and also bumping L hip getting out of car. He is instructed in body mechanics for in/out car and instructed in modified Piriformis Figure 4 stretch on back in painfree range, and in cryotherapy for pain management and accepts cold pack to L hip end of session. Cryotherapy end of session 9 min (adjusted from R sidelying to hooklying due to L hip pain). He meets goal for performing HEP with independence. Physical Therapy Plan Frequency and Duration Frequency of 2x/Week Treatment Duration of 8 treatment (weeks) Plan of Care Start 09/22/24 Date Plan of Care End 11/22/24 Date Therapeutic Interventions Therapeutic Balance Training,Canalithic Repositioning,Coordination Interventions Training,Gait Training,Home Exercise Program,Joint Mobilizations,Manual Therapy,Neuromuscular Re-education ,Patient/Caregiver Education,Self-Care/Home Management, Soft Tissue Mobilization,Taping,Therapeutic Activities, Therapeutic Exercises Modalities Cold Pack/Ice Massage,Electric Stimulation,Hot Packs, Ultrasound Other Referrals/Consults Referrals/Consults Consider talking with PCP about EMG vs lumbosacral MRI Recommended about L5-S1 numbness left foot and he is reporting numbness in all toes of both feet Follow-up with orthopedic surgeon about left hip Next Visit Focus/Plan Next Note Type Treatment Note Next Visit Plan Similar: consider LTR and wall slides for HEP. POC: Consider diaphragm breathing home Progress core and LE strengthening including hip strengthening for glutes and rotators, continue wall slides for quads and glutes Balance
--- NOTE | 2024-10-13 18:04 | PT.OTN ---
Current Diagnoses Trochanteric bursitis, left hip (10/13/24) Presence of left artificial hip joint (10/13/24) Physical Therapy Treatment Note PT-OP-A Visit Information Start: 08/08/24 08:31 Freq: Status: Active Protocol: Document 10/13/24 17:56 KW (Rec: 10/13/24 18:03 KW Laptop) Out-Patient Physical Therapy Visit Information Visit Information Visit Type Progress Note Visit Note No KX Visit Start Time 17:00 Visit Stop Time 17:45 Visit Number 15 Number of SENIOR ACCOUNTING SPECIALIST Visits 3 Precautions Precautions none PT-OP-B Current Condition Start: 08/08/24 08:31 Freq: Status: Active Protocol: Document 08/09/24 14:32 MB (Rec: 08/09/24 15:55 MB Desktop) Current Condition History of Current Condition Onset Date 2018 Current Complaints Left quad, glute and lateral hip pain History of Current Pt underwent left posterior ALESSANDRA in 2018. Since that Condition time, he has had increased left quad and glute pain. He also has left lateral hip pain. The pain is worse in the quad and with walking. His primary exercise is walking. He underwent PT at [facility] twice since 2018 and he did exercises for a while and then he slacked off. He thinks that PT was helpful. Days and weeks when he was doing exercises had less pain. Pt had left kidney CA and he underwent cryoablation x1. This occurred in 2022. He then had kidney stones but is unsure which side. He thinks it was the right and he underwent surgery for removal of large stone. There was a shunt placed and then they removed the shunt. He has had a lot of right LBP. Per x-ray from 02/04, there was a kidney stone on the left. In March 2023, pt underwent surgery for enlarged prostrate. Pt had some bleeding with urinating. Pain at night was a lot worse and now is better. He sleeps on side with pillow between his knees. He has right shoulder pain. He went to [facility] for B shoulder issues. Pt had history of left toe numbness and underwent MRI. His fourth and fifth toes are numb. This occurred after kidney stone surgery. Pt states that Dr. Rviera wants him to try PT for one month and then she might do a total body scan. Pt really only had one year of no pain post-op L ALESSANDRA in 2019 when he was walking 5 miles a day [place] during COVID. Pt did recall walking hard on treadmill for stress test. Treatment Goals Patient/Caregiver To decrease pain Goals PT-OP-C Subjective Start: 08/08/24 08:31 Freq: Status: Active Protocol: Document 10/13/24 17:56 KW (Rec: 10/13/24 18:03 KW Laptop) OP-PT Subjective Patient Comments Patient Comments has 2 more PT visits for this Rx. Then has a new Rx for lumbar spine and would like to continue with new eval/ PT for spine OP-PT Pain Assessment Pain Assessment Grid Paper Pain Yes Assessment Grid Completed PT-OP-G Mobility & Gait Start: 08/08/24 08:31 Freq: Status: Active Protocol: Document 08/09/24 14:32 MB (Rec: 08/09/24 15:55 MB Desktop) OP Gait Assessment Comments Gait Comments Slow gait and antalgic pattern favoring the left leg. Decreased hip flexion, decreased movement left hip, stiffness left hip, slow gait, decreased toe off on the left and lateral left foot, decreased arm swing and increased lateral movement of shoulders with gait. Pelvis is stiff. PT-OP-J Posture/Palpation/Skin Start: 08/08/24 08:31 Freq: Status: Active Protocol: Document 10/13/24 17:56 KW (Rec: 10/13/24 18:03 KW Laptop) Posture Evaluation Comments Posture Comments Standing posture in socks: forward head, Dowager's hump , left shoulder is higher than the right, increased thoracic kyphosis, flattened thoracic area T8, right shift over pelvis, decreased lumbar lordosis, high pelvis and left iliac crest higher than the right, high left hip and more WB through the right leg. (++) buttock gripping PT-OP-K Range of Motion Start: 08/08/24 08:31 Freq: Status: Active Protocol: Document 10/13/24 17:56 KW (Rec: 10/13/24 18:03 KW Laptop) Hip Goniometric Range of Motion Hip ROM Limitations Comments In supine: PROM left hip IR to 15 deg and ER to 20 deg; right hip IR 5 deg and ER to 30 deg. PT-OP-M Strength Start: 08/08/24 08:31 Freq: Status: Active Protocol: Document 10/13/24 17:56 KW (Rec: 10/13/24 18:03 KW Laptop) Hip Strength Hip Manual Muscle Testing Left Flexion (L2) 5 Normal Extension (S1) 4+ Good+ Abduction 4+ Good+ Adduction 4+ Good+ Comments PT can feel prosthesis from left ALESSANDRA with palpation Right Flexion (L2) 4+ Good+ Extension (S1) 4+ Good+ Abduction 4+ Good+ Adduction 4+ Good+ PT-OP-Q Treatments Start: 08/08/24 08:31 Freq: Status: Active Protocol: Document 10/13/24 17:56 KW (Rec: 10/13/24 18:03 KW Laptop) Therapeutic Exercises Supine Exercises Diaphramatic Breath Supine Exercise Name HEP review Reps/Minutes slow in/out many reps Comments with cues ribcage mobilty, hands on ribcage LTR Supine Exercise Name Verbal HEP review Side bilateral Equipment Used hands side pelvis self awareness Reps/Minutes x10 ea Comments cues for PPT, TrA, breathwork Mike stretch Supine Exercise Name HEP verbal review for performing after long car ride. Side bilateral Reps/Minutes 8-10 breathcycles (~30 sec) hold each leg Comments [place] foot on mattress, pelvic tilt Hip rotator stretch Supine Exercise Name HEP review: modified Figure 4 Side bilateral Reps/Minutes 8-10 breathcycles (~30 sec) hold each leg Comments pt performs painfree w/ cues for foot placement Pelvic realignment exercises Supine Exercise Name HEP review, slight L hip pain w/ pelvic lift resolves w / cues for PPT/TrA Side bilateral Equipment Used Blue ball Reps/Minutes 5 reps, 2 breathcycle hold (~3 sec hold) all exercises in order Comments Feet together ball squeeze iso, knee opp ankle iso, thigh press down iso Sidelying Exercises Open Book stretch Sidelying Exercise HEP review Name Side bilateral Resistance AROM Equipment Used table Reps/Minutes x5 ea w/ breathwork end range during hold stretch anterior shld Comments cued seg: arm, scapular motion then upper ribcage/TS rotation- improved mob Sitting Exercises Piriformis stretch Sitting Exercise 1. Figure 4 2. Knee to opp shoulder Name Side bilateral Equipment Used standard mesh chair Reps/Minutes 30s ea Comments HEP review, painfree range, L>R tightness Hamstring stretch Sitting Exercise HEP review Name Side right Reps/Minutes 30s Comments cues for painfree range Sit to Stand Sitting Exercise no UE support Name Side bilateral Equipment Used standard mesh chair Reps/Minutes x5 Comments Hip hinge cueing and stretching resolves L knee pain, improves R Standing Exercises HS stretch Side right Reps/Minutes 15s x2 Comments between STS sets Kitchen sink stretch Standing Exercise fwd and lat Name Equipment Used handrail Reps/Minutes x30s ea Comments cues for form, positive feedback response wall squats Standing Exercise Verbal review: w theraband Name Resistance Lvl 1 Tb above knees Reps/Minutes x10 ea Comments cues for increase foot distance from wall improves knee discomfort, PPT. calf stretch Standing Exercise gastrocnemius -HEP review Name Side bilateral Equipment Used lunge position at wall Reps/Minutes 30s ea Comments L hip pain resolves w/ cues for smaller CORNELL, RLE tightness improves quad stretch Standing Exercise Verbal HEP review Name Side bilateral Equipment Used handrail, towel around lower leg Reps/Minutes 30s ea between STS Comments cues for LE alignment, upright posture, painfree range Hip abduction Standing Exercise Verbal HEP review Name Side bilateral Resistance Lvl 1 Tb at ankles Equipment Used handrail Reps/Minutes x10 ea Comments vc upright posture, gluteal activation Other Exercises Self STMs Other Exercise Name Verbal instruction for routine self-scar mobilization of L hip incision quadruped Other Exercise Name Thread the Needle Side bilateral Reps/Minutes x5 ea HEP review today Comments Verbal review Mike stretch, instruction for pain-free range only. Manual Therapy Treatment Soft Tissue Mobilization B hip/lumbar spine Mobilization Type Cross-Friction,Instrument Assisted,Myofascial Release, Strain/Counterstrain,Trigger Point Release Joint Mobilizations L hip Joint L hip Body Position Supine Comments inferior/lateral Grade III PT-OP-R Modalities Start: 09/24/24 16:22 Freq: Status: Active Protocol: Document 10/08/24 14:07 NBM (Rec: 10/08/24 17:25 NBM Laptop) Hot Pack/Cold Pack Treatment Cold Pack Location L hip Patient Position Hooklying Patient Tolerance Good Comments LEs supported with bolster. Lumbar size held with strap . 9' PT-OP-T Assessment and Plan Start: 08/08/24 08:31 Freq: Status: Active Protocol: Document 10/13/24 17:56 KW (Rec: 10/13/24 18:03 KW Laptop) Physical Therapy Assessment Goals 5 Impairment Evidence of imbalance Production Pattern Maker Goal (LTG) Pt will perform WNLs on a standardized balance test such as FGA to decrease fall risk and improve gait and hiking on uneven surfaces. - improving 4 Impairment Lack of HEP performance Production Pattern Maker Goal (LTG) Pt will perform progressive HEP with I including breathing, alignment, flexibility, strengthening and balance exercises to improve pain and mobility. 09/07/24: Pt is performing pelvic realignment exercises, Mike and hamstring stretches 09/22/24: Pt is performing open book, hip and leg stretches and he is using trekking poles for hiking 09/24/24: Issued and condensend stretching HEP HOs: IH Hip Stretches HO, standing Quad, HS, Calf stretch ( lunge position). 10/08/24: Pt reports 3 days compliance in a row. I/s in modifying supine Piformis Fig 4 when no strap available . LTG Duration 8 weeks - 10/07/24: Goal Met 1 Impairment LEF score reflects 55% impairment Longterm Goal (LTG) Pt will present with LEF score to reflect no more than 30% impairment to improve quality of life and mobility. 09/07/24: LEF reflects 45% impairment 09/22/24: LEF score reflects 47.5% impairment, no improvement but pt reports some improvement as he is doing chores and yard work and going for short hikes with trekking poles LTG Duration 8 weeks Progress Towards Goals Progress Towards Slow Progress - Other Goals Progress Comments lumbar component likely contributing Physical Therapy Plan Frequency and Duration Frequency of 2x/Week Treatment Duration of 8 treatment (weeks) Plan of Care Start 09/22/24 Date Plan of Care End 11/22/24 Date Therapeutic Interventions Therapeutic Balance Training,Canalithic Repositioning,Coordination Interventions Training,Gait Training,Home Exercise Program,Joint Mobilizations,Manual Therapy,Neuromuscular Re-education ,Patient/Caregiver Education,Self-Care/Home Management, Soft Tissue Mobilization,Taping,Therapeutic Activities, Therapeutic Exercises Modalities Cold Pack/Ice Massage,Electric Stimulation,Hot Packs, Ultrasound Next Visit Focus/Plan Next Note Type Treatment Note Next Visit Plan Similar: consider LTR and wall slides for HEP. POC: Consider diaphragm breathing home - started to address Progress core and LE strengthening including hip strengthening for glutes and rotators, continue wall slides for quads and glutes Balance
--- NOTE | 2024-10-21 17:48 | PT.OTN ---
Current Diagnoses Trochanteric bursitis, left hip (10/21/24) Presence of left artificial hip joint (10/21/24) Physical Therapy Treatment Note PT-OP-A Visit Information Start: 08/08/24 08:31 Freq: Status: Active Protocol: Document 10/21/24 16:21 KW (Rec: 10/21/24 17:48 KW Laptop) Out-Patient Physical Therapy Visit Information Visit Information Visit Type Treatment Note Visit Start Time 16:15 Visit Stop Time 17:00 Visit Number 16 PT-OP-B Current Condition Start: 08/08/24 08:31 Freq: Status: Active Protocol: Document 08/09/24 14:32 MB (Rec: 08/09/24 15:55 MB Desktop) Current Condition History of Current Condition Onset Date 2018 Current Complaints Left quad, glute and lateral hip pain History of Current Pt underwent left posterior ALESSANDRA in 2018. Since that Condition time, he has had increased left quad and glute pain. He also has left lateral hip pain. The pain is worse in the quad and with walking. His primary exercise is walking. He underwent PT at [facility] twice since 2018 and he did exercises for a while and then he slacked off. He thinks that PT was helpful. Days and weeks when he was doing exercises had less pain. Pt had left kidney CA and he underwent cryoablation x1. This occurred in 2022. He then had kidney stones but is unsure which side. He thinks it was the right and he underwent surgery for removal of large stone. There was a shunt placed and then they removed the shunt. He has had a lot of right LBP. Per x-ray from 02/04, there was a kidney stone on the left. In March 2023, pt underwent surgery for enlarged prostrate. Pt had some bleeding with urinating. Pain at night was a lot worse and now is better. He sleeps on side with pillow between his knees. He has right shoulder pain. He went to [facility] for B shoulder issues. Pt had history of left toe numbness and underwent MRI. His fourth and fifth toes are numb. This occurred after kidney stone surgery. Pt states that Dr. Rivera wants him to try PT for one month and then she might do a total body scan. Pt really only had one year of no pain post-op L ALESSANDRA in 2019 when he was walking 5 miles a day [place] during COVID. Pt did recall walking hard on treadmill for stress test. Treatment Goals Patient/Caregiver To decrease pain Goals PT-OP-C Subjective Start: 08/08/24 08:31 Freq: Status: Active Protocol: Document 10/21/24 16:21 KW (Rec: 10/21/24 17:48 KW Laptop) OP-PT Subjective Patient Comments Patient Comments has 1 more PT visits for this Rx. has follow up tomorrow with hip surgeon to see why hips still hurt OP-PT Pain Assessment Pain Assessment Grid Paper Pain Yes Assessment Grid Completed PT-OP-G Mobility & Gait Start: 08/08/24 08:31 Freq: Status: Active Protocol: Document 08/09/24 14:32 MB (Rec: 08/09/24 15:55 MB Desktop) OP Gait Assessment Comments Gait Comments Slow gait and antalgic pattern favoring the left leg. Decreased hip flexion, decreased movement left hip, stiffness left hip, slow gait, decreased toe off on the left and lateral left foot, decreased arm swing and increased lateral movement of shoulders with gait. Pelvis is stiff. PT-OP-J Posture/Palpation/Skin Start: 08/08/24 08:31 Freq: Status: Active Protocol: Document 10/13/24 17:56 KW (Rec: 10/13/24 18:03 KW Laptop) Posture Evaluation Comments Posture Comments Standing posture in socks: forward head, Dowager's hump , left shoulder is higher than the right, increased thoracic kyphosis, flattened thoracic area T8, right shift over pelvis, decreased lumbar lordosis, high pelvis and left iliac crest higher than the right, high left hip and more WB through the right leg. (++) buttock gripping PT-OP-K Range of Motion Start: 08/08/24 08:31 Freq: Status: Active Protocol: Document 10/13/24 17:56 KW (Rec: 10/13/24 18:03 KW Laptop) Hip Goniometric Range of Motion Hip ROM Limitations Comments In supine: PROM left hip IR to 15 deg and ER to 20 deg; right hip IR 5 deg and ER to 30 deg. PT-OP-M Strength Start: 08/08/24 08:31 Freq: Status: Active Protocol: Document 10/13/24 17:56 KW (Rec: 10/13/24 18:03 KW Laptop) Hip Strength Hip Manual Muscle Testing Left Flexion (L2) 5 Normal Extension (S1) 4+ Good+ Abduction 4+ Good+ Adduction 4+ Good+ Comments PT can feel prosthesis from left ALESSANDRA with palpation Right Flexion (L2) 4+ Good+ Extension (S1) 4+ Good+ Abduction 4+ Good+ Adduction 4+ Good+ PT-OP-Q Treatments Start: 08/08/24 08:31 Freq: Status: Active Protocol: Document 10/21/24 16:21 KW (Rec: 10/21/24 17:48 KW Laptop) Therapeutic Exercises Supine Exercises Diaphramatic Breath Supine Exercise Name HEP review Reps/Minutes slow in/out many reps Comments with cues ribcage mobilty, hands on ribcage LTR Supine Exercise Name Verbal HEP review Side bilateral Equipment Used hands side pelvis self awareness Reps/Minutes x10 ea Comments cues for PPT, TrA, breathwork Mike stretch Supine Exercise Name HEP verbal review for performing after long car ride. Side bilateral Reps/Minutes 8-10 breathcycles (~30 sec) hold each leg Comments [place] foot on mattress, pelvic tilt Hip rotator stretch Supine Exercise Name HEP review: modified Figure 4 Side bilateral Reps/Minutes 8-10 breathcycles (~30 sec) hold each leg Comments pt performs painfree w/ cues for foot placement Pelvic realignment exercises Supine Exercise Name HEP review, slight L hip pain w/ pelvic lift resolves w / cues for PPT/TrA Side bilateral Equipment Used Blue ball Reps/Minutes 5 reps, 2 breathcycle hold (~3 sec hold) all exercises in order Comments Feet together ball squeeze iso, knee opp ankle iso, thigh press down iso Sidelying Exercises Open Book stretch Sidelying Exercise HEP review Name Side bilateral Resistance AROM Equipment Used table Reps/Minutes x5 ea w/ breathwork end range during hold stretch anterior shld Comments cued seg: arm, scapular motion then upper ribcage/TS rotation- improved mob Sitting Exercises Piriformis stretch Sitting Exercise 1. Figure 4 2. Knee to opp shoulder Name Side bilateral Equipment Used standard mesh chair Reps/Minutes 30s ea Comments HEP review, painfree range, L>R tightness Hamstring stretch Sitting Exercise HEP review Name Side right Reps/Minutes 30s Comments cues for painfree range Sit to Stand Sitting Exercise no UE support Name Side bilateral Equipment Used standard mesh chair Reps/Minutes x5 Comments Hip hinge cueing and stretching resolves L knee pain, improves R Standing Exercises HS stretch Side right Reps/Minutes 15s x2 Comments between STS sets Kitchen sink stretch Standing Exercise fwd and lat Name Equipment Used handrail Reps/Minutes x30s ea Comments cues for form, positive feedback response wall squats Standing Exercise Verbal review: w theraband Name Resistance Lvl 1 Tb above knees Reps/Minutes x10 ea Comments cues for increase foot distance from wall improves knee discomfort, PPT. calf stretch Standing Exercise gastrocnemius -HEP review Name Side bilateral Equipment Used lunge position at wall Reps/Minutes 30s ea Comments L hip pain resolves w/ cues for smaller CORNELL, RLE tightness improves quad stretch Standing Exercise Verbal HEP review Name Side bilateral Equipment Used handrail, towel around lower leg Reps/Minutes 30s ea between STS Comments cues for LE alignment, upright posture, painfree range Hip abduction Standing Exercise Verbal HEP review Name Side bilateral Resistance Lvl 1 Tb at ankles Equipment Used handrail Reps/Minutes x10 ea Comments vc upright posture, gluteal activation Other Exercises Self STMs Other Exercise Name Verbal instruction for routine self-scar mobilization of L hip incision quadruped Other Exercise Name Thread the Needle Side bilateral Reps/Minutes x5 ea HEP review today Comments Verbal review Mike stretch, instruction for pain-free range only. Manual Therapy Treatment Consent Patient gave verbal Yes consent for manual treatment Soft Tissue Mobilization B hip/lumbar spine Mobilization Type Cross-Friction,Instrument Assisted,Myofascial Release, Strain/Counterstrain,Trigger Point Release Joint Mobilizations L hip Joint L hip Body Position Supine Comments inferior/lateral Grade III PT-OP-R Modalities Start: 09/24/24 16:22 Freq: Status: Active Protocol: Document 10/08/24 14:07 NBM (Rec: 10/08/24 17:25 NBM Laptop) Hot Pack/Cold Pack Treatment Cold Pack Location L hip Patient Position Hooklying Patient Tolerance Good Comments LEs supported with bolster. Lumbar size held with strap . 9' PT-OP-T Assessment and Plan Start: 08/08/24 08:31 Freq: Status: Active Protocol: Document 10/21/24 16:21 KW (Rec: 10/21/24 17:48 KW Laptop) Physical Therapy Assessment Goals 5 Impairment Evidence of imbalance Group Therapist Goal (LTG) Pt will perform WNLs on a standardized balance test such as FGA to decrease fall risk and improve gait and hiking on uneven surfaces. - improving 4 Impairment Lack of HEP performance Group Therapist Goal (LTG) Pt will perform progressive HEP with I including breathing, alignment, flexibility, strengthening and balance exercises to improve pain and mobility. 09/07/24: Pt is performing pelvic realignment exercises, Mike and hamstring stretches 09/22/24: Pt is performing open book, hip and leg stretches and he is using trekking poles for hiking 09/24/24: Issued and condensend stretching HEP HOs: IH Hip Stretches HO, standing Quad, HS, Calf stretch ( lunge position). 10/08/24: Pt reports 3 days compliance in a row. I/s in modifying supine Piformis Fig 4 when no strap available . LTG Duration 8 weeks - 10/07/24: Goal Met 1 Impairment LEF score reflects 55% impairment Group Therapist Goal (LTG) Pt will present with LEF score to reflect no more than 30% impairment to improve quality of life and mobility. 09/07/24: LEF reflects 45% impairment 09/22/24: LEF score reflects 47.5% impairment, no improvement but pt reports some improvement as he is doing chores and yard work and going for short hikes with trekking poles LTG Duration 8 weeks Progress Towards Goals Progress Towards Slow Progress - Other Goals Progress Comments lumbar component likely contributing Assessment Summary Assessment excessive posterior hip compression, tight deep hip rotators impeding good motion. Very evident as when he goes into a prone position, he has excellent rotation. Physical Therapy Plan Frequency and Duration Frequency of 2x/Week Treatment Duration of 8 treatment (weeks) Plan of Care Start 09/22/24 Date Plan of Care End 11/22/24 Date Therapeutic Interventions Therapeutic Balance Training,Canalithic Repositioning,Coordination Interventions Training,Gait Training,Home Exercise Program,Joint Mobilizations,Manual Therapy,Neuromuscular Re-education ,Patient/Caregiver Education,Self-Care/Home Management, Soft Tissue Mobilization,Taping,Therapeutic Activities, Therapeutic Exercises Modalities Cold Pack/Ice Massage,Electric Stimulation,Hot Packs, Ultrasound Next Visit Focus/Plan Next Note Type Treatment Note Next Visit Plan Similar: consider LTR and wall slides for HEP. POC: Consider diaphragm breathing home - started to address Progress core and LE strengthening including hip strengthening for glutes and rotators, continue wall slides for quads and glutes Balance
--- NOTE | 2024-11-03 17:12 | PT.OTN ---
Current Diagnoses Trochanteric bursitis, left hip (11/03/24) Presence of left artificial hip joint (11/03/24) Physical Therapy Treatment Note PT-OP-A Visit Information Start: 08/08/24 08:31 Freq: Status: Active Protocol: Document 11/03/24 17:04 KW (Rec: 11/03/24 17:11 KW Laptop) Out-Patient Physical Therapy Visit Information Visit Information Visit Type Discharge Summary Visit Start Time 17:00 Visit Stop Time 17:45 Visit Number 17 Precautions Precautions none PT-OP-B Current Condition Start: 08/08/24 08:31 Freq: Status: Active Protocol: Document 08/09/24 14:32 MB (Rec: 08/09/24 15:55 MB Desktop) Current Condition History of Current Condition Onset Date 2018 Current Complaints Left quad, glute and lateral hip pain History of Current Pt underwent left posterior ALESSANDRA in 2018. Since that Condition time, he has had increased left quad and glute pain. He also has left lateral hip pain. The pain is worse in the quad and with walking. His primary exercise is walking. He underwent PT at [facility] twice since 2018 and he did exercises for a while and then he slacked off. He thinks that PT was helpful. Days and weeks when he was doing exercises had less pain. Pt had left kidney CA and he underwent cryoablation x1. This occurred in 2022. He then had kidney stones but is unsure which side. He thinks it was the right and he underwent surgery for removal of large stone. There was a shunt placed and then they removed the shunt. He has had a lot of right LBP. Per x-ray from 02/04, there was a kidney stone on the left. In March 2023, pt underwent surgery for enlarged prostrate. Pt had some bleeding with urinating. Pain at night was a lot worse and now is better. He sleeps on side with pillow between his knees. He has right shoulder pain. He went to [facility] for B shoulder issues. Pt had history of left toe numbness and underwent MRI. His fourth and fifth toes are numb. This occurred after kidney stone surgery. Pt states that Dr. Rivera wants him to try PT for one month and then she might do a total body scan. Pt really only had one year of no pain post-op L ALESSANDRA in 2019 when he was walking 5 miles a day [place] during COVID. Pt did recall walking hard on treadmill for stress test. Treatment Goals Patient/Caregiver To decrease pain Goals PT-OP-C Subjective Start: 08/08/24 08:31 Freq: Status: Active Protocol: Document 11/03/24 17:04 KW (Rec: 11/03/24 17:11 KW Laptop) OP-PT Subjective Patient Comments Patient Comments walking 2 miles a day now exercises are helping cortizone shot last week, has helped L hip Cat scan due to kidney cancer, no metastatic lesions in spine PT-OP-G Mobility & Gait Start: 08/08/24 08:31 Freq: Status: Active Protocol: Document 08/09/24 14:32 MB (Rec: 08/09/24 15:55 MB Desktop) OP Gait Assessment Comments Gait Comments Slow gait and antalgic pattern favoring the left leg. Decreased hip flexion, decreased movement left hip, stiffness left hip, slow gait, decreased toe off on the left and lateral left foot, decreased arm swing and increased lateral movement of shoulders with gait. Pelvis is stiff. PT-OP-J Posture/Palpation/Skin Start: 08/08/24 08:31 Freq: Status: Active Protocol: Document 11/03/24 17:04 KW (Rec: 11/03/24 17:11 KW Laptop) Posture Evaluation Comments Posture Comments Standing posture in socks: forward head, Dowager's hump , left shoulder is higher than the right, increased thoracic kyphosis, flattened thoracic area T8, right shift over pelvis, decreased lumbar lordosis, high pelvis and left iliac crest higher than the right, high left hip and more WB through the right leg. (++) buttock gripping PT-OP-K Range of Motion Start: 08/08/24 08:31 Freq: Status: Active Protocol: Document 11/03/24 17:04 KW (Rec: 11/03/24 17:11 KW Laptop) Hip Goniometric Range of Motion Hip ROM Limitations Comments In supine: PROM left hip IR to 15 deg and ER to 20 deg; right hip IR 5 deg and ER to 30 deg. PT-OP-M Strength Start: 08/08/24 08:31 Freq: Status: Active Protocol: Document 11/03/24 17:04 KW (Rec: 11/03/24 17:11 KW Laptop) Hip Strength Hip Manual Muscle Testing Left Flexion (L2) 5 Normal Extension (S1) 4+ Good+ Abduction 4+ Good+ Adduction 4+ Good+ Comments PT can feel prosthesis from left ALESSANDRA with palpation Right Flexion (L2) 4+ Good+ Extension (S1) 4+ Good+ Abduction 4+ Good+ Adduction 4+ Good+ PT-OP-Q Treatments Start: 08/08/24 08:31 Freq: Status: Active Protocol: Document 11/03/24 17:04 KW (Rec: 11/03/24 17:11 KW Laptop) Cardio Equipment Recumbent Stepper (Sci-Fit) Duration (Minutes) 6 Gym Equipment Shuttle Rebound squats Exercise Details 67 B 50# single Therapeutic Exercises Supine Exercises Diaphramatic Breath Supine Exercise Name HEP review Reps/Minutes slow in/out many reps Comments with cues ribcage mobilty, hands on ribcage LTR Supine Exercise Name HEP review Side bilateral Equipment Used hands side pelvis self awareness Reps/Minutes x10 ea Comments cues for PPT, TrA, breathwork Mike stretch Supine Exercise Name verbal review for performing after long car ride. Side bilateral Reps/Minutes 8-10 breathcycles (~30 sec) hold each leg Comments [place] foot on mattress, pelvic tilt Hip rotator stretch Supine Exercise Name modified Figure 4 Side bilateral Reps/Minutes 8-10 breathcycles (~30 sec) hold each leg Comments pt performs painfree w/ cues for foot placement Pelvic realignment exercises Supine Exercise Name HEP review, slight L hip pain w/ pelvic lift resolves w / cues for PPT/TrA Side bilateral Equipment Used Blue ball Reps/Minutes 5 reps, 2 breathcycle hold (~3 sec hold) all exercises in order Comments Feet together ball squeeze iso, knee opp ankle iso, thigh press down iso Sidelying Exercises Open Book stretch Sidelying Exercise HEP review Name Side bilateral Resistance AROM Equipment Used table Reps/Minutes x5 ea w/ breathwork end range during hold stretch anterior shld Comments cued seg: arm, scapular motion then upper ribcage/TS rotation- improved mob Sitting Exercises Piriformis stretch Sitting Exercise 1. Figure 4 2. Knee to opp shoulder Name Side bilateral Equipment Used standard mesh chair Reps/Minutes 30s ea Comments HEP review, painfree range, L>R tightness Hamstring stretch Sitting Exercise HEP review Name Side right Reps/Minutes 30s Comments cues for painfree range Sit to Stand Sitting Exercise no UE support Name Side bilateral Equipment Used standard mesh chair Reps/Minutes x5 Comments Hip hinge cueing and stretching resolves L knee pain, improves R Standing Exercises HS stretch Side right Reps/Minutes 15s x2 Comments between STS sets Kitchen sink stretch Standing Exercise fwd and lat Name Equipment Used handrail Reps/Minutes x30s ea Comments cues for form, positive feedback response wall squats Standing Exercise Verbal review: w theraband Name Resistance Lvl 1 Tb above knees Reps/Minutes x10 ea Comments cues for increase foot distance from wall improves knee discomfort, PPT. calf stretch Standing Exercise gastrocnemius -HEP review Name Side bilateral Equipment Used lunge position at wall Reps/Minutes 30s ea Comments L hip pain resolves w/ cues for smaller CORNELL, RLE tightness improves Other Exercises Self STMs Other Exercise Name Verbal instruction for routine self-scar mobilization of L hip incision quadruped Other Exercise Name Thread the Needle Side bilateral Reps/Minutes x5 ea HEP review today Comments Verbal review Mike stretch, instruction for pain-free range only. PT-OP-R Modalities Start: 09/24/24 16:22 Freq: Status: Active Protocol: Document 10/08/24 14:07 NBM (Rec: 10/08/24 17:25 NBM Laptop) Hot Pack/Cold Pack Treatment Cold Pack Location L hip Patient Position Hooklying Patient Tolerance Good Comments LEs supported with bolster. Lumbar size held with strap . 9' PT-OP-T Assessment and Plan Start: 08/08/24 08:31 Freq: Status: Active Protocol: Document 11/03/24 17:04 KW (Rec: 11/03/24 17:11 KW Laptop) Physical Therapy Assessment Rehab Potential Rehabilitation Fair Potential Evaluation Complexity Number of Personal 1-2 Factors/ Comorbidities Number of Body 3 Systems Impaired Clinical Evolving Presentation at Evaluation Impairments Impairments Balance,Gait,Pain,Posture,ROM,Soft Tissue Mobility, Strength Goals 5 Impairment Evidence of imbalance Labor Contract Analyst Goal (LTG) Pt will perform WNLs on a standardized balance test such as FGA to decrease fall risk and improve gait and hiking on uneven surfaces. - improving 4 Impairment Lack of HEP performance Penitentiary Goal (LTG) Pt will perform progressive HEP with I including breathing, alignment, flexibility, strengthening and balance exercises to improve pain and mobility. 09/07/24: Pt is performing pelvic realignment exercises, Mike and hamstring stretches 09/22/24: Pt is performing open book, hip and leg stretches and he is using trekking poles for hiking 09/24/24: Issued and condensend stretching HEP HOs: IH Hip Stretches HO, standing Quad, HS, Calf stretch ( lunge position). 10/08/24: Pt reports 3 days compliance in a row. I/s in modifying supine Piformis Fig 4 when no strap available .- MET LTG Duration 8 weeks - 10/07/24: Goal Met 1 Impairment LEF score reflects 55% impairment Penitentiary Goal (LTG) Pt will present with LEF score to reflect no more than 30% impairment to improve quality of life and mobility. 09/07/24: LEF reflects 45% impairment 09/22/24: LEF score reflects 47.5% impairment, no improvement but pt reports some improvement as he is doing chores and yard work and going for short hikes with trekking poles LTG Duration 8 weeks Progress Towards Goals Progress Towards Slow Progress - Other Goals Progress Comments lumbar component likely contributing Assessment Summary Assessment excessive posterior hip compression, tight deep hip rotators impeding good motion. Very evident as when he goes into a prone position, he has excellent rotation. DC PT due to insurance limit. Patient has new RX for spine. WIll do eval once insurance approves Physical Therapy Plan Therapeutic Interventions Therapeutic Balance Training,Canalithic Repositioning,Coordination Interventions Training,Gait Training,Home Exercise Program,Joint Mobilizations,Manual Therapy,Neuromuscular Re-education ,Patient/Caregiver Education,Self-Care/Home Management, Soft Tissue Mobilization,Taping,Therapeutic Activities, Therapeutic Exercises Modalities Cold Pack/Ice Massage,Electric Stimulation,Hot Packs, Ultrasound Discharge Physical Therapy Discharge Reasons Change in Medical Status Discharge Comments insurance limit. New Rx for spine. DC hip POC
--- NOTE | 2024-11-04 15:15 | PT-OP ANOTE ---
spoke with Kp just now on the phone. Informed him we need MD order for lumbar spine. All further PT visits have been removed from the schedule until referral is in the system. HE can then schedule an EVAL with me, we will send in the auth request to [employer] for further visits. He understood
== END 2025-01-03 10:39 | disposition home or self-care (01) ==
LOC: PHYS 17:00
PROVIDERS: Family Provider Family Medicine; PCP Family Medicine; Referring Provider Orthopaedic Surgery; Visit Provider Orthopaedic Surgery
DX: M70.62 Trochanteric bursitis, left hip (principal); Z96.642 Presence of left artificial hip joint
CPT/HCPCS: 97010; 97110; 97116; 97140; 97162; 97530; 97535

== ENCOUNTER 2024-11-10 14:30 | Outpatient (RCR) | payer MEDICARE, SELFPAY ==
[2018-03-02 16:56] VITALS: BMI 28.9
--- NOTE | 2024-11-10 18:08 | PT.OIE ---
Current Diagnoses Spondylosis without myelopathy or radiculopathy, lumbar region (11/10/24) Low back pain, unspecified (11/10/24) Past Medical History (Last Updated 08/19/24 @ 11:42 by Fabiana Mckeon MA) Back pain BPH with obstruction/lower urinary tract symptoms (~1992) Chest pain, atypical Colitis Costochondritis Depression with anxiety Dermatofibroma (~1991) Diverticulum of bladder Elevated PSA (01/24/11) Erectile dysfunction Generalized arthritis Genital herpes Hearing loss History of cardioversion (~2006) Hyperlipidemia IBS (irritable bowel syndrome) (~2003) Microscopic hematuria Neck pain Numbness and tingling Palpitations Paroxysmal atrial fibrillation Pneumonia Scrotal cyst Urinary retention Urinary retention due to benign prostatic hyperplasia Past Surgical History (Last Reviewed 01/29/24 @ 18:45 by Shanda Jennings DO) Anesthesia H/O vasectomy History of colonoscopy History of kidney surgery (~2022) History of left hip replacement (~2018) Hx of oral surgery Hx of tonsillectomy S/P TURP (~2023) Visit Care Team Role Provider Type Rolanda Delgado DO Attending Provider Physician Family Provider Primary Care Provider Referring Provider Specialty: Family Practice Address: [address] [place] [address], [address], [facility] Email: [email or web address] Physical Therapy Initial Evaluation PT-OP-A Visit Information Start: 11/10/24 14:40 Freq: Status: Active Protocol: Document 11/10/24 14:41 KW (Rec: 11/10/24 18:08 KW Laptop) Out-Patient Physical Therapy Visit Information Visit Information Visit Type Initial Evaluation Visit Note EVAL ONLY PER INSURANCE requirement Visit Start Time 14:30 Visit Stop Time 15:15 Visit Number 1 Evaluation Information Evaluation Date 11/10/24 PT-OP-B Current Condition Start: 11/10/24 14:40 Freq: Status: Active Protocol: Document 11/10/24 14:41 KW (Rec: 11/10/24 18:08 KW Laptop) Current Condition History of Current Condition Onset Date FEB 2024 Current Complaints B feet, toe numbness, pain History of Current happened for the first time the day after kidney stone Condition surgery. It started in left pinky toe then B big toes. They are numb and then become red. When non weight bearing only. H/o L kidney cancer that underwent cryoblasion. H/o LBP his entire life, significant DDD/ DJD on x-ray. H/o Left total hip, Right with arthritis. Has not had EMG or peripheral vascular testing. He is pre-diabetic, admits he has a difficult time controlling his eating and will eat a box of crackers or chips at one sitting. Treatment Goals Patient/Caregiver resolve toe pain, numbness, swelling Goals PT-OP-C Subjective Start: 11/10/24 14:40 Freq: Status: Active Protocol: Document 11/10/24 14:41 KW (Rec: 11/10/24 18:08 KW Laptop) Patient Questionnaires Oswestry Low Back Index Oswestry Score 21 Oswestry Impairment 40 to 59% Impaired (Score 40-59) OP-PT Pain Assessment Location Toes Scale Used Numeric (0 - 10) Description Aching,Burning,Chronic,Cramping,Throbbing,Tingling Frequency Frequent Pain Alleviating Cold,Heat,Medication,Inactivity,Position Factors Pain Aggravating ADL's,Activity,Exercise Factors PT-OP-D Balance Start: 11/10/24 14:40 Freq: Status: Active Protocol: Document 11/10/24 14:41 KW (Rec: 11/10/24 18:08 KW Laptop) Balance Tests Single Limb Standing Single Limb- Right 3 Single Limb- Left 4 Tandem Tandem Standing 3 PT-OP-E Functional Tests Start: 11/10/24 14:40 Freq: Status: Active Protocol: Document 11/10/24 14:41 KW (Rec: 11/10/24 18:08 KW Laptop) Functional Tests Five Times Sit to Stand Test Score 10 Comments use of hands PT-OP-G Mobility & Gait Start: 11/10/24 14:40 Freq: Status: Active Protocol: Document 11/10/24 14:41 KW (Rec: 11/10/24 18:08 KW Laptop) OP Gait Assessment Comments Gait Comments wide CORNELL, poor arm swing, reduced gluteal activation PT-OP-J Posture/Palpation/Skin Start: 11/10/24 14:40 Freq: Status: Active Protocol: Document 11/10/24 14:41 KW (Rec: 11/10/24 18:08 KW Laptop) Posture Evaluation Position Standing Evaluation View Lateral Head/C-Spine Posture Forward Head T-Spine Posture Increased Kyphosis Thorax Posture Barrel Chested L-Spine Posture Decreased Lordosis Shoulder Posture (L) Rounded,(R) Rounded Scapula Posture (R) Protracted Pelvis Posture Posterior Tilted Weight Distribution Weight Shifted Right Comments Posture Comments significant gluteal clenching VERY wide infra-sternal angle PT-OP-K Range of Motion Start: 11/10/24 14:40 Freq: Status: Active Protocol: Document 11/10/24 14:41 KW (Rec: 11/10/24 18:08 KW Laptop) Lumbar Spine Range of Motion Lumbar Spine Active Testing Position Standing Flexion 70 Extension 10 Rotation Left 25 Rotation Right 20 Lateral Flexion Left 15 Lateral Flexion 10 Right ROM Limitations Soft Tissue Tightness,Bony Restriction,Muscle Weakness Toe Range of Motion Toe Left Great Toe Toe ROM WFL Yes Comments all toes WNL PT-OP-L Special Tests Start: 11/10/24 14:40 Freq: Status: Active Protocol: Document 11/10/24 14:41 KW (Rec: 11/10/24 18:08 KW Laptop) Special Tests Lumbar Spine Special Tests Vertical Spine Loading Test Results (+) Comments compression Foot/Ankle Special Tests Talor Tilt Test Results NEG PT-OP-M Strength Start: 11/10/24 14:40 Freq: Status: Active Protocol: Document 11/10/24 14:41 KW (Rec: 11/10/24 18:08 KW Laptop) Trunk Strength Trunk Manual Muscle Testing Flexion 3 Fair Extension 3 Fair Rotation Left 3 Fair Rotation Right 3 Fair Lateral Flexion Left 3 Fair Lateral Flexion 3 Fair Right Core Stabilization very pore, breath holding, protruding abdomen with excessive weight Hip Strength Hip Manual Muscle Testing Right Flexion (L2) 4- Good- Extension (S1) 4- Good- Abduction 4- Good- External Rotation 4- Good- Internal Rotation 4- Good- Comments bilateral Toe Strength Toe Manual Muscle Testing Left Flexion 4 Good Extension 4 Good Comments good bilateral PT-OP-T Assessment and Plan Start: 11/10/24 14:40 Freq: Status: Active Protocol: Document 11/10/24 14:41 KW (Rec: 11/10/24 18:08 KW Laptop) Physical Therapy Assessment Rehab Potential Rehabilitation Good Potential Evaluation Complexity Number of Personal 3 or More Factors/ Comorbidities Number of Body 4 or More Systems Impaired Clinical Evolving Presentation at Evaluation Impairments Impairments Activity Tolerance,Balance,Functional Activities, Functional Mobility,Gait,Pain,Posture,ROM,Sensation, Soft Tissue Mobility,Strength Goals Three Impairment gluteal clenching Short Term Goal (STG patient no longer clenches glut muscles in standing ) STG Duration 6 weeks Two Impairment low back pain Short Term Goal (STG low back pain improves 50% with consistent CORE ) strengthening STG Duration 6 weeks One Impairment poor core strength Short Term Goal (STG patient improves CORE strength to 4/5 with consistent ) HEP STG Duration 6 weeks Assessment Summary Assessment patient with significant DDD/DJD to lumbar spine, very weak CORE with onset of toe numbness and vascular changes that are concerning to him. Strongly recommend a CGM to monitor blood sugars as elevated blood sugars are likely at play. Regardless, patient will benefit from CORE strengthening program, breath work to reduce compressive forces to spine.
--- NOTE | 2024-11-10 18:08 | PT.OPPOC ---
Physical, Occupational & Speech Therapy At [facility] Current Diagnoses Spondylosis without myelopathy or radiculopathy, lumbar region (11/10/24) Low back pain, unspecified (11/10/24) Visit Care Team Role Provider Type Rolanda Delgado DO Attending Provider Physician Family Provider Primary Care Provider Referring Provider Specialty: Family Practice Address: [address] [place] [address], [address], [facility] Email: [email or web address] Plan Of Care PT-OP-B Current Condition Start: 11/10/24 14:40 Freq: Status: Active Protocol: Document 11/10/24 14:41 KW (Rec: 11/10/24 18:08 KW Laptop) Current Condition History of Current Condition Onset Date FEB 2024 Current Complaints B feet, toe numbness, pain History of Current happened for the first time the day after kidney stone Condition surgery. It started in left pinky toe then B big toes. They are numb and then become red. When non weight bearing only. H/o L kidney cancer that underwent cryoblasion. H/o LBP his entire life, significant DDD/ DJD on x-ray. H/o Left total hip, Right with arthritis. Has not had EMG or peripheral vascular testing. He is pre-diabetic, admits he has a difficult time controlling his eating and will eat a box of crackers or chips at one sitting. Treatment Goals Patient/Caregiver resolve toe pain, numbness, swelling Goals PT-OP-T Assessment and Plan Start: 11/10/24 14:40 Freq: Status: Active Protocol: Document 11/10/24 14:41 KW (Rec: 11/10/24 18:08 KW Laptop) Physical Therapy Assessment Rehab Potential Rehabilitation Good Potential Evaluation Complexity Number of Personal 3 or More Factors/ Comorbidities Number of Body 4 or More Systems Impaired Clinical Evolving Presentation at Evaluation Impairments Impairments Activity Tolerance,Balance,Functional Activities, Functional Mobility,Gait,Pain,Posture,ROM,Sensation, Soft Tissue Mobility,Strength Goals Three Impairment gluteal clenching Short Term Goal (STG patient no longer clenches glut muscles in standing ) STG Duration 6 weeks Two Impairment low back pain Short Term Goal (STG low back pain improves 50% with consistent CORE ) strengthening STG Duration 6 weeks One Impairment poor core strength Short Term Goal (STG patient improves CORE strength to 4/5 with consistent ) HEP STG Duration 6 weeks Assessment Summary Assessment patient with significant DDD/DJD to lumbar spine, very weak CORE with onset of toe numbness and vascular changes that are concerning to him. Strongly recommend a CGM to monitor blood sugars as elevated blood sugars are likely at play. Regardless, patient will benefit from CORE strengthening program, breath work to reduce compressive forces to spine. Electronically Signed by: Kyra Verma, PT 11/10/24 0314 If you are in agreement with this Plan of Care, please return a signed and dated copy. I have reviewed this Plan of Care and certify that the skilled therapy services above are required to meet the patient?s needs. Physician Signature Date Printed Name and Credentials Clinical Instructor Signature Printed Name and Credentials
--- NOTE | 2024-12-01 09:16 | PT.OPDS ---
Current Diagnoses Spondylosis without myelopathy or radiculopathy, lumbar region (11/10/24) Low back pain, unspecified (11/10/24) Visit Care Team Role Provider Type Rolanda Delgado DO Attending Provider Physician Family Provider Primary Care Provider Referring Provider Specialty: Family Practice Address: [address] [place] [address], [address], [address] Email: [email or web address] Visit Number Visit Number 1 Discharge Summary PT-OP-A Visit Information Start: 11/10/24 14:40 Freq: Status: Active Protocol: Document 11/10/24 14:41 KW (Rec: 11/10/24 18:08 KW Laptop) Out-Patient Physical Therapy Visit Information Visit Information Visit Type Initial Evaluation Visit Note EVAL ONLY PER INSURANCE requirement Visit Start Time 14:30 Visit Stop Time 15:15 Visit Number 1 Evaluation Information Evaluation Date 11/10/24 PT-OP-B Current Condition Start: 11/10/24 14:40 Freq: Status: Active Protocol: Document 11/10/24 14:41 KW (Rec: 11/10/24 18:08 KW Laptop) Current Condition History of Current Condition Onset Date FEB 2024 Current Complaints B feet, toe numbness, pain History of Current happened for the first time the day after kidney stone Condition surgery. It started in left pinky toe then B big toes. They are numb and then become red. When non weight bearing only. H/o L kidney cancer that underwent cryoblasion. H/o LBP his entire life, significant DDD/ DJD on x-ray. H/o Left total hip, Right with arthritis. Has not had EMG or peripheral vascular testing. He is pre-diabetic, admits he has a difficult time controlling his eating and will eat a box of crackers or chips at one sitting. Treatment Goals Patient/Caregiver resolve toe pain, numbness, swelling Goals PT-OP-C Subjective Start: 11/10/24 14:40 Freq: Status: Active Protocol: Document 11/10/24 14:41 KW (Rec: 11/10/24 18:08 KW Laptop) Patient Questionnaires Oswestry Low Back Index Oswestry Score 21 Oswestry Impairment 40 to 59% Impaired (Score 40-59) OP-PT Pain Assessment Location Toes Scale Used Numeric (0 - 10) Description Aching,Burning,Chronic,Cramping,Throbbing,Tingling Frequency Frequent Pain Alleviating Cold,Heat,Medication,Inactivity,Position Factors Pain Aggravating ADL's,Activity,Exercise Factors PT-OP-D Balance Start: 11/10/24 14:40 Freq: Status: Active Protocol: Document 11/10/24 14:41 KW (Rec: 11/10/24 18:08 KW Laptop) Balance Tests Single Limb Standing Single Limb- Right 3 Single Limb- Left 4 Tandem Tandem Standing 3 PT-OP-E Functional Tests Start: 11/10/24 14:40 Freq: Status: Active Protocol: Document 11/10/24 14:41 KW (Rec: 11/10/24 18:08 KW Laptop) Functional Tests Five Times Sit to Stand Test Score 10 Comments use of hands PT-OP-G Mobility & Gait Start: 11/10/24 14:40 Freq: Status: Active Protocol: Document 11/10/24 14:41 KW (Rec: 11/10/24 18:08 KW Laptop) OP Gait Assessment Comments Gait Comments wide CORNELL, poor arm swing, reduced gluteal activation PT-OP-J Posture/Palpation/Skin Start: 11/10/24 14:40 Freq: Status: Active Protocol: Document 11/10/24 14:41 KW (Rec: 11/10/24 18:08 KW Laptop) Posture Evaluation Position Standing Evaluation View Lateral Head/C-Spine Posture Forward Head T-Spine Posture Increased Kyphosis Thorax Posture Barrel Chested L-Spine Posture Decreased Lordosis Shoulder Posture (L) Rounded,(R) Rounded Scapula Posture (R) Protracted Pelvis Posture Posterior Tilted Weight Distribution Weight Shifted Right Comments Posture Comments significant gluteal clenching VERY wide infra-sternal angle PT-OP-K Range of Motion Start: 11/10/24 14:40 Freq: Status: Active Protocol: Document 11/10/24 14:41 KW (Rec: 11/10/24 18:08 KW Laptop) Lumbar Spine Range of Motion Lumbar Spine Active Testing Position Standing Flexion 70 Extension 10 Rotation Left 25 Rotation Right 20 Lateral Flexion Left 15 Lateral Flexion 10 Right ROM Limitations Soft Tissue Tightness,Bony Restriction,Muscle Weakness Toe Range of Motion Toe Left Great Toe Toe ROM WFL Yes Comments all toes WNL PT-OP-L Special Tests Start: 11/10/24 14:40 Freq: Status: Active Protocol: Document 11/10/24 14:41 KW (Rec: 11/10/24 18:08 KW Laptop) Special Tests Lumbar Spine Special Tests Vertical Spine Loading Test Results (+) Comments compression Foot/Ankle Special Tests Talor Tilt Test Results NEG PT-OP-M Strength Start: 11/10/24 14:40 Freq: Status: Active Protocol: Document 11/10/24 14:41 KW (Rec: 11/10/24 18:08 KW Laptop) Trunk Strength Trunk Manual Muscle Testing Flexion 3 Fair Extension 3 Fair Rotation Left 3 Fair Rotation Right 3 Fair Lateral Flexion Left 3 Fair Lateral Flexion 3 Fair Right Core Stabilization very pore, breath holding, protruding abdomen with excessive weight Hip Strength Hip Manual Muscle Testing Right Flexion (L2) 4- Good- Extension (S1) 4- Good- Abduction 4- Good- External Rotation 4- Good- Internal Rotation 4- Good- Comments bilateral Toe Strength Toe Manual Muscle Testing Left Flexion 4 Good Extension 4 Good Comments good bilateral PT-OP-T Assessment and Plan Start: 11/10/24 14:40 Freq: Status: Active Protocol: Document 12/01/24 09:15 KW (Rec: 12/01/24 09:16 KW Laptop) Physical Therapy Assessment Goals Three Impairment gluteal clenching Short Term Goal (STG patient no longer clenches glut muscles in standing ) STG Duration 6 weeks Two Impairment low back pain Short Term Goal (STG low back pain improves 50% with consistent CORE ) strengthening STG Duration 6 weeks One Impairment poor core strength Short Term Goal (STG patient improves CORE strength to 4/5 with consistent ) HEP STG Duration 6 weeks Physical Therapy Plan Discharge Physical Therapy Discharge Reasons Patient Request Discharge Comments phoned and talked to Kp. Insurance did not approve further PT visits for lumbar spine. He said he was continuing with his HEP and was actually managing well. SUSANNA PT.
== END 2025-03-25 13:33 | disposition home or self-care (01) ==
LOC: PHYS 14:30
PROVIDERS: Family Provider Family Medicine; PCP Family Medicine; Referring Provider Family Medicine; Visit Provider Family Medicine
DX: M47.816 Spondylosis without myelopathy or radiculopathy, lumbar region (principal); M54.50 Low back pain, unspecified
CPT/HCPCS: 97163

== ENCOUNTER 2025-03-24 20:03 | Observation (INO) | payer MEDICARE, SELFPAY ==
[2018-03-02 16:56] VITALS: BMI 28.9
[2025-03-24 20:15] VITALS: BP 148/78; PULSE 55; RESP 14; TEMP 36.9; O2SAT 98; BMI 27.3
[2025-03-24] MEDS: ONDANSETRON 4 MG/2 ML INJ IV ×2 (20:32→23:33)
--- NOTE | 2025-03-24 20:32 | ED.ABDPAIN ---
HPI - Abdominal Pain General Chief Complaint: Abdominal Pain Stated Complaint: Poss food poisoning Time Seen by Provider: 03/24/25 20:31 Source: patient Mode of arrival: Ambulatory History of Present Illness HPI narrative: 79-year-old male with history of atrial fibrillation on Eliquis chronic anticoagulation, history of prior renal carcinoma, history of BPH. Complains of nausea and vomiting since 6:30 p.m. today, after having eaten a tamale from home open refrigerator, denies diarrhea, has some crampy abdominal pain. Last bowel movement earlier today without black or red color or mucoid appearance. No recent exposure to antibiotics. He does recall having colitis episode once in the past. Left upper abdominal discomfort. No painful or frequent urination. Has had recent dry cough. Takes blood thinner medications. Related Data Home Medications ?Medication ?Instructions ?Recorded ?Confirmed metoprolol succinate 50 mg 50 mg PO DAILY 02/24/18 03/25/25 tablet,extended release 24 hr sildenafil 25 mg tablet (Viagra) 25 mg PO DAILY PRN Sexual Activity 02/24/18 03/25/25 propafenone 150 mg tablet 150 mg PO TID 11/15/19 03/25/25 rivaroxaban 20 mg tablet (Xarelto) 20 mg PO DAILY 10/08/23 03/25/25 Previous Rx's ?Medication ?Instructions ?Recorded lorazepam 0.5 mg tablet 0.5 mg PO DAILY PRN anxiety #5 tabs 02/05/25 Allergies Allergy/AdvReac Type Severity Reaction Status Date / Time zolpidem AdvReac Intermediate NIGHTMARES Verified 09/23/24 07:40 AND VERY ADDICTING PER PATIENT Patient History Medical History (Updated 03/24/25 @ 22:58 by Brayan Celeste MD) Elevated PSA (01/24/11) Urinary retention due to benign prostatic hyperplasia Neck pain Back pain Costochondritis Pneumonia Numbness and tingling Palpitations Genital herpes Generalized arthritis Dermatofibroma (~1991) Colitis Hearing loss IBS (irritable bowel syndrome) (~2003) Depression with anxiety Chest pain, atypical History of cardioversion (~2006) Urinary retention Scrotal cyst Microscopic hematuria Diverticulum of bladder Paroxysmal atrial fibrillation Hyperlipidemia BPH with obstruction/lower urinary tract symptoms (~1992) Erectile dysfunction Surgical History Anesthesia S/P TURP (~2023) History of kidney surgery (~2022) History of left hip replacement (~2018) History of colonoscopy Hx of oral surgery H/O vasectomy Hx of tonsillectomy Family History Father Cancer Sister Mental health problem Social History household members: spouse and children Smoking Status: Never smoker alcohol intake: current Smoking Status: Never smoker alcohol intake frequency: 3 or more drinks per day Exam Narrative Exam Narrative: GENERAL: Well-developed patient, in mild distress. HEAD: Atraumatic. Normocephalic. EYES: Pupils equal round and reactive. Extraocular motions intact. No scleral icterus. No injection or drainage. ENT: No obvious craniofacial trauma. NECK: Trachea midline. Non tender CARDIOVASCULAR: Regular rate and rhythm without murmurs, gallops, or rubs. RESPIRATORY: Clear to auscultation. Breath sounds equal bilaterally. No wheezes, rales, or rhonchi. GASTROINTESTINAL: Abdomen is soft nondistended, some upper left mild abdominal tenderness. Normal bowel tones. EXTREMITIES: No edema or joint tenderness. BACK: Nontender without deformity or crepitance. No flank tenderness. NEURO: AOx3. Motor functions grossly nonfocal. SKIN: No rash or erythema of visible areas Initial Vital Signs Initial Vital Signs: Vital Signs Temperature 98.4 F 03/24/25 20:15 Pulse Rate 55 L 03/24/25 20:15 Respiratory Rate 14 03/24/25 20:15 Blood Pressure 148/78 H 03/24/25 20:15 Pulse Oximetry 98 03/24/25 20:15 Oxygen Delivery Method Room Air 03/24/25 20:15 Course Orders Ordered: ED Orders 03/24/25 22:28 Covid-19 + FLU A/B + RSV - PCR Stat 03/24/25 22:32 XR chest 1V Stat 03/25/25 00:41 GI Panel (Film Array) Stat Acetaminophen (Acetaminophen 325 Mg Tablet) 650 mg PO Q6H PRN PRN Reason: Fever/Mild Pain (1-3) Sodium Chloride (Normal Saline 0.9%) 1,000 mls @ 100 mls/hr IV CONT PATRICK Last Admin: 03/24/25 23:22 Dose: 100 mls/hr Documented By: GURPREET Lorazepam (Lorazepam 0.5 Mg Tablet) 0.5 mg PO DAILY PRN PRN Reason: Anxiety Metoclopramide HCl (Metoclopramide 10 Mg/2 Ml Inj) 10 mg IV Q6HR PRN PRN Reason: Nausea And Vomiting Metoprolol Succinate (Metoprolol Er 50 Mg Tablet) 50 mg PO DAILY [facility] Morphine Sulfate (Morphine 4 Mg/Ml Inj) 3 mg IV Q2HR PRN PRN Reason: Pain, Severe (7-10) Last Admin: 03/24/25 23:33 Dose: 3 mg Documented By: GURPREET Naloxone HCl (Naloxone 0.4 Mg/Ml Vial) 0.2 mg IV Q2MIN PRN PRN Reason: Opiate Reversal Ondansetron HCl (Ondansetron 4 Mg/2 Ml Inj) 4 mg IV NOW PRN PRN Reason: Nausea And Vomiting Last Admin: 03/24/25 20:32 Dose: 4 mg Documented By: WENCESLAO Ondansetron HCl (Ondansetron 4 Mg Odt) 4 mg PO NOW PRN PRN Reason: Nausea And Vomiting Ondansetron HCl (Ondansetron 4 Mg/2 Ml Inj) 4 mg IV Q8HR PRN PRN Reason: Nausea And Vomiting Last Admin: 03/24/25 23:33 Dose: 4 mg Documented By: GURPREET Sodium Chloride (Sodium Chloride 0.9% Flush) 10 ml IV PRN PRN PRN Reason: Flush Sodium Chloride (Sodium Chloride 0.9% Flush) 10 ml IV BID [facility] Vital Signs Vital signs: Vital Signs - 8 hr 03/24/25 20:15 03/24/25 20:43 03/24/25 20:45 Temperature 98.4 F Pulse Rate 55 L 50 L Respiratory Rate 14 Blood Pressure 148/78 H 167/81 H Pulse Oximetry 98 96 Oxygen Delivery Method Room Air 03/24/25 20:45 03/24/25 21:38 Temperature 97.7 F Pulse Rate 50 L Respiratory Rate 18 Blood Pressure Pulse Oximetry 93 Oxygen Delivery Method MDM - Abdominal Pain Lab Data Attestation: I reviewed the patient's lab results. Lab results narrative: White blood cell count 94478, hemoglobin 16.3, platelets adequate. Glucose 166. BUN 21 with creatinine 1.26 noted. Serum CO2 and electrolytes normal. Liver functions and lipase normal. 03/25/25 05:09 03/25/25 05:09 Labs: Lab Results 03/24/25 03/24/25 Range/Units 20:40 22:28 WBC 15.1 H (4.5-11.0) X10^3/uL RBC 5.06 (4.5-5.9) X10^6/uL Hgb 16.3 (13.5-17.5) g/dL Hct 48.3 (41-53) % MCV 95.4 (80-100) fL MCH 32.2 (26-34) PG MCHC 33.7 (30-36) % RDW 12.8 (11.6-14.8) % Plt Count 258 (150-400) X10^3/uL Neut % (Auto) 82.7 H (50-75) % Lymph % (Auto) 12.3 L (25-40) % [place] % (Auto) 4.1 (3-14) % Eos % (Auto) 0.2 L (2-4) % Baso % (Auto) 0.7 (0-2) % Neut # (Auto) 12842 H (0466-1853) /uL Lymph # (Auto) 1900 (5854-8149) /uL [place] # (Auto) 600 (0-900) /uL Eos # (Auto) 0 (0-450) /uL Baso # (Auto) 100 (0-100) /uL Sodium 142 (137-145) mmol/L Potassium 3.9 (3.4-5.1) mmol/L Chloride 101 (98-107) mmol/L Carbon Dioxide 30 (22-32) mmol/L BUN 21 H (9-20) mg/dL Creatinine 1.26 H (0.66-1.25) mg/dL Estimated GFR 58 L (>60) mL/min BUN/Creatinine Ratio 16.7 (6-22) Glucose 166 H (70-99) mg/dL Lactate 2.2 H (0.7-2.1) mmol/L Calcium 10.1 (8.4-10.2) mg/dL Total Bilirubin 0.8 (0.2-1.3) mg/dL AST 31 (17-59) IU/L ALT 22 (<50) IU/L Alkaline Phosphatase 122 (38-126) U/L Total Protein 9.0 H (6.3-8.2) g/dL Albumin 4.9 (3.5-5.0) g/dL Globulin 4.1 (1.7-4.1) g/dL Albumin/Globulin Ratio 1.2 (1.0-2.8) Lipase 226 (23-300) U/L SARS-CoV-2 (PCR) Negative (Negative) Influenza A (RT-PCR) Flu a negative (NEGATIVE) Influenza B (RT-PCR) Flu b negative (NEGATIVE) RSV (PCR) Negative (Negative) Imaging Data CT scan - abdomen/pelvis: Radiologist's Impression: [address] [address] [address] Scan Report Signed Patient: Kp Cortez MR#: [id number] : 1945 Acct:[id number] Age/Sex: 79 / M Date of Service: 03/24/25 Loc: ED Accession Number: [id number] Procedure: CT abdomen pelvis w con Ordering Provider: Brayan Celeste MD PROCEDURE: CT ABDOMEN PELVIS W CON INDICATIONS: abd pain TECHNIQUE: After the administration of intravenous contrast, axial sections acquired from the lung bases to the pubic symphysis. Coronal and sagittal reformats were performed. For radiation dose reduction, the following was used: automated exposure control, adjustment of mA and/or kV according to patient size. COMPARISON: [facility], CT, CT ABDOMEN PELVIS W CON, 01/29/2024, 14:13. FINDINGS: Image quality: Diagnostic. Lower Chest: Cardiomegaly. Moderate hiatal hernia. ABDOMEN: Liver: Segment 2 cyst. Gallbladder: No radiopaque gallstones or wall thickening. Biliary ducts: No biliary dilation. Pancreas: No ductal dilation. Spleen: Size is within normal limits. Adrenal Glands: No adrenal nodules. Kidneys and Ureters: Posttreatment changes of the left kidney, with a heterogeneous treatment zone measuring 3.4 x 2.0 cm, grossly unchanged in size compared with prior. No hydronephrosis. Mild renal atrophy. Stomach and Bowel: Distended loops of small bowel. There is a gradual transition point in the left lower quadrant (series 2, image 92). Mild mesenteric edema. Normal enhancement of the bowel. Bowel distal to the transition point does contain fluid. Colonic diverticulosis without evidence of diverticulitis. Peritoneum: No abnormal intraperitoneal fluid. No free air. Ventral Wall: No significant ventral hernia. Abdominal Nodes: No retroperitoneal or mesenteric adenopathy by size criteria. Vessels: Aorta and inferior vena cava are normal in size. PELVIS: Pelvic Organs: Unremarkable. Bladder: No bladder wall thickening, accounting for underdistention. Pelvic Nodes: No enlarged lymph nodes. Miscellaneous: No inguinal hernias are seen. Bones: No aggressive osseous abnormality. Left total hip arthroplasty. Convex right scoliosis of the lumbar spine. IMPRESSION: Partial, low-grade bowel obstruction with a gradual transition point in the left lower quadrant. Bowel distal to the transition point does contain fluid. There is fecalization of small bowel contents. Normal enhancement of the bowel. Mild mesenteric edema. Dictated by: Aung Whitman M.D. on 03/24/2025 at 22:14 Approved by: Aung Whitman M.D. on 03/24/2025 at 22:17 [facility] Narrative Medical decision making narrative: 79-year-old male with history of atrial fibrillation on Eliquis chronic anticoagulation, prior kidney cancer, ate tamale from his fridge this evening that he thought might have been old, now having crampy abdominal pain nausea or vomiting. Lab data: White blood cell count 83406, hemoglobin 16.3, platelets adequate. Glucose 166. BUN 21 with creatinine 1.26 noted. Serum CO2 and electrolytes normal. Liver functions and lipase normal. CT abdomen and pelvis. IMPRESSION: Partial, low-grade bowel obstruction with a gradual transition point in the left lower quadrant. Bowel distal to the transition point does contain fluid. There is fecalization of small bowel contents. Normal enhancement of the bowel. Mild mesenteric edema. See radiology report. 2239, case discussed with surgery Dr. Kong who will consult, or her we will pass onto new contact center consultant available tomorrow morning Dr. Bah 2254, case discussed with hospitalist Dr. Haynes who accepts patient for admission to observation Critical Care Time Critical Care Time Critical Care Time: Yes Total Critical Care Time: 35 Attestation: The high probability of a clinically significant, sudden or life threatening deterioration of the [abdominopelvic, renal, gastrointestinal] system(s) required my full and direct attention, intervention and personal management. The aggregate critical care time was [35] minutes. This time is in addition to time spent performing reported procedures but includes the following: [x] Data Review and interpretation [x] Patient assessment and monitoring of vital signs [x] Documentation [x] Medication orders and management Discharge Plan Departure Patient Disposition: Admitted as Observation Clinical Impression: Nausea and vomiting, Partial bowel obstruction Admit Date/Time: 03/24/25 22:58 Admit Provider: Larry Haynes
--- NOTE | 2025-03-24 20:37 | EKG_ITS ---
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
--- NOTE | 2025-03-24 20:42 | DI.CT.S_ITS ---
PROCEDURE: CT ABDOMEN PELVIS W CON INDICATIONS: abd pain TECHNIQUE: After the administration of intravenous contrast, axial sections acquired from the lung bases to the pubic symphysis. Coronal and sagittal reformats were performed. For radiation dose reduction, the following was used: automated exposure control, adjustment of mA and/or kV according to patient size. COMPARISON: [facility], CT, CT ABDOMEN PELVIS W CON, 01/29/2024, 14:13. FINDINGS: Image quality: Diagnostic. Lower Chest: Cardiomegaly. Moderate hiatal hernia. ABDOMEN: Liver: Segment 2 cyst. Gallbladder: No radiopaque gallstones or wall thickening. Biliary ducts: No biliary dilation. Pancreas: No ductal dilation. Spleen: Size is within normal limits. Adrenal Glands: No adrenal nodules. Kidneys and Ureters: Posttreatment changes of the left kidney, with a heterogeneous treatment zone measuring 3.4 x 2.0 cm, grossly unchanged in size compared with prior. No hydronephrosis. Mild renal atrophy. Stomach and Bowel: Distended loops of small bowel. There is a gradual transition point in the left lower quadrant (series 2, image 92). Mild mesenteric edema. Normal enhancement of the bowel. Bowel distal to the transition point does contain fluid. Colonic diverticulosis without evidence of diverticulitis. Peritoneum: No abnormal intraperitoneal fluid. No free air. Ventral Wall: No significant ventral hernia. Abdominal Nodes: No retroperitoneal or mesenteric adenopathy by size criteria. Vessels: Aorta and inferior vena cava are normal in size. PELVIS: Pelvic Organs: Unremarkable. Bladder: No bladder wall thickening, accounting for underdistention. Pelvic Nodes: No enlarged lymph nodes. Miscellaneous: No inguinal hernias are seen. Bones: No aggressive osseous abnormality. Left total hip arthroplasty. Convex right scoliosis of the lumbar spine. IMPRESSION: Partial, low-grade bowel obstruction with a gradual transition point in the left lower quadrant. Bowel distal to the transition point does contain fluid. There is fecalization of small bowel contents. Normal enhancement of the bowel. Mild mesenteric edema. Dictated by: Aung Whitman M.D. on 03/24/2025 at 22:14 Approved by: Aung Whitman M.D. on 03/24/2025 at 22:17
[2025-03-24 20:43] VITALS: PULSE 50; O2SAT 96
--- NOTE | 2025-03-24 20:44 | EKG_ITS ---
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
[2025-03-24 20:45] VITALS: BP 167/81; PULSE 50; RESP 18; O2SAT 93
--- NOTE | 2025-03-24 20:45 | PC.NURSE ---
Patient vomits about 250cc of pink colored emesis. Provider Booker made aware. No new orders at this time.
[2025-03-24 20:53] LABS: Add Manual Diff / Slide Review NO; Hematocrit 48.3 % (41-53); Hemoglobin 16.3 g/dL (13.5-17.5); Lymphocytes Absolute Auto 1900 /uL (1100-4500); Mean Corpuscular HGB Conc 33.7 % (30-36); Mean Corpuscular Hemoglobin 32.2 PG (26-34); Mean Corpuscular Volume 95.4 fL (80-100); Platelet Count 258 X10^3/uL (150-400)
[2025-03-24 21:06] LABS: Lactate (Lactic Acid) 2.2 mmol/L (0.7-2.1)
[2025-03-24 21:07] LABS: Alanine Aminotransferase 22 IU/L (<50); Albumin 4.9 g/dL (3.5-5.0); Albumin Globulin Ratio 1.2 (1.0-2.8); Alkaline Phosphatase 122 U/L (38-126); Blood Urea Nitrogen 21 mg/dL (9-20); Calcium 10.1 mg/dL (8.4-10.2); Carbon Dioxide 30 mmol/L (22-32); Chloride 101 mmol/L (98-107); Estimated Glomerular Filt Rate 58 mL/min (>60); Globulin 4.1 g/dL (1.7-4.1); Glucose 166 mg/dL (70-99); HEMOLYSIS < 15 (0-50); Lipase 226 U/L (23-300); Potassium 3.9 mmol/L (3.4-5.1); Sodium 142 mmol/L (137-145); Total Protein 9.0 g/dL (6.3-8.2)
[2025-03-24 21:38] VITALS: TEMP 36.5
[2025-03-24 22:21] LABS: Reflexed Lactate in 2 Hours Y
--- NOTE | 2025-03-24 22:32 | DI.RAD.S_ITS ---
PROCEDURE: XR CHEST 1V INDICATIONS: cough, upper abd pain TECHNIQUE: One view of the chest was acquired. COMPARISON: None. FINDINGS: Surgical changes and devices: None. Lungs and pleura: Lungs are clear. No pleural effusions or pneumothorax. Mediastinum: Mediastinal contours appear normal. Heart size is normal. Bones and chest wall: No suspicious bony lesions. Overlying soft tissues appear unremarkable. IMPRESSION: No acute cardiopulmonary abnormality is seen. Dictated by: Aung Whitman M.D. on 03/24/2025 at 23:06 Approved by: Aung Whitman M.D. on 03/24/2025 at 23:07
--- NOTE | 2025-03-24 22:40 | PC.NURSE ---
Patient O2 in high 80s, RN walks in and patient opens eyes. Patient's O2 returns to mid 90s.
[2025-03-24] MEDS: SODIUM CHLORIDE 0.9% 1,000 ML 100 ML IV (23:22)
[2025-03-24] MEDS: MORPHINE 4 MG/ML INJ 3 MG IV (23:33)
[2025-03-24 23:46] VITALS: BP 174/69; PULSE 80; RESP 14; O2SAT 94
[2025-03-25 00:01] LABS: Influenza A - CEPHEID Flu A NEGATIVE (NEGATIVE); Influenza B - CEPHEID Flu B NEGATIVE (NEGATIVE)
[2025-03-25 00:02] LABS: COVID-19 CEPHEID 4-PLEX PCR Negative (Negative)
[2025-03-25 00:12] LABS: Lactate 2HR (Lactic Acid Rflx) 1.5 mmol/L (0.7-2.1)
[2025-03-25 00:41] VITALS: BMI 27.3
--- NOTE | 2025-03-25 04:13 | PM.HP.1 ---
History of Present Illness History of Present Illness Date Patient Seen: 03/24/25 Time Patient Seen: 23:00 Chief complaint: Poss food poisoning Narrative: 79-year-old male with past medical history of colitis, atrial fibrillation on Eliquis, prior renal carcinoma, BPH and erectile dysfunction presents with nausea and vomiting. Per the patient's report, the patient had a family this afternoon. Around 6:30 PM the patient started to have nausea and vomited. Patient also have generalized abdominal pain that is crampy in nature. Patient denies any diarrhea, fever, chills, chest pain or shortness of breath. Denies any dysuria or coughing. The patient main pain is upper abdomen left greater than right. In the emergency room, the patient was hemodynamically stable. Labs shows a WBC of 15 creatinine 1.26 lipase 226 lactate slightly up at 2.2. CT scan of abdomen and pelvic shows partial low-grade small bowel obstruction in the left lower quadrant. General surgery was consulted and said that we can admit the patient for conservative management. General surgery will be available if needed for consultation in the morning. REPLACED BY [facility] Medical History (Updated 03/24/25 @ 22:58 by Brayan Celeste MD) Elevated PSA (01/24/11) Urinary retention due to benign prostatic hyperplasia Neck pain Back pain Costochondritis Pneumonia Numbness and tingling Palpitations Genital herpes Generalized arthritis Dermatofibroma (~1991) Colitis Hearing loss IBS (irritable bowel syndrome) (~2003) Depression with anxiety Chest pain, atypical History of cardioversion (~2006) Urinary retention Scrotal cyst Microscopic hematuria Diverticulum of bladder Paroxysmal atrial fibrillation Hyperlipidemia BPH with obstruction/lower urinary tract symptoms (~1992) Erectile dysfunction Surgical History Anesthesia S/P TURP (~2023) History of kidney surgery (~2022) History of left hip replacement (~2018) History of colonoscopy Hx of oral surgery H/O vasectomy Hx of tonsillectomy Family History Father Cancer Sister Mental health problem Social History household members: spouse and children Smoking Status: Never smoker alcohol intake: current Meds Home Medications and Allergies Home Medications ?Medication ?Instructions ?Recorded ?Confirmed ?Type metoprolol succinate 50 mg 50 mg PO DAILY 02/24/18 09/23/24 History tablet,extended release 24 hr sildenafil 25 mg tablet (Viagra) 25 mg PO DAILY PRN Sexual Activity 02/24/18 09/23/24 History propafenone 150 mg tablet 150 mg PO TID 11/15/19 09/23/24 History rivaroxaban 20 mg tablet (Xarelto) 20 mg PO DAILY 10/08/23 09/23/24 History lorazepam 0.5 mg tablet 0.5 mg PO DAILY PRN anxiety #5 tabs 02/05/25 Rx Allergies Allergy/AdvReac Type Severity Reaction Status Date / Time zolpidem AdvReac Intermediate NIGHTMARES Verified 09/23/24 07:40 AND VERY ADDICTING PER PATIENT Review of Systems Review of Systems ROS: Yes All systems reviewed with the patient and are negative except as otherwise documented Exam Vital Signs (past 8 hours): - 03/24/25 20:15 03/24/25 20:43 03/24/25 20:45 Temperature 98.4 F Pulse Rate 55 L 50 L Respiratory Rate 14 Blood Pressure 148/78 H 167/81 H Pulse Oximetry 98 96 Oxygen Delivery Method Room Air 03/24/25 20:45 03/24/25 21:38 03/24/25 23:46 Temperature 97.7 F Pulse Rate 50 L 80 Respiratory Rate 18 14 Blood Pressure 174/69 H Pulse Oximetry 93 94 Oxygen Delivery Method Room Air Oxygen Delivery Method Room Air Narrative Exam Narrative: Physical Exam: GENERAL: The patient is not in any acute distressed. Awake and alert. HEENT: Nonicteric sclerae, PERRLA, EOMI. Oropharynx clear. Moist mucous membranes. Conjunctivae appear well perfused. HEART: Regular rate and rhythm without murmurs. No lower extremities edema. LUNGS: Clear to auscultation bilaterally. No wheezing, crackles or rhonchi ABDOMEN: Soft, positive bowel sounds, nontender. SKIN: No rash, no excessive bruising, petechiae, or purpura. NEUROLOGIC: AxO x 3. Cranial nerves II-XII intact without motor/sensory deficit. Objective Labs 03/24/25 20:40 03/24/25 20:40 Labs: Laboratory Results - last 24 hr 03/24/25 03/24/25 03/24/25 20:40 22:28 23:30 WBC 15.1 H RBC 5.06 Hgb 16.3 Hct 48.3 MCV 95.4 MCH 32.2 MCHC 33.7 RDW 12.8 Plt Count 258 Neut % (Auto) 82.7 H Lymph % (Auto) 12.3 L [place] % (Auto) 4.1 Eos % (Auto) 0.2 L Baso % (Auto) 0.7 Neut # (Auto) 96806 H Lymph # (Auto) 1900 [place] # (Auto) 600 Eos # (Auto) 0 Baso # (Auto) 100 Sodium 142 Potassium 3.9 Chloride 101 Carbon Dioxide 30 BUN 21 H Creatinine 1.26 H Estimated GFR 58 L BUN/Creatinine Ratio 16.7 Glucose 166 H Lactate 2.2 H 1.5 Calcium 10.1 Total Bilirubin 0.8 AST 31 ALT 22 Alkaline Phosphatase 122 Total Protein 9.0 H Albumin 4.9 Globulin 4.1 Albumin/Globulin Ratio 1.2 Lipase 226 SARS-CoV-2 (PCR) Negative Influenza A (RT-PCR) Flu a negative Influenza B (RT-PCR) Flu b negative RSV (PCR) Negative Assessment & Plan Assessment & Plan narrative: Low-grade partial small bowel obstruction P admit the patient to medical floor as observation. Patient does not need NG tube at this time and has no nausea and vomiting. Continue conservative management with IV fluid and IV antiemetics. General surgery is available if needed for consultation. Atrial fibrillation. Resume home metoprolol and consider resuming Eliquis this morning if patient's symptoms improve and surgery procedure is not needed. Anxiety resume home Ativan. DVT prophylaxis SCDs due to observational status CODE STATUS full code. Disposition likely home in 1 to 2 days. - As the provider of this telehealth evaluation, requested by the patient's evaluating physician, I attest that I introduced myself to the patient, provided my credentials and determined that telemedicine via a real-time, 2 way interactive audio and video platform is an appropriate and effective means of providing this service. - I reviewed the patient's chart and had a discussion with the member of the patient's treatment team. - The patient and I mutually agreed with continuation of this evaluation via telemedicine. The patient consented for the telemedicine evaluation. - This virtual encounter was taken place from [place] by Dr. Larry Haynes. The patient was evaluated at [facility]. The encounter was approximately 35 minutes. The nurse was present during the entire time of the encounter and was able assists with the stethoscope to listen to the patients. Time-Based Coding :: [TOTAL MINUTES] spent with patient and on the chart (including review of chart, obtaining history, exam, reviewing outside data, placing orders, documenting exam and treatment plan, and counseling patient) on [DATE]. Quality VTE Deep Vein Thrombosis/Pulmonary Embolism Present on Admission: No
[2025-03-25 05:39] LABS: Add Manual Diff / Slide Review NO; Hematocrit 44.3 % (41-53); Hemoglobin 15.3 g/dL (13.5-17.5); Lymphocytes Absolute Auto 600 /uL (1100-4500); Mean Corpuscular HGB Conc 34.5 % (30-36); Mean Corpuscular Hemoglobin 32.7 PG (26-34); Mean Corpuscular Volume 94.7 fL (80-100); Platelet Count 212 X10^3/uL (150-400)
[2025-03-25 05:51] LABS: Blood Urea Nitrogen 24 mg/dL (9-20); Calcium 9.0 mg/dL (8.4-10.2); Carbon Dioxide 25 mmol/L (22-32); Chloride 107 mmol/L (98-107); Estimated Glomerular Filt Rate > 60 mL/min (>60); Glucose 139 mg/dL (70-99); Potassium 4.3 mmol/L (3.4-5.1); Sodium 140 mmol/L (137-145)
[2025-03-25 05:57] LABS: HEMOLYSIS 68 (0-50)
[2025-03-25 08:49] VITALS: BP 109/70; PULSE 61; RESP 13; TEMP 36.9; O2SAT 96
--- NOTE | 2025-03-25 09:27 | P.DS_ITS ---
History of Present Illness History of Present Illness Date Patient Seen: 03/25/25 Time Patient Seen: 08:55 Chief complaint: Poss food poisoning Narrative: 79-year-old male with past medical history of colitis, atrial fibrillation on Eliquis, prior renal carcinoma, BPH and erectile dysfunction presents with nausea and vomiting. Per the patient's report, the patient had a family this afternoon. Around 6:30 PM the patient started to have nausea and vomited. Patient also have generalized abdominal pain that is crampy in nature. Patient denies any diarrhea, fever, chills, chest pain or shortness of breath. Denies any dysuria or coughing. The patient main pain is upper abdomen left greater than right. In the emergency room, the patient was hemodynamically stable. Labs shows a WBC of 15 creatinine 1.26 lipase 226 lactate slightly up at 2.2. CT scan of abdomen and pelvic shows partial low-grade small bowel obstruction in the left lower quadrant. General surgery was consulted and said that we can admit the patient for conservative management. General surgery will be available if needed for consultation in the morning. Discharge Providers Provider Date of admission: 03/24/25 22:58 Discharge Date: 03/25/25 Primary care physician: Rolanda Delgado DO Discharge provider: Juan Ackerman MD Summary Hospital Course Discharge Diagnosis: 1. Acute gastroenteritis, likely due to food poisoning 2. Low-grade partial small bowel obstruction due to 1., resolved 3. Atrial fibrillation 4. Anxiety Hospital Course: The patient was admitted and administered IV fluids, antiemetics and bowel rest. He improved significantly overnight. He had eaten tamales from his refrigerator that he states were at least a couple of weeks old, and felt that they were the culprit. He was able to tolerate a clear liquid diet and had complete resolution of abdominal discomfort. No other issues arose. He was interested in discharge home. Status at Discharge Cognitive/behavioral status at discharge: oriented Functional status at discharge: independent ambulation Overall status at discharge: patient is back to baseline Time Spent with Patient Time spent: Less than 30 minutes Exam Vital Signs (past 8 hours): - 03/25/25 08:49 Temperature 98.5 F Pulse Rate 61 Respiratory Rate 13 Blood Pressure 109/70 Pulse Oximetry 96 Oxygen Flow Rate 0 Oxygen Delivery Method Room Air Oxygen Flow Rate 0 Narrative Exam Narrative: GENERAL: This is a well-nourished, well-developed patient, in no apparent distress. HEAD: Atraumatic. Normocephalic. No temporal or scalp tenderness. EYES: Pupils equal round and reactive. Extraocular motions intact. No scleral icterus. No injection or drainage. ENT: Mucous membranes pink and moist. NECK: Trachea midline. No JVD, bruits or lymphadenopathy. Supple, nontender, no meningeal signs. CARDIOVASCULAR: Regular rate and rhythm without murmurs, gallops, or rubs. RESPIRATORY: Clear to auscultation. GASTROINTESTINAL: Abdomen soft, non-tender, nondistended. EXTREMITIES: No clubbing, cyanosis, or edema. BACK: Nontender without deformity or crepitance. No flank tenderness. NEUROLOGIC: Alert, oriented, speech fluent, full upper and lower motor strength, no focal deficits evident. DERMATOLOGIC: No rashes or skin lesions. Objective Imaging *: Radiologist's impression: 1. Chest x-ray 03/24/2025: No acute cardiopulmonary abnormality is seen. 2. Abdomen/pelvis 03/24/2025 Partial, low-grade bowel obstruction with a gradual transition point in the left lower quadrant. Bowel distal to the transition point does contain fluid. There is fecalization of small bowel contents. Normal enhancement of the bowel. Mild mesenteric edema. Labs 03/25/25 05:09 03/25/25 05:09 Labs: Laboratory Results - last 24 hr 03/24/25 03/24/25 03/24/25 20:40 22:28 23:30 WBC 15.1 H RBC 5.06 Hgb 16.3 Hct 48.3 MCV 95.4 MCH 32.2 MCHC 33.7 RDW 12.8 Plt Count 258 Neut % (Auto) 82.7 H Lymph % (Auto) 12.3 L [place] % (Auto) 4.1 Eos % (Auto) 0.2 L Baso % (Auto) 0.7 Neut # (Auto) 24326 H Lymph # (Auto) 1900 [place] # (Auto) 600 Eos # (Auto) 0 Baso # (Auto) 100 Sodium 142 Potassium 3.9 Chloride 101 Carbon Dioxide 30 BUN 21 H Creatinine 1.26 H Estimated GFR 58 L BUN/Creatinine Ratio 16.7 Glucose 166 H Lactate 2.2 H 1.5 Calcium 10.1 Total Bilirubin 0.8 AST 31 ALT 22 Alkaline Phosphatase 122 Total Protein 9.0 H Albumin 4.9 Globulin 4.1 Albumin/Globulin Ratio 1.2 Lipase 226 SARS-CoV-2 (PCR) Negative Influenza A (RT-PCR) Flu a negative Influenza B (RT-PCR) Flu b negative RSV (PCR) Negative 03/25/25 05:09 WBC 12.0 H RBC 4.67 Hgb 15.3 Hct 44.3 MCV 94.7 MCH 32.7 MCHC 34.5 RDW 13.0 Plt Count 212 Neut % (Auto) 88.3 H Lymph % (Auto) 5.2 L [place] % (Auto) 5.8 Eos % (Auto) 0.0 L Baso % (Auto) 0.7 Neut # (Auto) 46162 H Lymph # (Auto) 600 L [place] # (Auto) 700 Eos # (Auto) 0 Baso # (Auto) 100 Sodium 140 Potassium 4.3 Chloride 107 Carbon Dioxide 25 BUN 24 H Creatinine 1.04 Estimated GFR > 60 BUN/Creatinine Ratio 23.1 H Glucose 139 H Lactate Calcium 9.0 Total Bilirubin AST ALT Alkaline Phosphatase Total Protein Albumin Globulin Albumin/Globulin Ratio Lipase SARS-CoV-2 (PCR) Influenza A (RT-PCR) Influenza B (RT-PCR) RSV (PCR) [facility] Medical History Back pain BPH with obstruction/lower urinary tract symptoms (~1992) Chest pain, atypical Colitis Costochondritis Depression with anxiety Dermatofibroma (~1991) Diverticulum of bladder Elevated PSA (01/24/11) Erectile dysfunction Generalized arthritis Genital herpes Hearing loss History of cardioversion (~2006) Hyperlipidemia IBS (irritable bowel syndrome) (~2003) Microscopic hematuria Neck pain Numbness and tingling Palpitations Paroxysmal atrial fibrillation Pneumonia Scrotal cyst Urinary retention Urinary retention due to benign prostatic hyperplasia Surgical History Anesthesia H/O vasectomy History of colonoscopy History of kidney surgery (~2022) History of left hip replacement (~2018) Hx of oral surgery Hx of tonsillectomy S/P TURP (~2023) Family History Father Cancer Sister Mental health problem Social History household members: spouse and children Smoking Status: Never smoker alcohol intake: current Discharge Plan Discharge Plan Patient Disposition: Home Provider Discharge Comment: Followup with PCP 1 week Discharge orders & Medications Prescriptions: Continued lorazepam 0.5 mg tablet 0.5 mg PO DAILY PRN (Reason: anxiety) Qty: 5 0RF Xarelto 20 mg tablet 20 mg PO DAILY propafenone 150 mg Tablet 150 mg PO TID metoprolol succinate 50 mg Tablet Extended Release 24 Hr 50 mg PO DAILY sildenafil [Viagra] 25 mg Tablet 25 mg PO DAILY PRN (Reason: Sexual Activity) Follow up/Referrals: Rolanda Delgado DO [Primary Care Provider, [facility]] Diet/Activity/Treatments Diet: Diet as Tolerated Visit Report/Discharge Packet Stand Alone Forms: Patient Portal/API, Stroke Signs & Symptoms Discharge Data Primary Care Provider: Rolanda Delgado Attending Provider: Larry Haynes Admit Date/Time: 03/24/25 22:58 Quality VTE Deep Vein Thrombosis/Pulmonary Embolism Present on Admission: No MIPS - Admit I confirm the patient?s Advance Care Plan is present, Code status is documented, Surrogate decision maker is in patient?s record [If Yes, STOP here]: Yes MIPS - Meds 'Current medications' to include all prescriptions, [id number] products, herbals, cannabis/cannabidiol products, and vitamin/mineral/dietary (nutritional) supplements. I have utilized all available resources to obtain, update, or review the patient?s current medications. [If Yes, STOP here]: Yes MIPS - DC The patient has a history of heart transplant or Left Ventricular Assist Device (LVAD). If yes, STOP here.: No The patient has current or prior documentation of left ventricular ejection fraction (LVEF) less than or equal to 40%, or moderate or severely depressed left ventricular systolic function.: No A. The patient was prescribed or already taking an Angiotensin-Converting Enzyme (PRINCE) Inhibitor, or Angiotensin Receptor Harsh (ARB).: No B. The patient was prescribed or already taking a beta-harsh. [If Yes to Both A & B, STOP here]: Yes Patient not prescribed/taking PRINCE or ARB, no reason given.: No Patient not prescribed/taking beta-harsh, no reason given.: No PROFEE Charge Codes Discharge inpatient/observation: [id number]
--- NOTE | 2025-03-25 10:16 | PC.NURSE ---
Discharge note: Alert and oriented, up OOB to BR. Tolerated clear diet, voiding. NO c/o abdominal pain, or discomfort. Abdomen soft, non tender, non distended. BS active. BM 03/24. Dressed self. Discharge instructions given to patient, discussed importance of F/U with PMD and signs of worsening symptoms. Home via private vehicle, accomapanied by spouse.
--- NOTE | 2025-03-25 13:29 | CM.DANOTE ---
Initial DCP Assessment Visit Note Reviewed EMR and team rounds for pt's medical status and updates. This REPAIRER KILN CAR was unable to meet with pt prior to his d/c this morning due to unit triage needs. Pt lives independently with his spouse in their own home here in [place]. He was medically cleared for d/c, and his transported him home. No CM d/c assistance or resource needs were identified during his stay. Payor: [facility] PCP: Dr. Delgado Pt is 79 year-old M who presented to the ED after having eaten leftovers from his refrigerator, then proceeded to have nausea/vomiting, and left-upper quadrant abdominal pain for the next 3-hours before coming to the ED. CT abd/pelvis showed a very small-small bowel obstruction. Surgery was consulted, and the plan was made to admit to OBS for conservative management and monitoring. Today, he felt much improved to baseline, and was released home. This REPAIRER KILN CAR did send a message to the TCM team re: the need for him to have an OP PCP f/u visit within 1-week, per Hospitalist. No further needs are identified at this time. Discharge Planning/Care Management CM Discharge Assessment Start: 03/24/25 23:41 Freq: Status: Discharge Protocol: Document 03/25/25 13:26 DPL (Rec: 03/25/25 13:28 DPL [id number]) Discharge Planning Assessment Assigned Discharge [employer] Provider Dr. Delgado Insurance [facility] Advance Directives? No History Provided By Medical Record Has Patient been No admitted in last 30 days? Prior Living House Arrangements Household Members spouse,children Type of Drives own vehicle transporation used prior to admit Independent with ADL Yes 's Is patient alert and Yes oriented? Comment N/A Caregiver for No Another Comment N/A Comment PCP f/u within 1-week Barriers to No Discharge Discharge Plan Home Referrals Initiated None needed Whiteboard Updated Yes in Patient Room with name and ext. # of [employer]er [employer] Review Status In Process Please Provide Date 03/25/25 Initial DC Assessment Was Performed
== END 2025-03-25 10:32 | disposition home or self-care (01) ==
LOC: ED 22:58 → AC 22:58
PROVIDERS: Admitting Provider Internal Medicine; Emergency Provider Emergency Medicine; Family Provider Family Medicine; PCP Family Medicine; Visit Provider Internal Medicine
DX: K52.9 Noninfective gastroenteritis and colitis, unspecified (principal); K56.600 Partial intestinal obstruction, unspecified as to cause; I48.91 Unspecified atrial fibrillation; F41.9 Anxiety disorder, unspecified; Z85.528 Personal history of other malignant neoplasm of kidney; Z79.01 Long term (current) use of anticoagulants
CPT/HCPCS: 36415; 71045; 74177; 80048; 80053; 83605; 83690; 85025; 87637; 93005; 96361; 96374; 96375; 96376; 99284; 99285; G0378; J2272; J2405; J7030; Q9967